=== PATIENT | female | born 1970 | race Caucasian/White ===

== ENCOUNTER 2020-06-13 09:17 | Outpatient (REF) | payer OTHER, SELFPAY ==
--- NOTE | ~2020-06-13 | MM_ITS ---
EXAMINATION: BONE DENSITOMETRY CLINICAL INDICATION: Screening for osteoporosis. COMPARISON: Previous BD dated 06/06/2015 and baseline BD dated 12/30/2007. TECHNIQUE: Using a [employer] DXA System (software version: 13.1) manufactured by [employer], dual-energy x-ray absorptiometry was performed of the lumbar spine and left hip. The images are of good technical quality. Summary results are attached. FINDINGS: AP SPINE L1-L4: Current: BMD 1.108 g/cm2, Z-score -0.2, T-score -0.6, normal, 1.5% increase from previous, 5.4% decrease from baseline (<5% change is not significant). Prior: BMD 1.092 g/cm2. Baseline: BMD 1.171 g/cm2. LEFT FEMUR, NECK: Current: BMD 0.689 g/cm2, Z-score -1.7, T-score -2.5, osteoporosis. Prior: BMD 0.711 g/cm2. Baseline: BMD 0.742 g/cm2. LEFT FEMUR, TOTAL: Current: BMD 0.761 g/cm2, Z-score -1.5, T-score -2.0, osteopenia, 0.4% decrease from previous, 4.8% decrease from baseline (<5% change is not significant). Prior: BMD 0.764 g/cm2. Baseline: BMD 0.799 g/cm2. IDENTIFIED RISK FACTORS: None listed. HISTORY OF FRACTURE: None listed. MEDICATIONS: Vitamin D, calcium, ERT. MM/XR DEXA axial skeleton IMPRESSION: 1. DIAGNOSIS: Osteoporosis based on the lowest T-score value of -2.5 in the femoral neck applying World Health Organization criteria. 2. 10-YEAR FRACTURE RISK PREDICTION, FRAX: Major osteoporotic fracture (clinical spine, forearm, hip or shoulder) 7.4%. Hip fracture 1.6%. 3. Treatment Recommendations: NOF guidelines recommend consideration for treatment in postmenopausal women and men age 50 and older presenting with the following: -A hip or vertebral (clinical or morphometric) fracture. -T-score less than or equal to -2.5 at the femoral neck or spine after appropriate evaluation to exclude secondary causes. -Low bone mass at the hip or spine and a 10-year fracture probability by FRAX of greater than or equal to 3% for hip fracture or greater than or equal to 20% for major osteoporotic fracture based on the [place] adapted WHO algorithm. 4. Other Recommendations: All treatment decisions require clinical judgment and consideration of individual patient factors, including patient preferences, comorbidities, previous drug use, risk factors not captured in the FRAX model (e.g. frailty, falls, vitamin D deficiency, increased bone turnover, interval significant decline in bone density) and possible under or overestimation of fracture risk by FRAX. Additional medical evaluation for secondary cause of low bone mineral density may be appropriate. FUTURE SCAN RECOMMENDATION: People with diagnosed cases of osteoporosis or at high risk for fracture should have regular bone mineral density tests. For patients eligible for Medicare, routine testing is allowed once every 2 years. The testing frequency can be increased to one year for patients who have rapidly progressing disease, those who are receiving or discontinuing medical therapy to restore bone mass, or have additional risk factors.
== END 2020-06-13 09:18 | disposition home or self-care (01) ==
LOC: HO.MAMMO 09:17
PROVIDERS: Visit Provider Family Medicine
DX: Z13.820 Encounter for screening for osteoporosis (principal); M81.0 Age-related osteoporosis without current pathological fracture; Z79.899 Other long term (current) drug therapy
CPT/HCPCS: 77080

== ENCOUNTER 2020-09-12 09:20 | Outpatient (REF) | payer OTHER, SELFPAY ==
--- NOTE | ~2020-09-12 | MM_ITS ---
EXAMINATION: MM SCREENING DIGITAL BREAST TOMOSYNTHESIS, BILATERAL CLINICAL INFORMATION: Screening. Asymptomatic. The lifetime risk of breast cancer based on the Tyrer-Cuzick Model is 17%. COMPARISON: Mammography: 09/08/2019, 09/01/2018, 08/27/2017 TECHNIQUE: Digital breast tomosynthesis is performed in both the craniocaudal and mediolateral oblique views along with computer-aided detection (CAD). Synthesized 2D images are generated from the tomosynthesis. FINDINGS: The breasts are heterogeneously dense, which may obscure small masses (ACR BI-RADS breast composition Category c). There are no significant masses, abnormal calcifications, or other abnormalities. The axilla and skin contours are unremarkable. MM/MM tomosynthesis screening BI IMPRESSION: No mammographic evidence of malignancy. ASSESSMENT: BI-RADS 1: Negative RECOMMENDATION: Routine annual mammography screening. This patient's information was entered into a reminder system with a target due date for their next mammogram.
== END 2020-09-12 09:21 | disposition home or self-care (01) ==
LOC: HO.MAMMO 09:20
PROVIDERS: PCP Family Medicine; Visit Provider Family Medicine
DX: Z12.31 Encounter for screening mammogram for malignant neoplasm of breast (principal)
CPT/HCPCS: 77063; 77067

== ENCOUNTER 2020-09-26 09:25 | Outpatient (REF) | payer OTHER, SELFPAY ==
[2020-09-28 18:06] LABS: HPV mRNA E6/E7 rflx Not Detected (Not Detected)
== END 2020-09-26 09:26 | disposition home or self-care (01) ==
LOC: HO.LAB 09:25
PROVIDERS: PCP Family Medicine; Visit Provider Advanced Practice Midwife
DX: Z01.411 Encounter for gynecological examination (general) (routine) with abnormal findings (principal); Z11.51 Encounter for screening for human papillomavirus (HPV); R87.619 Unspecified abnormal cytological findings in specimens from cervix uteri
CPT/HCPCS: 87624; 88142

== ENCOUNTER 2020-11-06 15:27 | Outpatient (REF) | payer OTHER, SELFPAY ==
[2020-11-08 04:16] LABS: Follicle Stimulating Hormone 62.1 mIU/mL
== END 2020-11-06 15:28 | disposition home or self-care (01) ==
LOC: HO.LAB 15:27
PROVIDERS: PCP Family Medicine; Visit Provider Advanced Practice Midwife
DX: R23.2 Flushing (principal)
CPT/HCPCS: 36415; 83001

== ENCOUNTER → 2020-11-28 09:21 | Outpatient (BNVA) | payer OTHER, SELFPAY | PROVIDERS: Visit Provider Advanced Practice Midwife ==

== ENCOUNTER 2021-09-25 09:25 | Outpatient (REF) | payer OTHER, SELFPAY ==
--- NOTE | ~2021-09-25 | MM_ITS ---
EXAMINATION: MM SCREENING DIGITAL BREAST TOMOSYNTHESIS, BILATERAL CLINICAL INFORMATION: Screening. Asymptomatic. The lifetime risk of breast cancer based on the Tyrer-Cuzick Model is 14%. COMPARISON: Mammography: 09/12/2020, 09/08/2019, 09/01/2018 TECHNIQUE: Digital breast tomosynthesis is performed in both the craniocaudal and mediolateral oblique views along with computer-aided detection (CAD). Synthesized 2D images are generated from the tomosynthesis. FINDINGS: The breasts are heterogeneously dense, which may obscure small masses (ACR BI-RADS breast composition Category c). There are no significant masses, abnormal calcifications, or other abnormalities. Parenchymal pattern is similar to prior studies. There is no developing density or architectural abnormality. The axilla and skin contours are unremarkable. No significant changes. MM/MM tomosynthesis screening BI IMPRESSION: No mammographic evidence of malignancy. ASSESSMENT: BI-RADS 1: Negative RECOMMENDATION: Routine annual mammography screening. This patient's information was entered into a reminder system with a target due date for their next mammogram.
== END 2021-09-25 09:26 | disposition home or self-care (01) ==
LOC: HO.MAMMO 09:25
PROVIDERS: Visit Provider Family Medicine
DX: Z12.31 Encounter for screening mammogram for malignant neoplasm of breast (principal)
CPT/HCPCS: 77063; 77067

== ENCOUNTER 2022-06-16 14:53 | Outpatient (REF) | payer OTHER, SELFPAY ==
--- NOTE | ~2022-06-16 | MM_ITS ---
EXAMINATION: BONE DENSITOMETRY CLINICAL INDICATION: Osteopenia, unspecified location. COMPARISON: Previous BD dated 06/13/2020 and baseline BD dated 12/30/2007. TECHNIQUE: Using a [employer] DXA System (software version: 13.1) manufactured by [employer], dual-energy x-ray absorptiometry was performed of the lumbar spine and left hip. The images are of good technical quality. Summary results are attached. FINDINGS: AP SPINE L1-L4: Current: BMD 0.993 g/cm2, Z-score -0.8, T-score -1.6, osteopenia, 10.4% decrease from previous, 15.2% decrease from baseline (<5% change is not significant). Prior: BMD 1.108 g/cm2. Baseline: BMD 1.171 g/cm2. LEFT FEMUR, NECK: Current: BMD 0.667 g/cm2, Z-score -1.7, T-score -2.7, osteoporosis. Prior: BMD 0.689 g/cm2. Baseline: BMD 0.742 g/cm2. LEFT FEMUR, TOTAL: Current: BMD 0.714 g/cm2, Z-score -1.7, T-score -2.3, osteopenia, 6.2% decrease from previous, 10.6% decrease from baseline (<5% change is not significant). Prior: BMD 0.761 g/cm2. Baseline: BMD 0.799 g/cm2. IDENTIFIED RISK FACTORS: Menopause, osteoporosis. HISTORY OF FRACTURE: None listed. MEDICATIONS: Calcium, vitamin D. MM/XR DEXA axial skeleton IMPRESSION: 1. DIAGNOSIS: Osteoporosis based on the lowest T-score value of -2.7 in the femoral neck applying World Health Organization criteria. 2. 10-YEAR FRACTURE RISK PREDICTION, FRAX: According to the guidelines, FRAX calculation should only be performed on patients in the osteopenia bone density category. Therefore, FRAX was not performed on this patient. 3. Treatment Recommendations: NOF guidelines recommend consideration for treatment in postmenopausal women and men age 50 and older presenting with the following: -A hip or vertebral (clinical or morphometric) fracture. -T-score less than or equal to -2.5 at the femoral neck or spine after appropriate evaluation to exclude secondary causes. -Low bone mass at the hip or spine and a 10-year fracture probability by FRAX of greater than or equal to 3% for hip fracture or greater than or equal to 20% for major osteoporotic fracture based on the [place] adapted WHO algorithm. 4. Other Recommendations: All treatment decisions require clinical judgment and consideration of individual patient factors, including patient preferences, comorbidities, previous drug use, risk factors not captured in the FRAX model (e.g. frailty, falls, vitamin D deficiency, increased bone turnover, interval significant decline in bone density) and possible under or overestimation of fracture risk by FRAX. Additional medical evaluation for secondary cause of low bone mineral density may be appropriate. FUTURE SCAN RECOMMENDATION: People with diagnosed cases of osteoporosis or at high risk for fracture should have regular bone mineral density tests. For patients eligible for Medicare, routine testing is allowed once every 2 years. The testing frequency can be increased to one year for patients who have rapidly progressing disease, those who are receiving or discontinuing medical therapy to restore bone mass, or have additional risk factors.
== END 2022-06-16 14:54 | disposition home or self-care (01) ==
LOC: HO.MAMMO 14:53
PROVIDERS: PCP Family Medicine; Visit Provider Family Medicine
DX: Z13.820 Encounter for screening for osteoporosis (principal); M85.80 Other specified disorders of bone density and structure, unspecified site; Z78.0 Asymptomatic menopausal state
CPT/HCPCS: 77080

== ENCOUNTER 2022-10-02 08:43 | Outpatient (REF) | payer OTHER, SELFPAY | END 2022-10-02 08:44 | disposition home or self-care (01) | LOC: HO.MAMMO 08:43 | PROVIDERS: Absent Provider Advanced Practice Midwife; PCP Family Medicine; Visit Provider Family Medicine | DX: Z12.31 Encounter for screening mammogram for malignant neoplasm of breast (principal) | CPT/HCPCS: 77063; 77067 ==

== ENCOUNTER → 2022-10-02 08:45 | Outpatient (BNV) | payer OTHER, SELFPAY | PROVIDERS: Absent Provider Advanced Practice Midwife; PCP Family Medicine; Visit Provider Radiology Diagnostic Radiology | DX: Z12.31 Encounter for screening mammogram for malignant neoplasm of breast (principal) | CPT/HCPCS: 77063; 77067 ==

== ENCOUNTER 2022-10-23 15:22 | Outpatient (REF) | payer OTHER, SELFPAY ==
[2022-10-28 04:13] LABS: HPV mRNA E6/E7 rflx Not Detected (Not Detected)
== END 2022-10-23 15:23 | disposition home or self-care (01) ==
LOC: HO.LNP 15:22
PROVIDERS: PCP Family Medicine; Visit Provider Advanced Practice Midwife
DX: Z01.419 Encounter for gynecological examination (general) (routine) without abnormal findings (principal); N95.1 Menopausal and female climacteric states
CPT/HCPCS: 87624; 88142

== ENCOUNTER 2022-10-23 15:22 | Outpatient (AMB) | payer OTHER, SELFPAY ==
--- NOTE | 2022-10-23 15:23 | MHC.OFFVIS ---
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 Doing well with no air traffic control supervisor concerns. She attempts to eat a healthy diet including Calcium and Vitamin D. She stays active with exercise. Currently sexually active. Uses lubricants for intimacy. Denies vaginal itching and irritation. Last pap smear 2020. Hx of abnormal pap, ASCUS. Hx of LEEP. Patient is adamant that she wants a pap smear done today. Last mammogram 10/02/22. UTD on colonoscopy. 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 [employer] Sexually active: Yes Sexual orientation: Straight/Heterosexual Gender identity: Female Female Reproductive History Menstrual Age of Menarche: 11 Menopause type: natural Total pregnancies: 1 Number of Living Children: 0 Ab spontaneous: 1 Date of last pap smear: 09/27/20 Date of Mammogram: 10/02/22 Review of Systems Const All systems reviewed & are unremarkable except as noted in HPI and below Physical Exam Vital Signs: Last Vital Signs BP 108/60 10/23/22 15:27 BMI result Body Mass Index 23.0 Const General: cooperative, healthy appearing, no acute distress, well developed and alert Orientation/consciousness: patient oriented x3 HEENT Head: Yes normal to inspection Eyes General: appearance normal, both eyes and all related structures Neck Neck: Yes normal visual inspection Thyroid: Thyroid normal Chest Chest palpation & inspection: normal inspection of the chest Breast/axilla inspection: normal inspection of the breasts (no puckering, dimpling, peau de orange, retraction, discharge, masses) Breast/axilla palpation: normal palpation of the breasts Resp Effort & Inspection: normal respiratory effort GI Inspection: Yes normal to inspection Palpation (GI): Soft to palpation Rectal Exam - Female: deferred General: Yes bladder normal to palpation External Female Exam: normal external appearance and normal appearance of the urethra Speculum Exam - Vagina: normal appearance of the vagina, normal palpation, normal vaginal discharge and vagina atrophic Speculum Exam - Cervix: normal appearance of the cervix (post LEEP appearance) and normal palpation Bimanual exam- vagina & uterus: normal bimanual exam, normal palpation, uterine size normal, bladder normal to palpation and normal palpation Bimanual Exam- Adnexa, other: normal adnexae and no masses Skin General skin exam: no rashes or lesions noted Neuro General: patient oriented x3 Cognition (Neuro): normal cognition Extrem General: Yes normal to inspection Psych Attitude: cooperative Thought process: Normal thought process present Assessment & Plan Assessment & Plan (1) Encounter for annual routine gynecological examination: Code(s): Z01.419 - Encounter for gynecological examination (general) (routine) without abnormal findings Plan: Discussed: Current recommendations for pap smears per ASCCP guidelines. Breast awareness and periodic self breast exams. Encouraged yearly mammograms. Maintaining a healthy lifestyle including a well balanced diet including Calcium and Vitamin D and routine exercise. Contact office with any PMB. All of her questions and concerns were addressed to the best of my ability. RTO in one year for AG. (2) Vaginal dryness, menopausal: Code(s): N95.1 - Menopausal and female climacteric states Plan: Recommended using Replens for moisturizing and lubricants such as Replens, Astroglide, K-Y jelly or Coconut oil for intimacy. Orders: Orders Pap Smear Today Z01.419 - Encounter for gynecological examination (general) (routine) without abnormal findings Coding Level of Care Code Est Pt Prev Care 40-64y(04556) Diagnoses Encounter for annual routine gynecological examination Z01.419 Vaginal dryness, menopausal N95.1
[2022-10-23 15:27] VITALS: BP 108/60; BMI 23.0
== END 2022-10-23 16:17 | disposition home or self-care (01) ==
PROVIDERS: PCP Family Medicine; Visit Provider Advanced Practice Midwife
DX: Z01.419 Encounter for gynecological examination (general) (routine) without abnormal findings (principal); N95.1 Menopausal and female climacteric states
CPT/HCPCS: 99396

== ENCOUNTER 2023-01-22 08:08 | Outpatient (AMB) | payer OTHER, SELFPAY ==
--- NOTE | 2023-01-22 08:18 | MHC.OFFVIS ---
Intake Vital Signs 01/22/23 08:22 Height 5 ft 5 in Weight 136 lb 10.986 oz BMI 22.7 BP 110/66 Intake Visit Reasons: repeat pap Seo Manager Required: No Information Interpreted: non-clinical & clinical Regional Sales Manager: Regional Sales Manager Present (Isabela GILLIS) Accompanied by: Self / Same As Patient Allergies penicillin V Allergy (Unknown, Verified 01/22/23 08:22) rash Latex Allergy (Unknown, Uncoded 01/22/23 08:22) rash/hive Post menopausal: Yes HPI HPI Comments History of Present Illness Details Marybel is here for a repeat Pap smear due to unsatisfactory. She denies any postmenopausal bleeding, vaginal itching, odors, or discomfort. Upset today due to the recent loss of her father. 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 [employer] Sexual orientation: Straight/Heterosexual Gender identity: Female Female Reproductive History Menstrual Age of Menarche: 11 Review of Systems Const All systems reviewed & are unremarkable except as noted in HPI and below Physical Exam Vital Signs: Last Vital Signs BP 110/66 01/22/23 08:22 BMI result Body Mass Index 22.7 Const General: cooperative, healthy appearing and no acute distress Orientation/consciousness: patient oriented x3 GI Inspection: Yes normal to inspection Palpation (GI): Soft to palpation and Other GI palpation findings present (Nontender) Rectal Exam - Female: visual inspection normal General: Yes bladder normal to palpation External Female Exam: normal appearance of the urethra Speculum Exam - Vagina: normal appearance of the vagina, normal palpation, normal vaginal discharge and vagina atrophic Speculum Exam - Cervix: normal appearance of the cervix and normal palpation Bimanual exam- vagina & uterus: normal bimanual exam, normal palpation, uterine size normal, bladder normal to palpation, normal palpation, uterine shape normal and non-tender Bimanual Exam- Adnexa, other: normal adnexae Neuro General: patient oriented x3 Assessment & Plan Assessment & Plan (1) Pap smear of cervix unsatisfactory: Code(s): R87.615 - Unsatisfactory cytologic smear of cervix Plan: Discussed: Repeat Pap done today. Normal changes with aging and atrophic vaginitis condition. It Call if any postmenopausal bleeding. Discussed the grief process. Return to office October 2023 for annual exam or p.r.n.. Orders: Orders Pap Smear Today R87.615 - Unsatisfactory cytologic smear of cervix Coding Level of Care Code Est Pt Level 3 (03784) Diagnoses Pap smear of cervix unsatisfactory R87.615
[2023-01-22 08:22] VITALS: BP 110/66; BMI 22.7
== END 2023-01-22 09:51 | disposition home or self-care (01) ==
PROVIDERS: PCP Family Medicine; Visit Provider Advanced Practice Midwife
DX: R87.615 Unsatisfactory cytologic smear of cervix (principal)
CPT/HCPCS: 99213

== ENCOUNTER 2023-01-22 08:08 | Outpatient (REF) | payer OTHER, SELFPAY | END 2023-01-22 08:09 | disposition home or self-care (01) | LOC: HO.LNP 08:08 | PROVIDERS: PCP Family Medicine; Visit Provider Advanced Practice Midwife | DX: R87.615 Unsatisfactory cytologic smear of cervix (principal); Z12.4 Encounter for screening for malignant neoplasm of cervix | CPT/HCPCS: 88142; 99212 ==

== ENCOUNTER 2023-10-07 09:14 | Outpatient (REF) | payer OTHER, SELFPAY ==
--- NOTE | ~2023-10-07 | MM_ITS ---
EXAMINATION: MM SCREENING DIGITAL BREAST TOMOSYNTHESIS, BILATERAL CLINICAL INFORMATION: Screening. Asymptomatic. COMPARISON: Mammography: 10/02/2022, 09/25/2021, 09/12/2020, and dating back to 2016. TECHNIQUE: Digital breast tomosynthesis is performed in both the craniocaudal and mediolateral oblique views along with computer-aided detection (CAD). Synthesized 2D images are generated from the tomosynthesis. In addition, an added laterally which generated 4 field 3-D CC view was obtained, as well as full field right MLO view. FINDINGS: The breasts are heterogeneously dense, which may obscure small masses (ACR BI-RADS breast composition Category c). There is a focal asymmetry in the upper outer left breast axillary tail region, definitely more conspicuous from prior exams. Recommend diagnostic views to include 3-D spot compression left CC and MLO views, as well as a full field left ML view. This should be followed by targeted left breast ultrasound showed the abnormality persist. No axillary or skin abnormalities in either breast. Otherwise, no additional suspicious findings in the left or right breasts. MM/MM tomosynthesis screening BI IMPRESSION: Focal asymmetry left breast axillary tail for which diagnostic views are recommended, followed by targeted left breast ultrasound if necessary. ASSESSMENT: BI-RADS BI-RADS 0 - Incomplete: Needs additional Imaging. RECOMMENDATION: 1. Additional views of the left breast axillary tail region. 2. Targeted ultrasound if warranted after review of the additional views. 3. Radiology department staff will contact the patient for additional imaging. Additional Imaging required This examination should not preclude the clinical evaluation of a suspicious palpable abnormality. This patient's information was entered into a reminder system with a target due date for their next mammogram. Electronically signed by: Homar Worthington MD 10/07/2023 12:57 PM EDT
== END 2023-10-07 09:15 | disposition home or self-care (01) ==
LOC: HO.MAMMO 09:14
PROVIDERS: PCP Family Medicine; Visit Provider Family Medicine
DX: Z12.31 Encounter for screening mammogram for malignant neoplasm of breast (principal)
CPT/HCPCS: 77063; 77067

== ENCOUNTER → 2023-10-07 09:15 | Outpatient (BNV) | payer OTHER, SELFPAY | PROVIDERS: PCP Family Medicine; Visit Provider Radiology Diagnostic Radiology | DX: Z12.31 Encounter for screening mammogram for malignant neoplasm of breast (principal) | CPT/HCPCS: 77063; 77067 ==

== ENCOUNTER 2023-10-12 10:49 | Outpatient (REF) | payer OTHER, SELFPAY ==
--- NOTE | ~2023-10-12 | US_ITS ---
EXAMINATION: MM DIAGNOSTIC DIGITAL BREAST TOMOSYNTHESIS, LEFT US BREAST LIMITED, LEFT MAMMOGRAPHY: CLINICAL INFORMATION: Diagnostic left examination: Follow-up left breast focal asymmetry upper outer quadrant seen on screening exam. COMPARISON: Mammography: 10/07/2023, 10/02/2022, and exams dating back to 2018. TECHNIQUE: Digital breast tomosynthesis is performed in the following views: Full field 3-D digital left MLO view, as well as 3-D Spot compression left CC and MLO views obtained. Computer-aided diagnosis was used for this study. This was followed by targeted left breast ultrasound Upper-outer quadrant. FINDINGS: The breasts are heterogeneously dense, which may obscure small masses (ACR BI-RADS breast composition Category c). Diagnostic views demonstrate persistence of an irregular spiculated mass in the upper-outer quadrant of the left breast mid to posterior one third, approximately 2:00 axis. There are small microcalcifications contained within the mass. There is desmoplasia present. Estimated size by mammography is 1.2 x 1.2 x 1.0 cm. This will be further characterized with ultrasound. ULTRASOUND: CLINICAL INFORMATION: As above. COMPARISON: Noncontributory. TECHNIQUE: Targeted sonographic evaluation was performed using a high frequency linear transducer. Attention was focused to the left breast upper outer quadrant, as well as the left axilla. Selected archived documentation. FINDINGS: LEFT BREAST: In the 2:00 axis of the left breast, 8 cm from the nipple, there is an irregular hypoechoic mass with poor through transmission, indistinct margins, microlobulations, and does metaplasia with surrounding echogenic fat changes. This has internal color Doppler flow. It measures 1.6 x 1.2 x 1.5 cm on ultrasound. This is a suspicious abnormality and ultrasound-guided biopsy is recommended. Imaging of the left axillary region shows no definitive abnormal lymph nodes. US/US breast LT limited mamm only IMPRESSION: 1. Suspicious mass left breast 2:00 axis, 8 cm from the nipple, as described, measuring 1.6 x 1.2 x 1.5 seen on ultrasound. This is suspicious and ultrasound-guided biopsy is recommended for more definitive characterization. 2. No definite abnormal lymph nodes in the left axillary region. 3. Findings and limitations discussed with the patient in detail. She appeared to be in understanding. OVERALL ASSESSMENT: Mammography: BI-RADS 4 - Suspicious finding Ultrasound: BI-RADS 4 - Suspicious finding RECOMMENDATION: Biopsy recommended Electronically signed by: Homar Worthington MD 10/12/2023 12:14 PM EDT
== END 2023-10-12 10:50 | disposition home or self-care (01) ==
LOC: HO.MAMMO 10:49
PROVIDERS: PCP Family Medicine; Visit Provider Family Medicine
DX: R92.8 Other abnormal and inconclusive findings on diagnostic imaging of breast (principal)
CPT/HCPCS: 76642; 77061; 77065

== ENCOUNTER → 2023-10-12 11:00 | Outpatient (BNV) | payer OTHER, SELFPAY | PROVIDERS: PCP Family Medicine; Visit Provider Radiology Diagnostic Radiology | DX: R92.8 Other abnormal and inconclusive findings on diagnostic imaging of breast (principal) | CPT/HCPCS: 76642; 77061; 77065 ==

== ENCOUNTER 2023-10-14 08:29 | Outpatient (AMB) | payer OTHER, SELFPAY ==
[2023-10-14 08:29] VITALS: BMI 22.7
--- NOTE | 2023-10-14 08:29 | MHC.OFFVIS ---
Vital Signs 10/14/23 08:29 Height 5 ft 5 in Weight 136 lb 10.986 oz BMI 22.7 Intake Visit Reasons: LT BR USBX FOR 2:00 ASYMMETRY Intake Note: This patient presents for left breast Ultrasound guided biopsy for 2:00 asymmetry. Pt c/o; reports no breast complaints at this time. 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: No Accompanied by: Mother Allergies penicillin V Allergy (Unknown, Verified 10/14/23 08:39) rash Latex Allergy (Unknown, Uncoded 10/14/23 08:39) rash/hive Medication List - Last Reconciled 10/14/23 by Corbin Morales MD alendronate 70 mg PO QWEEK calcium-vitamin D3-vitamin K 650 mg-12.5 mcg-40 mcg (Viactiv) tabs PO cetirizine (Zyrtec) 10 mg PO DAILY PRN cholecalciferol (vitamin D3) 50 mcg PO QID magnesium 400 mg PO DAILY mecobalamin (vitamin B12) 5,000 mcg PO DAILY omega-3 fatty acids (Fish Oil Concentrate) 1,000 mg PO DAILY riboflavin (vitamin B2) 400 mg PO DAILY simvastatin 20 mg PO DAILY triamcinolone acetonide 0.5% appl topical HPI HPI LT BR USBX FOR 2:00 ASYMMETRY: Details: 53 year-old female referred for left breast mass. She had undergone screening mammography last week and this showed a focal asymmetry on the left breast. She was brought in for diagnostic ultrasound and mammogram and this showed an irregular spiculated mass in the upper outer quadrant of the left breast at the 2 o'clock position. The estimated size is 1.2 cm in widest dimension. An ultrasound guided biopsy was therefore recommended She denies any palpable mass otherwise. Her menarche was at age of 11. Her 1st was at age of 26 but this was not completed. She only had 1 therefore which was a miscarriage. She had been on control since she was in her 20s but says that she stopped taking this in her early 50s and she did not have any menstrual periods thereafter. She says a paternal aunt had breast cancer but she is uncertain about the age. She had Hodgkin's lymphoma twice her 20s and says that she had radiation to the torso at that time. 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 [employer] Sexual orientation: Straight/Heterosexual Gender identity: Female Female Reproductive History Menstrual Age of Menarche: 11 Total pregnancies: 0 Review of Systems Const Denies chills and Denies fever(s) Card Denies chest pain, Denies dyspnea and Denies dyspnea on exertion Resp Denies cough, Denies dyspnea and Denies dyspnea on exertion GI Denies hematochezia and Denies change in bowel habits Denies hematuria Musc Denies back pain and Denies limited range of motion Neuro Denies focal weakness and Denies convulsions Psych Denies depression and Denies mood swings Physical Exam Vital Signs: BMI result Body Mass Index 22.7 Const General: comfortable and no acute distress Orientation/consciousness: patient oriented x3 Neck Neck: Yes no lymphadenopathy Chest Other: Vague mass the lateral aspect of the left breast, maybe about 1 cm in size, no axillary lymphadenopathy, no nipple or skin changes Resp Auscultation: clear to auscultation bilaterally Cardio Rhythm: regular rhythm GI Palpation (GI): Soft to palpation, nontender and no guarding Neuro General: patient oriented x3 Assessment & Plan Assessment & Plan (1) Left breast mass: Code(s): N63.20 - Unspecified lump in the left breast, unspecified quadrant Category: Medical Plan: She has a left breast mass with spiculation, and microcalcification seen on imaging studies as described above. An ultrasound-guided biopsy has been recommended. I explained to her the technique of this procedure. I will see her again next week to discuss the path report. I also recommended to her to see if they can find out the details about the breast cancer for her paternal aunt so we will know whether she qualifies for genetic testing. Orders: Orders US breast ndl core biopsy LT 10/13/23 N63.20 - Unspecified lump in the left breast, unspecified quadrant Coding Level of Care Code New Pt Level 3 (67679) Diagnoses Left breast mass N63.20
== END 2023-10-14 09:06 | disposition home or self-care (01) ==
PROVIDERS: PCP Family Medicine; Visit Provider Surgery
DX: N63.20 Unspecified lump in the left breast, unspecified quadrant (principal)
CPT/HCPCS: 99203

== ENCOUNTER → 2023-10-14 08:29 | Outpatient (BNVA) | payer OTHER, SELFPAY | PROVIDERS: PCP Family Medicine; Visit Provider Surgery | DX: N63.21 Unspecified lump in the left breast, upper outer quadrant (principal); N64.89 Other specified disorders of breast; R92.0 Mammographic microcalcification found on diagnostic imaging of breast | CPT/HCPCS: 99202 ==

== ENCOUNTER 2023-10-18 07:49 | Outpatient (REF) | payer OTHER, SELFPAY ==
--- NOTE | ~2023-10-18 | MM_ITS ---
PROCEDURE: US GUIDED BREAST BIOPSY, LEFT CLINICAL INFORMATION: Suspicious mass left breast 2:00 axis, 8 cm from the nipple, recommended for biopsy on prior diagnostic mammography and ultrasound. COMPARISON: 10/12/2023 left mammography and ultrasound. 10/07/2023 screening bilateral mammography. PROCEDURAL DETAILS: The details of the procedure, as well as the risks, benefits, and alternatives to the procedure were explained to the patient in detail and all of her questions were answered, after which written informed consent was obtained. Site and side were confirmed. Prior to the procedure, sonography revealed the hypoechoic irregular mass with poor through transmission measuring 1.6 x 1.2 x 1.5 cm at the 2:00 axis left breast, a CM from the nipple. A time-out was performed, the lesion intended for biopsy was targeted, and the skin of the overlying left breast was then marked, prepped and draped in the usual sterile fashion. Using sonographic guidance, sterile technique, and 1% lidocaine without epinephrine for local anesthesia, multiple core biopsies were obtained through the targeted area with a 14G spring loaded Nubityera core biopsy device. There was real-time confirmation of appropriate needle passage. Sampling was documented. At the completion of tissue sampling, a single butterfly shaped metallic clip was deposited at the biopsy site. There was no evidence of immediate complication. SPECIMEN: 4 well formed core samples were obtained DIGITAL POST-PROCEDURE MAMMOGRAPHY: Breast density: The tissue is heterogeneously dense which may obscure small masses. BI-RADS version 5, category C. There are no new mammographic findings demonstrated. The postprocedure 2-view direct digital mammogram reveals satisfactory and accurate positioning of the biopsy clip. No hematoma present. No significant bleeding during the procedure. The patient tolerated the procedure well and, after assuring adequate hemostasis, was discharged in good condition after reviewing postbiopsy breast care instructions. Final pathology results are pending. MM/MM tomosynthesis diagnostic LT IMPRESSION: 1. No immediate complication from ultrasound-guided percutaneous biopsy left breast mass at 2:00 axis, 8 cm from the nipple. 2. Ultrasound was used to localize and guide marker clip placement. 3. The 2-view direct digital postprocedure mammogram reveals accurate positioning of the biopsy clip. 4. Final pathology results are pending. A separate report with final recommendations will be issued once these results are made available. Electronically signed by: Homar Worthington MD 10/18/2023 09:26 AM EDT
[2023-10-18] MEDS: Sodium Bicarbonate 8.4% 50 MEQ/50 ML VIAL SUBCUT (09:19)
[2023-10-18] MEDS: Lidocaine HCl 1 % 20 ML VIAL 8 ML SUBCUT (09:20)
== END 2023-10-18 07:50 | disposition home or self-care (01) ==
LOC: HO.MAMMO 07:49
PROVIDERS: Pathology Anatomic Pathology & Clinical Pathology; PCP Family Medicine; Visit Provider Surgery
DX: C50.412 Malignant neoplasm of upper-outer quadrant of left female breast (principal); R92.8 Other abnormal and inconclusive findings on diagnostic imaging of breast; Z17.0 Estrogen receptor positive status [ER+]
CPT/HCPCS: 19083; 36415; 77061; 77065; 88305; 88360; 88374; A4648; C1894

== ENCOUNTER → 2023-10-18 08:00 | Outpatient (BNV) | payer OTHER, SELFPAY | PROVIDERS: PCP Family Medicine; Visit Provider Radiology Diagnostic Radiology | DX: C50.412 Malignant neoplasm of upper-outer quadrant of left female breast (principal) | CPT/HCPCS: 19083; 77065 ==

== ENCOUNTER 2023-10-21 14:12 | Outpatient (AMB) | payer OTHER, SELFPAY ==
--- NOTE | 2023-10-21 14:16 | MHC.OFFVIS ---
Vital Signs 10/21/23 14:20 Height 5 ft 5 in Weight 136 lb 10.986 oz BMI 22.7 Intake Visit Reasons: s/p LT BR USBX FOR 2:00 ASYMMETRY Intake Note: Patient presents for breast biopsy results. Pt c/o; reports no complaints. Vp Talent Management Required: No Accompanied by: Family/Other Allergies penicillin V Allergy (Unknown, Verified 10/27/23 13:07) rash Latex Allergy (Unknown, Uncoded 10/27/23 13:07) rash/hive Medication List - Last Reconciled 10/21/23 by Corbin Morales MD alendronate 70 mg PO QWEEK calcium-vitamin D3-vitamin K 650 mg-12.5 mcg-40 mcg (Viactiv) tabs PO cetirizine (Zyrtec) 10 mg PO DAILY PRN cholecalciferol (vitamin D3) 50 mcg PO QID magnesium 400 mg PO DAILY mecobalamin (vitamin B12) 5,000 mcg PO DAILY omega-3 fatty acids (Fish Oil Concentrate) 1,000 mg PO DAILY riboflavin (vitamin B2) 400 mg PO DAILY simvastatin 20 mg PO DAILY triamcinolone acetonide 0.5% appl topical HPI HPI s/p LT BR USBX FOR 2:00 ASYMMETRY: Details: 53 year-old female referred for left breast mass. She had undergone screening mammography 2 weeks ago and this showed a focal asymmetry on the left breast. She was brought in for diagnostic ultrasound and mammogram and this showed an irregular spiculated mass in the upper outer quadrant of the left breast at the 2 o'clock position. The estimated size is 1.2 cm in widest dimension. An ultrasound guided biopsy was therefore done last. She is here to discuss the path report. She tolerated the biopsy well and denies any hematoma. She denies any palpable mass otherwise. Her menarche was at age of 11. Her 1st was at age of 26 but this was not completed. She only had 1 therefore which was a miscarriage. She had been on control since she was in her 20s but says that she stopped taking this in her early 50s and she did not have any menstrual periods thereafter. She says a paternal aunt had breast cancer but she is uncertain about the age. She had Hodgkin's lymphoma twice her 20s and says that she had radiation to the torso at that time. [facility] Medical History Invasive ductal carcinoma of left breast Left breast mass Osteoporosis Fibroids HSV infection Abnormal Pap smear of cervix Anxiety and depression Hodgkin's disease Surgical History H/O left inguinal hernia repair H/O LEEP Family History Paternal Grandfather Colon cancer Father Cancer of kidney Diabetes Mother Hyperlipidemia Social History (Updated 10/27/23 @ 13:07 by Nicole Snow) Household Members: Spouse Housing: House Alcohol intake: never Patient Tobacco Use Status: Former Tobacco user Tobacco use type: Cigarette service: No Current occupational status: employed and unemployed 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 [employer] Sexual orientation: Straight/Heterosexual Gender identity: Female Female Reproductive History Menstrual Age of Menarche: 11 Review of Systems Const Denies chills and Denies fever(s) Card Denies chest pain, Denies dyspnea and Denies dyspnea on exertion Resp Denies cough, Denies dyspnea and Denies dyspnea on exertion GI Denies hematochezia and Denies change in bowel habits Denies hematuria Musc Denies back pain and Denies limited range of motion Neuro Denies focal weakness and Denies convulsions Psych Denies depression and Denies mood swings Physical Exam Vital Signs: BMI result Body Mass Index 22.7 Const General: comfortable and no acute distress Orientation/consciousness: patient oriented x3 Neck Neck: Yes no lymphadenopathy Chest Other: Mild ecchymosis on the biopsy site of the left breast Resp Auscultation: clear to auscultation bilaterally Cardio Rhythm: regular rhythm GI Palpation (GI): Soft to palpation, nontender and no guarding Neuro General: patient oriented x3 Assessment & Plan Assessment & Plan (1) Invasive ductal carcinoma of left breast: Code(s): C50.912 - Malignant neoplasm of unspecified site of left female breast Category: Medical Plan: Unfortunately, her ultrasound-guided biopsy shows an invasive ductal carcinoma, ERPR positive, HER2 equivocal. I had a long discussion with her about her options. She has a tumor about 1.6 cm in widest dimension. I explained the option of mastectomy with sentinel biopsy. She understands also the option of breast reconstruction. I also explained the option of proceeding with lumpectomy with sentinel node biopsy as well which should be followed by radiation. I reviewed the risks of both procedures as well as the benefits and alternatives. She understands the risks of bleeding, infection, hematoma formation, additional procedures, flap necrosis. She is uncertain as to what options she would like to go ahead with but she wants to be scheduled for surgery at this time. She says she will call the office once she decides exactly what surgery she wants to proceed with. I have explained to her that we will set her up for a consultation with the oncologist. She had been seeing Dr. Christianson in [place] for her history of lymphoma. She says that she would like to be referred to an oncologist here in [place] as she felt she would be more comfortable with working with a female oncologist. The rest of her treatment will depend on the final pathologic diagnosis including for the lymph nodes. Her family including her and mother with her during the visit. Orders: Referrals Hematology & Oncology Referral C50.912 - Malignant neoplasm of unspecified site of left female breast Coding Level of Care Code Est Pt Level 4 (43717) Diagnoses Invasive ductal carcinoma of left breast C50.912
[2023-10-21 14:20] VITALS: BMI 22.7
== END 2023-10-21 15:18 | disposition home or self-care (01) ==
PROVIDERS: PCP Family Medicine; Visit Provider Surgery
DX: C50.912 Malignant neoplasm of unspecified site of left female breast (principal)
CPT/HCPCS: 99214

== ENCOUNTER → 2023-10-21 14:12 | Outpatient (BNVA) | payer OTHER, SELFPAY | PROVIDERS: PCP Family Medicine; Visit Provider Surgery | DX: C50.912 Malignant neoplasm of unspecified site of left female breast (principal) | CPT/HCPCS: 99212 ==

== ENCOUNTER → 2023-10-27 13:00 | Outpatient (BNV) | payer OTHER, SELFPAY | PROVIDERS: PCP Family Medicine; Referring Provider Surgery; Visit Provider Internal Medicine Medical Oncology | DX: C50.412 Malignant neoplasm of upper-outer quadrant of left female breast (principal) | CPT/HCPCS: 99213; 99214 ==

== ENCOUNTER 2023-11-04 08:58 | Outpatient (AMB) | payer OTHER, SELFPAY ==
[2023-11-04 09:07] VITALS: BP 122/70; BMI 24.1
--- NOTE | 2023-11-04 09:07 | A.OFFVIS_ITS ---
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 She is doing well with concerns: recent breast cancer diagnosis, surgery is booked next week. Attempting to eat a healthy diet with calcium and vitamin D and stays active with exercise. Currently sexually active. Admits to some dryness. Last pap smear; 2022. History of LEEP. Colonoscopy is UTD. Family history of breast and colon cancer. [facility] Medical History Invasive ductal carcinoma of left breast Left breast mass Osteoporosis Fibroids HSV infection Abnormal Pap smear of cervix Anxiety and depression Hodgkin's disease Surgical History H/O left inguinal hernia repair H/O LEEP Family History Paternal Grandfather Colon cancer Father Cancer of kidney Diabetes Mother Hyperlipidemia Social History Household Members: Spouse Housing: House Alcohol intake: never Patient Tobacco Use Status: Former Tobacco user Tobacco use type: Cigarette service: No Current occupational status: employed and unemployed 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 [employer] Sexual orientation: Straight/Heterosexual Gender identity: Female Female Reproductive History Menstrual Age of Menarche: 11 control method: none Total pregnancies: 0 Date of last pap smear: 01/22/23 (neg.) History of abnormal pap smear: Yes Date of Mammogram: 10/17/22 Review of Systems Const All systems reviewed & are unremarkable except as noted in HPI and below Reports as per HPI Eyes Reports no additional complaints ENT Reports no additional complaints Card Reports no additional complaints Resp Reports no additional complaints GI Reports as per HPI and Reports no additional complaints Reports as per HPI Musc Reports no additional complaints Skin/Breast Reports as per HPI Neuro Reports no additional complaints Psych Reports no additional complaints Endo Reports no additional complaints Cedrick/Lymph Reports no additional complaints Aller/Immun Reports no additional complaints Physical Exam Vital Signs: Last Vital Signs BP 122/70 11/04/23 09:07 BMI result Body Mass Index 24.1 Const General: cooperative, healthy appearing, no acute distress, well developed and alert Orientation/consciousness: patient oriented x3 HEENT Head: Yes normal to inspection Eyes General: appearance normal, both eyes and all related structures Neck Neck: Yes normal visual inspection Thyroid: Thyroid normal Chest Chest palpation & inspection: normal inspection of the chest and other (no puckering, dimpling, peau de orange, retraction, discharge, masses) Breast/axilla inspection: normal inspection of the breasts Breast/axilla palpation: normal palpation of the breasts Resp Effort & Inspection: normal respiratory effort GI Inspection: Yes normal to inspection Palpation (GI): Soft to palpation Rectal Exam - Female: deferred General: Yes bladder normal to palpation External Female Exam: normal external appearance and normal appearance of the urethra Speculum Exam - Vagina: normal appearance of the vagina, normal palpation, normal vaginal discharge and vagina atrophic Speculum Exam - Cervix: normal appearance of the cervix and normal palpation Bimanual exam- vagina & uterus: normal bimanual exam, normal palpation, uterine size normal, bladder normal to palpation, normal palpation and non-tender Bimanual Exam- Adnexa, other: no masses Skin General skin exam: no rashes or lesions noted Rashes: no rashes Neuro General: patient oriented x3 Cognition (Neuro): normal cognition Extrem General: Yes normal to inspection Psych Attitude: cooperative Thought process: Normal thought process present Assessment & Plan Assessment & Plan (1) Encounter for well woman exam with routine gynecological exam: Code(s): Z01.419 - Encounter for gynecological examination (general) (routine) without abnormal findings Category: Medical Plan Discussed: Current recommendations for pap smears per ASCCP guidelines. Follow up breast health with surgeon. Maintain a healthy lifestyle, well balanced diet including Calcium 1,200 mg and Vitamin D 600 IU daily, and routine exercise. Contact the office with any postmenopausal bleeding. Replens moisturizer reviewed and use of lubricants if needed, advised hormones are contraindicated with breast cancer. Patient verbalizes understanding and agrees to the plan of care. She was given opportunity to ask questions and all questions were answered to the best of my ability. RTO in 1 year for annual rn chemical dependency exam. This note is constructed using voice recognition software. While every effort has been made to ensure accuracy, auto machinist errors may have been included. Coding Level of Care Code Est Pt Prev Care 40-64y(42594) Diagnoses Encounter for well woman exam with routine gynecological exam Z01.419
== END 2023-11-04 09:54 | disposition home or self-care (01) ==
LOC: HO.HWS 08:58
PROVIDERS: PCP Family Medicine; Visit Provider Advanced Practice Midwife
DX: Z01.419 Encounter for gynecological examination (general) (routine) without abnormal findings (principal)
CPT/HCPCS: 99396

== ENCOUNTER → 2023-11-04 08:58 | Outpatient (BNVA) | payer OTHER, SELFPAY | PROVIDERS: PCP Family Medicine; Visit Provider Advanced Practice Midwife | DX: Z01.419 Encounter for gynecological examination (general) (routine) without abnormal findings (principal); C50.412 Malignant neoplasm of upper-outer quadrant of left female breast | CPT/HCPCS: 99212; 99396 ==

== ENCOUNTER 2023-11-04 12:58 | Outpatient (AMB) | payer OTHER, SELFPAY ==
--- NOTE | 2023-11-04 13:00 | MHC.OFFVIS ---
Vital Signs 11/04/23 13:02 Height 5 ft 5 in Weight 145 lb 0.004 oz BMI 24.1 Intake Visit Reasons: re-discuss surgery Intake Note: re-discuss surgery. Pt c/o; reports no new complaints. 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 Accompanied by: Other Relationship Allergies penicillin V Allergy (Unknown, Verified 11/04/23 13:03) rash Latex Allergy (Unknown, Uncoded 11/04/23 13:03) rash/hive Medication List - Last Reconciled 11/08/23 by Corbin Morales MD alendronate 70 mg PO QWEEK calcium-vitamin D3-vitamin K 650 mg-12.5 mcg-40 mcg (Viactiv) 650 tabs PO DAILY cetirizine (Zyrtec) 10 mg PO DAILY PRN cholecalciferol (vitamin D3) 50 mcg PO QID magnesium 400 mg PO DAILY mecobalamin (vitamin B12) 5,000 mcg PO DAILY omega-3 fatty acids (Fish Oil Concentrate) 1,000 mg PO DAILY riboflavin (vitamin B2) 400 mg PO DAILY simvastatin 20 mg PO DAILY simvastatin 20 mg PO DAILY triamcinolone acetonide 0.5% 0.5 appl topical DAILY HPI HPI re-discuss surgery: Details: 3 year-old female referred for left breast mass. She had undergone screening mammography 2 weeks ago and this showed a focal asymmetry on the left breast. She was brought in for diagnostic ultrasound and mammogram and this showed an irregular spiculated mass in the upper outer quadrant of the left breast at the 2 o'clock position. The estimated size is 1.2 cm in widest dimension. An ultrasound guided biopsy was therefore done last. She is here to discuss the path report. She tolerated the biopsy well and denies any hematoma. She denies any palpable mass otherwise. Her menarche was at age of 11. Her 1st was at age of 26 but this was not completed. She only had 1 therefore which was a miscarriage. She had been on control since she was in her 20s but says that she stopped taking this in her early 50s and she did not have any menstrual periods thereafter. She says a paternal aunt had breast cancer but she is uncertain about the age. She had Hodgkin's lymphoma twice her 20s and says that she had radiation to the torso at that time. Since I saw her earlier in the month, she had decided to proceed with mastectomy with sentinel biopsy after talking to the oncologist. She is here to review the procedure again. [facility], [facility] Medical History Invasive ductal carcinoma of left breast Left breast mass Osteoporosis Fibroids HSV infection Abnormal Pap smear of cervix Anxiety and depression Hodgkin's disease Surgical History H/O left inguinal hernia repair H/O LEEP Family History Paternal Grandfather Colon cancer Father Cancer of kidney Diabetes Mother Hyperlipidemia Social History Household Members: Spouse Housing: House Alcohol intake: never Patient Tobacco Use Status: Former Tobacco user Tobacco use type: Cigarette service: No Current occupational status: employed and unemployed 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 [employer] Sexual orientation: Straight/Heterosexual Gender identity: Female Female Reproductive History Menstrual Age of Menarche: 11 Review of Systems Const Denies chills and Denies fever(s) Card Denies chest pain, Denies dyspnea and Denies dyspnea on exertion Resp Denies cough, Denies dyspnea and Denies dyspnea on exertion GI Denies hematochezia and Denies change in bowel habits Denies hematuria Musc Denies back pain and Denies limited range of motion Neuro Denies focal weakness and Denies convulsions Psych Denies depression and Denies mood swings Physical Exam Vital Signs: BMI result Body Mass Index 24.1 Const General: comfortable and no acute distress Orientation/consciousness: patient oriented x3 Neck Neck: Yes no lymphadenopathy Chest Other: No obvious palpable breast masses, no axillary lymphadenopathy, no nipple or skin changes Resp Auscultation: clear to auscultation bilaterally Cardio Rhythm: regular rhythm GI Palpation (GI): Soft to palpation, nontender and no guarding Neuro General: patient oriented x3 Assessment & Plan Assessment & Plan (1) Invasive ductal carcinoma of left breast: Code(s): C50.912 - Malignant neoplasm of unspecified site of left female breast Category: Medical Plan: She has decided to proceed with left breast mastectomy with sentinel biopsy. I reviewed with her the technique of this procedure. I explained the risks including but not limited to bleeding, infections, flat necrosis, injury to the axilla, hematoma, blood clots, pneumonia, as well as the benefits and alternatives. I reviewed with her what to expect postoperatively. She understands that she will stay overnight in the hospital for pain control. She will likely have a regional block for the mastectomy. She was already met with the oncologist. The rest of her treatment from then on we will depend on the final path report Her mother was with her during the visit. Coding Level of Care Code Est Pt Level 4 (69920) Diagnoses Invasive ductal carcinoma of left breast C50.912
[2023-11-04 13:02] VITALS: BMI 24.1
== END 2023-11-04 13:31 | disposition home or self-care (01) ==
PROVIDERS: PCP Family Medicine; Visit Provider Surgery
DX: C50.912 Malignant neoplasm of unspecified site of left female breast (principal)
CPT/HCPCS: 99214

== ENCOUNTER 2023-11-10 10:01 | Day surgery (SDC) | payer OTHER, SELFPAY ==
--- NOTE | 2023-11-08 15:42 | HO.ANESPROP2 ---
Documented by User: Mona Monsalve NP 11/08/23 15:43 HPI - Anesthesia Eval Consult details Narrative: 53yo F for Left Mastectomy Simple, [place] Node Biopsy PMFSH Active Problems Active Problems: All Active Problems Encounter for well woman exam with routine gynecological exam (Acute) Invasive ductal carcinoma of left breast (Acute) Left breast mass (Acute) Hot flashes (Acute) Encounter to discuss test results (Acute) Abnormal Pap smear of cervix (Acute) Encounter for annual routine gynecological examination (Acute) Past Medical History Medical History Invasive ductal carcinoma of left breast Left breast mass Osteoporosis Fibroids HSV infection Abnormal Pap smear of cervix Anxiety and depression Hodgkin's disease Family History Family History Paternal Grandfather Colon cancer Father Cancer of kidney Diabetes Mother Hyperlipidemia Surgical History Surgical History H/O left inguinal hernia repair H/O LEEP Social History Social History Household Members: Spouse Housing: House Are you a primary care coordination manager to a significant other at home: No Do you presently have visiting nurse or other home services: No Alcohol intake: never Patient Tobacco Use Status: Former Tobacco user Tobacco use type: Cigarette Use of substances other than those prescribed or required for medical reasons: No Have you been hit, kicked, punched, or otherwise hurt by someone within the past year? 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 [employer] Sexual orientation: Straight/Heterosexual Gender identity: Female Meds Allergies Allergy/AdvReac Type Severity Reaction Status Date / Time penicillin V Allergy Unknown rash Verified 11/10/23 10:47 Latex Allergy Unknown rash/hive Uncoded 11/04/23 13:03 Home Medications ?Medication ?Instructions ?Recorded ?Confirmed ?Last Taken ?Type cholecalciferol (vitamin D3) 50 50 mcg PO QID 09/26/20 11/10/23 11/09/23 History mcg (2,000 unit) capsule mecobalamin (vitamin B12) 5,000 5,000 mcg PO DAILY 09/26/20 11/10/23 11/09/23 History mcg lozenge omega-3 fatty acids 1,000 mg 1,000 mg PO DAILY 09/26/20 11/10/23 Unknown History capsule (Fish Oil Concentrate) magnesium 200 mg tablet 400 mg PO DAILY 11/28/20 11/10/23 11/09/23 History calcium 650 mg-vitamin D3 12.5 650 tab PO DAILY 10/02/21 11/10/23 11/09/23 History mcg-vitamin K 40 mcg chewable tablet (Viactiv) cetirizine 10 mg tablet (Zyrtec) 10 mg PO DAILY PRN prn 10/02/21 11/10/23 11/09/23 History riboflavin (vitamin B2) 400 mg 400 mg PO DAILY 10/02/21 11/10/23 11/09/23 History tablet alendronate 70 mg tablet 70 mg PO QWEEK 10/23/22 11/10/23 11/09/23 History triamcinolone acetonide 0.5 % 0.5 appl topical DAILY 10/23/22 11/10/23 11/09/23 History topical cream simvastatin 20 mg tablet 20 mg PO DAILY 10/27/23 11/10/23 11/09/23 History Exam Pertinent Lab Results Pertinent Lab Results: Laboratory Tests 10/27/23 14:06 WBC 6.9 Hgb 13.5 Hct 40.4 Plt Count 294 Sodium 140 Potassium 4.0 Chloride 104 Carbon Dioxide 30 H BUN 30 H Creatinine 0.83 Documented by User: Josefina Mejía MD 11/10/23 13:39 [facility] Past Medical History Medical History Invasive ductal carcinoma of left breast Left breast mass Osteoporosis Fibroids HSV infection Abnormal Pap smear of cervix Anxiety and depression Hodgkin's disease Family History Family History Paternal Grandfather Colon cancer Father Cancer of kidney Diabetes Mother Hyperlipidemia Surgical History Surgical History H/O left inguinal hernia repair H/O LEEP History of Problems with Anesthesia: No Social History Social History Household Members: Spouse Housing: House Are you a primary care coordination manager to a significant other at home: No Do you presently have visiting nurse or other home services: No Alcohol intake: never Patient Tobacco Use Status: Former Tobacco user Tobacco use type: Cigarette Use of substances other than those prescribed or required for medical reasons: No Have you been hit, kicked, punched, or otherwise hurt by someone within the past year? 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 [employer] Sexual orientation: Straight/Heterosexual Gender identity: Female Meds Allergies Allergy/AdvReac Type Severity Reaction Status Date / Time penicillin V Allergy Unknown rash Verified 11/10/23 10:47 Latex Allergy Unknown rash/hive Uncoded 11/04/23 13:03 Home Medications ?Medication ?Instructions ?Recorded ?Confirmed ?Last Taken ?Type cholecalciferol (vitamin D3) 50 50 mcg PO QID 09/26/20 11/10/23 11/09/23 History mcg (2,000 unit) capsule mecobalamin (vitamin B12) 5,000 5,000 mcg PO DAILY 09/26/20 11/10/23 11/09/23 History mcg lozenge omega-3 fatty acids 1,000 mg 1,000 mg PO DAILY 09/26/20 11/10/23 Unknown History capsule (Fish Oil Concentrate) magnesium 200 mg tablet 400 mg PO DAILY 11/28/20 11/10/23 11/09/23 History calcium 650 mg-vitamin D3 12.5 650 tab PO DAILY 10/02/21 11/10/23 11/09/23 History mcg-vitamin K 40 mcg chewable tablet (Viactiv) cetirizine 10 mg tablet (Zyrtec) 10 mg PO DAILY PRN prn 10/02/21 11/10/23 11/09/23 History riboflavin (vitamin B2) 400 mg 400 mg PO DAILY 10/02/21 11/10/23 11/09/23 History tablet alendronate 70 mg tablet 70 mg PO QWEEK 10/23/22 11/10/23 11/09/23 History triamcinolone acetonide 0.5 % 0.5 appl topical DAILY 10/23/22 11/10/23 11/09/23 History topical cream simvastatin 20 mg tablet 20 mg PO DAILY 10/27/23 11/10/23 11/09/23 History Exam Airway Mallampati Class: III TM Dist: >3cm Neck ROM: Full Loose/Missing/Broken Teeth: No Heart: RRR Lungs: CTA Assessment and Plan Assessment Anesthesia Assessment: Anesthesia Plan Discussed and Chart Reviewed Final Anesthetic Review History of Problems with Anesthesia: No NPO: Yes ASA Class: II Final Preanesthetic Review: Meds/Allgs Chart Reviewed, Consent Obtained/Reviewed and Anes Risks/Benef Reviewed Patient Risk: Low Procedure Risk: Low Anesthetic Plan Anesthetic Plan: GA Disposition: Standard PACU
[2023-11-10] VITALS (8 sets, daily range): BP systolic 124–146; BP diastolic 73–89; PULSE 96–109; RESP 14–20; TEMP 36.3–36.8; O2SAT 95–100; BMI 24.5; BMI 24.2
--- NOTE | ~2023-11-10 | NM_ITS ---
EXAMINATION: NM LYMPHOSCINTIGRAPHY CLINICAL INFORMATION: Left breast 2:00 invasive ductal carcinoma, grade 3. COMPARISON: -Ultrasound-guided needle core biopsy 10/18/2023. -10/12/2023 left mammography and ultrasound. 10/07/2023 screening bilateral mammography. TECHNIQUE: Left breast lymphoscintigraphy injection was performed . Approximately 0.5 mCi of technetium 99m lymphoseek and 0.8 mL of saline was divided into 4 aliquots of approximately 0.125 mCi, and injected intradermally in 4 quadrants around the left breast areola intradermally at 12:00, 3:00, 6:00, and 9:00. Immediate images and delayed images were obtained in AP, oblique and lateral views 25 minutes later. FINDINGS: There is isotope activity in four-quadrant around left breast areola following injection. There are at least 3 areas of isotope activity along the left mid and upper suggestive of multiple lymph nodes. NM/NM sentinel node w imaging IMPRESSION: -Several small lymph nodes seen in left mid and upper axilla on left breast lymphoscintigraphy. Thank you for the courtesy of your referral. Electronically signed by: Homar Worthington MD 11/10/2023 01:18 PM EDT
[2023-11-10] MEDS: Lidocaine 4 % Cream KIT 1 APPL TOPICAL (10:30)
[2023-11-10] MEDS: Lactated Ringers 1,000 ML 100 ML IVCONT (11:00)
--- NOTE | 2023-11-10 12:16 | MHC.SHP ---
Pre-Procedural Eval Section A - 24 Hr Update-Section A only Date of Service: 11/10/23 The patient is an INPATIENT: No Changes since office visit: No Cold of Flu in the past 2 weeks, No New Medical Problems, No Changes in Medication and No Patient answered all questions The patient has been examined within 24 hours of the surgical procedure. The History & Physical has been completed within 30 days and I have reviewed it.: Yes Section B - Complete if H&P > 30 days Chief Complaint: Malignant neoplasm of unspecified site of left Allergies: Allergies Allergy/AdvReac Type Severity Reaction Status Date / Time penicillin V Allergy Unknown rash Verified 11/10/23 10:47 Latex Allergy Unknown rash/hive Uncoded 11/04/23 13:03 Plan I have reviewed the history and physical and performed a pertinent physical examination on my patient. No changes have occurred unless specified. Time Spent With Patient Time: Total time managing care of this patient today ____ minutes.
--- NOTE | 2023-11-10 16:27 | W.PM.OPN ---
Operative Note Operative Note Date of Service: 11/10/23 Narrative: Preop diagnosis: Invasive ductal cancer, left breast Postop diagnosis: The same Procedure: Left total mastectomy, sentinel biopsy Surgeon: Corbin Morales MD coding assistant: JADA Mehta The patient is a 53 year female with a recent diagnosis of invasive ductal carcinoma of the left breast. She opted to proceed with a full mastectomy in view of her previous radiation to her chest for lymphoma. She understood the technique of the planned procedure as well as the risks, benefits, and alternatives. She was brought to the operating room and placed supine under general anesthesia via laryngeal mask airway. A pectoralis block was done by the anesthesiologist The left breast and axilla were prepped and draped in the usual sterile fashion. A surgical time-out was done. The patient received cefazolin 2 g IV preoperatively I marked my planned line of incision around the nipple-areolar complex . I made the incision using a blade 15. This was carried down through the full-thickness of the skin subcutaneous fat. We then proceeded to develop our superior flap using electrocautery. We maintained consistency of the thickness of about [address] to the level of the clavicle which was the superior limit of our dissection. I carried down the dissection through the pectoralis fascia and the medial limit of our dissection was the sternum. I then proceeded to develop the inferior flap. Again, we used electrocautery to create the inferior flap all the way to the inframammary crease. We maintained thickness of the flap at around 5 mm to include the full-thickness of the skin and subcutaneous layer. I then proceeded to carry down the dissection to the pectoralis fascia inferiorly as well. I opened up the pectoralis fascia and created a plane of dissection between the pectoralis fascia and the pectoralis muscle itself. I proceeded to separate the entire breast tissue along with the pectoralis fascia along this well-defined plane of dissection using combination of blunt dissection with finger and electrocautery. I continued to dissect along this well-defined plane of dissection being from medially at the level of the sternum, superiorly at the level of the clavicle and we proceeded to gently dissect laterally until we were able to reach the edge of the pectoralis was became the limit of our lateral dissection I continued to separate the entire breast tissue from the pectoralis and connected this with our dissection from the inferior margin until the entire breast tissue was and sent as a specimen We did careful cauterization of oozing areas to ensure hemostasis on perforating vessels. We observed for a few minutes. Once hemostasis was confirmed, I proceeded to then do the sentinel node biopsy. I entered the axillary fat pad by gently dissecting to the clavipectoral fascia. I then used the gamma probe to identify high counts on the axilla. We were able to identify 3 sentinel nodes. [place] node 1 had a count of 1,340. [place] node 2 had a count of 208. [place] node 3 had a count of 307. These were sent for pathology. We then proceeded to examine the axilla as well as the chest for hemostasis. We then proceeded to position the MARIA M drains. We positioned 1 drain under the inferior flap and 1 drain under the superior flap. These were both brought out through small stab incisions in the lateral aspect of the inferior margin and were secured to the skin with nylon 3-0 sutures. We then we observed for hemostasis. Hemostasis was confirmed and after prolonged observation, I proceeded to then reappose the subdermal layers with Polysorb 3-0 simple interrupted sutures. Skin closure was achieved with Polysorb 4-0 subcuticular running sutures. Steri-Strips and dressings were applied. The procedure was completed. The patient tolerated the procedure well. There were no immediate complications. Initial and final counts of sponges and instruments were correct. Estimated blood loss was about 40 cc. The patient was extubated without difficulty and transferred to the recovery room with stable vital signs. Breast [place] Node Biopsy Substrate(s) used for sentinel node biopsy in the non-neoadjuvant setting: Radiotracer Substrate(s) used for sentinel node biopsy in the neoadjuvant setting: N/A All colored nodes or non-colored nodes present at the end of a dye filled lymphatic channel were removed, if dye was used as the substrate for localization: N/A All significantly radioactive nodes were removed, if radionuclide was used as the substrate for localization: Yes All palpably suspicious nodes were removed, if present: N/A If clips were placed in pathology-involved nodes, those nodes were identified and removed: N/A General Surg. - Synoptic Notes Breast [place] Node Biopsy Substrate(s) used for sentinel node biopsy in the non-neoadjuvant setting: Radiotracer Substrate(s) used for sentinel node biopsy in the neoadjuvant setting: N/A All colored nodes or non-colored nodes present at the end of a dye filled lymphatic channel were removed, if dye was used as the substrate for localization: N/A All significantly radioactive nodes were removed, if radionuclide was used as the substrate for localization: Yes All palpably suspicious nodes were removed, if present: N/A If clips were placed in pathology-involved nodes, those nodes were identified and removed: N/A
--- NOTE | 2023-11-10 16:49 | PM.EVENT ---
Event Note Date of Service: 11/10/23 Event Note: seen postop s/p mastectomy, SLN biopsy,left appears comfortable with adequate pain control had a pectoralis block stable VS MARIA M drains - scanty dark blood pain mgt mom updated Time Spent With Patient Time: Total time managing care of this patient today ____ minutes.
[2023-11-10] MEDS: Lactated Ringers 1,000 ML 60 ML IVCONT (18:05)
[2023-11-11] VITALS (13 sets, daily range): BP systolic 80–125; BP diastolic 34–64; PULSE 86–113; RESP 12–18; TEMP 36.6–37.6; O2SAT 96–100
[2023-11-11] MEDS: Lactated Ringers 1,000 ML 999 ML IV (05:50)
--- NOTE | 2023-11-11 05:55 | PC.NURSE ---
patients BP running low at 97/63 repeat was 80/56 both manually. HR 108, patient asymptomatic, MARIA M drain #1 output 125cc & #[address] Morales notified ordered 1000cc LR x1, will continue to monitor
[2023-11-11] MEDS: Lactated Ringers 1,000 ML 60 ML IVCONT (06:52)
--- NOTE | 2023-11-11 06:57 | PC.NURSE ---
patients BP 105/57 after 1000cc bolus of LR
--- NOTE | 2023-11-11 07:00 | HO.STUDENTPN ---
Subjective Subjective Date of Service: 11/11/23 <Sabrina Membreno - Last Filed: 11/11/23 07:13> 11/11/23 <Quynh Mehta PA-C - Last Filed: 11/11/23 07:45> 11/11/23 <Corbin Morales MD - Last Filed: 11/11/23 08:22> Interval History: Ms. Rodriguez is a 53 year old female POD1 from left mastectomy due to invasive ductal carcinoma of left breast. She reports that she is doing, stating that she has minimal pain . Reports that left axilla is still numb but has intact range of motion. She has been increasing an increase in urination, states that she usually does not urinate every hour. Denies bowel movement, reports that she usually does not have a bowel movement daily. Reports (+) flatus. Denies abdominal pain. Reports episode of lightheadedness and near syncope while ambulating to restroom. Admits that she did not use call lopez and attempted to ambulate by herself. She has no other concerns at this time. She has intact appetite, reports eating full dinner yesterday. <Sabrina Membreno - Last Filed: 11/11/23 07:13> Review of Systems All systems reviewed and negative except for as stated in HPI. <Sabrina Membreno - Last Filed: 11/11/23 07:13> Physical Exam Vital Signs: Vital Signs: Last Vital Signs Temp 98.0 F 11/11/23 04:00 Pulse 108 H 11/11/23 04:00 Resp 18 11/11/23 04:00 BP 105/57 L 11/11/23 06:56 Pulse Ox 97 11/11/23 04:00 O2 Del Method Room Air 11/11/23 04:00 BMI result Body Mass Index 24.2 <Sabrina Membreno - Last Filed: 11/11/23 07:13> Const: General: cooperative, comfortable, no acute distress, alert, awake and Physically active <Sabrina Membreno - Last Filed: 11/11/23 07:13> HEENT: Head: Yes normal to inspection and Yes normocephalic <Sabrina Membreno - Last Filed: 11/11/23 07:13> Mouth: Normal oral and palatal mucosa present <[facility] - Last Filed: 11/11/23 07:13> Eyes: General: appearance normal, both eyes and all related structures <[facility] - Last Filed: 11/11/23 07:13> Visual Potter: normal visual potter by confrontation <[facility] - Last Filed: 11/11/23 07:13> Neck: Neck: Yes normal visual inspection and Yes no JVD <[facility] - Last Filed: 11/11/23 07:13> Chest: Other: Dressing applied to incision site from left mastectomy. No surrounding erythema, warm, or swelling. Steris intact with two suction bulb drains, both with minimal sanguinous output <[facility] - Last Filed: 11/11/23 07:13> Resp: Effort & Inspection: normal respiratory effort and able to speak in complete sentences <[facility] - Last Filed: 11/11/23 07:13> Auscultation: clear to auscultation bilaterally <[facility] - Last Filed: 11/11/23 07:13> Cardio: Jugular venous distension: no JVD <[facility] - Last Filed: 11/11/23 07:13> Palpation: normal PMI <[facility] - Last Filed: 11/11/23 07:13> Rate: regular rate <[facility] - Last Filed: 11/11/23 07:13> Rhythm: regular rhythm <[facility] - Last Filed: 11/11/23 07:13> Heart sounds: S1 normal heart sound present and S2 normal heart sound present <[facility] - Last Filed: 11/11/23 07:13> GI: Other: Mild distention with mild hyperresonance to tympani <[facility] - Last Filed: 11/11/23 07:13> Inspection: Yes normal to inspection <[facility] - Last Filed: 11/11/23 07:13> Palpation (GI): no guarding and not rigid <[facility] - Last Filed: 11/11/23 07:13> Auscultation: normal bowel sounds <Sabrina Frio - Last Filed: 11/11/23 07:13> Objective Data Active Medications Acetaminophen (Acetaminophen 325 Mg Tablet) 650 mg PO Q6H PRN PRN Reason: Pain, Mild (Pain Scale 1-3), fever or headache Atorvastatin Calcium (Atorvastatin Calcium 10 Mg Tablet) 10 mg PO DAILY [facility] Calcium Carbonate (Calcium Carbonate 750 Mg Tab.Chew) 750 mg PO Q4H PRN PRN Reason: Heartburn Heparin Sodium (Porcine) (Heparin Sodium,Porcine 5,000 Unit/Ml Vial) 5,000 unit SUBCUT Q12H [facility] Lactated Ringer's (Lr) 1,000 mls @ 100 mls/hr IVCONT .Q10H [facility] Last Infusion: 11/10/23 18:04 Dose: Infused Documented By: DAVID Lactated Ringer's (Lr) 1,000 mls @ 60 mls/hr IVCONT .[id number] [facility] Last Admin: 11/11/23 06:52 Dose: 60 mls/hr Documented By: BLADIMIR Ibuprofen (Ibuprofen 600 Mg Tablet) 600 mg PO Q6H PRN PRN Reason: Pain, Moderate(Pain Scale 4-6) Loratadine (Loratadine 10 Mg Tablet) 10 mg PO DAILY PRN PRN Reason: prn Magnesium Hydroxide (Milk Of Magnesia 30 Ml Oral.Susp) 30 ml PO DAILY PRN PRN Reason: Constipation Melatonin (Melatonin 3 Mg Tablet) 6 mg PO BEDTIME PRN PRN Reason: Insomnia Morphine Sulfate (Morphine Sulfate 2 Mg/Ml Cartridge) 2 mg IVPUSH Q3H PRN; Protocol PRN Reason: Pain, Severe (Pain Scale 7-10) Naloxone HCl (Naloxone Hcl 0.4 Mg/Ml Vial) 0.04 mg IVPUSH Q5M PRN PRN Reason: Excessive sedation or RR < 8 Naloxone HCl (Naloxone Hcl 0.4 Mg/Ml Vial) 0.04 mg IVPUSH Q5M PRN PRN Reason: Excessive sedation or RR < 8 Oxycodone HCl (Oxycodone Hcl Immed Release 5 Mg Tablet) 10 mg PO Q4H PRN PRN Reason: Pain, Moderate(Pain Scale 4-6) Sodium Chloride (0.9 % Sodium Chloride Flush 3 Ml Syringe) 3 ml IVFLUSH QSHIFT [facility] Last Admin: 11/10/23 23:57 Dose: Not Given Documented By: SARITHA Non-Admin Reason: IV Running <Sabrina Frio - Last Filed: 11/11/23 07:13> Labs Labs: Laboratory Results - last 24 hr 11/10/23 11:00 Blood Type O Positive Antibody Screen NEGATIVE <Sabrina Frio - Last Filed: 11/11/23 07:13> Assessment and Plan (1) Invasive ductal carcinoma of left breast: Status: Acute <Sabrina Frio - Last Filed: 11/11/23 07:13> Assessment and Plan: Had an episode of near-syncope and soft blood pressures early this morning Looks comfortable otherwise Says she feels well at this time However note of a hematoma on the Mastectomy site I explained to her it is best to the evacuate the hematoma under anesthesia and check for any active bleeder I reviewed with her the technique of this procedure I explained the risks, benefits, and alternatives I discussed this with her The patient has given consent <Corbin Morales MD - Last Filed: 11/11/23 08:22> (2) S/P left mastectomy: Status: Acute <Sabrinajosé antonio Membreno - Last Filed: 11/11/23 07:13> Assessment and Plan: Ms. Rodriguez is a 53 year old female POD1 from left mastectomy due to invasive ductal carcinoma of left breast. Reports minimal pain at this time with intact appetite. No bowel movement yet, + flatus and bowel sounds x4. Reports episode of near syncope due to attempting to ambulate by herself, acknowledges that she will utilize call lopez when needing assistance. Continue routine dressing changes and maintainence of drains. Monitor suction bulb drains for output. Will schedule for follow up outpatient in office in 1 week <Sabrinajosé antonio Membreno - Last Filed: 11/11/23 07:13> Ms. Rodriguez is a 53 year old female POD1 from left mastectomy due to invasive ductal carcinoma of left breast. Reports minimal pain at this time with intact appetite. No bowel movement yet, + flatus and bowel sounds x4. Reports episode of near syncope due to attempting to ambulate by herself, acknowledges that she will utilize call lopez when needing assistance. Continue routine dressing changes and maintainence of drains. Monitor suction bulb drains for output. Agree with above assessment. POD #1 s/p left simple mastectomy with left axillary sentinel lymph node biopsy. Had near syncopal episode this morning with associated hypotension. MARIA M drain with around 125cc salo bloody output. Large hematoma of left mastectomy site this morning. Will need to take to OR for evacuation of hematoma of left mastectomy site. NPO, stat CBC and type and screen, increase IVF. Patient understands and is comfortable with plan. <Quynh Mehta PA-C - Last Filed: 11/11/23 07:45> Quality Stroke Does the patient have a stroke diagnosis?: No <Quynh Mehta PA-C - Last Filed: 11/11/23 07:45> VTE Prior VTE?: No <Quynh Mehta PA-C - Last Filed: 11/11/23 07:45> VTE Risk Level:: Medical - moderate - high <Sabrina Membreno - Last Filed: 11/11/23 07:13> VTE Device Contraindication: N/A - Device Ordered <Sabrina Membreno - Last Filed: 11/11/23 07:13> VTE Drug Contraindication: N/A - Med Ordered <Sabrina Membreno - Last Filed: 11/11/23 07:13>
[2023-11-11] MEDS: Lactated Ringers 1,000 ML 100 ML IVCONT (07:50)
--- NOTE | 2023-11-11 07:59 | HO.POSTANES ---
Post Anesthesia Evaluation Post Anesthesia Evaluation Date of Service: 11/11/23 Vital Signs: Vital Signs Temp Pulse Resp BP Pulse Ox O2 Del Method 11/11/23 06:56 105/57 L 11/11/23 05:26 80/56 L 11/11/23 04:00 98.0 F 108 H 18 97/63 97 Room Air Anesthesia: General Endotracheal-GETA Pain Control: Satisfactory Nausea/Vomiting: None Hydration: Adequate Anesthesia-Related Issues: No Anes. Related Issues
--- NOTE | 2023-11-11 08:24 | PC.NURSE ---
Phlebotomy at bedside drawing STAT labs. Transport here to bring patient down to [facility] once lab draw complete. BP 105/49 with HR of 106. No c/o pain. Patient A&Ox4. Report given to [facility] RN.
[2023-11-11 08:31] LABS: MANUAL DIFF FLAG NO
[2023-11-11 08:40] LABS: Basophils Percent Auto 0.2 % (0-2); Hematocrit 27.1 % (37.0-47.0); Hemoglobin 9.1 g/dl (12.0-16.0); Imm Gran Abs Auto 0.04 X10*3/uL (0.00-0.03); Imm Gran Pct Auto 0.3 % (0.0-0.4); Lymphocytes Absolute Auto 1.7 X10*3/uL (1.2-4.9); Lymphocytes Percent Auto 12.2 % (20-40); Mean Corpuscular HGB Conc 33.6 g/dl (31.0-35.0); Mean Corpuscular Hemoglobin 30.7 pg (27.0-33.0); Mean Corpuscular Volume 91.6 fL (80.0-98.0); Mean Platelet Volume 9.4 fL (9.4-12.3); Monocytes Absolute Auto 1.1 X10*3/uL (0.1-1.2); Monocytes Percent Auto 7.7 % (2-11); Neutrophils Percent Auto 79.6 % (45-73); Platelet Count 267 X10*3/uL (160-400); Red Blood Count 2.96 X10*6/uL (4.20-5.50); Red Cell Distribution Width 13.4 % (11.0-16.0); White Blood Count 13.8 X10*3/uL (4.8-10.8)
--- NOTE | 2023-11-11 09:01 | P.CONAN_ITS ---
[facility] Active Problems Active Problems: All Active Problems S/P left mastectomy (Acute) Encounter for well woman exam with routine gynecological exam (Acute) Invasive ductal carcinoma of left breast (Acute) Left breast mass (Acute) Hot flashes (Acute) Encounter to discuss test results (Acute) Abnormal Pap smear of cervix (Acute) Encounter for annual routine gynecological examination (Acute) Past Medical History Medical History Invasive ductal carcinoma of left breast Left breast mass Osteoporosis Fibroids HSV infection Abnormal Pap smear of cervix Anxiety and depression Hodgkin's disease Functional capacity: wheelchair bound Family History Family History Paternal Grandfather Colon cancer Father Cancer of kidney Diabetes Mother Hyperlipidemia Surgical History Surgical History H/O left inguinal hernia repair H/O LEEP History of Problems with Anesthesia: No Social History Social History Household Members: Spouse Housing: House Are you a primary skin care therapist to a significant other at home: No Do you presently have visiting nurse or other home services: No Alcohol intake: never Patient Tobacco Use Status: Former Tobacco user Tobacco use type: Cigarette Smoked in Last 30 Days: No Patient Interested in Nicotine Replacement: No Patient Given Instructions on How to Stop Smoking: No Second Hand Smoke Exposure: No Use of substances other than those prescribed or required for medical reasons: No Currently Displaying Signs/Symptoms of Drug Intoxication Withdrawal: No Any prior treatment program specific to substance use: No Have you been hit, kicked, punched, or otherwise hurt by someone within the past year? 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 [employer] Sexual orientation: Straight/Heterosexual Gender identity: Female Meds Allergies Allergy/AdvReac Type Severity Reaction Status Date / Time penicillin V Allergy Unknown rash Verified 11/10/23 10:47 Latex Allergy Unknown rash/hive Uncoded 11/04/23 13:03 Active Medications: Current Medications Acetaminophen (Acetaminophen 325 Mg Tablet) 650 mg PO Q6H PRN PRN Reason: Pain, Mild (Pain Scale 1-3), fever or headache Atorvastatin Calcium (Atorvastatin Calcium 10 Mg Tablet) 10 mg PO DAILY [facility] Calcium Carbonate (Calcium Carbonate 750 Mg Tab.Chew) 750 mg PO Q4H PRN PRN Reason: Heartburn Lactated Ringer's (Lr) 1,000 mls @ 100 mls/hr IVCONT .Q10H [facility] Last Admin: 11/11/23 08:51 Dose: Not Given Ibuprofen (Ibuprofen 600 Mg Tablet) 600 mg PO Q6H PRN PRN Reason: Pain, Moderate(Pain Scale 4-6) Loratadine (Loratadine 10 Mg Tablet) 10 mg PO DAILY PRN PRN Reason: prn Magnesium Hydroxide (Milk Of Magnesia 30 Ml Oral.Susp) 30 ml PO DAILY PRN PRN Reason: Constipation Melatonin (Melatonin 3 Mg Tablet) 6 mg PO BEDTIME PRN PRN Reason: Insomnia Morphine Sulfate (Morphine Sulfate 2 Mg/Ml Cartridge) 2 mg IVPUSH Q3H PRN; Protocol PRN Reason: Pain, Severe (Pain Scale 7-10) Naloxone HCl (Naloxone Hcl 0.4 Mg/Ml Vial) 0.04 mg IVPUSH Q5M PRN PRN Reason: Excessive sedation or RR < 8 Naloxone HCl (Naloxone Hcl 0.4 Mg/Ml Vial) 0.04 mg IVPUSH Q5M PRN PRN Reason: Excessive sedation or RR < 8 Oxycodone HCl (Oxycodone Hcl Immed Release 5 Mg Tablet) 10 mg PO Q4H PRN PRN Reason: Pain, Moderate(Pain Scale 4-6) Sodium Chloride (0.9 % Sodium Chloride Flush 3 Ml Syringe) 3 ml IVFLUSH QSHIFT [facility] Last Admin: 11/10/23 23:57 Dose: Not Given Home Medications ?Medication ?Instructions ?Recorded ?Confirmed ?Last Taken ?Type cholecalciferol (vitamin D3) 50 50 mcg PO QID 09/26/20 11/10/23 11/09/23 History mcg (2,000 unit) capsule mecobalamin (vitamin B12) 5,000 5,000 mcg PO DAILY 09/26/20 11/10/23 11/09/23 History mcg lozenge omega-3 fatty acids 1,000 mg 1,000 mg PO DAILY 09/26/20 11/10/23 Unknown History capsule (Fish Oil Concentrate) magnesium 200 mg tablet 400 mg PO DAILY 11/28/20 11/10/23 11/09/23 History calcium 650 mg-vitamin D3 12.5 650 tab PO DAILY 10/02/21 11/10/23 11/09/23 History mcg-vitamin K 40 mcg chewable tablet (Viactiv) cetirizine 10 mg tablet (Zyrtec) 10 mg PO DAILY PRN prn 10/02/21 11/10/23 11/09/23 History riboflavin (vitamin B2) 400 mg 400 mg PO DAILY 10/02/21 11/10/23 11/09/23 History tablet alendronate 70 mg tablet 70 mg PO QWEEK 10/23/22 11/10/23 11/09/23 History triamcinolone acetonide 0.5 % 0.5 appl topical DAILY 10/23/22 11/10/23 11/09/23 History topical cream simvastatin 20 mg tablet 20 mg PO DAILY 10/27/23 11/10/23 11/09/23 History Exam Height,Weight and Vital Signs: Height 5 ft 5 in Weight 65.9 kg Last Vital Signs Temp 98.8 F 11/11/23 08:53 Pulse 101 H 11/11/23 08:53 Resp 18 11/11/23 08:53 BP 90/50 L 11/11/23 08:53 Pulse Ox 98 11/11/23 08:53 O2 Del Method Room Air 11/11/23 08:53 Pertinent Lab Results Pertinent Lab Results: Laboratory Tests 11/10/23 11/11/23 11:00 08:27 WBC 13.8 H RBC 2.96 L D Hgb 9.1 L D Hct 27.1 L D MCV 91.6 MCH 30.7 MCHC 33.6 RDW 13.4 Plt Count 267 MPV 9.4 Immature Gran % (Auto) 0.3 Neut % (Auto) 79.6 H Lymph % (Auto) 12.2 L Bates % (Auto) 7.7 Eos % (Auto) 0.0 Baso % (Auto) 0.2 Lymph # (Auto) 1.7 Bates # (Auto) 1.1 Eos # (Auto) 0.0 Baso # (Auto) 0.0 Abs Immat Gran (auto) 0.04 H Absolute Neuts (auto) 11.0 H Absolute Nucleated RBC 0.000 Nucleated RBC % (auto) 0.0 Blood Type O Positive Antibody Screen NEGATIVE Assessment and Plan Final Anesthetic Review History of Problems with Anesthesia: No
--- NOTE | 2023-11-11 10:30 | P.OP_ITS ---
Operative Note Operative Note Date of Service: 11/11/23 Narrative: Preop diagnosis: Postop hematoma from mastectomy, left breast Postop diagnosis: The same Procedure: Evacuation of hematoma, cauterization application of hemostatic [id number] sutures on oozing areas of the chest wall; no obvious pulsatile bleeders seen Surgeon: Corbin Morales, Insurance Verification Clerk: JADA Horne student The patient is a 53 year female with a recent diagnosis of invasive ductal carcinoma of the left breast he had undergone left breast mastectomy and sentinel biopsy yesterday. This morning, she had describes near syncopal episode and had a soft blood pressure. Examination of the chest wall revealed a hematoma. Because of her symptoms with the hematoma, and some drop in her hemoglobin, I explained to her it would be best to proceed with examination of the chest wall in the OR and evacuation of the hematoma and control of any bleeders. She understood the technique of the procedure as well as the risks, benefits, and alternatives She was brought to the operating room. She was placed supine under general anesthesia via laryngeal mask airway. A pectoralis block was done by the anesthesiologist. The patient received cefazolin 2 g IV preoperatively. The left chest was prepped and draped in the usual sterile fashion. A surgical time-out was done. I released the sutures from the incision and opened up the entire incision. There were clots noted under both the superior inferior flaps. I evacuated this. It was difficult to define the amount of clots but this was at least 150 cc. After evacuation of the hematoma, I was able to examine the chest wall. There was no obvious brisk pumping vessel that was seen. There was note of diffuse oozing especially on the the aspect of the chest wall raw areas of the pectoralis. I proceeded to cauterize these areas applied [id number] Polysorb 3-0 sutures on some of these 2 ensure hemostasis I examined the axilla as well and there was no evidence of any bleeding I copiously irrigated. I observed for several minutes and there was no obvious bleeding seen. I applied Gelfoam and Surgicel on the raw areas of the chest wall. We observed for several more minutes. Once hemostasis appeared confirmed, I reapplied fresh MARIA M drains. One was positioned underneath the superior flap and the other was position under the inferior flap. This were both secured to the skin exit site with nylon 2-0 sutures I then reapposed the subdermal layer with simple interrupted 3-0 sutures. Skin closure was achieved with Polysorb 4-0 subcuticular running sutures Steri-Strips and thick fluffy dressings were applied. The procedure was completed The patient tolerated the procedure well. There were no immediate complications. Initial and final counts of sponges and instruments were correct. Estimated blood loss was a but 150 cc from the hematoma The patient was extubated without difficulty and transferred to the recovery room with stable vital signs.
[2023-11-11] MEDS: Atorvastatin Calcium 10 MG TABLET PO (12:00)
[2023-11-11] MEDS: ceFAZolin Sodium/Dextrose,Iso 2 GM/50 ML PIGGYBACK IV (14:58)
--- NOTE | 2023-11-11 15:12 | MHC.CM.PN ---
Patient lives in a home w/ . Functionally independent. Denies use of DME or services. PCP Karolina Jones MD HCP on file and verified. Agents listed as 1) Zeyad and 2)mother Cait. DP: Home w/ family and new VNA for SN/drain care. Patient prefers [facility]. Referral sent via [employer], awaiting response. Patient plans to stay with her mother for a few weeks @ [address] [place] [address], as will be working. Family transport.
--- NOTE | 2023-11-11 17:06 | PM.EVENT ---
Event Note Date of Service: 11/12/23 Event Note: Seen on afternoon rounds She looks very comfortable Feels well Denies significant pain MARIA M drains with very dark output, about 35 cc each bulb Continue MARIA M drains to bulb suction Keep dressings on Pain management Follow up on path report Her was with her during the visit Stable vital signs Time Spent With Patient Time: Total time managing care of this patient today ____ minutes.
[2023-11-11] MEDS: Lactated Ringers 1,000 ML 80 ML IVCONT (22:37)
[2023-11-12] MEDS: ceFAZolin Sodium/Dextrose,Iso 2 GM/50 ML PIGGYBACK IV ×2 (02:13→15:38)
[2023-11-12 03:33] VITALS: BP 92/54; PULSE 79; RESP 16; TEMP 36.8; O2SAT 95
[2023-11-12 06:44] LABS: MANUAL DIFF FLAG NO
[2023-11-12 07:00] VITALS: BP 128/62; PULSE 100; RESP 16; TEMP 36.6; O2SAT 100
[2023-11-12 07:03] LABS: Basophils Percent Auto 0.2 % (0-2); Hematocrit 25.5 % (37.0-47.0); Hemoglobin 8.3 g/dl (12.0-16.0); Imm Gran Abs Auto 0.09 X10*3/uL (0.00-0.03); Imm Gran Pct Auto 0.6 % (0.0-0.4); Lymphocytes Absolute Auto 2.3 X10*3/uL (1.2-4.9); Lymphocytes Percent Auto 15.1 % (20-40); Mean Corpuscular HGB Conc 32.5 g/dl (31.0-35.0); Mean Corpuscular Hemoglobin 30.7 pg (27.0-33.0); Mean Corpuscular Volume 94.4 fL (80.0-98.0); Mean Platelet Volume 10.2 fL (9.4-12.3); Monocytes Absolute Auto 1.3 X10*3/uL (0.1-1.2); Monocytes Percent Auto 8.8 % (2-11); Neutrophils Absolute Auto 11.3 x10*3/uL (2.0-8.3); Neutrophils Percent Auto 75.3 % (45-73); Platelet Count 263 X10*3/uL (160-400); Red Cell Distribution Width 14.2 % (11.0-16.0)
--- NOTE | 2023-11-12 07:10 | HO.STUDPN_ITS ---
Subjective Subjective Date of Service: 11/12/23 <Sabrina Membreno - Last Filed: 11/12/23 07:23> 11/12/23 <Quynh Mehta PA-C - Last Filed: 11/12/23 08:39> 11/12/23 <Corbin Morales MD - Last Filed: 11/12/23 13:00> Interval History: Ms. Rodriguez is a 53 year old female POD1 from hematoma evacuation of left breast s/p left mastectomy and POD2 from left mastectomy due to invasive ductal carcinoma of left breast. She reports that she did not sleep well and has been very anxious regarding the breast pathology. Patient was evaluated at the end of the day 11/10, noted MARIA M drains were both 100 CC with dark blood output, this morning both are 25 CC today with dark blood output . Reports that continue to urinate frequently due to the amount of fluids she is receiving, however she is now using a bedside kommode with stand and pivot x 1 assist when needing to void. <Sabrina Membreno - Last Filed: 11/12/23 07:23> She reports that she did not sleep well and has been very anxious regarding the breast pathology. Reports that continue to urinate frequently due to the amount of fluids she is receiving, however she is now using a bedside commode with stand and pivot x 1 assist when needing to void. <Quynh Mehta PA-C - Last Filed: 11/12/23 08:39> Review of Systems All systems reviewed and negative except for as stated in HPI. <Sabrina Membreno - Last Filed: 11/12/23 07:23> Physical Exam 2 Vital Signs: Vital Signs: Last Vital Signs Temp 98 F 11/12/23 07:00 Pulse 100 11/12/23 07:00 Resp 16 11/12/23 07:00 BP 128/62 11/12/23 07:00 Pulse Ox 100 11/12/23 07:00 O2 Del Method Room Air 11/12/23 07:00 O2 Flow Rate 8 11/11/23 10:44 BMI result Body Mass Index 24.2 <Sabrina Membreno - Last Filed: 11/12/23 07:23> Const: General: cooperative, no acute distress, alert, awake, Physically active and other (anxious, tearful) <Sabrinajosé antonio Membreno - Last Filed: 11/12/23 07:23> Orientation/consciousness: patient oriented x3 <Quynh Mehta PA-C - Last Filed: 11/12/23 08:39> Limitations: No language barrier <Sabrina Ouray - Last Filed: 11/12/23 07:23> HEENT: Head: Yes normal to inspection and Yes normocephalic <Sabrina Ouray - Last Filed: 11/12/23 07:23> Mouth: Normal oral and palatal mucosa present <Sabrina Ouray - Last Filed: 11/12/23 07:23> Eyes: General: appearance normal, both eyes and all related structures < Sabrina Ouray - Last Filed: 11/12/23 07:23> Visual Potter: normal visual potter by confrontation <Sabrinajosé antonio Membreno - Last Filed: 11/12/23 07:23> Neck: Neck: Yes normal visual inspection and Yes no JVD <Sabrina Ouray - Last Filed: 11/12/23 07:23> Chest: Other: Bulky dressing applied to incision site with chest binder in place. MARIA M drains with total 50 cc dark red blood output. <Sabrina Ouray - Last Filed: 11/12/23 07:23> Resp: Effort & Inspection: normal respiratory effort and able to speak in complete sentences <Sabrinaruben Membreno - Last Filed: 11/12/23 07:23> Auscultation: clear to auscultation bilaterally <Sabrinajosé antonio Membreno - Last Filed: 11/12/23 07:23> Cardio: Jugular venous distension: no JVD <Sabrina Ouray - Last Filed: 11/12/23 07:23> Palpation: normal PMI <Sabrina Ouray - Last Filed: 11/12/23 07:23> Rate: regular rate <Sabrina Ouray - Last Filed: 11/12/23 07:23> Rhythm: regular rhythm <Sabrinajosé antonio Membreno - Last Filed: 11/12/23 07:23> Heart sounds: S1 normal heart sound present and S2 normal heart sound present <Sabrina Membreno Last Filed: 11/12/23 07:23> GI: Other: Mild distention with mild hyperresonance to tympani <Sabrina Membreno Last Filed: 11/12/23 07:23> Inspection: Yes normal to inspection <Sabrinajosé antonio Membreno Last Filed: 11/12/23 07:23> Palpation (GI): no guarding and not rigid <Sabrinajosé antonio Membreno Last Filed: 11/12/23 07:23> Auscultation: normal bowel sounds <Sabrina Membreno Last Filed: 11/12/23 07:23> Skin: General skin exam: no rashes or lesions noted <Quynh Mehta PA-C - Last Filed: 11/12/23 08:39> Neuro: General: patient oriented x3 <DAVION Bettencourt Last Filed: 11/12/23 08:39> Psych: Other: anxious, tearful <Sabrina Membreno Last Filed: 11/12/23 07:23> Objective Data Active Medications Acetaminophen (Acetaminophen 325 Mg Tablet) 650 mg PO Q6H PRN PRN Reason: Pain, Mild (Pain Scale 1-3), fever or headache Atorvastatin Calcium (Atorvastatin Calcium 10 Mg Tablet) 10 mg PO DAILY [facility] Last Admin: 11/11/23 12:00 Dose: 10 mg Documented By: AZAEL Calcium Carbonate (Calcium Carbonate 750 Mg Tab.Chew) 750 mg PO Q4H PRN PRN Reason: Heartburn Lactated Ringer's (Lr) 1,000 mls @ 80 mls/hr IVCONT .[id number] [facility] Last Admin: 11/11/23 22:37 Dose: 80 mls/hr Documented By: SAMIR Cefazolin Sodium/Dextrose (Ancef) 2 gm in 50 mls @ 100 mls/hr IV Q12H [facility] Last Infusion: 11/12/23 02:58 Dose: Infused Documented By: SAMIR Ibuprofen (Ibuprofen 600 Mg Tablet) 600 mg PO Q6H PRN PRN Reason: Pain, Moderate(Pain Scale 4-6) Loratadine (Loratadine 10 Mg Tablet) 10 mg PO DAILY PRN PRN Reason: prn Magnesium Hydroxide (Milk Of Magnesia 30 Ml Oral.Susp) 30 ml PO DAILY PRN PRN Reason: Constipation Melatonin (Melatonin 3 Mg Tablet) 6 mg PO BEDTIME PRN PRN Reason: Insomnia Morphine Sulfate (Morphine Sulfate 2 Mg/Ml Cartridge) 2 mg IVPUSH Q3H PRN; Protocol PRN Reason: Pain, Severe (Pain Scale 7-10) Naloxone HCl (Naloxone Hcl 0.4 Mg/Ml Vial) 0.04 mg IVPUSH Q5M PRN PRN Reason: Excessive sedation or RR < 8 Naloxone HCl (Naloxone Hcl 0.4 Mg/Ml Vial) 0.04 mg IVPUSH Q5M PRN PRN Reason: Excessive sedation or RR < 8 Pt Own (Alendronate (70 Mg Tablet)) 70 mg PO Fr@0700 POOJA Oxycodone HCl (Oxycodone Hcl Immed Release 5 Mg Tablet) 10 mg PO Q4H PRN PRN Reason: Pain, Moderate(Pain Scale 4-6) Sodium Chloride (0.9 % Sodium Chloride Flush 3 Ml Syringe) 3 ml IVFLUSH QSHIFT [facility] Last Admin: 11/12/23 01:29 Dose: Not Given Documented By: SAMIR Non-Admin Reason: IV Running <Sabrina Membreno - Last Filed: 11/12/23 07:23> Labs CBC & Chem 7: 11/12/23 07:35 <Sabrina Membreno - Last Filed: 11/12/23 07:23> Labs: Laboratory Results - last 24 hr 11/11/23 11/12/23 08:27 05:24 MCV 91.6 94.4 MCH 30.7 30.7 MCHC 33.6 32.5 RDW 13.4 14.2 Plt Count 267 263 MPV 9.4 10.2 Immature Gran % (Auto) 0.3 0.6 H Neut % (Auto) 79.6 H 75.3 H Lymph % (Auto) 12.2 L 15.1 L [place] % (Auto) 7.7 8.8 Eos % (Auto) 0.0 0.0 Baso % (Auto) 0.2 0.2 Lymph # (Auto) 1.7 2.3 [place] # (Auto) 1.1 1.3 H Eos # (Auto) 0.0 0.0 Baso # (Auto) 0.0 0.0 Abs Immat Gran (auto) 0.04 H 0.09 H Absolute Neuts (auto) 11.0 H 11.3 H Absolute Nucleated RBC 0.000 0.000 Nucleated RBC % (auto) 0.0 0.0 <Sabrinajosé antonio Membreno - Last Filed: 11/12/23 07:23> Assessment and Plan (1) Invasive ductal carcinoma of left breast: Status: Acute <Sabrina Membreno - Last Filed: 11/12/23 07:23> (2) S/P left mastectomy: Status: Acute <Sabrinaruben Membreno - Last Filed: 11/12/23 07:23> Assessment and Plan: Feels well Denies significant pain Stable vital sign MARIA M drains with dark old blood Clinically doing well hold of on transfusion as she looks well clinically seen and examined independently <Corbin Morales MD - Last Filed: 11/12/23 13:00> Assessment and Plan: Ms. Rodriguez is a 53 year old female POD1 for evacuation of hematoma of left mastectomy site andPOD2 from left mastectomy due to invasive ductal carcinoma of left breast. Reports that she is comfortable painwise at this time, however is very anxious and tearful while awaiting for pathology. MARIA M drains with 50 cc dark blood output. No clotting within tubing found on inspection. Continue routine dressing changes and maintainence of drains. Monitor suction bulb drains for output. Will continue routine dressing changes to monitor for incision healing and output. <Sabrinajosé antonio Membreno - Last Filed: 11/12/23 07:23> Ms. Rodriguez is a 53 year old female POD #2 s/p left simple mastectomy, left axillary sentinel lymph node biopsy. She developed a large post op hematoma and required evacuation of hematoma yesterday. Reports that she is comfortable painwise at this time, however is very anxious and tearful while awaiting for pathology. MARIA M drains with 50 cc dark blood output. No clotting within tubing found on inspection. Continue routine dressing changes and maintainence of drains. Monitor suction bulb drains for output. Will continue routine dressing changes to monitor for incision healing and output. Agree with above assessment and plan. She is doing well post op, MARIA M output low, sanguineous. VSS. H/h slightly drifted this AM but remains asymptomatic. Keep MARIA M drains in place. Will return later today for dressing change. Increase activity. DC IVF. Await pathology. Repeat labs in AM. Hopefully home tomorrow with drains in place and VNA services if she remains stable. <Quynh Mehta PA-C - Last Filed: 11/12/23 08:39> Quality Stroke Does the patient have a stroke diagnosis?: No <Sabrina Membreno - Last Filed: 11/12/23 07:23> VTE Prior VTE?: No <Sabrina Membreno - Last Filed: 11/12/23 07:23> VTE Risk Level:: Medical - moderate - high <Sabrina Membreno - Last Filed: 11/12/23 07:23> VTE Device Contraindication: N/A - Device Ordered <Sabrina Membreno - Last Filed: 11/12/23 07:23> VTE Drug Contraindication: N/A - Med Ordered <Sabrina Memrbeno - Last Filed: 11/12/23 07:23>
[2023-11-12] MEDS: ALENDRONATE 70 MG 70 EACH PO (07:46)
[2023-11-12] MEDS: Atorvastatin Calcium 10 MG TABLET PO (07:46)
[2023-11-12 08:19] LABS: Hemoglobin 8.6 g/dl (12.0-16.0); Mean Corpuscular HGB Conc 33.1 g/dl (31.0-35.0); Mean Corpuscular Hemoglobin 30.8 pg (27.0-33.0); Mean Corpuscular Volume 93.2 fL (80.0-98.0); Mean Platelet Volume 9.9 fL (9.4-12.3); Platelet Count 257 X10*3/uL (160-400); Red Blood Count 2.79 X10*6/uL (4.20-5.50); Red Cell Distribution Width 14.2 % (11.0-16.0); White Blood Count 15.6 X10*3/uL (4.8-10.8)
--- NOTE | 2023-11-12 11:26 | MHC.CM.PN ---
PATIENT NOT MEDICALLY CLEARED FOR DC. POTENTIALLY HOME TOMORROW. [facility]. CM WILL CONTINUE TO FOLLOW.
[2023-11-12 11:34] VITALS: BP 113/58; PULSE 98; RESP 16; TEMP 36.6; O2SAT 98
--- NOTE | 2023-11-12 13:00 | PM.EVENT ---
Event Note Date of Service: 11/16/23 Event Note: Dressings changed No new hematoma Note of ecchymosis Incision clean and dry MARIA M drains with dark old blood Plan to discharge her home tomorrow She looks well Both MARIA M drains to stay I will see her in the office next week Her mother was instructed on MARIA M drain care Visiting nurse arranged - discussed with case hardener Time Spent With Patient Time: Total time managing care of this patient today ____ minutes.
--- NOTE | 2023-11-12 13:04 | W.MHC.F2F ---
Service Date Service Date: 11/12/23 Encounter Date of encounter: 11/12/23 Reasons for Services Signs and symptoms assessed: Status post mastectomy and had evacuation of hematoma on postop day 1. Has [address] We will need thick dry fluffy dressings daily mastectomy site and the drains Empty drains 2 to 3 times a day record output Reason for penitentiary: wound care and postoperative assessment and/or care Homebound: Leaving the home is medically contraindicated at this time without the asist of a device and/or another person due th the listed conditions above and below. Reason homebound: unsteady gait / fall risk Certification: Based on the above findings, I certify that this patient is confined to the home and needs intermittent penitentiary care, physical therapy and/or speech therapy, or continues to need occupational therapy. The patient is under my care, and I have initiated the establishment of the plan of care. The patient will be followed by a physician who will periodically review the plan of care. Time Spent With Patient Time: Total time managing care of this patient today ____ minutes.
[2023-11-12 15:37] VITALS: BP 123/59; PULSE 99; RESP 20; TEMP 36.3; O2SAT 97
[2023-11-12] MEDS: 0.9 % Sodium Chloride Flush 3 ML SYRINGE IVFLUSH (15:38)
[2023-11-12 19:31] VITALS: BP 129/64; PULSE 99; RESP 20; TEMP 36.2; O2SAT 98
[2023-11-12 23:23] VITALS: BP 104/58; PULSE 87; RESP 16; TEMP 36.4; O2SAT 94
[2023-11-13] MEDS: 0.9 % Sodium Chloride Flush 3 ML SYRINGE IVFLUSH ×2 (00:28→09:01)
[2023-11-13 03:22] VITALS: BP 115/59; PULSE 93; RESP 16; TEMP 36; O2SAT 97
[2023-11-13] MEDS: ceFAZolin Sodium/Dextrose,Iso 2 GM/50 ML PIGGYBACK IV (03:43)
[2023-11-13 07:26] VITALS: BP 96/57; PULSE 93; RESP 18; TEMP 37.3; O2SAT 99
[2023-11-13] MEDS: Atorvastatin Calcium 10 MG TABLET PO (09:00)
[2023-11-13 12:00] VITALS: BP 100/54; PULSE 97; RESP 18; TEMP 36.7; O2SAT 98
[2023-11-13 15:58] VITALS: BP 116/56; PULSE 104; RESP 20; TEMP 36.8; O2SAT 98
--- NOTE | 2023-11-13 16:31 | P.PNGS_ITS ---
Subjective Subjective Date of Service: 11/13/23 Interval history: Patient was evaluated. was also present. Incision clean dry and intact. Dressing dry. MARIA M drain outputs minimal Physical Exam 2 Vital Signs: Vital Signs: Last Vital Signs Temp 98.3 F 11/13/23 15:58 Pulse 104 H 11/13/23 15:58 Resp 20 11/13/23 15:58 BP 116/56 L 11/13/23 15:58 Pulse Ox 98 11/13/23 15:58 O2 Del Method Room Air 11/13/23 15:58 O2 Flow Rate 8 11/11/23 10:44 BMI result Body Mass Index 24.2 Chest: Other: As noted above Objective Data Active Medications Acetaminophen (Acetaminophen 325 Mg Tablet) 650 mg PO Q6H PRN PRN Reason: Pain, Mild (Pain Scale 1-3), fever or headache Atorvastatin Calcium (Atorvastatin Calcium 10 Mg Tablet) 10 mg PO DAILY [facility] Last Admin: 11/13/23 09:00 Dose: 10 mg Documented By: ANGELA Calcium Carbonate (Calcium Carbonate 750 Mg Tab.Chew) 750 mg PO Q4H PRN PRN Reason: Heartburn Cefazolin Sodium/Dextrose (Ancef) 2 gm in 50 mls @ 100 mls/hr IV Q12H [facility] Last Infusion: 11/13/23 04:17 Dose: Infused Documented By: JEANNIE Ibuprofen (Ibuprofen 600 Mg Tablet) 600 mg PO Q6H PRN PRN Reason: Pain, Moderate(Pain Scale 4-6) Loratadine (Loratadine 10 Mg Tablet) 10 mg PO DAILY PRN PRN Reason: prn Magnesium Hydroxide (Milk Of Magnesia 30 Ml Oral.Susp) 30 ml PO DAILY PRN PRN Reason: Constipation Melatonin (Melatonin 3 Mg Tablet) 6 mg PO BEDTIME PRN PRN Reason: Insomnia Morphine Sulfate (Morphine Sulfate 2 Mg/Ml Cartridge) 2 mg IVPUSH Q3H PRN; Protocol PRN Reason: Pain, Severe (Pain Scale 7-10) Naloxone HCl (Naloxone Hcl 0.4 Mg/Ml Vial) 0.04 mg IVPUSH Q5M PRN PRN Reason: Excessive sedation or RR < 8 Naloxone HCl (Naloxone Hcl 0.4 Mg/Ml Vial) 0.04 mg IVPUSH Q5M PRN PRN Reason: Excessive sedation or RR < 8 Pt Own (Alendronate (70 Mg Tablet)) 70 mg PO Fr@0700 [facility] Last Admin: 11/12/23 07:46 Dose: 70 mg Documented By: MONTSERRAT Oxycodone HCl (Oxycodone Hcl Immed Release 5 Mg Tablet) 10 mg PO Q4H PRN PRN Reason: Pain, Moderate(Pain Scale 4-6) Sodium Chloride (0.9 % Sodium Chloride Flush 3 Ml Syringe) 3 ml IVFLUSH QSHIFT [facility] Last Admin: 11/13/23 09:01 Dose: 3 ml Documented By: ANGELA Labs 11/12/23 07:35 Procedures Date of Service Date of Service: 11/13/23 Progress Note: A&P Assessment and plan (1) S/P left mastectomy: Status: Acute (2) Postop check: Status: Acute Plan Patient wishes to be discharged home. VNA services have been arranged. Patient has also local instructions which were reviewed with her. She will follow up with Dr. Morales next week. All questions answered. Time Spent With Patient Time: Total time managing care of this patient today ____ minutes. Quality Stroke Does the patient have a stroke diagnosis?: No VTE Prior VTE?: No VTE Risk Level:: Medical - moderate - high VTE Device Contraindication: N/A - Device Ordered VTE Drug Contraindication: N/A - Med Ordered
--- NOTE | 2023-11-13 17:41 | PM.DS ---
DS: Providers Provider Date of Service: 11/13/23 Date of discharge: 11/13/23 Primary care physician: Karolina Jones MD Attending physician on admission: Corbin Morales Attending physician on discharge: Keith Vogt DS: Diagnosis Discharge Diagnosis (1) S/P left mastectomy: Status: Acute (2) Postop check: Status: Acute DS: Summary Hospital Course Hospital Course: HPI AT ADMISSION: The patient is a 53 year female with a recent diagnosis of invasive ductal carcinoma of the left breast. She opted to proceed with a full mastectomy in view of her previous radiation to her chest for lymphoma. She presents now for the planned procedure. HOSPITAL COURSE: On 11/10/23, left total mastectomy, left axillary sentinel lymph node biopsy was performed by Dr. Morales without immediate complications. She tolerated the procedure well. Two MARIA M drains were placed intraoperatively. Overnight she had a near syncopal episode and with soft blood pressures. On POD #1, she had a drop in her H/H. Examination of the chest wall/mastectomy site revealed a moderate hematoma with moderate sanguineous MARIA M drain output. In view of her symptoms and labs with the hematoma it was recommended to proceed with examination of the chest wall in the OR and evacuation of the hematoma and control of any bleeders. She was added onto the OR schedule for that day. Evacuation of hematoma, cauterization, application of hemostatic [id number] sutures on oozing areas of the chest wall was then performed on 11/11/[address] Morales. No obvious pulsatile bleeders were found. The remainder of her recovery course was uncomplicated and she remained two more days following for observation. Her pain was minimal and controlled. She was ambulating without difficulty. She was tolerating a solid diet. Her incision site remained clean with minimal MARIA M output. Her vitals and H/H remained stable. She felt ready for discharge. She was discharged to home on 11/13/23 in stable condition with VNA services for MARIA M drain care. She is to follow up in the office in 1 week. Status at Discharge Functional status at discharge: independent ambulation Overall status at discharge: patient is back to baseline Time Attestation Discharge Coordination Time (in mins): 50 Quality: Safe Use of Opioids Does Pt have an Active Cancer Diagnosis on the Problem List?: Yes Opioid Measure Date for CMS Report: 10/18/23 Opioid Measure Time for CMS Report: 10:42 Quality: Stroke Does the patient have a stroke diagnosis?: No Physical Exam Vital Signs: Vital Signs: Last Vital Signs Temp 98.3 F 11/13/23 15:58 Pulse 104 H 11/13/23 15:58 Resp 20 11/13/23 15:58 BP 116/56 L 11/13/23 15:58 Pulse Ox 98 11/13/23 15:58 O2 Del Method Room Air 11/13/23 15:58 O2 Flow Rate 8 11/11/23 10:44 BMI result Body Mass Index 24.2 Const: General: comfortable, no acute distress and alert Orientation/consciousness: patient oriented x3 Chest: Other: left mastectomy site incision clean/steris intact, moderate surrounding ecchymosis, MARIA M drains with minimal output Resp: Effort & Inspection: normal respiratory effort Skin: General skin exam: no rashes or lesions noted Neuro: General: patient oriented x3 DS: Data Data Completed and Pending Completed studies during hospitalization [Text1]: Pending at discharge 11/10/23 15:51 Surgical [PTH] Routine A. Breast, left, simple mastectomy: - Invasive carcinoma with ductal and lobular features, MSBR grade 3; 1.8 cm in size; negative margins. - Biopsy site changes. - Benign skin and nipple. - pT1c N1mi(sn) AJCC Stage 8th ed. B. Lymph node, left sentinel #1, excision: One lymph node with metastatic carcinoma (micrometastasis) C. Lymph node, left sentinel #2, excision: One lymph node negative for metastatic carcinoma. D. Lymph node, left sentinel #3, excision: One lymph node negative for metastatic carcinoma. Discharge Plan Discharge Patient Disposition: Home Health Service Referrals: Corbin Morales MD [Physician] - 1 Week Karolina Jones MD [Primary Care Provider] - 1 Week Discharge Medications: New oxycodone-acetaminophen [Percocet] 5-325 mg tablet 1 tab PO Q4-6H PRN (Reason: pain) Qty: 20 0RF Rx Instructions: Partial Fill upon patient request. No Action simvastatin 20 mg tablet 20 mg PO DAILY omega-3 fatty acids [Fish Oil Concentrate] 1,000 mg capsule 1,000 mg PO DAILY mecobalamin (vitamin B12) 5,000 mcg lozenge 5,000 mcg PO DAILY Rx Instructions: allow to dissolve in mouth OR may chew lightly before swallowing cholecalciferol (vitamin D3) 50 mcg (2,000 unit) capsule 50 mcg PO QID magnesium 200 mg tablet 400 mg PO DAILY calcium-vitamin D3-vitamin K [Viactiv] 650 mg-12.5 mcg-40 mcg tablet,chewable 650 tab PO DAILY riboflavin (vitamin B2) 400 mg tablet 400 mg PO DAILY cetirizine [Zyrtec] 10 mg tablet 10 mg PO DAILY PRN (Reason: prn) alendronate 70 mg tablet 70 mg PO QWEEK triamcinolone acetonide 0.5 % cream 0.5 appl topical DAILY Discharge Orders: Discharge Order (Routine); Ordered 11/13/23 Ordered By: Keith Vogt Diet: Advance to usual diet Activity on Discharge: No heavy lifting Activity Restrictions/Additional Instructions: Dry fluffy dressings to the mastectomy site daily Empty MARIA M drain 2 to 3 times a day and record output Okay to shower after 48 hours, dry the mastectomy site reappy fresh dressings after showering If the incision area is tender, you may apply an ice pack for short intervals (No more than 20 minutes on, followed by at least 20 minutes off). Do not apply heat. Do not use creams, lotions, or topical antibiotics unless instructed to do so by your surgeon. These can cause infection or allergic reaction. No lifting more than 20 lbs No strenuous activities Call the office for follow-up next week - with Dr. Morales Call Your Doctor If: -Your temperature exceeds 101.5? F -You experience excessive pain or swelling -You have an unexpected reaction to medication -You have excessive bleeding -You experience continued vomiting/nausea -Your incision begins to separate -Your incision shows signs of infection such as increased redness, swelling, excessive pain, drainage (light blood or clear fluid is normal) or heat Print Language: Armenian Discharge Date/Time: 11/13/23 16:46
== END 2023-11-13 16:46 | disposition home health service (06) ==
LOC: HO.SSS 10:01 → HO.S3 16:36
PROVIDERS: Physician Assistant Surgical; PCP Family Medicine; Visit Provider Surgery
PROC: (CPT 19303; principal; 2023-11-10 13:50)
PROC: (CPT 19303; 2023-11-10 13:50)
DX: C50.412 Malignant neoplasm of upper-outer quadrant of left female breast (principal); C77.3 Secondary and unspecified malignant neoplasm of axilla and upper limb lymph nodes; L76.32 Postprocedural hematoma of skin and subcutaneous tissue following other procedure; R55 Syncope and collapse; Z90.12 Acquired absence of left breast and nipple; Y83.8 Other surgical procedures as the cause of abnormal reaction of the patient, or of later complication, without mention of misadventure at the time of the procedure; Y82.8 Other medical devices associated with adverse incidents; Y92.230 Patient room in hospital as the place of occurrence of the external cause; Z85.71 Personal history of Hodgkin lymphoma; D21.9 Benign neoplasm of connective and other soft tissue, unspecified; M81.0 Age-related osteoporosis without current pathological fracture; F41.8 Other specified anxiety disorders; Z88.0 Allergy status to penicillin; Z91.040 Latex allergy status; Z79.899 Other long term (current) drug therapy; Z87.891 Personal history of nicotine dependence; Z98.890 Other specified postprocedural states
CPT/HCPCS: 19303; 38525; 38900; 21501; 36415; 78195; 85025; 85027; 86850; 86900; 86901; 88307; 88342; A4649; A9520; J0131; J0665; J0690; J1100; J2003; J2250; J2371; J2405; J2704; J2795; J3010; J7120

== ENCOUNTER → 2023-11-10 10:01 | Outpatient (BNV) | payer OTHER, SELFPAY | PROVIDERS: PCP Family Medicine; Visit Provider Surgery | DX: Z90.12 Acquired absence of left breast and nipple (principal); Z09 Encounter for follow-up examination after completed treatment for conditions other than malignant neoplasm | CPT/HCPCS: 10140; 19303; 38525; 38900; 99024; 99429; 99499; G0180 ==

== ENCOUNTER → 2023-11-10 10:36 | Outpatient (BNV) | payer OTHER, SELFPAY | PROVIDERS: PCP Family Medicine; Visit Provider Radiology Diagnostic Radiology | DX: C50.412 Malignant neoplasm of upper-outer quadrant of left female breast (principal) | CPT/HCPCS: 78195 ==

== ENCOUNTER 2023-11-17 11:01 | Outpatient (AMB) | payer OTHER, SELFPAY ==
--- NOTE | 2023-11-17 11:07 | MHC.OFFVIS ---
Intake Visit Reasons: s/p Lt brst mastectomy, possible drain removal Intake Note: This patient presents for post-op assessment status post Left total mastectomy, sentinel biopsy, possible drain removal. Pt c/o; reports no complaints. 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 I had to do evacuation of hematoma in the operating room on 11/11/2023 She is doing very well at this time. She denies significant complaints Both MARIA M drains have about 5-10 cc of output every day. She denies any significant pain. She feels well overall. [facility] Medical History Invasive ductal carcinoma of left breast Left breast mass Osteoporosis Fibroids HSV infection Abnormal Pap smear of cervix Anxiety and depression Hodgkin's disease Surgical History History of evacuation of hematoma (~11/11/23) History of left total mastectomy (~11/10/23) H/O left inguinal hernia repair H/O LEEP Family History Paternal Grandfather Colon cancer Father Cancer of kidney Diabetes Mother Hyperlipidemia Social History Household Members: Spouse Housing: House Are you a primary youth care professional to a significant other at home: No Do you presently have visiting nurse or other home services: No Alcohol intake: never Patient Tobacco Use Status: Former Tobacco user Tobacco use type: Cigarette Second Hand Smoke Exposure: No service: No Current occupational status: employed and unemployed 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 [employer] Sexual orientation: Straight/Heterosexual Gender identity: Female Female Reproductive History Menstrual Age of Menarche: 11 Review of Systems Const Denies chills and Denies fever(s) Card Denies chest pain and Denies chest pain at rest Resp Denies cough Physical Exam Const General: comfortable and no acute distress Chest Other: Mastectomy site well healing, incision clean and dry, no hematoma, some ecchymosis especially in the lower flap, MARIA M drains in place with very scanty dark serosanguineous output Resp Effort & Inspection: normal respiratory effort Assessment & Plan Assessment & Plan (1) Invasive ductal carcinoma of left breast: Code(s): C50.912 - Malignant neoplasm of unspecified site of left female breast Category: Medical Plan: Status post simple mastectomy, sentinel node biopsy 11/10/2023. She had to be brought back to the OR for evacuation of a hematoma on the mastectomy site on 11/11/2023. She is doing very well. Incision is healing well. Her flaps are viable. She does have ecchymosis but no recurrent hematoma. Her MARIA M drains have minimal output. I removed 1 MARIA M drain which was on the upper flap. I have left the region lower flap in place and I plan to remove this next week in the office. Her path report shows invasive carcinoma with ductal and lobular features, MSBR grade 3, 1.8 cm in size, with 1 sentinel node positive. This is ERPR positive, HER2 negative. She is has a T1 N1 staging at this time. She will see Dr. Correa on 12/10/2023 for discussion of adjuvant treatment. Coding Level of Care Code Global (04440) Diagnoses Invasive ductal carcinoma of left breast C50.912
== END 2023-11-17 11:56 | disposition home or self-care (01) ==
PROVIDERS: PCP Family Medicine; Visit Provider Surgery
DX: C50.912 Malignant neoplasm of unspecified site of left female breast (principal)
CPT/HCPCS: 99024

== ENCOUNTER → 2023-11-17 11:01 | Outpatient (BNVA) | payer OTHER, SELFPAY | PROVIDERS: PCP Family Medicine; Visit Provider Surgery | DX: C50.912 Malignant neoplasm of unspecified site of left female breast (principal); Z48.03 Encounter for change or removal of drains; Z90.12 Acquired absence of left breast and nipple | CPT/HCPCS: 99212 ==

== ENCOUNTER 2023-11-24 10:32 | Outpatient (AMB) | payer OTHER, SELFPAY ==
--- NOTE | 2023-11-24 10:35 | A.OFFVIS_ITS ---
Vital Signs 11/24/23 10:42 Height 5 ft 5 in Weight 148 lb BMI 24.6 BP 110/67 Blood Pressure Location Rt brachial Position Sitting Pulse 92 Intake Visit Reasons: S/P Lt brst mastectomy, SN bx Intake Note: This patient presents for post-op assessment status post left breast mastectomy, SN bx. Pt c/o; reports no complaints at this time. 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 She continues to do well. She has very minimal output from her remaining MARIA M drain. [facility] Medical History Invasive ductal carcinoma of left breast Left breast mass Osteoporosis Fibroids HSV infection Abnormal Pap smear of cervix Anxiety and depression Hodgkin's disease Surgical History History of evacuation of hematoma (~11/11/23) History of left total mastectomy (~11/10/23) H/O left inguinal hernia repair H/O LEEP Family History Paternal Grandfather Colon cancer Father Cancer of kidney Diabetes Mother Hyperlipidemia Social History Household Members: Spouse Housing: House Are you a primary direct care worker to a significant other at home: No Do you presently have visiting nurse or other home services: No Alcohol intake: never Patient Tobacco Use Status: Former Tobacco user Tobacco use type: Cigarette Second Hand Smoke Exposure: No service: No Current occupational status: employed and unemployed 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 [employer] Sexual orientation: Straight/Heterosexual Gender identity: Female Female Reproductive History Menstrual Age of Menarche: 11 Review of Systems Const Denies chills and Denies fever(s) Card Denies chest pain Resp Denies cough Physical Exam Vital Signs: Last Vital Signs Pulse 92 11/24/23 10:42 BP 110/67 11/24/23 10:42 BMI result Body Mass Index 24.6 Const General: comfortable and no acute distress Chest Other: Mastectomy site is well healed, an infected, flaps viable, pre drain with very scanty serosanguineous output, no hematomas Assessment & Plan Assessment & Plan (1) S/P left mastectomy: Code(s): Z90.12 - Acquired absence of left breast and nipple Category: Surgical Plan: She continues to do well. I removed her 2nd MARIA M drain. Her incision is well healed. Flaps are viable and healthy looking. I will see her again in the office in about a month for another postop visit. She is scheduled to see Dr. Correa in 2 weeks. Coding Level of Care Code Global (59472) Diagnoses S/P left mastectomy Z90.12
[2023-11-24 10:42] VITALS: BP 110/67; PULSE 92; BMI 24.6
== END 2023-11-24 10:54 | disposition home or self-care (01) ==
PROVIDERS: PCP Family Medicine; Visit Provider Surgery
DX: Z90.12 Acquired absence of left breast and nipple (principal)
CPT/HCPCS: 99024

== ENCOUNTER → 2023-11-24 10:32 | Outpatient (BNVA) | payer OTHER, SELFPAY | PROVIDERS: PCP Family Medicine; Visit Provider Surgery | DX: Z48.3 Aftercare following surgery for neoplasm (principal); Z48.03 Encounter for change or removal of drains; Z90.12 Acquired absence of left breast and nipple; Z85.3 Personal history of malignant neoplasm of breast | CPT/HCPCS: 99212 ==

== ENCOUNTER 2023-12-03 14:24 | Outpatient (REF) | payer OTHER, SELFPAY ==
--- NOTE | ~2023-12-03 | MM_ITS ---
EXAMINATION: BONE DENSITOMETRY CLINICAL INDICATION: Osteoporosis. COMPARISON: Previous BD dated 06/16/2022 and baseline BD dated 12/30/2007. TECHNIQUE: Using a [employer] Interactive DXA System (software version: 13.1) manufactured by [employer], dual-energy x-ray absorptiometry was performed of the lumbar spine and left hip. The images are of good technical quality. Summary results are attached. FINDINGS: LEFT FEMUR, NECK: Current: BMD 0.716 g/cm2, Z-score -1.3, T-score -2.3, osteopenia. Prior: BMD 0.667 g/cm2. Baseline: BMD 0.742 g/cm2. LEFT FEMUR, TOTAL: Current: BMD 0.736 g/cm2, Z-score -1.5, T-score -2.2, osteopenia, 3.1% increase from previous, 7.9% decrease from baseline (<5% change is not significant). Prior: BMD 0.714 g/cm2. Baseline: BMD 0.799 g/cm2. AP SPINE L1-L3 (excluding L4): The data of L1-L4 has been changed to exclude the L4 vertebral body, because at this level may cause overestimation of lumbar spine density. Current: BMD 1.008 g/cm2, Z-score -0.6, T-score -1.4, osteopenia, 5.0% increase from previous, 10.2% decrease from baseline (<5% change is not significant). Prior: BMD 0.960 g/cm2. Baseline: BMD 1.122 g/cm2. IDENTIFIED RISK FACTORS: Osteoporosis, menopause.. HISTORY OF FRACTURE: None listed. MEDICATIONS: Calcium, vitamin D, bisphosphonate. MM/XR DEXA axial skeleton IMPRESSION: 1. DIAGNOSIS: Osteopenia based on the lowest T-score value of -2.3 in the femoral neck applying World Health Organization criteria. 2. 10-YEAR FRACTURE RISK PREDICTION, FRAX: Not performed in this patient on estrogen or bone building treatments. 3. Treatment Recommendations: NOF guidelines recommend consideration for treatment in postmenopausal women and men age 50 and older presenting with the following: -A hip or vertebral (clinical or morphometric) fracture. -T-score less than or equal to -2.5 at the femoral neck or spine after appropriate evaluation to exclude secondary causes. -Low bone mass at the hip or spine and a 10-year fracture probability by FRAX of greater than or equal to 3% for hip fracture or greater than or equal to 20% for major osteoporotic fracture based on the [place] adapted WHO algorithm. 4. Other Recommendations: All treatment decisions require clinical judgment and consideration of individual patient factors, including patient preferences, comorbidities, previous drug use, risk factors not captured in the FRAX model (e.g. frailty, falls, vitamin D deficiency, increased bone turnover, interval significant decline in bone density) and possible under or overestimation of fracture risk by FRAX. Additional medical evaluation for secondary cause of low bone mineral density may be appropriate. FUTURE SCAN RECOMMENDATION: People with diagnosed cases of osteoporosis or at high risk for fracture should have regular bone mineral density tests. For patients eligible for Medicare, routine testing is allowed once every 2 years. The testing frequency can be increased to one year for patients who have rapidly progressing disease, those who are receiving or discontinuing medical therapy to restore bone mass, or have additional risk factors. Electronically signed by: Isabel Beard MD 12/07/2023 08:19 AM EDT
== END 2023-12-03 14:25 | disposition home or self-care (01) ==
LOC: HO.MAMMO 14:24
PROVIDERS: PCP Family Medicine; Visit Provider Internal Medicine Medical Oncology
DX: M81.0 Age-related osteoporosis without current pathological fracture (principal); Z79.83 Long term (current) use of bisphosphonates; Z79.899 Other long term (current) drug therapy
CPT/HCPCS: 77080

== ENCOUNTER → 2023-12-13 13:58 | Outpatient (REF) | payer OTHER, SELFPAY ==
--- NOTE | 2023-12-13 14:06 | CA_ITS ---
Transthoracic Echocardiogram Patient (Last, First, Middle): Marybel Rodriguez J Gender: Female Date of : 1970 Age: 53 Procedure Date: 12/13/2023 Procedure Type: Transthoracic Echocardiogram Location: OP Height: 165.1 cm Weight: 65.77 kg BSA: 1.73 m2 Heart Rate: bpm BP: 100 / 65 mmHg Lapping Machine Tender: JOSUE Herbert MD: Wendy Correa MD Wood Fence Erector: Jessee Mcclain MD Symptoms: Pre chemo assessment of EF. Study Quality: Adequate ECG Rhythm: Sinus Conclusions: - 1. Normal LV ejection fraction of 60 65% with grade 1 diastolic dysfunction 2. Normal cardiac valvular Dopplers 3. Normal RV systolic pressure 4. No gross pericardial effusion Findings Left Ventricle Normal left ventricular size, thickness, and systolic function. The visually estimated ejection fraction is between 60-65%. Spectral Doppler is indicative of an impaired relaxation filling pattern. E/E prime ratio is <8, consistent with normal filling pressures. Evidence suggests grade I (mild) diastolic dysfunction. Peak GLS measurement seems to be sub-optimal due to inaccurate tracking. Right Ventricle Normal right ventricular cavity size and systolic function. Atria Both atria are normal in size. There is no evidence of interatrial shunt. Aortic Valve Normal aortic valve structure and function. There is no aortic valve stenosis. There is no aortic valve regurgitation. Mitral Valve Normal mitral valve structure and function. There is no mitral valve regurgitation. There is no mitral valve stenosis. Pulmonic Valve The pulmonic valve is likely normal. Tricuspid Valve Normal tricuspid valve structure. There is trace tricuspid valve regurgitation. The right ventricular systolic pressure is normal. The right ventricular systolic pressure is 17 mmHg. Normal right atrial pressure. There is no evidence of pulmonary hypertension. Great Vessels All visible segments of the aorta are normal in size. The pulmonary artery was not well visualized. Venous The inferior vena cava is normal in size and collapses greater than 50% with inspiration. Pericardium/Pleural There is no evidence of pericardial effusion. Prior Study Comparison No prior study available for comparison. Measurements 2D Linear Measurements IVSd: 0.85 0.6-0.9/0.6-1.0 cm LVIDd: 4.11 3.9-5.3/4.2-5.9 cm LVIDd Index: 2.38 2.4-3.2/2.2-3.1 cm/m2 LVIDs: 3.16 2.0-3.6 cm LVPWd: 0.80 0.7-1.1 cm LA Diam: 2.90 2.7-3.8/3.0-4.0 cm LAIDs Index: 1.68 1.5-2.3 cm/m2 LV Mass: 126.13 67-162/88-224 g LV Mass Index: 72.91 43-95/49-115 g/m2 LVOT Diam: 1.90 3.0+(-)1.3 cm 2D Systolic Function EF 4C: 55.70 >55% EF 2C: 68.10 >55% EF BiP: 60.30 >55% Mitral Valve MV Pk E: 0.68 MV PK A: 0.71 MV Decel Time: 150.00 E/A: 1.00 E'Lateral: 8.16 E'Medial: 6.96 E/E' Med: 9.70 E/E' Lat: 8.30 PHT: 44.00 MVA PHT: 5.00 Decel [place]: 4.53 Aortic Valve AoV Pk Jose: 0.99 AoV Mn Jose: 0.72 AoV VTI: 0.21 AoV Pk Grad: 4.00 Aov Mn Grad: 2.00 SITA Cont.VTI: 2.30 LVOT LVOT Pk Jose: 0.80 LVOT Mn Jose: 0.62 LVOT VTI: 0.17 LVOT Pk Grad: 3.00 LVOT Mn Grad: 2.00 LVOT Diam: 1.90 LVOT Area: 2.84 Diastolic Function MV Pk E: 0.68 MV Pk A: 0.71 E/A: 1.00 E'Medial: 6.96 E/E' Med: 9.70 E' Laterial: 8.16 E/E' Lat: 8.30 Right Ventricle TAPSE (mm): 13.20 TVS' Jose: 10.60 Tricuspid Valve TR Pk Jose: 1.87 TR Pk Grad: 14.00 RA Press: 3.00 RVSP: 17.00 Great Vessels Aorta Sinus of Valsalva: 3.00 2.0-3.5 cm Ao Asc: 2.90 2.1-3.4 cm Ao Arch: 2.30 Pulmonary Valve PV Pk Jose: 0.65 Peak PV Grad: 2.00 Updated in Other Vendor System with Status of Final Jessee Mcclain MD electronically signed on 12/13/2023 4:40:54 PM with status of Final
== END ==
LOC: HO.CARD 13:58
PROVIDERS: PCP Family Medicine; Visit Provider Internal Medicine Medical Oncology
DX: C50.912 Malignant neoplasm of unspecified site of left female breast (principal)
CPT/HCPCS: 93306

== ENCOUNTER → 2023-12-13 14:06 | Outpatient (BNV) | payer OTHER, SELFPAY | PROVIDERS: PCP Family Medicine; Visit Provider Internal Medicine Cardiovascular Disease | DX: Z01.818 Encounter for other preprocedural examination (principal); R93.1 Abnormal findings on diagnostic imaging of heart and coronary circulation | CPT/HCPCS: 93306; 93356 ==

== ENCOUNTER 2023-12-14 14:19 | Outpatient (REF) | payer OTHER, SELFPAY ==
--- NOTE | ~2023-12-14 | PE_ITS ---
EXAMINATION: F-18 FDG PET/CT SCAN CLINICAL INDICATION: Reason for exam: Malignant neoplasm of left breast. Information obtained from the patient's questionnaire include, prior diagnosis of Hodgkin's lymphoma 27 years ago status post chemotherapy and radiation. Left mastectomy in November 10, 2023. PROCEDURE: 60 minutes following the intravenous administration of 16.2 mCi of fluorine 18 FDG at right antecubital fossa, images from the base of the skull to the mid thighs were obtained using a combined PET/CT scanner with CT scan based attenuation correction. The CT images were obtained by dose optimization techniques as appropriate with no oral or intravenous contrast. The images were processed by an iterative reconstruction method and reformatted into multiplanar projections. The patient's blood glucose as determined by a finger stick, was 78 mg/dl immediately prior to injection. Total CT exam dose-length product 651.4 mGy-cm CORRELATION: None pertinent latest other than breast ultrasound from October 12, 2023. FINDINGS: FOR THE REFERENCE OF THE BASELINE METABOLISM: Mediastinal blood pool; SUVmax 1.9 Liver; SUVmax 3.1 HEAD AND NECK: No abnormal radiotracer uptake. Minimal misregistration is noted. Physiologic uptake in the adipose tissue of the lower neck and adjacent supraclavicular/thoracic inlet bilaterally. CHEST: Ports and Devices: None Lungs: No abnormal radiotracer uptake. No gross lung lesions or consolidation. Pleura: No significant pleural effusion. Lymph Nodes: No tracer-avid mediastinal, hilar or internal mammary or axillary lymphadenopathy. Mediastinum: No abnormal radiotracer uptake. There is no significant pericardial effusion/thickening. Coronary artery calcifications. Breasts/Chest Wall: Mild to moderate inhomogeneous radiotracer uptake in the infiltrative changes along the left mastectomy and axillary lymph node dissection site (for reference, SUV max 2.8), represents post procedural reactive changes. ABDOMEN/PELVIS: Liver/Biliary System: No focal tracer-avid liver lesion. Pancreas: No abnormal radiotracer uptake Spleen: No abnormal radiotracer uptake. Adrenal Glands: No abnormal radiotracer uptake. Kidneys: No distinct foci of abnormal radiotracer accumulation. Bowel: Mild prominent metabolism in the mid to distal esophagus within the physiologic/reactive variation. There is no significant bowel dilatation to suggest obstruction. Lymph Nodes: No tracer avid retroperitoneal, mesenteric or pelvic and/or groin lymphadenopathy. Pelvic Organs: No abnormal radiotracer uptake. Heterogeneous calcifications in the myomatous uterus. MUSCULOSKELETAL: No tracer avid aggressive osseous lesions are noted. VASCULAR: No abnormal radiotracer uptake. PET/PET CT fusion skull to thigh IMPRESSION: 1. No definite evidence for FDG avid malignancy. 2. Postprocedural reactive changes along the left mastectomy and axillary lymph node dissection site. Although each note is personally edited for and grammatical errors, unintended translational errors can occur. Electronically signed by: Jocy Ocasio MD 12/16/2023 02:49 PM OMAIRA BELTRAN
== END 2023-12-14 14:20 | disposition home or self-care (01) ==
LOC: HO.PET 14:19
PROVIDERS: PCP Family Medicine; Visit Provider Internal Medicine Medical Oncology
DX: Z13.89 Encounter for screening for other disorder (principal)

== ENCOUNTER 2023-12-21 08:54 | Day surgery (SDC) | payer OTHER, SELFPAY ==
[2023-12-21] VITALS (15 sets, daily range): BP systolic 109–119; BP diastolic 64–77; PULSE 87–95; RESP 10–21; TEMP 36.1–37.3; O2SAT 92–100; BMI 24.0
--- NOTE | ~2023-12-21 | IR_ITS ---
CLINICAL HISTORY: Left breast cancer. The patient presents to interventional radiology for placement of a port for chemotherapy. PROCEDURES: 1. Real-time ultrasound-guided access into the right internal jugular vein after documentation of selected vessel patency, and permanent image storing in the patient records. 2. Placement of a 6.0 Macedonian single-lumen slim power port. CLINICIAN: Bran Alcantar PA-C MEDICATIONS: - Versed 1.5 mg, Fentanyl 75 mcg, Lidocaine 1% 10 mL SQ -Antibiotics: Clindamycin 600 mg -For additional details, please see nursing flowsheet. Complications: None. Estimated blood loss: <5 ml Specimens: None. Contrast: None. Fluoroscopy time: 0.8 min MODERATE SEDATION TIME: 27 min PROCEDURE NOTE: The procedure, risks, benefits, and alternatives were carefully explained to the patient and written informed consent was obtained. The patient was placed supine on the fluoroscopy table. A timeout was performed. The right neck and chest was prepped and draped in usual sterile fashion. Maximum barrier technique was utilized. Local anesthesia was administered to the access site with 1% lidocaine. Under ultrasound guidance, the right internal jugular vein was accessed with a 5 fr micropuncture set. A 0.035 in wire was advanced into the IVC. A peel-away sheath was advanced over the wire and into the SVC, and the wire was removed. Next, subcutaneous lidocaine was administered to the chest. The port pocket was created after the skin incision, utilizing blunt dissection. Using blunt dissection, a subcutaneous tunnel was created that connects from the port pocket to the venotomy site. Through the peel-away sheath, the 6.0 Macedonian port catheter was placed. The catheter position was verified with fluoroscopy to be at the superior vena cava/right atrial junction. The port was connected to the catheter and was placed in the pocket. The venotomy site was closed with a 3-0 Vicryl subcutaneous suture. The port incision site was closed with interrupted 3-0 Vicryl subcutaneous sutures and surgical glue. The port was tested, flushed, and packed with heparin per routine protocol. The patient tolerated the procedure well. The patient was stable after the procedure and was transferred to the PACU. The procedure was performed under moderate sedation and with a dedicated nurse with continuous monitoring of vital signs. A permanent image of the ultrasound the neck and fluoroscopic image of the chest was saved and sent to PACS. FINDINGS: 1. Patent right internal jugular vein 2. Placement of a 6.0 Macedonian single lumen slim power port. 3. Port flushes and aspirates very well with a 10 mL syringe. No pneumothorax. IR/IR us guide venous access IMPRESSION: Placement of a 6.0 Macedonian single-lumen slim power port. PLAN: - The patient will be discharged home when stable by sedation protocol. - Port may be used immediately. This procedure was performed by Bran Alcantar PA-C, and directly supervised by Dr. Torrez Electronically signed by: Darwin Torrez MD 12/27/2023 01:56 PM EST
--- NOTE | ~2023-12-21 | IR_ITS ---
CLINICAL HISTORY: Left breast cancer. The patient presents to interventional radiology for placement of a port for chemotherapy. PROCEDURES: 1. Real-time ultrasound-guided access into the right internal jugular vein after documentation of selected vessel patency, and permanent image storing in the patient records. 2. Placement of a 6.0 Croatian single-lumen slim power port. CLINICIAN: Bran Alcantar PA-C MEDICATIONS: - Versed 1.5 mg, Fentanyl 75 mcg, Lidocaine 1% 10 mL SQ -Antibiotics: Clindamycin 600 mg -For additional details, please see nursing flowsheet. Complications: None. Estimated blood loss: <5 ml Specimens: None. Contrast: None. Fluoroscopy time: 0.8 min MODERATE SEDATION TIME: 27 min PROCEDURE NOTE: The procedure, risks, benefits, and alternatives were carefully explained to the patient and written informed consent was obtained. The patient was placed supine on the fluoroscopy table. A timeout was performed. The right neck and chest was prepped and draped in usual sterile fashion. Maximum barrier technique was utilized. Local anesthesia was administered to the access site with 1% lidocaine. Under ultrasound guidance, the right internal jugular vein was accessed with a 5 fr micropuncture set. A 0.035 in wire was advanced into the IVC. A peel-away sheath was advanced over the wire and into the SVC, and the wire was removed. Next, subcutaneous lidocaine was administered to the chest. The port pocket was created after the skin incision, utilizing blunt dissection. Using blunt dissection, a subcutaneous tunnel was created that connects from the port pocket to the venotomy site. Through the peel-away sheath, the 6.6 Croatian port catheter was placed. The catheter position was verified with fluoroscopy to be at the superior vena cava/right atrial junction. The port was connected to the catheter and was placed in the pocket. The venotomy site was closed with a 3-0 Vicryl subcutaneous suture. The port incision site was closed with interrupted 3-0 Vicryl subcutaneous sutures and surgical glue. The port was tested, flushed, and packed with heparin per routine protocol. The patient tolerated the procedure well. The patient was stable after the procedure and was transferred to the PACU. The procedure was performed under moderate sedation and with a dedicated nurse with continuous monitoring of vital signs. A permanent image of the ultrasound the neck and fluoroscopic image of the chest was saved and sent to PACS. FINDINGS: 1. Patent right internal jugular vein 2. Placement of a 6.0 Croatian single lumen slim power port. 3. Port flushes and aspirates very well with a 10 mL syringe. No pneumothorax. IR/IR cvc insert tunnel w prt/executive sales manager IMPRESSION: Placement of a 6.0 Croatian single-lumen slim power port. PLAN: - The patient will be discharged home when stable by sedation protocol. - Port may be used immediately. This procedure was performed by Bran Alcantar PA-C, and directly supervised by Dr. Torrez Electronically signed by: Darwin Torrez MD 12/23/2023 01:29 PM EST
--- NOTE | 2023-12-21 10:30 | MHC.SHP ---
Pre-Procedural Eval Section A - 24 Hr Update-Section A only Date of Service: 12/21/23 Section B - Complete if H&P > 30 days Chief Complaint: Malignant neoplasm of unspecified site of left fem Details of Present Illness: 53 y/o female with left breast cancer and poor iv access Relevant Family History (Specify if Yes): No Relevant Social History: None Present Medications: see Short Stay Collaborative assessment Medical History: Significant History History of Previous Operations: Relevant previous surgery/procedure and date(s) Allergies: Allergies Allergy/AdvReac Type Severity Reaction Status Date / Time penicillin V Allergy Unknown rash Verified 12/03/23 08:44 Latex Allergy Unknown rash/hive Uncoded 12/03/23 08:44 Review of Systems Sugical H&P ROS: Negative: Constitution, Cardiovascular, Respiratory and Integumentary Exam Surgical H&P Exam: Normal: Heart, Normal: Lungs, Normal: Skin and Normal: Neurological Plan 53 y/o female with left breast cancer -Right port Time Spent With Patient Time: Total time managing care of this patient today ____ minutes.
[2023-12-21] MEDS: Clindamycin Phosphate/D5W 600 MG/50 ML PIGGYBACK 100 MG IV (10:50)
[2023-12-21] MEDS: fentaNYL citrate/PF 100 MCG/2 ML VIAL 50 MCG IVPUSH (11:08)
[2023-12-21] MEDS: Midazolam HCl 5 MG/ML VIAL 1 MG IVPUSH (11:08)
[2023-12-21] MEDS: fentaNYL citrate/PF 100 MCG/2 ML VIAL 25 MCG IVPUSH (11:15)
[2023-12-21] MEDS: Midazolam HCl 5 MG/ML VIAL IVPUSH (11:16)
== END 2023-12-21 13:58 | disposition home or self-care (01) ==
PROVIDERS: Physician Assistant Surgical; PCP Family Medicine; Visit Provider Internal Medicine Medical Oncology
DX: Z45.2 Encounter for adjustment and management of vascular access device (principal); C50.412 Malignant neoplasm of upper-outer quadrant of left female breast; C77.9 Secondary and unspecified malignant neoplasm of lymph node, unspecified; Z17.0 Estrogen receptor positive status [ER+]; Z17.21 Progesterone receptor positive status; Z17.32 Human epidermal growth factor receptor 2 negative status
CPT/HCPCS: 36561; 76937; 99152; 99153; C1769; C1788; J0690; J0736; J1642; J1644; J2003; J2250; J2310; J3010

== ENCOUNTER → 2023-12-21 10:30 | Outpatient (BNV) | payer OTHER, SELFPAY | PROVIDERS: PCP Family Medicine; Visit Provider Physician Assistant Surgical | DX: C50.912 Malignant neoplasm of unspecified site of left female breast (principal) | CPT/HCPCS: 36561; 76937; 77001 ==

== ENCOUNTER 2023-12-22 10:31 | Outpatient (AMB) | payer OTHER, SELFPAY ==
--- NOTE | 2023-12-22 10:35 | MHC.OFFVIS ---
Vital Signs 12/22/23 10:44 Height 5 ft 5 in Weight 148 lb 4 oz BMI 24.7 Intake Visit Reasons: one moth S/P Lt brst mastectomy, SN bx Intake Note: This patient presents for one month follow-up status post left breast mastectomy, SN Bx. Pt c/o; reports no complaints at this time. Costume Shop Coordinator Required: No Accompanied by: Mother Allergies penicillin V Allergy (Unknown, Verified 12/22/23 10:45) rash Latex Allergy (Unknown, Uncoded 12/22/23 10:45) rash/hive HPI HPI one moth S/P Lt brst mastectomy, SN bx: Details: She continues to do well after left breast mastectomy last 11/10/2023. She denies any significant complaints She had a PET scan which did not reveal any metastatic disease. She did for high on her Oncotype DX so she is going for chemotherapy. She had a port placed yesterday for chemotherapy. [facility] Medical History Invasive ductal carcinoma of left breast Left breast mass Osteoporosis Fibroids HSV infection Abnormal Pap smear of cervix Anxiety and depression Hodgkin's disease Surgical History History of evacuation of hematoma (~11/11/23) History of left total mastectomy (~11/10/23) H/O left inguinal hernia repair H/O LEEP Family History Paternal Grandfather Colon cancer Father Cancer of kidney Diabetes Mother Hyperlipidemia Social History Household Members: Spouse Housing: House Are you a primary healthcare network pricing consultant to a significant other at home: No Do you presently have visiting nurse or other home services: No Alcohol intake: never Patient Tobacco Use Status: Former Tobacco user Tobacco use type: Cigarette Second Hand Smoke Exposure: No service: No Current occupational status: employed and unemployed 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 [employer] Sexual orientation: Straight/Heterosexual Gender identity: Female Female Reproductive History Menstrual Age of Menarche: 11 Review of Systems Const Denies chills and Denies fever(s) Physical Exam Vital Signs: BMI result Body Mass Index 24.7 Const Other: Looks well General: comfortable and no acute distress Chest Other: Mastectomy site well healed, no residual ecchymosis, no axillary lymphadenopathy, no evidence of any infection, no induration, no masses Assessment & Plan Assessment & Plan (1) S/P left mastectomy: Code(s): Z90.12 - Acquired absence of left breast and nipple Category: Surgical Plan: She had a T1 N1(svitlana), ERPR positive, HER2 equivocal invasive ductal carcinoma of the left breast. She scored high on her Oncotype DX test so she is going for chemotherapy. She is to start this tomorrow. She looks well. Her mastectomy site is well healed. There were no palpable masses. There is no axillary lymphadenopathy I will see her again in the office in about 6 months to see how she is doing. She can follow up before that on a p.r.n. basis. Coding Level of Care Code Global (38639) Diagnoses S/P left mastectomy Z90.12
[2023-12-22 10:44] VITALS: BMI 24.7
== END 2023-12-22 10:55 | disposition home or self-care (01) ==
PROVIDERS: PCP Family Medicine; Visit Provider Surgery
DX: Z90.12 Acquired absence of left breast and nipple (principal)
CPT/HCPCS: 99024

== ENCOUNTER → 2023-12-22 10:31 | Outpatient (BNVA) | payer OTHER, SELFPAY | PROVIDERS: PCP Family Medicine; Visit Provider Surgery | DX: C50.912 Malignant neoplasm of unspecified site of left female breast (principal); Z90.12 Acquired absence of left breast and nipple; Z95.828 Presence of other vascular implants and grafts; Z17.0 Estrogen receptor positive status [ER+]; Z17.21 Progesterone receptor positive status | CPT/HCPCS: 99212 ==

== ENCOUNTER 2024-01-13 08:46 | Outpatient (REF) | payer OTHER, SELFPAY ==
[2024-01-13 09:59] LABS: Estimated Average Glucose 123 mg/dL; Hemoglobin A1C 113.9517 umol/L; Hemoglobin A1c % 5.9 % (<6.0); Total Hemoglobin (HGBA1C) 2805.9104 umol/L
[2024-01-13 10:01] LABS: Anion Gap 11 (12-20); Blood Urea Nitrogen 15 mg/dL (9-16); Calcium 9.2 mg/dL (8.4-10.2); Carbon Dioxide 25 mmol/L (22-29); Chloride 107 mmol/L (96-108); Cholesterol 153 mg/dL (<200); Estimated Glomerular Filt Rate > 60; Glucose Random 90 mg/dL (60-115); HDL Cholesterol 50 mg/dL (>40); LDL Cholesterol Calculated 85 mg/dL (<100); Sodium 139 mmol/L (135-145); Triglycerides 92 mg/dL (<150)
[2024-01-13 10:15] LABS: Vitamin D 25-OH Total 45.2 ng/mL (>30)
--- OUTSIDE RECORDS SUMMARY | 2024-01-19 00:32 | XMS_ITS | Continuity of Care Document ---
Author Organization [facility] Address [address] [place] [address] [address] [place] [phone] Phone Care Team Providers Care Mason Foreman/Superintendant Name Role Phone August ROMO FACS RVT [...] Providers Copied on Encounter [facility], [address] [place] [address] [address], [place], [id number], [place] tel:[phone] [facility] [place] [facility] - (Telangiec vanessa) 3 August ROMO FACS RVT THU Alaniz. [address] [facility] [address], [place], [address], [place]. tel:[phone] Referring Provider: Miriam Calvin PA-C , [address] [place] [address], [address]. tel:[phone] Family History Family Member Type Diagnosis Age At Onset No Information Payers Payer name Insurance type Covered democrat ID Authoriza tion(s) Self Pay 09 Social [...]
== END 2024-01-13 08:47 | disposition home or self-care (01) ==
LOC: HO.LAB 08:46
PROVIDERS: PCP Family Medicine; Visit Provider Family Medicine
DX: R73.01 Impaired fasting glucose (principal)
CPT/HCPCS: 36415; 80048; 80061; 82306; 83036

== ENCOUNTER 2024-03-26 13:23 | Emergency (ER) | payer OTHER, SELFPAY ==
[2024-03-26 13:31] VITALS: BP 121/77; BP 133/70; PULSE 115; PULSE 117; RESP 18; O2SAT 95; O2SAT 99; BMI 25.8
--- NOTE | 2024-03-26 13:35 | ED_ITS ---
History of Present Illness General Chief Complaint: Epistaxis Stated Complaint: NOSE BLEED Time Seen by Provider: 03/26/24 13:31 Source: patient, family () and EMS Mode of arrival: EMS Limitations: no limitations History of Present Illness HPI Narrative: 54 year old female with pmhx significant for Hodgkin's lymphoma, osteoporosis, anxiety, depression, current breast cancer undergoing chemotherapy presents to the ED today via EMS for evaluation of epistaxis x 2.5 hours. Reports history of similar following chemo appointments however bleeding typically stops after approximately 20 minutes. Patient has chemo every 3 weeks. her last dose of chemo was approximately 10 days ago. 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 She is not on anticoagulation. Denies any trauma/ injury to the nare. Related Data Home Medications ?Medication ?Instructions ?Recorded ?Confirmed cholecalciferol (vitamin D3) 50 50 mcg PO QID 09/26/20 12/21/23 mcg (2,000 unit) capsule mecobalamin (vitamin B12) 5,000 5,000 mcg PO DAILY 09/26/20 12/21/23 mcg lozenge omega-3 fatty acids 1,000 mg 1,000 mg PO DAILY 09/26/20 12/21/23 capsule (Fish Oil Concentrate) magnesium 200 mg tablet 400 mg PO DAILY 11/28/20 12/21/23 calcium 650 mg-vitamin D3 12.5 2 tab PO DAILY 10/02/21 12/21/23 mcg-vitamin K 40 mcg chewable tablet (Viactiv) cetirizine 10 mg tablet (Zyrtec) 10 mg PO DAILY PRN prn 10/02/21 12/21/23 riboflavin (vitamin B2) 400 mg 400 mg PO DAILY 10/02/21 12/21/23 tablet alendronate 70 mg tablet 70 mg PO QWEEK 10/23/22 12/21/23 triamcinolone acetonide 0.5 % 0.5 appl topical DAILY 10/23/22 12/21/23 topical cream simvastatin 20 mg tablet 20 mg PO DAILY 10/27/23 12/21/23 Previous Rx's ?Medication ?Instructions ?Recorded mastectomy bra (bra, mastectomy) #6 ea 12/07/23 ondansetron 8 mg disintegrating 8 mg PO Q8H #60 tabs 12/21/23 tablet dexamethasone 4 mg tablet 4 mg PO BID #100 tabs 12/23/23 Magic Mouthwash 10 ml PO QID #240 mL 12/30/23 Diphen/Nystat/Antacid 1:1:1 240 mL suspension loperamide 2 mg capsule (Imodium 2 mg PO Q4H PRN Diarrhea #60 caps 02/29/24 A-D) cephalexin 500 mg capsule 500 mg PO TID 5 days #15 caps 03/26/24 Allergies Allergy/AdvReac Type Severity Reaction Status Date / Time penicillin V Allergy Unknown rash Verified 03/26/24 13:34 Latex Allergy Unknown rash/hive Uncoded 12/22/23 10:45 Review of Systems 2 Review of Systems: Constitutional: No fever, chills, fatigue, night sweats, weight changes ENT/Mouth: No ear pain, hearing loss, nasal congestion, sinus pain, rhinorrhea, sore throat, +epistaxis Eyes: No eye pain, swelling, redness, vision changes, discharge Cardio: No chest pain, palpitations, MARTELL, orthopnea, peripheral edema Pulm: No SOB, cough, sputum, wheezing, dyspnea, hemoptysis GI: No nausea, vomiting, hematemesis, abdominal pain, diarrhea, constipation, hematochezia, melena : No irregular bleeding, dysuria, frequency, urgency, hesitancy, hematuria, flank pain, urinary flow changes, urinary incontinence or retention MSK: No back pain, neck pain, joint pain, myalgias Skin: No lesions, rashes Neuro: No weakness, numbness, paresthesias, LOC, dizziness, headache Psych: No anxiety/panic, depression, SI/HI, AH/VH All other systems reviewed and are negative. [facility] Past Medical History Attestation statement: The following information was validated with the patient. Source: old records reviewed and nursing notes reviewed Medical History Invasive ductal carcinoma of left breast Left breast mass Osteoporosis Fibroids HSV infection Abnormal Pap smear of cervix Anxiety and depression Hodgkin's disease Surgical History History of evacuation of hematoma (~11/11/23) History of left total mastectomy (~11/10/23) H/O left inguinal hernia repair H/O LEEP Family History Family History Paternal Grandfather Colon cancer Father Cancer of kidney Diabetes Mother Hyperlipidemia Social History Social History Household Members: Spouse Housing: House Are you a primary managed care liaison to a significant other at home: No Do you presently have visiting nurse or other home services: No Alcohol intake: never Patient Tobacco Use Status: Former Tobacco user Tobacco use type: Cigarette Smoked in Last 30 Days: No Second Hand Smoke Exposure: No Use of substances other than those prescribed or required for medical reasons: No Advance Directives: No Advance Directives Information Provided: No service: No Current occupational status: employed and unemployed 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 not hypertensive. General: thin appearing, NAD Skin: warm, dry, intact. No rashes or lesions. Head: Normocephalic, atraumatic. EENT: Hearing is intact b/l. Conjunctiva clear. PERRLA. EOM intact. dry mucous membranes.?+epistaxis noted to left nare w/ clots. blood noted to posterior oropharynx Neck: Supple without LAD Cardiac: Chest wall symmetric. RRR Lungs: Normal respiratory effort without accessory muscle use. CTA bilaterally? Ext: Upper and lower extremities atraumatic, without tenderness, deformity, swelling or erythema Neuro: AOx3. Normal speech. Ambulating with steady gait. Psych: Appropriate mood and affect. Responds appropriately to questions. Course Course Course Narrative: CBC showing neutrophilia to 43.6 which is quite elevated from 5.9 on labs obtained 10 days ago. She was also noted to have 91% neutrophils with 41 absolute neutrophils. Given this combination, abnormal labs are likely secondary to recent neulasta injection that was administered 1-2 days after her recent chemo to prevent neutropenia. 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 Burt, regarding these results who agrees that this is likely caused by injection. I do not have concern for acute infection at this time. > on arrival, patient had active epistaxis from left nare. I was unable to visualize bleed at that time. I placed afrin to b/l nares followed by nasal clamp for 10 minutes. I then placed TXA into each nare with re-evaluation after 20-25 minutes. bleeding had ceased on removal of TXA soaked gauze. she was observed for around 1.5 hours without further bleeding. on re-evaluation, there is a tiny clot noted to anterior left nare, likely the site of bleeding. dr. crawford and I placed a merocel nasal packing into left nare with patient's consent. patient tolerated well. no further bleeding. will place her on a 5 day course of keflex to prevent infection, with first dose administered here. Advised her to follow up with ENT in 4 days for removal (referral provided). If she is unable to get an appointment, she may return to the ED for packing removal. she verbalized understanding. I also advised patient to follow up with her oncologist as scheduled. patient has remained stable throughout ED visit today. Discussed worrisome signs and symptoms and when to return to the ED. All questions answered at this time. Patient is agreeable with disposition and stable for discharge. Medications Administered Discontinued Medications Generic Name Dose Route Start Last Admin Trade Name Freq PRN Reason Stop Dose Admin Lidocaine/Epinephrine 5 ml 03/26/24 16:18 03/26/24 16:28 Lidocaine Hcl 1%/Epi 1:100,000 10 Ml Vial INFILTRATI 03/26/24 16:19 5 ml ONCE ONE Administration Oxymetazoline HCl 2 spray 03/26/24 13:52 03/26/24 13:56 Oxymetazoline Hcl 0.05 % Nasal 15 Ml [place] NOSTRIL-B 03/26/24 13:53 2 spray ONCE ONE Administration Medical Decision Making Medical Decision Making MDM Narrative: 54 year old female with pmhx significant for Hodgkin's lymphoma, osteoporosis, anxiety, depression, current breast cancer undergoing chemotherapy presents to the ED today via EMS for evaluation of epistaxis x 2.5 hours. she is tachycardic, vitals are otherwise wnl. she is thin appearing, in NAD. on exam, epistaxis noted to left nare w/ clots, bright red blood noted to posterior oropharynx. Differential diagnosis includes epistaxis, thrombocytopenia, anemia Plan for basic labs, type and screen, epistaxis control Differential Diagnosis Differential Diagnoses: The differential diagnosis associated with the presentation includes as above. Admission/Observation Consideration of admission/observation: Escalation of care including admission/observation considered admission considered on presentation Consult Healthcare Provider Management of the patient was discussed with: [facility] Hematology/oncology- dr. burt Lab Data MDM Lab Attestation statement: I reviewed the patient's lab results. as above. 03/26/24 14:07 03/26/24 14:07 Labs: Lab Results 03/26/24 Range/Units 14:07 WBC 43.6 H* (4.8-10.8) X10*3/uL RBC 3.21 L (4.20-5.50) X10*6/uL Hgb 9.6 L (12.0-16.0) g/dl Hct 28.9 L (37.0-47.0) % MCV 90.0 (80.0-98.0) fL MCH 29.9 (27.0-33.0) pg MCHC 33.2 (31.0-35.0) g/dl RDW 18.7 H (11.0-16.0) % Plt Count 239 D (160-400) X10*3/uL MPV 11.2 (9.4-12.3) fL Immature Gran % (Auto) Cancelled Neut % (Auto) Cancelled Lymph % (Auto) Cancelled [place] % (Auto) Cancelled Eos % (Auto) Cancelled Baso % (Auto) Cancelled Lymph # (Auto) Cancelled [place] # (Auto) Cancelled Eos # (Auto) Cancelled Baso # (Auto) Cancelled Abs Immat Gran (auto) Cancelled Absolute Neuts (auto) Cancelled Absolute Nucleated RBC 0.060 H (0.0-0.012) X10*3/uL Nucleated RBC % (auto) 0.1 (0.0-0.2) /100WBC Neutrophils % (Manual) 91 H (45-73) % Band Neutrophils % 3 (3-5) % Lymphocytes % (Manual) 1 L (20-40) % Monocytes % (Manual) 1 L (2-11) % Eosinophils % (Manual) 1 (0-4) % Metamyelocytes % 2 % Myelocytes % 1 % Abs Neuts (Manual) 41.0 H (2.0-8.3) X10*3/uL Lymphocytes # (Manual) 0.4 L (1.2-4.9) X10*3/uL Monocytes # (Manual) 0.4 (0.1-1.2) X10*3/uL Eosinophils # (Manual) 0.4 (0.0-0.4) X10*3/uL Metamyelocytes # 0.9 X10*3/uL Myelocytes # 0.4 X10*/uL Dohle Bodies PRESENT Platelet Estimate NORMAL (NORMAL) Large Platelets PRESENT Plt Morphology Comment NOTED RBC Morphology NOTED Polychromasia 1+ (0-2) /OIF Ovalocytes 1+ (5-14) /OIF PT 12.2 (10.9-12.4) SEC INR 1.0 (0.9-1.1) APTT 30.9 (26.0-36.8) SEC Hold Blue Top SEE NOTE Sodium 143 (135-145) mmol/L Potassium 4.3 (3.3-5.1) mmol/L Chloride 110 H (96-108) mmol/L Carbon Dioxide 26 (22-29) mmol/L Anion Gap 11 L (12-20) BUN 21 H (9-16) mg/dL Creatinine 0.62 (0.5-1.4) mg/dL Estim Creat Clear Calc 100.8 Estimated GFR > 60 Random Glucose 103 (60-115) mg/dL Calcium 9.2 (8.4-10.2) mg/dL Total Bilirubin 0.5 (0.0-1.0) mg/dL AST 52 H (5-31) U/L ALT 49 H (0-31) U/L Alkaline Phosphatase 421 H (39-117) U/L Total Protein 6.4 L (6.5-8.0) g/dL Albumin 3.8 (3.5-5.0) g/dL Blood Type O Positive Antibody Screen NEGATIVE Independent Historian Clinical information obtained from an independent historian. History obtained from or confirmed by: Spouse () External Record Review External record reviewed: Inpatient record and Office record Prescription Management I considered prescription management with: Antibiotic (keflex) Chronic Conditions Patient?s care impacted by: Cancer Social Determinants Patient?s care significantly limited by Social Determinants of Health including: Other Social Determinant of Health Procedures Epistaxis Control Time Out Performed: Yes Nostril: Yes left Nose prepped with: Yes oxymetazoline Direct inspection: Yes anterior source identified Direct inspection method: Yes nasal speculum and Yes otoscope Epistaxis treatment: Yes TXA soaked gauze and Yes other (merocel packing) Results of treatment: Yes bleeding controlled Complications: Yes none Discharge Plan Discharge Clinical Impression: Epistaxis Patient Disposition: Home, Self-Care Instructions: Nosebleed (ED) Additional Instructions: You were evaluated in the ED today for nosebleed. Avoid hot beverages for the next 2-3 days as this can increase chance of re- bleeding. Follow up with ENT (ear, nose, throat) in 4 days for packing removal. You have been provided with a referral. Call them to make an appointment. They will not call you. If you are unable to make an appointment with them, you may return to the ED for packing removal. As discussed, anyone with nasal packing needs to be placed on a course of antibiotics to prevent infection. Keflex is an antibiotic that has been sent to your pharmacy. You received your 1st dose in the ED today. Take this three times daily over the next 5 days to prevent infection. If there is recurrence of significant bleeding at home: Apply nasal clamp on your nose again for at least 20 minutes. If after 20 minutes you are no longer bleeding, you do not need to come to the ED. Return with new or worsening symptoms. In the case of an emergency call 911. Prescriptions: New cephalexin 500 mg capsule 500 mg PO TID 5 Days Qty: 15 0RF No Action Magic Mouthwash Diphen/Nystat/Antacid 1:1:1 240 mL Suspension 10 ml PO QID Qty: 240 3RF Rx Instructions: nystatin 100,000 unit/mL oral suspension 80 mL; diphenhydramine 12.5 mg/5 mL oral liquid 80 mL; aluminum-mag hydroxide-simethicone 400 mg-400 mg-40 mg/5 mL oral susp 80 mL; Per 240 mL simvastatin 20 mg tablet 20 mg PO DAILY (DME) bra, mastectomy Crystals Qty: 6 5RF Rx Instructions: As Directed. Use status post breast surgery. ondansetron 8 mg Tablet,Disintegrating 8 mg PO Q8H Qty: 60 4RF dexamethasone 4 mg Tablet 4 mg PO BID Qty: 100 1RF Rx Instructions: Take 4 mg p.o. b.i.d. day 2 and 3 of chemo every 21 days. loperamide [Imodium A-D] 2 mg Capsule 2 mg PO Q4H PRN (Reason: Diarrhea) Qty: 60 3RF Rx Instructions: administer after each loose stool until symptoms controlled; do not exceed 8 mg per 24 hrs omega-3 fatty acids [Fish Oil Concentrate] 1,000 mg capsule 1,000 mg PO DAILY mecobalamin (vitamin B12) 5,000 mcg lozenge 5,000 mcg PO DAILY Patient Comments: 1qod+2qod Rx Instructions: allow to dissolve in mouth OR may chew lightly before swallowing cholecalciferol (vitamin D3) 50 mcg (2,000 unit) capsule 50 mcg PO QID Patient Comments: 1 QOD+2QOD magnesium 200 mg tablet 400 mg PO DAILY calcium-vitamin D3-vitamin K [Viactiv] 650 mg-12.5 mcg-40 mcg tablet,chewable 2 tab PO DAILY riboflavin (vitamin B2) 400 mg tablet 400 mg PO DAILY cetirizine [Zyrtec] 10 mg tablet 10 mg PO DAILY PRN (Reason: prn) alendronate 70 mg tablet 70 mg PO QWEEK triamcinolone acetonide 0.5 % cream 0.5 appl topical DAILY Referrals: Abhishek Marie [Physician] - 3 days (nasal packing removal) Print Language: Ecuadorean
[2024-03-26] MEDS: Oxymetazoline HCl 0.05 % Nasal 15 ML SPRAY 2 SPRAY NOSTRIL-B (13:56)
[2024-03-26 14:07] VITALS: BP 121/77; PULSE 118; RESP 18
[2024-03-26 14:20] LABS: Hematocrit 28.9 % (37.0-47.0); Hemoglobin 9.6 g/dl (12.0-16.0); Mean Corpuscular HGB Conc 33.2 g/dl (31.0-35.0); Mean Corpuscular Hemoglobin 29.9 pg (27.0-33.0); Mean Platelet Volume 11.2 fL (9.4-12.3); NRBC Pct Auto 0.1 /100WBC (0.0-0.2); Platelet Count 239 X10*3/uL (160-400); Red Blood Count 3.21 X10*6/uL (4.20-5.50); Red Cell Distribution Width 18.7 % (11.0-16.0)
[2024-03-26 14:21] LABS: WBC ABN SCTR FOR CBC 1
--- OUTSIDE RECORDS SUMMARY | 2024-03-26 14:23 | XMS_ITS | Continuity of Care Document ---
Author Organization [facility] [place], , [facility], OFFICE Address [address] [place] [address] Care Team Providers Care Entry Tech Name Role Phone [facility] Environmental Restoration Planner HOWIE WATTS Medical Oncologist [phone] [facility] Gimp Buttonhole Machine Operator ELÍAS JONES Primary Care Provider [phone] [facility] Agency Sales Development Associate KATE WHITMAN General Surgeon Assessment No assessment recorded. Plan of Treatment Reminders Order Date Submit Date Provider Last Modified By Organization Details Last Modified Time Details Appointments LAB Follow-Up 2024 08:20A M [facility] Lab Not available Not available Not available Follow Up, 15 2024 09:00A M Elías Jones MD Not available Not available Not available Wellness Visit 30 2024 11:15A M Janel Velasco PA-C Not available Not available Not available Lab None recorded. Referral None recorded. Procedures None recorded. Surgeries None recorded. Imaging None recorded. Medication Orders None recorded. Patient Targets Encounter Date Encounter Id Patient Goals Patient Target Last Modified By Organization Details Last Modified Time Her pupil has now resolved , will observeFollow up with eye dr in a few dayscall if reoccuring [email or web address] Not available 03/10/2024 17:26:22 Patient InstructionsNo instructions recorded. Reason for Referral None Reported. Problems Name Problem SNOMED Code Status Onset Date Resolution Date Notes Provider Name and Address Organization Details Recorded Time Hyperlip idemia 52301516 Active Elías Jones [address] [place] [address], [place], [phone] , [facility] 2 09:57:33 Osteopen ia 912401057 Completed 201506/20/2020 Elías Jones Freddy [facility] [place], [address], [facility] 1 16:57:15 Ganglion of wrist 651626885 Active 2016 Elías Jones [address] [place] [address] [place], [address], [facility] 2 09:57:30 History of Hodgkin lymphoma 090806688 Active 2016 Elías Jones Freddy [facility] [place], [address], [facility] 2 09:57:28 Subclini alisha hypothyr oidism 04981072 Active 2019 Elías Jones Freddy [facility] [place], [address], [facility] 2 09:57:41 Sebaceou s cyst of skin 751343240 Active 2014 R groin Elías Jones [address] [place] [address] [place], [address], [facility] 2 09:57:46 Osteopor osis 63065438 Active 2020 Elías Jones [address] [place] [address] [place], [address], [facility] 2 09:57:38 Impaired fasting glycemia 207662391 Active 2022 Elías Jones [address] [place], [place] [address], [address], [facility] 3 15:35:33 Adenomat ous polyp of colon 045242862 Active 02/2023 DAV[facility] [place], [address], [facility] 4 12:55:07 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 T1N1 staging Janel Velasco PA-C [address] [place] [address], [phone], [facility] 4 13:47:40 Problem Notes None recorded. Procedures Surgical History Date Name Laterality Status Provider Name and Address Organization Details Recorded Time 11/10/19 24 excision of left breast completed Janel Velasco PA-C [address] [place] [address], [phone], [facility] 11/15/2023 10:38:12 04/15/19 24 Cardiovascular disease risk reduction counseling completed Elías Jones [address] [place] [address], [phone], [facility] 04/15/2023 11:18:29 02/21/19 21 prevention-cardiov ascular risk reduction counseling completed Maya Hamilton MA [facility] [place] 02/22/2020 10:26:08 02/21/19 21 prevention-annual alcohol misuse screening completed Maya Hamilton MA [facility] [place] 02/22/2020 10:26:08 02/08/19 02 Hernia Repair completed Elías Jones [address] [place] [address], [phone], [facility] 03/08/2012 10:35:30 Imaging Results None recorded. Procedure Notes None recorded. Medical Equipment None Reported. Allergies Allergen ID Allergen Name Allergen Category Reaction Reaction Severity Criticality Documentation Date Start Date Code Code System Note Provider Name and Address Organization Details Recorded Time 247817 latex environme nt,medica tion hives Not available Not available 11/07/2019 21261 91 RxNorm Maya Hamilton MA [facility] 0 14:01:02 63448 Product containin g penicilli n (product) medicatio n hives Not available Not available 07/07/2011 63837 8001 SNOMED Ally Julia [facility] 2 08:47:17 Medications Name Sig Start Date Stop Date Status Note LastModified by Organization Details LastModified Time first-mag ic mouthwash blm susp kit USE 10ML BY MOUTH FOUR TIMES DAILY DIRECTED active Not Available Not Available No t Available binaxnow covid-19 ag card home test kit 05/28 completed Not Available Not Available Not Available erythromy kenny 500 mg tablet active Not Available Not Available No t Available loperamid e 2 mg capsule TAKE 2 CAPSULES BY MOUTH EVERY 4 HOURS NEEDED FOR DIARRHEA .TAKE AFTER EACH LOOSE STOOL UNTIL SYMPTOMS CONTROLL ED. DO NOT EXCEED 8MG IN 24 active Not Available Not Available No t Available triamcino lone acetonide 0.5 % topical cream APPLY TO AFFECTED AREA TWICE A DAY x 7-14 days active Not Available Not Available No t Available azithromy kenny 250 mg tablet 05/25 completed Not Available Not Available Not Available IBU 800 mg tablet 07/14 completed Not Available Not Available Not Available Lidocaine Viscous 2 % mucosal solution Take 5 millilit ers dab by oral route on affected area in mouth every 2-4 hours as needed for pain 02/21 completed not taking currentl y 08/17/2019 adrián Not Available Not Available Not Available valacyclo vir 1 gram tablet take 2 tablets by mouth every 12 hours 01/08 completed Not Available Not Available Not Available hydrocodo ne 5 mg-acetam inophen 325 mg tablet 05/25 completed Not Available Not Available Not Available prednison e 20 mg tablet 02/03 completed not taking 2 xr Not Available Not Available Not Available alendrona te 70 mg tablet TAKE 1 TABLET BY MOUTH EVERY WEEK active Not Available Not Available No t Available triazolam 0.125 mg tablet 05/25 completed Not Available Not Available Not Available Zyrtec 10 mg tablet Take 1 tablet twice a day by oral route. 01/09 completed PRN Not Available Not Available Not Available triamcino lone acetonide 0.1 % topical cream APPLY A THIN LAYER TO THE AFFECTED AREA(S) BY TOPICAL ROUTE 2 TIMES PER DAY 11/24 completed Not Available Not Available Not Available simvastat in 40 mg tablet take 1 tablet by mouth once daily active Not Available Not Available No t Available ondansetr on 8 mg disintegr ating tablet DISSOLVE 1 TABLET ON THE TONGUE EVERY 8 HOURS 03/10 completed Not Available Not Available Not Available oxycodone -acetamin ophen 5 mg-325 mg tablet TAKE 1 TABLET BY MOUTH EVERY 4 TO 6 HOURS NEEDED FOR PAIN 03/10 completed PRN, not taking 11/23/23 Not Available Not Available Not Available hydrocort isone-puma tic acid 1 %-2 % ear drops active Not Available Not Available No t Available benzonata te 100 mg capsule 07/09 completed Not Available Not Available Not Available simvastat in 20 mg tablet TAKE 1 TABLET BY MOUTH EVERY DAY active Not Available Not Available No t Available cyanocoba rico (vit B-12) 1,000 mcg/mL injection solution Inject 1 mL every day by intramus cular route for 5 days. 02/03 completed Not Available Not Available Not Available dexametha sone 4 mg tablet TAKE 1 TABLET BY MOUTH TWICE DAILY FOR DAYS 2 AND 3 OF CHEMO EVERY 21 DAYS active Not Available Not Available No t Available Guaifenes in AC 10 mg-100 mg/5 mL oral liquid take 10 millilit ers by mouth every 4 to 6 hours if needed for 7 days 08/13 completed Not Available Not Available Not Available prednison e 50 mg tablet Take 1 tablet every day by oral route for 3 days. 04/29 completed Not Available Not Available Not Available erythromy kenny ethylsucc inate 400 mg tablet Take 1 tablet twice a day by oral route for 10 days. 05/08 completed Not Available Not Available Not Available cephalexi n 500 mg tablet Take 1 tablet 3 times a day by oral route for 7 days. 05/05 completed Not Available Not Available Not Available bisacodyl 5 mg tablet,de layed release TAKE 4 TABLETS BY MOUTH DIRECTED 04/14 completed Not Available Not Available Not Available Pepcid 20 mg tablet Take 1 tablet twice a day by oral route. 09/19 completed Not taking ADRIÁN Not Available Not Available Not Available methylpre dnisolone 4 mg tablets in a dose pack active Not Available Not Available Not Available fluticaso ne propionat e 50 mcg/actua tion nasal spray,jose pension SHAKE LIQUID AND USE 1 SPRAY IN EACH NOSTRIL EVERY DAY 10/26 completed no longer using 07/15/23 Not Available Not Available Not Available sertralin e 50 mg tablet TAKE 1 TABLET DAILY active Not Available Not Available No t Available Tessalon Perle 100 mg capsule Take 1 capsule 3 times a day by oral route as needed for 5 days. 07/09 completed Not Available Not Available Not Available l.norgest -eth.estr adiol triphasic 50-30 (6)/75-40 (5)/125-3 0(10) tablet TAKE 1 TABLET BY MOUTH EVERY DAY 11/07 completed Not taking 1 ADRIÁN Not Available Not Available Not Available Gas Relief Extra Strength 125 mg chewable tablet CHEW AND SWALLOW 3 TABLETS BY MOUTH DIRECTED 04/14 completed Not Available Not Available Not Available chlorhexi dine gluconate 0.12 % mouthwash 07/14 completed Not Available Not Available Not Available magnesium citrate 2 200 mg gumies in the AM 01/09 completed Not Available Not Available Not Available Vitamin B-12 TAKE ONE TABLET ONE DAY AND TWO TABLETS THE SECOND DAY, CONTINUE ALTERNAT ING INDEFINA TELY 01/09 completed 500 mcg one every other day and two on the other days 1 ADRIÁN Not Available Not Available Not Available Fish Oil 01/09 completed Not Available Not Available Not Available cyclophos phamide active (Cytoxan ) Not Available Not Available Not Available docetaxel active (Taxoter e) Not Available Not Available Not Available riboflavi n (vitamin B2) 100mg takes 4 tablets 03/05 completed Takes one tablet of 400mg 1 ADRIÁN Not Available Not Available Not Available Vitamin D3 2000iu TABLETS ALTERNAT ING ONE TABLET ONE DAY AND TWO TABLETS THE SENCOND DAY 01/09 completed Not Available Not Available Not Available Viactiv takes two chews once a day 01/09 completed Not Available Not Available Not Available GaviLyte- G 236 gram-22.7 4 gram-6.74 gram-5.86 gram oral solution MIX AND DRINK DIRECTED 04/14 completed Not Available Not Available Not Available Afluria 4194-5961 (PF) 45 mcg (15 mcg x 3)/0.5 mL intramusc ular syringe inject 0.5 millilit er intramus cularly active Not Available Not Available No t Available Afluria 3764-2922 (PF) 45 mcg (15 mcg x 3)/0.5 mL intramusc ular syringe TO BE ADMINIST ERED BY PHARMACI ST FOR IMMUNIZA TION active Not Available Not Available No t Available riboflavi n (vitamin B2) 400 mg tablet TAKE 1 TABLET BY MOUTH EVERY DAY active Not Available Not Available No t Available Fluarix Quad 0600-4555 (PF) 60 mcg (15 mcg x 4)/0.5 mL IM syringe TO BE ADMINIST ERED BY THE YEVVOI ST 11/09 completed Not Available Not Available Not Available Flucelvax Quad (PF) 60 mcg (15 mcg x 4)/0.5 mL IM syringe TO BE ADMINIST ERED BY YEVVOI FOR IMMUNIZA TION 05/25 completed Not Available Not Available Not Available Flucelvax Quad (PF) 60 mcg (15 mcg x 4)/0.5 mL IM syringe 11/24 completed Not Available Not Available Not Available Fluzone Quad (PF) 60 mcg (15 mcg x 4)/0.5 mL IM syringe PHARMACY ADMINIST ERED 11/06 completed Not Available Not Available Not Available [facility] COVID-19 Vaccine (PF) 30 mcg/0.3 mL IM susp (purple) ADMINIST ER 0.3ML IN THE MUSCLE DIRECTED 04/22 completed Not Available Not Available Not Available BinaxNOW COVID-19 Ag Self Test kit TEST DIRECTED TODAY 10/22 completed Not Available Not Available Not Available Vitals Date Recorded Body height Body mass index (BMI) Body weight Heart rate Systolic blood pressure Diastolic blood pressure Provider Name and Address Organization Details Last Updated DateTime 5 165.1 cm 26.3 kg/m2 82609.2 9 g 100 /min 100 mm[Hg] 64 mm[Hg] Perla Meraz user, [facility] 5 17:09:35 Social History Question Answer Notes LastModified by Organizat ion Details LastModified Time Tobacco Smoking Status Former Smoker Ally butterfield [facility] [place] 07/07/2011 08:47:17 What Is Your Level Of Alcohol Consumption? None Information not available 04/18/2014 Do You Wear A Helmet When Biking? No Does Not Ride Information not available 05/06/2015 What Is Your Level Of Caffeine Consumption? Occasional Tea Information not available 05/06/2015 How Much Tobacco Do You Chew? None Information not available 05/06/2015 Are You Currently Employed? No 'taking A Break' - Previously Working As A [employer] (high Stress) Information not available 07/15/2023 What Type Of Diet Are You Following? REGULAR Information not available 07/07/2011 Which Illicit Or Recreational Drugs Have You Used? None Information not available 05/06/2015 Do You Or Have You Ever Used E-cigarettes Or Vape? Never Used Electronic Cigarettes Information not available 02/22/2020 What Is The Highest Grade Or Level Of School You Have Completed Or The Highest Degree You Have Received? FK54156-0 [employer] Information not available 03/05/2021 Have There Been Any Changes To Your Family Or Social Situation? No With And Cat Information not available 03/05/2021 When Did You Quit Smoking? 16+yearssinc elastcigaret te Quit Smoking In Information not available 04/17/2015 Are There Any Guns Present In Your Home? No Information not available 05/25/2018 Do You Use Insect Repellent Routinely? Yes Information not available 03/05/2021 Patient Has Health Care Proxy Signed And In Chart Yes [email or web address] Information not available 05/26/2018 What Was The Date Of Your Most Recent Tobacco Screening? 03/10/2024 [email or web address] Information not available 03/10/2024 How Many Children Do You Have? 0 Raises Stepchildren Information not available 07/07/2011 Are There Any Occupational Health Risks Where You Work? None Information not available 05/06/2015 What Is Your Current Pack Years? 10-19packyea rs Information not available 04/17/2015 What Is Your Relationship Status? Zeyad Camp Information not available 03/05/2021 Do You Use Your Seat Belt Or Car Seat Routinely? Yes Information not available 03/05/2021 Are You Sexually Active? Yes Information not available 03/05/2021 Do You Have Smoke And Carbon Monoxide Detectors In Your Home? Yes Information not available 03/05/2021 At What Age Did You Start Smoking Tobacco? 16 Information not available 07/07/2011 Are You Passively Exposed To Smoke? No Information not available 03/05/2021 Do You Or Have You Ever Used Smokeless Tobacco? Never Used Smokeless Tobacco Information not available 02/22/2020 How Much Tobacco Do You Smoke? No Information not available 02/22/2020 What Types Of Sporting Activities Do You Participate In? None Information not available 05/06/2015 Do You Use Any Illicit Or Recreational Drugs? No Information not available 03/05/2021 Do You Use Sunscreen Routinely? No Information not available 05/19/2017 Do You Or Have You Ever Used Any Other Forms Of Tobacco Or Nicotine? No [email or web address] Information not available 03/09/2022 Sex: Female Functional Status Question Answer Note LastModified by Organization D etails LastModified Time What is your exercise level? Moderate Information not available 03/05/2021 Mental Status None recorded. Family History Relationship Description Onset Age of this Age Resolved Age Notes LastModified by Organization Details LastModified Time Mother Hyperlipidem ia Not available 05/05 15:48:16 Maternal Grandfather Diabetes mellitus Not available 05/05 15:48:16 Maternal Grandfather Cerebrovascu lar accident 89 Not available 15:48:16 Maternal Grandmother Problem 90 [email or web address] Not available 2022 14:01:45 Maternal Grandmother Malignant neoplastic disease ?lung Not available 05/05 15:48:16 Paternal Grandfather Conduction disorder of the heart had pacema ker [email or web address] Not available 03/09/2022 14:01:45 Paternal Grandfather Problem 90 [email or web address] Not available 2022 14:01:45 Paternal Grandfather Malignant tumor of colon 80 Not available 05/05 15:48:16 Paternal Grandmother Congestive heart failure 90 [email or web address] Not available 2022 14:01:45 Paternal Grandmother Diabetes mellitus Not available 05/05 15:48:16 Father Atrial fibrillation [email or web address] Not available 14:01:45 Father Disorder of pulmonary circulation ?uncle ar reason - blood clots in lungs [email or web address] Not available 03/09/2022 14:01:45 Father Diabetes mellitus 72 in remiss ion with diet Not available 05/25/2018 15:48:58 Brother Diabetes mellitus Not available 05/25 15:47:41 Paternal Aunt Malignant tumor of breast 55 surviv or Not available 02/22/2020 11:28:17 Notes:DM on both sides of leon, Medical History Condition Response Hyperlipidemia Y INFECTIOUS DISEASE Y CANCER Y Gynecological History Statement/Question Response Menses Monthly Y History of Abnormal Pap Y Age at Menarche 11 Obstetrics History GPAL:G 0 P 0 0 0 0 Immunizations Vaccine Type Date Status Note Provider Nam e and Address Organization Details Recorded Time Tdap 1 completed TRACIE Corbin [facility] [place] 07/29/2011 12:56:02 Influenza, split virus, quadrivalent, PF 5 completed Not Available [facility] 02/25/2019 02:19:48 Influenza, split virus, trivalent, preservative 2 completed Not Available [facility] 03/09/2022 14:01:47 Influenza, split virus, trivalent, preservative 3 completed Not Available [facility] 03/09/2022 14:01:47 Influenza, split virus, quadrivalent, PF 6 completed Not Available [facility] 02/25/2019 02:27:42 Influenza, MDCK, quadrivalent, PF 8 completed CARLIN Oneil [facility] 03/10/2024 17:06:49 Td (adult), 2 Lf tetanus toxoid, preservative free, adsorbed 1 [facility] 09:29:20 COVID-19, mRNA, LNP-S, PF, 30 mcg/0.3 mL dose 1 completed Perla Urbanor, RMA null, [facility] [place] 03/10/2024 17:06:50 COVID-19, mRNA, LNP-S, PF, 30 mcg/0.3 mL dose 1 completed Perla Urbanor, RMA null, [facility] [place] 03/10/2024 17:06:50 Influenza, split virus, quadrivalent, PF 3 completed Elías Jones [address] [place] [address], [phone], [facility] 10/22/2022 08:21:26 COVID-19, mRNA, LNP-S, PF, 30 mcg/0.3 mL dose 1 completed Perla Archer, RMA null, [facility] [place] 03/10/2024 17:06:50 COVID-19, mRNA, LNP-S, PF, 30 mcg/0.3 mL dose 2 completed Perla Urbanor, RMA null, [facility] [place] 03/10/2024 17:06:50 COVID-19, mRNA, LNP-S, bivalent, PF, 30 mcg/0.3 mL dose 2 completed Perla Mchughauser, RMA null, [facility] [place] 03/10/2024 17:06:50 influenza, unspecified formulation 2 completed Keerthi Sharma [place] null, [facility] [place] 01/30/2022 09:59:12 COVID-19, mRNA, LNP-S, PF, cat-sucrose, 30 mcg/0.3 mL 4 completed Perla Urbanor, RMA null, [facility] [place] 03/10/2024 17:06:50 Influenza, MDCK, trivalent, PF 4 completed Perla Jignatgenhauser, RMA null, [facility] [place] 03/10/2024 17:06:50 Past Encounters Encounter ID Performer Location Encounter Start Date Encounter Closed Date Diagnosis/Indication Diagnosis SNOMED-CT Code Diagnosis ICD10 Code Diagnosis Note [id number] Mustapha Maen MD , [facility], OFFICE [address] [place] [address] 03/10/2024 16:58:51 03/13/2024 14:56:48 Dilated pupil 77459035 H57.04 Health Concerns Section Related Observation LastModified by Organization Detai ls LastModified Time None Recorded Concern Status LastModified by Organization Details LastModified Time None Recorded Payers Encounter Date Sequence Insurance Name Policy Number Policy Browne Covered Member ID Browne Member ID Guarantor Name 03/10/2024 1 [employer] - DIRECT CONNECTORCARE TYPE II (HMO) [id number] [facility] [id number] 2 [facility] Notes Date Note Type Note Provider Name and Address Organization Details Recorded Time 03/10/2024 text/html 03/10/24-left pupil larger than right03/10/24 @ 1:39pm- wanted to let DS know that she is still keeping her apt today, but that the eye issue seems to have resolved and she does have an apt with eye doctor on Wednesday/ No KELLER , no blurry vision , is having chemo for breast Anai talked to her oncologist did not think related Mustapha Mane MD [address] [place] [address], [phone], [facility] 03/11/2024 11:13:39 OBGyn Episode No OBEpisode recorded.
--- OUTSIDE RECORDS SUMMARY | 2024-03-26 14:23 | XMS_ITS | Continuity of Care Document ---
Author Organization [facility] Address [address] [place] [address] [address] [place] [phone] Phone Care Team Providers Care Body Joiner Name Role Phone August ROMO FACS RVT [...] Providers Copied on Encounter [facility], [address] [place] [address] [address], [place], [id number], [place] tel:[phone] [facility] [place] [facility] - (Telangiec vanessa) 3 August ROMO FACS RVT THU Alaniz. [address] [facility] [address], [place], [address], [place]. tel:[phone] Referring Provider: Miriam Calvin PA-C , [address] [place] [address], [id number]. tel:[phone] Family History Family Member Type Diagnosis Age At Onset No Information Payers Payer name Insurance type Covered republican ID Authoriza tion(s) Self Pay 09 Social [...]
--- OUTSIDE RECORDS SUMMARY | 2024-03-26 14:23 | XMS_ITS | Data Portability ---
Author Organization [facility], , [facility] Address [address] [place] [address] Care Team Providers Care Over The Road Driver Name Role Phone [facility] E Merchant HOWIE WATTS Medical Oncologist [facility] Mat Repairer [phone] ELÍAS JONES Primary Care Provider [facility] [place] Clerk KATE WHITMAN General Surgeon [phone] Assessment No assessment recorded. Plan of Treatment Reminders Order Date Submit Date Provider Last Modified By Organization Details Last Modified Time Details Appointments LAB Follow-Up 2024 08:20A M [facility] Lab Not available Not available Not available Follow Up, 15 2024 09:00A M Elías Jones MD Not available Not available Not available Wellness Visit 30 2024 11:15A M Janel Velasco PA-C Not available Not available Not available Lab HbA1c (hemoglob in A1c), blood [address] [facility], [address] [place] [address], [id number], 01/26/2024 08:37:07 BMP, serum or plasma [address] [facility], [address] [place] [address], [address], 01/26/2024 08:37:07 lipid panel, serum [address] [facility], [address] [place] [address], [address], 01/26/2024 08:37:07 HbA1c (hemoglob in A1c), blood 2023 024 [facility], [address] [place] [address], [address], 01/19/2024 03:02:00 vitamin D, 25-hydrox y, total, serum 2023 024 [facility], [address] [place] [address], [address], 01/19/2024 03:02:00 BMP, serum or plasma 2023 024 [facility], [address] [place] [address], [address], 01/19/2024 03:02:00 lipid panel, serum 2023 024 [facility], [address] [place] [address], [address], 01/19/2024 03:02:01 Referral None recorded. Procedures None recorded. Surgeries None recorded. Imaging None recorded. Medication Orders triamcino lone acetonide 0.5 % topical cream 2023 [id number], [address] [place], [place], [id number], 01/21/2024 11:29:25 Patient Targets Encounter Date Encounter Id Patient Goals Patient Target Last Modified By Organization Details Last Modified Time Her pupil has now resolved , will observeFollow up with eye dr in a few dayscall if reoccuring [email or web address] Not available 03/10/2024 17:26:22 Patient Instructions Encounter Date Encounter Id Patient Instructions Last Modified By Organization Details Last Modified Time 11/23/2023 [id number] Patient expressi ng frustration and fear about upcoming chemotherapy treatment. Offered support services including social secretary. -Consider utilizing social secretary for additional support if desired. sara Not available 11/23/2023 14:56:13 01/26/2024 [id number] -Plan on fasting labwork in 3 months with labwork for [place] -Okay to use the triamcinolone for 10-14 days intervals if the rash recurs Not available 01/26/2024 08:39:30 Reason for Referral None Reported. Results Created Date Observation Date Name Description Value Unit Range Abnormal Flag Note LastModifiedBy Organization Detail LastModifiedTime 10/07/19 24 10/07/2023 FREE T4 free T4 0.71 NG/dL 0.75-1 .54 low Not Available [address], [address], 10/07/2023 10:48:54 10/07/19 24 10/07/2023 TSH TSH 4.47 uIU/m L 0.50-6 .00 The Ameri can Colle ge of Endoc rinol ogy and Ameri can Thyro id Assoc iatio n recom mend goal TSH value s betwe en 0.4-4 .0 mIU/m L. Not Available [address], [address], 10/07/2023 11:18:06 10/07/19 24 10/07/2023 HGB A1C hemoglobin A1C 6.2 % 4.8-6. 0 high Goal: <7% in Patie nts with Diabe melida An A1c betwe en 5.7-6 .4% is ident ified as pre-d iabet es and sugge sts risk for progr essio n to diabe melida Two a1c value s of 6.5% or highe r is consi stent with a diagn osis of diabe melida but may need furth er confi rmati on Not Available [address], [address], 10/07/2023 11:22:57 10/07/19 24 10/07/2023 HGB A1C estimated average glucose 131.2 mg/dL Not Available [address], [address], 10/07/2023 11:22:57 10/07/19 24 10/07/2023 BASIC METAB OLIC PANEL glucose 93 mg/dL 70-100 Not Available [address], [address], 10/07/2023 12:20:46 10/07/19 24 10/07/2023 BASIC METAB OLIC PANEL BUN 22 mg/dL 7-18 high Not Available [address], [address], 10/07/2023 12:20:46 10/07/19 24 10/07/2023 BASIC METAB OLIC PANEL creatinine 0.7 mg/dL 0.8-1. 3 low Not Available [address], [address], 10/07/2023 12:20:46 10/07/19 24 10/07/2023 BASIC METAB OLIC PANEL B/C 31.4 ratio Not Available [address], [address], 10/07/2023 12:20:46 10/07/19 24 10/07/2023 BASIC METAB OLIC PANEL GFR >=60ML /MIN mL/mi n normal >=60m L/min - Amparo l or midly reduc ed <60mL /min- Decre ased kidne y funct ion <15mL /min - Kidne y failu re [facility] calcu lates estim ated Glome rular Filtr ation Rate (eGFR ) using the Chron ic Kidne y Disea se Epide miolo gy Colla borat ion (CKD- EPI) Equat ion (Luis r et. al 2020) as recom naheed d by the Natio nal Kidne y Found ation . eGFR is based on age, serum creat inine , and sex. CKD-E PI does not calcu late eGFR by race, does not apply to child una (age <18 years ), and shoul d not be used in pregn tu. Not Available [address], [address], 10/07/2023 12:20:46 10/07/19 24 10/07/2023 BASIC METAB OLIC PANEL sodium 139 mmol/ L 136-14 5 Not Available [address], [address], 10/07/2023 12:20:46 10/07/19 24 10/07/2023 BASIC METAB OLIC PANEL potassium 4.2 mmol/ L 3.5-5. 1 Not Available [address], [address], 10/07/2023 12:20:46 10/07/19 24 10/07/2023 BASIC METAB OLIC PANEL chloride 101 mmol/ L 96-107 Not Available [address], [address], 10/07/2023 12:20:46 10/07/19 24 10/07/2023 BASIC METAB OLIC PANEL anion gap 12.0 5.0-15 .0 Not Available [address], [address], 10/07/2023 12:20:46 10/07/19 24 10/07/2023 BASIC METAB OLIC PANEL CO2 26 mmol/ L 21-32 Not Available [address], [address], 10/07/2023 12:20:46 10/07/19 24 10/07/2023 BASIC METAB OLIC PANEL calcium 9.0 mg/dL 8.5-10 .3 Not Available [address], [address], 10/07/2023 12:20:46 10/07/19 24 10/07/2023 LIPID PANEL cholesterol 164 mg/dL <200 mg/dl Rita able 200-2 39 mg/dl Borde rline High >240 mg/dl High Not Available [address], [address], 10/07/2023 12:20:46 10/07/19 24 10/07/2023 LIPID PANEL triglyceride s 71 mg/dL <150 mg/dL Amparo l 150-1 99 mg/dL Borde rline High 200-4 99 mg/dL High >500 mg/dL Very High Not Available [address], [address], 10/07/2023 12:20:46 10/07/19 24 10/07/2023 LIPID PANEL direct HDL 71 mg/dL <40 mg/dl - Major Risk for CHD >60 mg/dl - Negat nicolás Risk for CHD Not Available [address], [address], 10/07/2023 12:20:46 10/07/19 24 10/07/2023 LDL - CALCU LATED LDL - calculated 79 RISK CATEG ORY LDL GOAL _ CHD or CHD Risk Equiv alent s <100 mg/dl (10-y ear risk >20%) 2+ Risk Facto rs <130 mg/dl (10-y ear risk <= 20%) 0-1 Risk Facto r? <160 mg/dl ? Almos t all peopl e with 0-1 risk facto r have a 10 year risk <10%, thus 10 year risk asses ment in peopl e with 0-1 risk facto r is not neces kiran. Not Available [address], [address], 10/07/2023 12:20:46 10/07/19 24 10/07/2023 , maci levine No observ ation record ed. [address] [place], [address], 10/07/2023 13:37:39 10/12/19 24 10/12/2023 latasha CASTRO No observ ation record ed. ODILIA [address] [place], [address], 10/12/2023 13:44:44 10/12/19 24 10/12/2023 US, breas t No observ ation record ed. [address] [place], [address], 10/12/2023 13:44:45 10/18/19 24 10/18/2023 US, latasha t No observ ation record ed. [address] [place], [address], 10/18/2023 17:25:42 10/18/19 24 10/18/2023 MAMMO , diagn ostic No observ ation record ed. [address] [place], [address], 10/18/2023 17:25:42 10/20/19 24 10/18/2023 US, latasha fajardo No observ ation record ed. [address] [place], [address], 10/21/2023 11:03:50 10/20/19 24 10/18/2023 MAMMO , diagn ostic No observ ation record ed. [address] [place], [address], 10/21/2023 11:03:50 11/10/1911/10/2023 ultra sound guide d core biops y (PROC ) No observ ation record ed. [facility] [address] [place], [address], 11/10/2023 18:44:42 12/07/19 24 12/03/2023 DEXA, axial skele ton No observ ation record ed. [address] [place], [address], 12/07/2023 12:37:38 12/16/19 24 12/14/2023 US, breas t No observ ation record ed. ODILIA [facility] [address] [place], [address], 12/21/2023 13:20:34 12/27/19 24 12/21/2023 US, gillian anders No observ ation record ed. [facility] [address] [place], [address], 12/27/2023 14:15:50 Result Notes None recorded. Problems Name Problem SNOMED Code Status Onset Date Resolution Date Notes Provider Name and Address Organization Details Recorded Time Hyperlip idemia 98430570 Active Elías [place], [address], [facility] 2 09:57:33 Osteopen ia 124745608 Completed 201506/20/2020 [facility] [place], [address], [facility] 1 16:57:15 Ganglion of wrist 861376529 Active 2016 Elías [place], [address], [facility] 2 09:57:30 History of Hodgkin lymphoma 595639242 Active 2016 Elías [place], [address], [facility] 2 09:57:28 Subclini alisha hypothyr oidism 55281028 Active 2019 Elías [place], [address], [facility] 2 09:57:41 Sebkaylee s cyst of skin 935795368 Active 2014 Soha [place], [address], [facility] 2 09:57:46 Osteopor osis 25430644 Active 2020 Elías [place], [address], [facility] 2 09:57:38 Impaired fasting glycemia 180951026 Active 2022 Elías Jones [address] [place], [place] [address], [address], [facility] 3 15:35:33 Adenomat ous polyp of colon 781371351 Active 02/2023 Janel Velasco PA-C [address] [place], [place] [address] [place], [address], [facility] 4 12:55:07 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 T1N1 staging Janel Velasco PA-C [address] [place], [place] [address] zari [place]AC[place], [address], [facility] 4 13:47:40 Problem Notes None recorded. Procedures Surgical History Date Name Laterality Status Provider Name and Address Organization Details Recorded Time 11/10/19 24 excision of left breast completed Janel Velasco PA-C [address] [place] [address], [address], [facility] 11/15/2023 10:38:12 04/15/19 24 Cardiovascular disease risk reduction counseling completed Elías Jones [address] [place] [address], [address], [facility] 04/15/2023 11:18:29 02/21/19 21 prevention-cardiov ascular risk reduction counseling completed Maya Hamilton MA [facility] 02/22/2020 10:26:08 02/21/19 21 prevention-annual alcohol misuse screening completed Maya Hamilton MA [facility] 02/22/2020 10:26:08 02/08/19 02 Hernia Repair completed Elías Jones [address] [place] [address], [address], [facility] 03/08/2012 10:35:30 Imaging Results Imaging Date Name Status LastModified by Organiz ation Details LastModified Time 10/07/2023 US, breast, unilateral [place] [address] [place], [address], 10/07/2023 13:37:39 10/12/2023 US, breast [place] [address] [place], [address], 10/12/2023 13:44:44 10/12/2023 US, breast completed [address] [place], [address], 10/12/2023 13:44:45 10/18/2023 US, breast completed [address] [place], [address], 10/18/2023 17:25:42 10/18/2023 MAMMO, diagnostic completed [address] [place], [address], 10/18/2023 17:25:42 10/18/2023 US, breast completed [address] [place], [address], 10/21/2023 11:03:50 10/18/2023 MAMMO, diagnostic completed [address] [place], [address], 10/21/2023 11:03:50 11/10/2023 ultrasound guided core biopsy (PROC) completed [facility] [address] [place], [address], 11/10/2023 18:44:42 12/03/2023 DEXA, axial skeleton completed [address] [place], [address], 12/07/2023 12:37:38 12/14/2023 US, breast completed [facility]IL[facility] [address] [place], [address], 12/21/2023 13:20:34 12/21/2023 US, guidance completed [facility] [address] [place], [address], 12/27/2023 14:15:50 Procedure Notes None recorded. Medical Equipment None Reported. Allergies Allergen ID Allergen Name Allergen Category Reaction Reaction Severity Criticality Documentation Date Start Date Code Code System Note Provider Name and Address Organization Details Recorded Time 168911 latex environme nt,medica tion hives Not available Not available 11/07/2019 39617 91 RxNorm Maya Hamilton MA [facility] 0 14:01:02 13110 Product containin g penicilli n (product) medicatio n hives Not available Not available 07/07/2011 40864 8001 SNOMED Ally Julia [facility] 2 08:47:17 Medications Name Sig Start [...] by oral route. 09/19 completed Not taking 1 ADRIÁN Not Available [...] Not Available Not Available Not Available Afluria 5627-5200 (PF) 45 mcg (15 mcg x 3)/0.5 mL intramusc ular syringe inject 0.5 millilit er intramus cularly active Not Available Not Available No t Available Afluria 3373-0111 (PF) 45 mcg (15 mcg x 3)/0.5 mL intramusc ular syringe TO BE ADMINIST ERED BY PHARMACI ST FOR IMMUNIZA TION active Not Available Not Available No t Available riboflavi n (vitamin B2) 400 mg tablet TAKE 1 TABLET BY MOUTH EVERY DAY active Not Available Not Available No t Available Fluarix Quad 5569-6811 (PF) 60 mcg (15 mcg x 4)/0.5 mL IM syringe TO BE ADMINIST ERED BY THE PHARMACI ST 11/09 completed Not Available Not Available Not Available Flucelvax Quad (PF) 60 mcg (15 mcg x 4)/0.5 mL IM syringe TO BE ADMINIST ERED BY PHARMACI ST FOR IMMUNIZA TION 05/25 completed Not Available Not Available Not Available Flucelvax Quad (PF) 60 mcg (15 mcg x 4)/0.5 mL IM syringe 11/24 completed Not Available Not Available Not Available Fluzone Quad (PF) 60 mcg (15 mcg x 4)/0.5 mL IM syringe PHARMACY ADMINIST ERED 11/06 completed Not Available Not Available Not Available [facility] COVID-19 Vaccine (PF) 30 mcg/0.3 mL IM [...] and Address Organization Details Last Updated DateTime 4 165.1 cm 24.5 kg/m2 89623.0 8 g 86 /min 122 mm[Hg] 72 mm[Hg] [facility] 4 09:06:30 Date Recorded Body height Body mass index (BMI) Body weight Heart rate Systolic blood pressure Diastolic blood pressure Provider Name and Address Organization Details Last Updated DateTime 4 165.1 cm 24.8 kg/m2 33666.2 6 g 84 /min 100 mm[Hg] 70 mm[Hg] Shania damon [facility] 4 13:51:54 Date Recorded Body height Body mass index (BMI) Body weight Heart rate Body temperature Systolic blood pressure Diastolic blood pressure Provider Name and Address Organization Details Last Updated DateTime 4 165.1 cm 22.1 kg/m2 57508.7 9 g 80 /min 98 [degF] 118 mm[Hg] 66 mm[Hg] [facility] 4 11:20:27 Date Recorded Body height Body mass index (BMI) Body weight Heart rate Systolic blood pressure Diastolic blood pressure Provider Name and Address Organization Details Last Updated DateTime 4 165.1 cm 25.2 kg/m2 73719.2 5 g 100 /min 102 mm[Hg] 70 mm[Hg] [facility] 4 08:24:54 Date Recorded Body height Body mass index (BMI) Body weight Heart rate Systolic blood pressure Diastolic blood pressure Provider Name and Address Organization Details Last Updated DateTime 5 165.1 cm 26.3 kg/m2 42922.2 9 g 100 /min 100 mm[Hg] 64 mm[Hg] Perla Benitojohnjosé antonio user, A [facility] 5 17:09:35 Social History Question Answer Notes LastModified by Organizat ion Details LastModified Time Tobacco Smoking Status Former Smoker Ally butterfield [facility] 07/07/2011 08:47:17 What Is Your Level Of [...] A Break' - 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 [id number] [facility] Information not available [...] available 04/17/2015 What Is Your Relationship Status? Zeyadade Rodriguez Information not available 03/05/2021 Do You Use [...] 02/22/2020 11:28:17 Notes:DM on both sides of [facility], Medical History Condition Response Hyperlipidemia Y INFECTIOUS DISEASE Y CANCER Y Gynecological History Statement/Question Response Menses Monthly Y History of Abnormal Pap Y Age at Menarche 11 Obstetrics History GPAL:G 0 P 0 0 0 0 Immunizations Vaccine Type Date Status Note Provider Nam e and Address Organization Details Recorded Time Tdap 1 completed Mary Horn MA [facility], [facility] 07/29/2011 12:56:02 Influenza, split virus, quadrivalent, PF 5 completed Not Available [facility] 02/25/2019 02:19:48 Influenza, split virus, trivalent, preservative 2 completed Not Available [facility] 03/09/2022 14:01:47 Influenza, split virus, trivalent, preservative 3 completed Not Available [facility] 03/09/2022 14:01:47 Influenza, split virus, quadrivalent, PF 6 completed Not Available [facility] 02/25/2019 02:27:42 Influenza, MDCK, quadrivalent, PF 8 completed Perla Archer RMA scout, [facility] 03/10/2024 17:06:49 Td (adult), 2 Lf tetanus toxoid, preservative free, adsorbed 1 completed TRACIE Ortiz, [facility] 01/09/2021 09:29:20 COVID-19, mRNA, LNP-S, PF, 30 mcg/0.3 mL dose 1 [facility]/10[facility]24 17:06:50 COVID-19, mRNA, LNP-S, PF, 30 mcg/0.3 mL dose 1 completed Perla Archer RMA null, [facility] 03/10/2024 17:06:50 Influenza, split virus, quadrivalent, PF 3 completed Elías Jones [address] [place] [address], [address], [facility] 10/22/2022 08:21:26 COVID-19, mRNA, LNP-S, PF, 30 mcg/0.3 mL dose 1 completed Perla Archer RMA null, [facility] 03/10/2024 17:06:50 COVID-19, mRNA, LNP-S, PF, 30 mcg/0.3 mL dose 2 completed Perla Archer RMA null, [facility] 03/10/2024 17:06:50 COVID-19, mRNA, LNP-S, bivalent, PF, 30 mcg/0.3 mL dose 2 completed Perla Archer RMA null, [facility] 03/10/2024 17:06:50 influenza, unspecified formulation 2 completed [facility]thi Sharma [facility] 01/30/2022 09:59:12 COVID-19, mRNA, LNP-S, PF, cat-sucrose, 30 mcg/0.3 mL 4 completed CARLIN Oneil, [facility] 03/10/2024 17:06:50 Influenza, MDCK, trivalent, PF 4 [facility]/10[facility]24 17:06:50 Past Encounters Encounter ID Performer Location Encounter Start Date Encounter Closed Date Diagnosis/Indication Diagnosis SNOMED-CT Code Diagnosis ICD10 Code Diagnosis Note [id number] DENYS MARTINEZ, OFF[facility] [address] [facility] [place] [address] 07/07/2011 08:32:20 07/07/2011 09:21:11 [id number] MICHELLE Addis, OFFICE [address] [facility] [place] [address] 08/20/2011 09:16:13 08/20/2011 09:49:48 [id number] Leroy MARTINEZ Addis, OFFICE [address] [facility] [place] [address] 11/26/2011 09:28:32 11/26/2011 10:04:48 [id number] Leroy MARTINEZ Addis, OFFICE [address] [facility] [place] [address] 03/08/2012 09:45:18 03/08/2012 11:00:23 [id number] Leroy MARTINEZ Addis, OFFICE [address] [facility] [place] [address] 04/25/2012 08:44:25 04/25/2012 09:18:52 [id number] Leroy MARTINEZ [facility], OFFICE [address] [facility] [place] [address] 04/26/2012 08:15:37 04/26/2012 08:45:16 [id number] MICHELLE Addis, OFFICE [address] [facility] [place] [address] 07/20/2012 08:15:54 07/20/2012 08:46:06 [id number] Maddy Cox , [facility], OFFICE [address] [place] [address] 10/05/2012 09:05:08 10/05/2012 09:35:44 Hyperlipidemia 35550789 LDL goal is <130. Pt is at goal, asymptomat ic. To continue with simvastati n with routine f/u for PHA in 5-6 months (early Mar). Hematochezia 318016219 L juan luis due to hemorrhoid s. Pt to have repeat colonoscop y in 2018. [id number] Shasha Smallwood RN , [facility], OFFICE [address] [place] [address] 04/17/2013 08:30:49 04/17/2013 09:25:47 Adult health examination 168478603 see Risk Assessment and Lifestyle Change Counseling section above Counseling [id number] Hyperlipidemia 87498921 LDL goal is <130. Pt is at goal, asymptomat ic. To continue with simvastati n with routine f/u in 5-6 months. [id number] , [facility], OFFICE [address] [place] [address] 10/16/2013 15:34:22 10/16/2013 16:23:01 Hyperlipidemia 86252287 LDL goal is <130. Pt is at goal, asymptomat ic. Triglyceri diane up a little without any dietary changes. Taking 1 fish oil daily, but pt states that she has a hard time swallowing them. [id number] Aleah Navas LPN , [facility], OFFICE [address] [place] [address] 01/29/2014 14:19:58 01/29/2014 15:00:53 Acute contact dermatitis 438337344 [id number] , [facility], OFFICE [address] [place] [address] 04/18/2014 15:04:01 04/18/2014 16:16:17 Adult health examination 380792937 see Risk Assessment and Lifestyle Change Counseling section above Counseling [id number] Hyperlipidemia 23433679 LDL goal <130 previously , however on review of chart question if pt needs to have this goal. She does tend towards borderline triglyceri diane. She takes simvastati n. It is really unclear if this is necessary. Will reduce the dose and see if her triglyceri diane [id number] , [facility], OFFICE [address] [place] [address] 10/22/2014 14:46:06 10/22/2014 15:43:22 Hyperlipidemia 27421734 LDL goal <130 previously , however on review of chart question if pt needs to have this goal. She does tend towards borderline triglyceri diane. This is doing okay with the fish oil and with the 20mg simvastati n. Will continue on the lower dose and plan on rechecking in 6 months. Influenza vaccine needed 5152516608 106 Swelling / lump finding [id number] Medina Crouch , [facility], OFFICE [address] [place] [address] 04/17/2015 14:03:13 04/17/2015 16:13:13 Pain in lower limb 97892180 M79.604 THIS SOUNDS LIKE IT MIGHT BE NEUROPATHI C SHE HAS HAD SOME BACK ISSUES IN THE PAST BUT NONE CURRENTLY AND NEVER HAD ANY TYPICAL SCIATICA// THIS HAS COME ON IN THE LAST 24 HOURS IT'S MORE LIKELY THAT SHE STRAINED A MUSCLE PROBABLY INNER THIGH/ AT ANY RATE AT THIS POINT i RECOMMENDE D IBUPROFEN AND REEVALUATI ON IF IT CONTINUES. sHE HAS A PHYSICAL SCHEDULED IN THE NEXT MONTH/FOR THIS TO REPRESENT LUMBOSACRA L NEUROPATHY WOULD BE MUCH LESS LIKELY [id number] Mei Yin , [facility], OFFICE [address] [place] [address] 05/06/2015 15:00:04 05/06/2015 16:00:28 Adult health examination 854948565 Z00.01 see Risk Assessment and Lifestyle Change Counseling section above Counseling 893966832 Z71 .9 Hyperlipidemia 51018876 E78.5 LDL at goal (<130) and triglyceri diane upper end of normal. Will recheck in 6 months. Osteopenia 363359951 M85 .80 Last BMD done in 2007 with osteopenia in the hips; done at . Will order repeat. [id number] Alka Ariza MD , [facility], OFFICE [address] [place] [address] 06/28/2015 14:34:29 06/28/2015 15:18:00 Aphthous ulcer of mouth 040796540 K12.0 [id number] Elías Jones , [facility], OFFICE [address] [place] [address] 11/07/2015 09:01:30 11/07/2015 09:29:47 Active or passive immunization 643784615 Z23 Hyperlipidemia 91297231 E78.5 LDL at goal (<130) and triglyceri diane improved. Will recheck in 6 months prior to PHA. [id number] Elías Jones , [facility], OFFICE [address] [place] [address] [phone] 6 11/27/2015 15:43:59 11/27/2015 16:39:27 Localized swelling, mass and lump, upper limb [id number] R22.31 [id number] Lela Gordon NP , [facility], OFFICE [address] [place] [address] [phone] 6 02/07/2016 16:28:22 02/07/2016 16:54:04 Non-neoplastic nevus [id number] I78.1 left shoulder. pt reassured [id number] Elías Jones , [facility], OFFICE [address] [place] [address] [phone] 6 05/07/2016 14:01:41 05/07/2016 15:15:18 Adult health examination 007605405 Z00.00 see Risk Assessment and Lifestyle Change Counseling section above Counseling [id number] Z71 .9 Hyperlipidemia 84555213 E78.5 Cholestero l treated on simvastati n. Will monitor going forward. [id number] BRYAN Morillo, [facility], OFFICE [address] [place] [address] [phone] 6 06/26/2016 10:48:07 06/26/2016 11:15:04 Acute upper respiratory infection 93978183 J06.9 Drink plenty of fluids. Eat healthy foods, lots of fruits and vegetables . Rest when you can. Take ibuprofen 400 mg or acetaminop hen 650 mg every 6 hours as needed for aches or headache and for fever. You can use a Neti pot for nasal congestion or sinus pain/press ure. Elderberry extract and Umcka are herbal remedies that have been shown to reduce length of flu-like symptoms. Gargling with salt water can help your immune system fight off the sore throat. Mix 1/2 teaspoon of salt with 8 oz warm water, gargle for 20-30 secs, and spit out the liquid. Repeat twice daily. Use Sugar free lozenges can help with a sore throat. Wash your hands frequently . Symptoms may worsen for the first 7-10 days before they improve For high fever (>101) for more than 3 days, worsening shortness of breath, cough productive of rust-color ed mucus (not dark yellow), or symptoms unchanged at two weeks, come back in for reassessme nt (urgent care available in [place] office Wed 9-4 and Wednesday 9-12 by appointmen t - call after 8AM for appt.) Dry cough can last for up to six weeks. [id number] Lela Gordon NP , [facility], OFFICE [address] [place] [address] 07/01/2016 14:30:42 07/01/2016 14:58:39 Acute upper respiratory infection 01020707 J06.9 Drink plenty of fluids. Eat healthy foods, lots of fruits and vegetables . Rest when you can. Take ibuprofen 400 mg or acetaminop hen 650 mg every 6 hours as needed for aches or headache and for fever. You can use a Neti pot for nasal congestion or sinus pain/press ure. Elderberry extract and Umcka are herbal remedies that have been shown to reduce length of flu-like symptoms. Gargling with salt water can help your immune system fight off the sore throat. Mix 1/2 teaspoon of salt with 8 oz warm water, gargle for 20-30 secs, and spit out the liquid. Repeat twice daily. Use Sugar free lozenges can help with a sore throat. Wash your hands frequently . Symptoms may worsen for the first 7-10 days before they improve For high fever (>101) for more than 3 days, worsening shortness of breath, cough productive of rust-color ed mucus (not dark yellow), or symptoms unchanged at two weeks, come back in for reassessme nt (urgent care available in [place] office Sat 9-4 and Wednesday 9-12 by appointmen t - call after 8AM for appt.) Dry cough can last for up to six weeks. Cough 13315233 R05 Pt presents with complaint of cough for several days. Pt doesn't have asthma and has no wheezing or signs of respirator y distress. Symptoms are most likely related to bronchitis vs post nasal drip. Supportive measures reviewed including nasal saline and staying hydrated. Pt reminded not to smoke. Pt will follow up if symptoms worsen or if develops fever, increased sob, or increased sputum. Laryngitis 39189138 J04. 0 magic mouth wash [id number] Elías MARTINEZ, [facility], OFFICE [address] [place] [address] [phone] 6 07/09/2016 09:34:17 07/09/2016 10:13:14 Upper respiratory infection 23487706 J06.9 Plan as below. [id number] Elías MARTINEZ, [facility], OFFICE [address] [place] [address] [phone] 6 08/13/2016 09:16:06 08/13/2016 09:45:21 Impacted cerumen 15762378 H61.21 R ear canal, not blocking anything; recommenda tions as below. Rib pain 464212305 R07.8 1 Likely sprain; should continue to improve. Allergic rhinitis 483216 04 J30.9 Plan as below. Gastroesop hageal reflux disease 069289719 K21.9 Mild. Plan as below. [id number] Elías MARTINEZ, [facility], OFFICE [address] [place] [address] [phone] 6 11/09/2016 15:32:39 11/09/2016 15:58:08 Hyperlipidemia 60564789 E78.5 Cholestero l treated on simvastati n. Stable without any signs/sxs heart disease. Will monitor going forward. [id number] MADHU Torrez, [facility], OFFICE [address] [place] [address] [phone] 6 12/24/2016 13:58:18 12/24/2016 14:30:23 Herpes labialis 1858120 B00.1 -valacyclo vir as directed-s top playing with the lip-do not apply any ointment-f ollow up if no improvemen t [id number] MADHU Torrez, [facility], OFFICE [address] [place] [address] [phone] 6 01/08/2017 14:02:47 01/08/2017 14:31:07 Eruption [id number] R21 -I don't feel it was herpes-at this time it appears this area is still healing. no signs of infection- follow up in 2 weeks if the area is still no healed completely with your PCP [id number] Janel Velasco PA-C , [facility], OFFICE [address] [place] [address] [phone] 6 02/19/2017 14:38:06 02/19/2017 15:14:07 Hand wart 422395802 B07.8 - apply topical salicylic acid over the counter for two weeks- return to office if not improving- can make your finger red or irritated, can take a break for a day or two if needed [id number] Elías MARTINEZ, [facility], OFFICE [address] [place] [address] [phone] 6 03/04/2017 16:27:49 03/04/2017 17:51:48 Eruption [id number] R21 Papular rash, extremely nonspecifi c. [id number] Elías MARTINEZ, [facility], OFFICE [address] [place] [address] [phone] 6 03/18/2017 14:46:31 03/18/2017 15:12:57 Eruption 236074947 R21 Papular rash, extremely nonspecifi c. Improving at this point. Would recommend rechecking Thrombocytosis 0934919 D 47.3 [id number] Elías MARTINEZ, [facility], OFFICE [address] [place] [address] [phone] 6 05/19/2017 14:59:45 05/19/2017 15:54:48 Adult health examination 535842921 Z00.00 see Risk Assessment and Lifestyle Change Counseling section above Counseling 251438858 Z71 .9 Depression screening 171 680001 Z13.89 depression screening tool administer ed, entered into emr, scored and discussed, time greater than 7.5 minutes, no depression History of Hodgkin lymphoma 288127365 Z85.71 Pt to f/u routinely with provider. Hyperlipidemia 51865421 E78.5 Cholestero l treated on simvastati n. Stable without any signs/sxs heart disease. Will monitor going forward. [id number] MARIE Carrasco , [facility], OFFICE [address] [place] [address] [phone] 6 07/26/2017 13:42:45 07/26/2017 14:28:50 Cobalamin deficiency 632208430 E53.8 [id number] MARIE Carrasco , [facility], OFFICE [address] [place] [address] 07/27/2017 14:21:56 07/27/2017 15:15:41 Cobalamin deficiency 820341104 E53.8 [id number] MARIE Carrasco , [facility], OFFICE [address] [place] [address] 07/28/2017 14:22:26 07/28/2017 14:52:45 Cobalamin deficiency 591447853 E53.8 [id number] MARIE Carrasco , [facility], OFFICE [address] [place] [address] 07/29/2017 14:39:23 07/29/2017 15:19:12 Cobalamin deficiency 842447581 E53.8 [id number] MARIE Carrasco , [facility], OFFICE [address] [place] [address] 07/30/2017 14:26:03 07/30/2017 16:25:52 Cobalamin deficiency 277306587 E53.8 [id number] Elías Jones , [facility], OFFICE [address] [place] [address] 6 11/17/2017 14:49:21 11/17/2017 15:30:58 Hyperlipidemia 14376069 E78.5 Cholestero l treated on simvastati n. Stable without any signs/sxs heart disease. Will monitor going forward. Acute uppe r respiratory infection 49868944 J06.9 Very very mild, early symptoms, Recommend rest, fluids. [id number] BRYAN Nickerson, [facility], OFFICE [address] [place] [address] [phone] 6 11/30/2017 17:29:29 11/30/2017 20:15:13 Acute upper respiratory infection 56824605 J06.9 Educated patient that URI is a viral illness of the upper airways. It is not bacterial and does not benefit from antibiotic s. Average duration of URI is 7-10 days but in a recent trial, treatment at 7-10 days of illness with antibiotic s, intranasal steroids, or placebo did not alter natural history at 3 weeks. Recommende d symptomati c treatments including NSAIDS, semi-uprig ht sleep position, antihistam nic at HS, limited course of nasal sympathomi metics and/or cough syrups, and nasal saline rinses with soft squeeze bottle or Neti pot. Return for fevers > 101 for 3 days, worsening sinus pain, or failure to resolve in 2-4 weeks. [id number] Elías Jones , [facility], OFFICE [address] [place] [address] [phone] 6 02/03/2018 10:16:50 02/03/2018 10:44:45 Allergic rhinitis 35605576 J30.9 Likely illness followed by allergic rhinitis. Plan as below. [id number] Elías MARTINEZ, [facility], OFFICE [address] [place] [address] [phone] 6 04/25/2018 14:50:27 04/25/2018 15:31:15 Superficial injury of face 009550956 S00.80XA L upper lip along ariane border. Unclear what this started as but would recommend treatment with barrier [id number] Elías MARTINEZ, [facility], OFFICE [address] [place] [address] [phone] 6 05/25/2018 15:01:45 05/25/2018 16:08:41 Adult health examination 777493810 Z00.00 see Risk Assessment and Lifestyle Change Counseling section above Counseling 647665357 Z71 .9 Depression screening 171 037302 Z13.89 depression screening tool administer ed, entered into emr, scored and discussed, time greater than 7.5 minutes, no depression Hyperlipidemia 64870472 E78.5 Cholestero l treated on simvastati n. Stable without any signs/sxs heart disease. Some drifting up of sugars over time. Discussed emigdio meléndez stopping the statin and rechecking labwork in 2-3 months to see where sugar and cholestero l is running; can always restart. Plan on routine check-in in 6 months [id number] Belia Francis NP , [facility], OFFICE [address] [place] [address] [phone] 6 07/14/2018 15:03:31 07/14/2018 15:51:37 Allergic reaction to insect bite 120074479 T78.40XA [id number] Elías Jones , [facility], OFFICE [address] [place] [address] [phone] 6 07/19/2018 14:36:46 07/19/2018 15:08:12 Eruption 372755549 R21 Papular rash, extremely nonspecifi c. Pt had something like this winter 2017 that resolved spontaneou sly. [id number] Elías Jones , [facility], OFFICE [address] [place] [address] [phone] 6 11/24/2018 09:02:23 11/24/2018 09:29:58 Hyperlipidemia 23929906 E78.5 Cholestero l treated on simvastati n. Stable without any signs/sxs heart disease. With trial off statin, LDL went to over 200 so conclusive ly, pt needs to remain on this. Plan on recheck [id number] Cassidy Casillas DNP, [employer] , [facility], OFFICE [address] [place] [address] [phone] 6 01/13/2019 08:31:47 01/13/2019 09:24:55 Aphthous ulcer of mouth 256650619 K12.0 Looks like a developing canker sore. [id number] Elías Jones , [facility], OFFICE [address] [place] [address] [phone] 6 08/17/2019 08:17:27 08/18/2019 10:54:33 Hyperlipidemia 04572509 E78.5 Cholestero l treated on simvastati n. Stable without any signs/sxs heart disease. With trial off statin, LDL went to over 200 so conclusive ly, pt needs to remain on this. Reviewed fish oil/krill oil options as below. Subclinica l hypothyroidism 88864472 E02 TSH slightly elevated, but free T4 normal. Would recheck in 3-4 months with follow-up and wellness then. Cobalamin deficiency 190 176915 E53.8 Stable on medication . [id number] Valentina James MD , [facility], OFFICE [address] [place] [address] 6 11/07/2019 14:00:38 11/08/2019 16:05:01 Increased frequency of urination 949015110 R35.0 Resolved today. UA negative yesterday. Call back precaution s. Leukocytosis 214665740 D 72.829 Reassured pt that her leukocytos is was very mild. Possible that she had mild illness that has passed. Plan is to repeat CBC next week. [id number] Elías Jones , [facility], OFFICE [address] [place] [address] 6 11/21/2019 08:17:06 11/22/2019 14:43:36 History of Hodgkin lymphoma 566249114 Z85.71 Will repeat CBC in February. Mixed hyperlipidemia 267 885097 E78.2 Will repeat in February. Leukocytosis 964755818 D 72.829 Resolved on repeat. Thyroid fu nction tests abnormal 964816728 R94.6 [id number] Elías MARTINZE, [facility], OFFICE [address] [place] [address] 6 02/22/2020 10:55:02 02/23/2020 09:45:30 Adult health examination 677832763 Z00.00 see Risk Assessment and Lifestyle Change Counseling section above Counseling 128954287 Z71 .9 including cardiovasc ular risk reduction counseling Depression screening 171 706644 Z13.89 depression screening tool administer ed, entered into emr, scored and discussed, time greater than 7.5 minutes, no depression Screening for alcohol abuse 830289995 Z13.39 Screening for disorder 317144799 Z11.59 Hyperlipidemia 67916629 E78.5 Cholestero l treated on simvastati n. To continue with this. Subclinica l hypothyroidism 09010239 E02 TSH slightly elevated, but free T4 normal. Osteopenia 189402784 M85 .80 Last BMD done in 2015 with osteopenia in the hips; done at . Will order repeat for this year (2020) Swelling / lump finding 238371731 R22.2 Likely sebaceous cyst; plan as below. [id number] Elías Jones , [facility], OFFICE [address] [place] [address] 04/22/2020 14:28:47 04/24/2020 13:10:09 Swelling / lump finding 512254174 R22.2 Small lymph node with benign morphology . WBC normal. Plan on monitoring with follow-up in August. Mixed hyperlipidemia 267 625274 E78.2 Will repeat in . Thyroid fu nction tests abnormal 546650523 R94.6 Will repeat in Osteopenia 668786084 M85 .80 Going for repeat BMD in June. Will repeat vitamin D in May and then again in July. Currently on 2000 IU daily [id number] Elías Jones , [facility], OFFICE [address] [place] [address] [phone] 6 06/25/2020 14:24:55 06/28/2020 13:05:08 Osteoporosis 16941109 M81.0 VItamin D was a bit low and pt is now supplement ing. Will also check PTH and BMP and magnesium with next set of labwork. Will also check thyroid again. [id number] Elías MARTINEZ, [facility], OFFICE [address] [place] [address] [phone] 6 08/21/2020 15:48:43 08/22/2020 11:00:22 Osteoporosis 39868810 M81.0 VItamin D is normal now; PTH, BMP and magnesium are all normal. 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 Discussion as below re: medication s. Hyperlipidemia 58710592 E78.5 Cholestero l well controlled on simvastati n. To continue with this. Varicose v eins of lower extremity 63046924 I83.893 Mild symptoms of heaviness. Pt frustrated . Will send script for thigh-high compressio n stockings to try but also refer to Dr. Koch [id number] Elías MARTINEZ, [facility], OFFICE [address] [place] [address] [phone] 6 09/19/2020 15:46:34 09/19/2020 16:50:28 Osteoporosis 09602896 M81.0 VItamin D is normal now; PTH, BMP and magnesium are all normal. Pt would rather not take medication after reading about them. Reviewed FRAX score of <10% and likelihood of fx as well as T scores of hip and back. Will repeat bone density in 06/2022.30 minutes spent reviewing chart, labwork, BMD, and discussion pt concerns [id number] Elías MARTINEZ, [facility], OFFICE [address] [place] [address] [phone] 6 11/07/2020 10:17:02 11/07/2020 11:21:13 New daily persistent headache 3378662615 49641 G44.52 Given uptick in headaches, would check MRI given history. Other recommenda tions as below. Pain of le ft shoulder joint 8777966863 2928088 M25.512 Discussion as below. [id number] Elías MARTINEZ, [facility], OFFICE [address] [place] [address] [phone] 6 12/05/2020 08:19:08 12/05/2020 09:01:07 Headache 29965318 R51.9 Pattern suggestive of stress headaches. Still taking supplement s. Unclear what to do with the informatio n that it seems to correlate with someone at work, sole torrez. [id number] Elías MARTINEZ, [facility], OFFICE [address] [place] [address] [phone] 6 01/09/2021 09:03:25 01/09/2021 09:31:55 Headache 19317751 R51.9 Supplement s have resolved headaches despite work stressors. Plan on continuing with these with routine follow-up at wellness visit. Active or passive immunization 921623453 Z23 [id number] Elías MARTINEZ, [facility], OFFICE [address] [place] [address] [phone] 6 03/05/2021 15:02:09 03/06/2021 13:32:30 Adult health examination 346006706 Z00.00 see Risk Assessment and Lifestyle Change Counseling section above Counseling 342390005 Z71 .9 including cardiovasc ular risk reduction counseling Depression screening 171 533987 Z13.31 depression screening tool administer ed, entered into emr, scored and discussed, time greater than 7.5 minutes, no depression . Screening for alcohol abuse 401022331 Z13.39 Mixed hyperlipidemia 267 751543 E78.2 Cholestero l well controlled on simvastati n and exercise. Subclinica l hypothyroidism 51005977 E02 TSH slightly elevated in past, normal last check. Will recheck again in 6 months with other labs. Osteoporosis 46208599 M8 1.0 VItamin D is normal now; PTH, BMP and magnesium are all normal Will repeat bone density in 06/2022. [id number] Elías MARTINEZ, [facility], OFFICE [address] [place] [address] [phone] 6 03/27/2021 11:46:58 03/27/2021 12:39:08 Clicking knee 595824021 R29.898 Right knee. Painless. May be early arthritis, but since no pain, there is no indication for any kind of interventi on. Will get x-ray to further evaluate. Recommend patient return to exercise as below. Varicose v eins of lower extremity 64473469 I83.893 Mild symptoms of heaviness and aching. Pt to f/u with ultrasound and appointmen t with Dr. Koch next week. [id number] MD MICHELLE GROVES, [facility], OFFICE [address] [place] [address] [phone] 6 06/25/2021 14:46:52 06/25/2021 15:25:14 Paronychia of finger 093460451 L03.019 already improving on its own. abrasion already scabbedcon tinue using [facility] for the following: increased redness, warmth or swelling - in which case may need oral antibiotic sIn future - Use emery board instead of metal file to prevent further damage. [id number] Elías MARTINEZ, [facility], OFFICE [address] [place] [address] [phone] 6 08/28/2021 09:19:12 08/28/2021 10:11:43 Active or passive immunization 252498997 Z23 shingle-re mindecovid -fully vaccines Clicking knee 677016647 R29.898 Right knee. Painless. Would recommend simply monitoring . She takes glucosamin e when she feels she can swallow it. Varicose v eins of lower extremity 47615850 I83.893 Scheduled with specialist for interventi on next Wednesday. Mixed hyperlipidemia 267 864790 E78.2 Cholestero l well controlled on simvastati n and exercise. Subclinica l hypothyroidism 14403044 E02 TSH continues to be normal. Will recheck again in 6 months with other labs. Osteoporosis 39683193 M8 1.0 VItamin D is normal now; PTH, BMP and magnesium are all normal Will repeat bone density in 06/2022. [id number] Elías MARTINEZ, [facility], OFFICE [address] [place] [address] 02/03/2022 15:44:04 02/03/2022 16:33:17 Backache 661380116 M54.9 Will get x-ray to evaluate for any bony issue. Assuming no bony finding, recommend physical therapy to address and prevent reinjury. Active or passive immunization 184363992 Z23 COVID- Vax x5 w/bivalent Flu-Done for 2021 [place]- Reminded [id number] JADA Thompson, [facility], OFFICE [address] [place] [address] 03/09/2022 14:01:42 03/09/2022 14:47:17 Active or passive immunization 576082356 Z23 Shingles vaccine- Burn of skin 039431560 T 30.0 agree resembles burndiscus sed expected healing timerec continued use of topical abx as needed (1-3x/day) , keep covered at work to avoid re-injury, okay to leave open at homecall with any s/s infection - spreading redness, warmth, drainage, tenderness [id number] Elías MARTINEZ, [facility], OFFICE [address] [place] [address] 6 03/12/2022 08:33:08 03/12/2022 09:20:05 Adult health examination 033442124 Z00.00 see Risk Assessment and Lifestyle Change Counseling section above Depression screening 171 956847 Z13.31 depression screening tool administer ed Screening for alcohol abuse 600778579 Z13.39 Mixed hyperlipidemia 267 538547 E78.2 Cholestero l is at goaL Active or passive immunization 277904539 Z23 COVID- Vax x5 w/bivalent Flu-Done for 2021 [employer]- Reminded Varicose v eins of lower extremity 88690079 I83.893 Scheduled with specialist for interventi on next Wednesday. Clicking knee 485606862 R29.898 Right knee. Painless. Would recommend simply monitoring . She takes glucosamin e when she feels she can swallow it. Subclinica l hypothyroidism 15952770 E02 TSH continues to be normal. Will recheck again in 6 months with other labs. Osteoporosis 46333035 M8 1.0 VItamin D is normal; will plan to check annually. Counseling 658145855 Z71 .9 including cardiovasc ular risk reduction counseling Hypomagnesemia 468810279 E83.42 Increased dose as below. Impaired f asting glycemia 449833074 R73.01 Pt having gummies close to bedtime, will repeat this in 4 weeks with the magnesium to see if this was a true finding. [id number] Elías Jones , [facility], OFFICE [address] [place] [address] 04/16/2022 08:16:53 04/16/2022 09:01:48 Mixed hyperlipidemia 913565186 E78.2 Cholestero l is at goaL Active or passive immunization 061131371 Z23 COVID- Vax x5 w/bivalent Flu-Done for 2021 [employer]- Reminded Hypomagnesemia 078223717 E83.42 Pt had been on 300mg due to lows, but high sugar content of gummies. Will try to reduce and check in 3-4 weeks. Impaired f asting glycemia 528295883 R73.01 A1C slightly elevated. This is not a weight issue; strong family history of diabetes. Will reduce daily intake of sugar from supplement s as below. Will have pt meet with nutritioni st as well to see if any other hidden sources of carbohydra te in diet. Plan on repeat A1C in 3 months. Hypercalcemia 45948914 E 83.52 Mild. Unclear if true finding. Could be related to increased magnesium supplement ation. Plan as below. Migraine 03627140 G43.90 9 [id number] Elías Jones , [facility], OFFICE [address] [place] [address] 6 05/28/2022 08:16:10 05/28/2022 08:51:42 Eruption 721642872 R21 Papular rash, extremely nonspecifi c. Determined by weigh tank operator to be cyclical allergies. Season started early this year. Plan as below. Impaired f asting glycemia 103935596 R73.01 Fasting sugars are normal. Will recheck as this is not a weight issue. Pt seeing nutrition next month and has repeat labs the month afterwards . Active or passive immunization 192577043 Z23 COVID- Vax x5 w/bivalent Flu-Done for 2021 [employer]- Reminded [id number] Niurka Arevalo RD, LDN Nutrition -[address] [address] 06/18/2022 09:59:50 06/18/2022 15:00:21 Impaired fasting glycemia 522149320 R73.01 Nutrition Diagnosis: {{Excessiv e oral intake (NI 2.2) Exces sive fat intake (NI 5.6.2) Sandy ppropriate Intake of fats (NI 5.6.3) Exc essive carbohydra te intake (NI 5.8.2) [place] ppropriate intake of types of carbohydra te (NI 5.8.3) Inc onsistent carbohydra te intake (NI 5.8.4) [place] dequate fiber intake (NI 5.8.5) Alt ered nutrition related laboratory values (NC 2.2)* Over weight/obe sity (NC 3.3) Unint ended weight gain (NC 3.4) Food and nutrition related knowledge deficit (NB 1.1) Not ready for diet/lifes tyle changes (NB 1.3) Self monitoring deficit (NB 1.4) Limit ed adherence to nutrition related recommenda tions (NB 1.6) Nutri tion diagnosis no longer appropriat e}} related to: {{food and nutrition related knowledge deficit, specifical ly? lack of food planning, purchasing and preparatio n skills psy chological causes, specifical ly? physiolog ical causes requiring timing and consistenc y of carbohydra melida* lack of willingnes s to modify previous nutrition recommenda tions inap propriate food preparatio n practices inability or unwillingn ess to purchase or consume fiber containing foods econ omic constraint s that limiting appropriat e foods phys ical inactivity not ready for diet/lifes tyle changes ex cessive energy intake lac k of prior exposure to accurate nutrition- related informatio n prior exposure to incorrect informatio n inapprop riate intake of concentrat ed sweets and refined carbohydra melida chroni c use of medication known to cause weight gain loss of appetite awareness medication s that increase appetite, e.g. unwil ling or disinteres wilian in reducing l ack of or limited access to healthful food choices fo od and nutrition compliance limitation s}} as evidenced by: self reported dietary recall, with BMI 22.8, A1C 6.3% in Mar, FBS 97 and previously 105. With family hx DM. Assessment : Initial nutrition visit for pt with prediabete s who has been focusing on a heart healthy diet, lower portions of carbs (sometimes avoiding carbs) and avoiding sweets. 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 Has been checking her BG 3 times most days and all are under goal. Reports sx of fatigue and low energy, and is realizing that she may not need to stick to such a low intake of carbs. Introduced carb counting approach to meal planning, with idea of providing structure for her to make decisions of what and how much to include (30-45 gm per meal suggested) . Will check 2 hour post-prand ials as increases carb to see impact this has. Encouragin g more plant based proteins and continuing with heart healthy choices, low in sodium and high in fiber. Pt counseled on recommende d carb portions. Covered: - Meal planning basics: choosemypl ate, protein+ca rb combinatio ns, regular meals- Options to increase fiber including whole grains, fruits and vegetables - Role of fiber and protein in stabilizin g blood sugars and providing fullness- Role of a 5-10 % weight loss on reducing insulin resistance and diabetes risk- Portion control guidelines and label reading for carbs- Importance of continuing 150 minutes or more of regular physical activity/w twenty-nine palms Handouts: Prediabete s and diabetes (ADA); [place] [facility] Prediabete s; Lifestyle change; blank food diary form, [employer] what is a carb serving and 4 pg carb counting list Plant An's plate article. Nutrition Action reviews of: soups, breakfast cereals, breads, yogurt Time in: 10:00 AMTime out: 11:02 AMTime spent counseling : 62 minutes [id number] Elías MARTINEZ, [facility], [address] [place] [address] 07/23/2022 08:17:23 07/23/2022 09:11:05 Impaired fasting glycemia [id number] R73.01 Fasting sugar is slightly elevated. A1C is stable. Weight is not an issue for pt. Pt seeing [facility] next month again. Extremely strong family history of diabetes. Active or passive immunization [id number] Z23 COVID- Vax x5 w/bivalent Flu-Done for 2021 [place]- Reminded Osteoporosis [id number] M8 1.0 BMD has worsened and pt is understand ably frustrated . VItamin D is normal. Pt is concerned about the amount of dental work she needs overall in terms of these medication s. She also has concerns about injectable medication s. Further discussion as below. [id number] Elías MARTINEZ, [facility], [address] [place] [address] 09/10/2022 08:02:44 09/10/2022 08:46:54 Impaired fasting glycemia [id number] R73.01 Pt continues to have elevated sugars in the morning and she feels that she can't always tell why this is happening because suppertime sugars are not high. Could be that sugars are dipping and bouncing back up. Could do a two week CGM trial (would unfortunat shan out of pocket) to see what is happening overnight. Osteoporosis [id number] M8 1.0 Pt is tolerating alendronat e currently; will have her continue with this. [id number] Niurka Arevalo RD, LDN Nutrition -[address] [address] 09/09/2022 15:32:55 09/09/2022 17:24:14 Impaired fasting glycemia [id number] R73.01 Nutrition Diagnosis: {{Excessiv e oral intake (NI 2.2) Exces sive fat intake (NI 5.6.2) [place] ppropriate Intake of fats (NI 5.6.3) Exc essive carbohydra te intake (NI 5.8.2) [place] ppropriate intake of types of carbohydra te (NI 5.8.3) Inc onsistent carbohydra te intake (NI 5.8.4) [place] dequate fiber intake (NI 5.8.5) Alt ered nutrition related laboratory values (NC 2.2)* Over weight/obe sity (NC 3.3) Unint ended weight gain (NC 3.4) Food and nutrition related knowledge deficit (NB 1.1) Not ready for diet/lifes tyle changes (NB 1.3) Self monitoring deficit (NB 1.4) Limit ed adherence to nutrition related recommenda tions (NB 1.6) Nutri tion diagnosis no longer appropriat e}} related to: {{food and nutrition related knowledge deficit, specifical ly? lack of food planning, purchasing and preparatio n skills psy chological causes, specifical ly? physiolog ical causes requiring timing and consistenc y of carbohydra melida* lack of willingnes s to modify previous nutrition recommenda tions inap propriate food preparatio n practices inability or unwillingn ess to purchase or consume fiber containing foods econ omic constraint s that limiting appropriat e foods phys ical inactivity not ready for diet/lifes tyle changes ex cessive energy intake lac k of prior exposure to accurate nutrition- related informatio n prior exposure to incorrect informatio n inapprop riate intake of concentrat ed sweets and refined carbohydra melida chroni c use of medication known to cause weight gain loss of appetite awareness medication s that increase appetite, e.g. unwil ling or disinteres wilian in reducing l ack of or limited access to healthful food choices fo od and nutrition compliance limitation s}} as evidenced by: self reported dietary recall, with BMI 22.8, A1C 6.3% in Apr and , FBS 103 Assessment : Follow up nutrition visit for pt after initial meeting 06/18. With prediabete s dx and strong family hx DM trying to focus on diet to prevent DM. Focusing on a heart healthy diet, lower portions of carbs (sometimes avoiding) and avoiding sweets. 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 Has been checking her BG 3 times most days and all are under goal. Reports sx of fatigue, thinks related to poor sleep at times. Reviewed again carb goals for small portions at each meal, to help guide her on recommende d amounts (suggest 30 to 45 gm per meal) Encouragin g continue high fish and vegetables , increase plant based proteins, continue with heart healthy choices, low sodium and high fiber. Pt counseled on recommende d carb portions. Covered:- Meal planning basics: choosemypl ate, protein+ca rb combinatio ns, regular meals- Options to increase fiber including whole grains, fruits and vegetables - Role of fiber and protein in stabilizin g blood sugars and providing fullness- Role of a 5-10 % weight loss on reducing insulin resistance and diabetes risk- Portion control guidelines and label reading for carbs- Importance of continuing 150 minutes or more of regular physical activity/w twenty-nine palms Time in: 3:35 pmTime out: 4:35 pmTime spent counseling : 60 minutes [id number] Elías Jones , [facility], [address] [place] [address] 10/22/2022 08:00:52 10/22/2022 08:41:53 Impaired fasting glycemia [id number] R73.01 Pt's A1C is very stable at 6.3. Sugars are usually quite good with her dietary management . Some fluctuatio n with sleep disruption and life stressors which is to be expected. Active or passive immunization [id number] Z23 COVID- Vax x5 w/bivalent Flu-Done for 2021 [place]- Reminded Sleep annmarie duncan disturbance [id number] G47.9 Between stressors and some issues with the cat waking pt up out of habit. Pigmented skin lesion of uncertain nature [id number] L81.9 Lower lip. Would like pt to have this double-romulo cked at derm, but not alarming right now. [id number] Niurka Arevalo, RD, LDN Nutrition -[address] [address] 12/03/2022 10:02:46 12/03/2022 20:22:21 Impaired fasting glycemia [id number] R73.01 Nutrition Diagnosis: {{Excessiv e oral intake (NI 2.2) Exces sive fat intake (NI 5.6.2) [place] ppropriate Intake of fats (NI 5.6.3) Exc essive carbohydra te intake (NI 5.8.2) [place] p[employer]priate intake of types of carbohydra te (NI 5.8.3) Inc onsistent carbohydra te intake (NI 5.8.4) [place] dequate fiber intake (NI 5.8.5) Alt ered nutrition related laboratory values (NC 2.2)* Over weight/obe sity (NC 3.3) Unint ended weight gain (NC 3.4) Food and nutrition related knowledge deficit (NB 1.1) Not ready for diet/lifes tyle changes (NB 1.3) Self monitoring deficit (NB 1.4) Limit ed adherence to nutrition related recommenda tions (NB 1.6) Nutri tion diagnosis no longer appropriat e}} related to: {{food and nutrition related knowledge deficit, specifical ly? lack of food planning, purchasing and preparatio n skills psy chological causes, specifical ly? physiolog ical causes requiring timing and consistenc y of carbohydra melida* lack of willingnes s to modify previous nutrition recommenda tions inap propriate food preparatio n practices inability or unwillingn ess to purchase or consume fiber containing foods econ omic constraint s that limiting appropriat e foods phys ical inactivity not ready for diet/lifes tyle changes ex cessive energy intake lac k of prior exposure to accurate nutrition- related informatio n prior exposure to incorrect informatio n inapprop riate intake of concentrat ed sweets and refined carbohydra melida chroni c use of medication known to cause weight gain loss of appetite awareness medication s that increase appetite, e.g. unwil ling or disinteres wilian in reducing l ack of or limited access to healthful food choices fo od and nutrition compliance limitation s}} as evidenced by: self reported dietary recall, with BMI 23.5, A1C 6.3% in Oct and Jul, FBS 97 Assessment : Follow up nutrition visit for pt after last meeting 09/09. With prediabete s dx and strong family hx DM, trying to focus on diet to prevent DM. Focusing on a heart healthy diet, lower portions of carbs and avoiding sweets. She's active with over 150 minutes per week walking, stationary bike or eliptical. 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 Has been checking her BG 2-3 times most days and all are under goal: usually 90-100 for FBS and not over 150 after eating. Having small portions carbs at each meal (suggest up to 30 to 45 gm per meal). Continuing high fish and vegetables , plant based proteins, heart healthy choices, low sodium and high fiber. Expresses frustratio n she is unable to get her A1C any lower despite high level of activity and a lower carb and added sugar diet. Pt counseled on recommende d carb portions. Covered:- Review of food diary pages- Role of fiber and protein in stabilizin g blood sugars and providing fullness- Importance of continuing 150 minutes or more of regular physical activity/w twenty-nine palms Time in: 10:04 AMTime out: 10:54 AMTime spent counseling : 50 minutes [id number] Medina Miranda PA-C , [facility], [address] [place] [address] 01/09/2023 11:58:41 01/09/2023 12:30:39 Pain in throat [id number] R07.0 Appears viral.Rapi d strep negative.A dvised to push fluids, throat gargles, tea/honey, and please RTO if sxs persist or worsen. [id number] Elías Jones , [facility], [address] [place] [address] 01/20/2023 14:46:02 01/20/2023 15:52:56 Active or passive immunization [id number] Z23 Shingles- Reminded Upper resp iratory infection 85288916 J06.9 Patient presents with symptoms consistent with viral infection. No evidence of pneumonia on exam. Discussed supportive care: pushing fluids, rest, nasal saline and Mucinex as needed. Encouraged to follow up if symptoms persist for more then 10 days or if they are worsening. Discussed natural course of viral illnesses and lack of evidence for treating with antibiotic s. Impaired f asting glycemia 492081551 R73.01 Pt's A1C has improved to 6.1 even though she doesn't know how it's improved. Discussed may simply be a bit of a natural increase in insulin production that is outside of her control, and it's okay to 'lean into it.' Also discussed continuing with her good lifestyle management and we'll see where the numbers are next time, but to not get upset if things drift back to the 6.3. [id number] Handy Weinberg MD , [facility], [address] [place] [address] 02/04/2023 16:13:20 02/07/2023 16:11:44 Acute bronchitis 41035565 J20.9 see above [id number] Elías MARTINEZ, [facility], [address] [place] [address] 02/15/2023 15:00:29 02/15/2023 16:17:12 Active or passive immunization 330137838 Z23 Shingles- Remindedfl u- all set for 2022 Cough 27520974 R05.9 Improving slowly. Dry cough may last up to 6 weeks from initial illness, unfortunat shan. Backache 682138763 M54.9 Upper back/base of neck pain that has improved. Suspect strain/whi plash-type injury due to slip and fall. [id number] Elías MARTINEZ, [facility], [address] [place] [address] 04/15/2023 10:17:45 04/15/2023 11:31:26 Adult health examination 607688659 Z00.00 see Risk Assessment and Lifestyle Change Counseling section above Depression screening 171 358035 Z13.31 depression screening tool administer ed Screening for alcohol abuse 492828080 Z13.39 Alcohol use screening tool administer ed Screening for malignant neoplasm of cervix 174110931 Z12.[address] Alma Mora Active or passive immunization 570489058 Z23 Shingles- Remindedfl u- all set for 2022 Hyperlipidemia 69179647 E78.5 Cholestero l well controlled on simvastati n. To continue with this. Impaired f asting glycemia 026133681 R73.01 Pt's A1C is essentiall y stable around 6.2. Plan on repeating in 3 months and again in 6 months. Osteoporosis 12848610 M8 1.0 Pt is tolerating alendronat e currently; will have her continue with this. Subclinica l hypothyroidism 85858027 E02 TSH continues to be normal. Will recheck again in 6 months with other labs. Counseled by member of primary health care team 596918261 Z71.9 Today we discussed ways to reduce your 10-year cardiovasc ular disease risk. Things that decrease risk for cardiovasc ular events include eating a diet high in fiber (fruits and vegetables ) and low in simple carbohydra melida (bread, rice, pasta, alcohol, potatoes), decreasing processed foods, limiting juice and alcohol, limiting saturated fats (butter, ice cream, and cheeses), and adding regular daily activity. Having blood pressure that is <130/80. Having well controlled cholestero l (LDL and triglyceri diane) by eating a healthy diet and taking medication s when necessary. Managing daily stress with meditation or yoga/hima chi lowers the risk of heart attack, stroke, type 2 diabetes, and dementia. [id number] MADHU CHOWDHURY , [facility], [address] [place] [address] 04/21/2023 17:31:50 04/21/2023 17:59:27 Upper respiratory infection 56114768 J06.9 Pt w/ congestion , cough x 3 days. Afebrile, VSS in office. Able to tolerate PO intake, no signs of volume depletion. Coviid neg at home, low likelihood for strep or flu based on sx . LS reassuring . Suspect viral illness. Cold self care measures reviewed and encouraged (fluids, steam inhalation , adequate rest). Recommend mucinex-DM , tylenol prn. F/U if symptoms worsen or aren't resolving. Reviewed generally do not consider treating as sinus infection until day 7-10. [id number] Elías Jones , [facility], [address] [place] [address] 04/29/2023 12:17:02 04/29/2023 13:09:57 Active or passive immunization 873920830 Z23 Shingles- Remindedfl u- all set for 2022 Cough 27028500 R05.9 Improving slowly. Dry cough may last up to 6 weeks from initial illness, sole torrez. Upper resp iratory infection 55472247 J06.9 Patient presents with symptoms consistent with viral infection. No evidence of pneumonia on exam. Discussed supportive care: pushing fluids, rest, nasal saline and Mucinex as needed. Encouraged to follow up if symptoms persist for more then 10 days or if they are worsening. Discussed natural course of viral illnesses and lack of evidence for treating with antibiotic s. [id number] Elías Jones , [facility], [address] [place] [address] 07/15/2023 08:17:40 07/15/2023 08:46:37 Impaired fasting glycemia 010417666 R73.01 Pt's A1C is essentiall y stable around 6.3. Plan on repeating in 3 months as scheduled. Active or passive immunization 934166876 Z23 Shingles- Remindedfl u- all set for 2022 [id number] , [facility], [address] [place] [address] 08/09/2023 10:00:01 08/09/2023 17:44:11 Pharyngitis 238720636 J02.9 Patient presents for evaluation of sore throat that is consistent with {{URI* str ep flu abs cess}}. vs allergiesW e will treat with: OTC meds, nonhparm measures Discussed supportive measures. Follow up if not improving or with new symptoms, or any other concerns. Dysuria 53756957 R30.0 Patient w/ urinary frequency, UA+ trace blood only, not clearly indicative of UTI. Discussed may be false positive from supplement , 2/2 intercours e or exercise. post-menop ausal.. Encouraged hydration. Will be in touch w/ culture result- send abx if +.Reviewed red flag symptoms (worsening fever, flank pain, intractabl e vomiting, no improvemen t in 24-48 hours) and when to seek emergency care. [id number] Cassidy Casillas, TORRI, RAIL TRACK LAYER-BC , [facility], OFF[address] [place] [address] 08/11/2023 15:16:28 08/18/2023 20:29:29 Eruption 263458972 R21 Viral exanthem, should resolve, if worse call for re-solo maki as directed [id number] Elías Jones , [facility], [address] [place] [address] 10/27/2023 08:57:47 10/27/2023 09:48:58 Impaired fasting glycemia 396409846 R73.01 Pt's A1C is stable. Will plan on recheck in 3 months. Osteoporosis 56621987 M8 1.0 Pt is tolerating alendronat e currently; will have her continue with this. Discussed oncology may choose to have pt do Reclast infusion x1 instead of continuing with weekly alendronat e. Hyperlipidemia 55991325 E78.5 Cholestero l well controlled on simvastati n. May need to stop intermitte ntly in the future depending on treatments for cancer, but otherwise okay. Infiltrati ng ductal carcinoma of breast, stage 3 442434737 C50.112 Pt will be seeing [facility] going forward. Discussed diagnosis. [id number] Janel Velasco PA-C , [facility], [address] [place] [address] 11/23/2023 13:45:22 11/23/2023 15:01:42 Active or passive immunization 896295320 Z23 flu: states done 10/15 at [facility] Infiltrati ng duct carcinoma of breast 028853396 C50.919 Recent left mastectomy and sentinel lymph node biopsy with one positive lymph node. Estrogen receptor and progestero ne receptor positive. Patient is recovering well from surgery with minimal pain and skin irritation from tape. One drain remains in place with minimal output. Oncology appointmen t scheduled in December to discuss treatment options.-C ontinue current post-opera tive care and follow-up with surgeon for drain removal.-A ttend scheduled oncology appointmen t to discuss treatment options. Impaired f asting glycemia 267879307 R73.01 Stable with recent A1C of 6.2. Patient has been actively managing this condition. -Continue current management strategies . Osteoporosis 24086150 M8 1.0 Patient on alendronat e and has been actively managing this condition. Concerns about potential impact of cancer treatment on bone health.-Co ntinue alendronat e.-Discuss bone health concerns with oncologist during upcoming appointmen t. [id number] Cassidy Casillas, TORRI, [employer] TR[employer] LAYER-AMY MARTINEZ, [facility], [address] [place] [address] 01/21/2024 10:59:52 01/21/2024 11:38:37 Localized eruption of skin 091357816 R21 Patients presents for evaluation of rash consistent with:atopi c dermatitis versus reaction to soap, medication .Assessmen t & PlanHand Dermatitis Rash on both hands, possibly due to frequent hand washing and use of [employer] soap. No significan t itchiness or extension of the rash. Patient is currently undergoing chemothera py which could potentiall y contribute to skin sensitivit y.-Discont inue use of [employer] soap.-Use fragrance- free, hypoallerg enic products for hand washing.-A pply Triamcinol one 0.5% topical cream twice daily for a week.-If rash persists or worsens, re-evaluat e for potential reaction to chemothera py.Follow- up in 3 months or sooner if rash worsens. Treated with: Follow up if rash is not improving or with other concerns. Active or passive immunization 860488111 Z23 flu -pneumo -shingles - [id number] Elías MARTINEZ, [facility], [address] [place] [address] 01/26/2024 08:14:00 01/26/2024 15:18:29 Impaired fasting glycemia 051427432 R73.01 Pt's A1C is actually slightly improved. Will monitor over 3 months with follow-up then. Active or passive immunization 910685459 Z23 Shingles- Remindedpn eumonia- remindedfl u 24- had this season Localized eruption of skin 299172596 R21 Somewhat improved already. Discussed source is hard to pinpoint. Recommend just using the steriod cream. Infiltrati ng duct carcinoma of breast 482186564 C50.919 Recent left mastectomy and sentinel lymph node biopsy with one positive lymph node. Estrogen receptor and progestero ne receptor positive. Pt is now s/p two chemo treatments and will be continuing with course. 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 Health Concerns Section Related Observation LastModified by Organization Detai ls LastModified Time None Recorded Concern Status LastModified by Organization Details LastModified Time None Recorded Advance Directives Directive None Recorded Payers Encounter Date Sequence Insurance Name Policy Number Policy Browne Covered Member ID Browne Member ID Guarantor Name 10/27/2023 1 [facility] - DIRECT CONNECTORCARE TYPE II (HMO) [id number] Marybel Camp [id number] 2 Marybel Mal[place] 11/23/2023 1 [facility] - DIRECT CONNECTORCARE TYPE II (HMO) [id number] Marybel Camp [id number] Marybel Malvern 01/21/2024 1 [facility] - DIRECT CONNECTORCARE TYPE II (HMO) [id number] Marybel Camp [id number] Marybel Camp 01/26/2024 1 [facility] - DIRECT CONNECTORCARE TYPE II (HMO) [id number] Marybel Camp [id number] 2 Marybel Malvern 03/10/2024 1 [facility] - DIRECT CONNECTORCARE TYPE II (HMO) [id number] Marybel Camp [id number] 2 [facility] Notes Date Note Type Note Provider Name and Address Organization Details Recorded Time 10/27/2023 text/html Pt comes in toda y to discuss new diagnosis of breast cancer made after mammo 10/06 (invasive ductal carcinoma, Stage 3). She is going to be receiving treatments through [facility]. Pt is seeing Dr. Whitman (at [place]) for a surgeon and will be seeing Dr. Oreilly for oncology. Pt also c/o impaired FBS. A1C was stable at 6.2. FBS was 93. Pt also c/o osteoporosis. She is on alendronate. Pt is concerned about what may happen with all of these diagnosis while she's going through treatment. Elías Jones [address] [place], [address], [facility] 10/27/2023 09:43:44 11/23/2023 text/html The patient, a 53-year-old woman with a recent diagnosis of left breast cancer, presents for a follow-up visit after a left mastectomy and sentinel lymph node biopsy. One lymph node tested positive, and the cancer is estrogen receptor and progesterone receptor positive. The patient reports minimal pain and discomfort, primarily related to skin irritation from tape and bandages. The patient has been receiving care from visiting nurses, which is scheduled to end soon. The patient denies needing any pain medication, including oxycodone. The patient also expresses concern and frustration about upcoming chemotherapy treatment, having previously undergone chemotherapy for Hodgkin's lymphoma. The patient has been actively managing osteoporosis and prediabetes, and is worried about the impact of chemotherapy on these conditions. Janel Velasco PA-C [address] [place], [address], [facility] 11/23/2023 14:56:23 01/21/2024 text/html RashReported bypatient.Patient present for evaluation of new rash.Location hands; rash has been present for 3 days; not painful; not itchyNotes:Rash Patient informed and consents to use of AI assisted recording to improve documentation of visitHistory of Present IllnessThe patient, with a history of chemotherapy for an unspecified malignancy, presents with a rash on both hands noticed on Wednesday. The rash is localized to the dorsal surfaces of the hands, sparing the palms, and is more pronounced on the left hand. The rash is not itchy, and there are no similar rashes on the feet, in the mouth, or on the chest. The patient denies any changes in the rash since its onset. She reports frequent hand washing, up to 20 times a day, and recent use of a new [employer] soap. The patient has been using Aveeno lotion on her hands since the rash started. She has a history of hand, foot, and mouth disease diagnosed in August.Medications- Chemotherapy Cassidy Casillas, DNP, [employer]-BC [address] [place], [address], [facility] 01/21/2024 11:35:50 01/26/2024 text/html [facility] in the setting of a recent diagnosis of breast cancer. Last A1C at the lab was 5.9. FBS 91 Pt c/o invasive ductal carcinoma, Stage 3. She is seeing Dr. Oreilly at [facility] for oncology and she is now on Cytoxan and Taxotere (has had two treatments thus far). She has significant dry mouth and is using biotene. Pt also c/o rash on hands, she was started on triamcinolone five days ago, which is helping some. Elías Jones [address] [place], [address], [facility] 01/26/2024 08:49:14 03/10/2024 text/html 03/10/24-left pup il larger than right03/10/24 @ 1:39pm- wanted to let DS know that she is still keeping her apt today, but that the eye issue seems to have resolved and she does have an apt with eye doctor on Wednesday/ No KELLER , no blurry vision , is having chemo for breast Anai talked to her oncologist did not think related Mustapha Mane MD [address] [place], [address], [facility] 03/11/2024 11:13:39 OBGyn Episode No OBEpisode recorded.
--- OUTSIDE RECORDS SUMMARY | 2024-03-26 14:23 | XMS_ITS | Clinical Summary ---
Author Organization [facility] Address [address] [place] [address] Care Team Providers Care Auto Hiker Name Role Phone Karolina Jones MD Primary Care Provider Allergies Active Allergy Reactions Criticality Noted Date Comments Penicillins 01/21/2017 Medications alendronate (FOSAMAX) 70 mg tablet Take 1 tablet (70 mg total) by mouth every 7 days. Take with water on empty stomach/Noth ing by mouth and do not lie down for next 30 minutes Active calcium carb/vitamin D3/vit K1 (VIACTIV ORAL) Take by mouth. 2 po daily Active cetirizine (ZyrTEC) 10 mg capsule Take by mouth 2 (two) times a day. Active famotidine (PEPCID) 20 mg tablet Take 1 tablet (20 mg total) by mouth 2 (two) times a day. Active OMEGA-3 FATTY ACIDS-FISH OIL ORAL Take by mouth 1 (one) time each day. Active simvastatin (ZOCOR) 20 mg tablet Take 1 tablet (20 mg total) by mouth every night at bedtime. Active cyanocobalamin (VITAMIN B-12) 500 mcg tablet Take 1 tablet (500 mcg total) by mouth 1 (one) time each day. Active cholecalciferol (VITAMIN D-3) 25 mcg (1,000 unit) tablet Take 1 tablet (1,000 Units total) by mouth 1 (one) time each day. 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 Medical History Medical History Date Comments Lymphoma (CMS/HCC) DX:Lymphoma ( HCC);COMMENT:relapsed Hodgkin's lymphoma Social History Tobacco Use Types Packs/Day Years Used Date Smoking Tobacco: Former Smokeless Tobacco: Never Comments Unknown Sex and Gender Information Value Date Recorded Sex Assigned at Not on file Legal Sex Female 12:44 PM EST Gender Identity Not on file Sexual Orientation Not on file Obstetrics History Last Filed Vital Signs Vital Sign Reading Time Taken Comments Blood Pressure 101/58 08/19/2023 9:30 AM EDT Sitting Left arm Pulse 88 08/19/2023 9:30 AM EDT Temperature - - Respiratory Rate - - Oxygen Saturation - - Inhaled Oxygen Concentration - - Weight 66 kg (145 lb 9.6 oz) 08/19/2023 9:30 AM EDT Height 165.1 cm (5' 5 ) 08/19/2023 9:30 AM EDT Body Mass Index 24.23 08/19/2023 9:30 AM EDT Plan of Treatment Upcoming Encounters Date Type Department Care Team (Late st Contact Info) Description 08/17/2024 9:15 AM EDT Office Visit [facility] Hematology Oncology [address] [place] [address] Moose Christianson MD [address] [place] [address] Health Maintenance Due Date Last Done Comments Breast Cancer Screening 1969 COVID-19 Vaccine (#1) 1974 DTaP,Tdap,and Td Vaccines (1 - Tdap) 1988 Hepatitis B Vaccines (1 of 3 - 19+ 3-dose series) 1988 Pneumococcal Vaccine: 50+ Ye ars (1 of 2 - PCV) 1988 Pneumococcal Vaccine: Pediat rics (0 to 5 Years) and At-Risk Patients (6 to 64 Years) (1 of 2 - PCV) 1988 Zoster Vaccines (1 of 2) 1988 Cervical Cancer Screening: P ap Smear 1990 Colorectal Cancer Screening: Colonoscopy 01/18/2022 Depression Screening 01/18/2022 HIV Screening 01/18/2022 Hepatitis C Screening 01/18/2022 Social Influencers of Health Screening 01/18/2022 Influenza Vaccine (#1) 2023 HIB Vaccines Aged Out No longer eligi ble based on patient's age to complete this topic HPV Vaccines Aged Out No longer eligi ble based on patient's age to complete this topic Hepatitis A Vaccines Aged Out No long er eligible based on patient's age to complete this topic IPV Vaccines Aged Out No longer eligi ble based on patient's age to complete this topic MMR Vaccines Aged Out No longer eligi ble based on patient's age to complete this topic Meningococcal ACWY Vaccine Aged Out N o longer eligible based on patient's age to complete this topic Meningococcal B Vacine Aged Out No lo nger eligible based on patient's age to complete this topic RSV Immunization Patients [place] 20 months Aged Out No longer eligible b ased on patient's age to complete this topic Varicella Vaccines Aged Out No longer eligible based on patient's age to complete this topic Insurance [facility] [employer] Care Teams Auto Hiker Relationship Specialty Start Date End Date Karolina Jones MD [address] [place] [address] PCP - General Family Medicine 01/22/17
[2024-03-26 14:25] LABS: White Blood Count 43.6 X10*3/uL (4.8-10.8)
[2024-03-26 14:33] LABS: Albumin Level 3.8 g/dL (3.5-5.0); Alkaline Phosphatase 421 U/L (39-117); Anion Gap 11 (12-20); Aspartate Amino Transferase 52 U/L (5-31); Bilirubin Total 0.5 mg/dL (0.0-1.0); Blood Urea Nitrogen 21 mg/dL (9-16); Calcium 9.2 mg/dL (8.4-10.2); Carbon Dioxide 26 mmol/L (22-29); Chloride 110 mmol/L (96-108); Creatinine Clr Calc Pharmacy 100.8; Estimated Glomerular Filt Rate > 60; Glucose Random 103 mg/dL (60-115); Potassium 4.3 mmol/L (3.3-5.1); Sodium 143 mmol/L (135-145); Total Protein 6.4 g/dL (6.5-8.0)
[2024-03-26 14:36] LABS: Band Neutrophils Percent 3 % (3-5); Eosinophils Absolute Manual 0.4 X10*3/uL (0.0-0.4); Eosinophils Percent Manual 1 % (0-4); Lymphocytes Absolute Manual 0.4 X10*3/uL (1.2-4.9); Lymphocytes Percent Manual 1 % (20-40); Metamyelocytes Absolute 0.9 X10*3/uL; Metamyelocytes Percent 2 %; Monocytes Absolute Manual 0.4 X10*3/uL (0.1-1.2); Monocytes Percent Manual 1 % (2-11); Myelocytes Absolute 0.4 X10*/uL; Myelocytes Percent 1 %
[2024-03-26 14:37] LABS: Platelet Estimate NORMAL (NORMAL); RBC Morphology NOTED
[2024-03-26 14:38] LABS: Dohle Bodies PRESENT; Large Platelet PRESENT; Ovalocytes 1+ (5-14) /OIF; Platelet Morphology Comment NOTED; Polychromasia 1+ (0-2) /OIF
[2024-03-26 14:42] LABS: Neutrophils Percent Manual 91 % (45-73)
[2024-03-26 15:34] LABS: Alanine Aminotransferase 49 U/L (0-31)
[2024-03-26] MEDS: Lidocaine HCl 1%/Epi 1:100,000 10 ML VIAL 5 ML INFILTRATI (16:28)
[2024-03-26 16:38] LABS: Prothrombin Time 12.2 SEC (10.9-12.4)
[2024-03-26 16:40] LABS: Partial Thromboplastin Time 30.9 SEC (26.0-36.8)
[2024-03-26] MEDS: cephALEXin 500 MG CAPSULE PO (17:48)
[2024-03-26 18:39] VITALS: BP 112/66; PULSE 96; RESP 18; TEMP 36.6; O2SAT 98
== END 2024-03-26 18:41 | disposition home or self-care (01) ==
PROVIDERS: Internal Medicine Medical Oncology; Physician Assistant Medical; Emergency Provider Emergency Medicine; PCP Nurse Practitioner Pediatrics
DX: R04.0 Epistaxis (principal); R00.0 Tachycardia, unspecified; Z79.899 Other long term (current) drug therapy; Z87.891 Personal history of nicotine dependence
CPT/HCPCS: 30901; 36415; 80053; 85007; 85027; 85610; 85730; 86850; 86900; 86901; 99284; J2004

== ENCOUNTER 2024-04-17 08:09 | Outpatient (REF) | payer OTHER, SELFPAY ==
--- OUTSIDE RECORDS SUMMARY | 2024-04-17 08:16 | XMS_ITS | Clinical Summary ---
Author Organization [facility] Address [address] [place] [address] Care Team Providers Care Labor And Delivery Nurse Name Role Phone Karolina Jones MD Primary Care Provider Allergies Active Allergy Reactions Criticality Noted Date Comments Penicillins 01/21/2017 Medications Medication Sig Dispensed Refills Start Date End Date Status simvastatin (ZOCOR) tablet 20 mg Take 1 tablet (20 mg total) by mouth every night at bedtime. 0 Active Avawam-3 Fatty Acids (FISH OIL PO) Take by mouth daily. 0 Active vitamin B-12 (CYANOCOBALAMIN) 500 MCG tablet Take 1 tablet (500 mcg total) by mouth daily. 0 Active Cetirizine HCl (ZyrTEC ALLERGY) 10 MG CAPS Take by mouth 2 (two) times a day. 0 Active famotidine (PEPCID) 20 MG tablet Take 1 tablet (20 mg total) by mouth 2 (two) times a day. 0 Active Calcium-Vitamin D-Vitamin K (VIACTIV PO) Take by mouth. 2 po daily 0 Active vitamin D3 (cholecalciferol) 25 MCG (1000 UT) tablet Take 1 tablet (25 mcg total) by mouth daily. 0 Active alendronate (FOSAMAX) tablet 70 mg Take 1 tablet (70 mg total) by mouth every 7 days. 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 Social History Tobacco Use Types Packs/Day Years Used Date Smoking Tobacco: Former Smokeless Tobacco: Never Sex and Gender Information Value Date Recorded Sex Assigned at Not on file Gender Identity Not on file Sexual Orientation Not on file Job Start Date Occupation Industry Not on file Not on file Not on file Last Filed Vital Signs Vital Sign Reading Time Taken Comments Blood Pressure 101/58 08/19/2023 9:30 AM EDT Pulse 88 08/19/2023 9:30 AM EDT Temperature 37.1 ??C (98.7 ??F) 08/19/2023 9:30 AM ED T Respiratory Rate - - Oxygen Saturation 100% 08/19/2023 9:30 AM EDT Inhaled Oxygen Concentration - - Weight 66 kg (145 lb 9.6 oz) 08/19/2023 9:30 AM EDT Height 165.1 cm (5' 5 ) 08/19/2023 9:30 AM EDT Body Mass Index 24.23 08/19/2023 9:30 AM EDT Plan of Treatment Health Maintenance Due Date Last Done Comments Hepatitis B Vaccines (1 of 3 - 3-dose series) 1969 Hepatitis C Screening 1969 COVID-19 Vaccine (#1) 1974 Pneumococcal Vaccine (1 of 2 - PCV) 1975 Depression Screening 1981 Preventative Health Evaluation 1987 DTap / Tdap / Td (1 - Tdap) 1988 Shingrix-Zoster Vaccine (1 of 2) 1988 Cervical Cancer Screening (P ap Smear) 1990 Colon Cancer Screening (Colonoscopy) 2014 Breast Cancer Screening (Mammogram) 2019 Influenza Vaccine (#1) 2023 RSV Ped < 20 months Aged Out No longe r eligible based on patient's age to complete this topic Care Teams Labor And Delivery Nurse Relationship Specialty Start Date End Date Karolina Jones MD [address] [place] [address] PCP - General Family Medicine 01/22/17
--- OUTSIDE RECORDS SUMMARY | 2024-04-17 08:16 | XMS_ITS | Clinical Summary ---
Author Organization [facility] Address [address] [place] [address] Care Team Providers Care Tie Loader Name Role Phone Karolina Jones MD Primary [...] Description 08/17/2024 9:15 AM EDT Office Visit [facility] Hematology Oncology [address] [place] [address] Moose Christianson MD [address] [place] [address] Health Maintenance Due Date Last [...] patient's age to complete this topic Insurance [facility] [employer] Care Teams Tie Loader Relationship Specialty Start Date End Date Karolina Jones MD [address] [place] [address] PCP - General Family Medicine 01/22/17
--- OUTSIDE RECORDS SUMMARY | 2024-04-17 08:16 | XMS_ITS | Data Portability ---
Author Organization [facility], , [facility] Address [address] [place] [address] Care Team Providers Care Green Material Value Added Assessor Name Role Phone [facility] OBGYN Rn Psychiatric HOWIE WATTS Medical Oncologist [facility] Irrigationist ELÍAS JONES Primary Care Provider [facility] Division Sales Manager KATE WHITMAN General Surgeon Assessment No assessment recorded. Plan of Treatment Reminders Order Date Submit Date Provider Last Modified By Organization Details Last Modified Time Details Appointments LAB Follow-Up 2024 08:20A M [facility] Lab Not available Not available Not available Follow Up, 15 2024 09:00A M Elías Jones MD Not available Not available Not available Wellness Visit 30 2024 11:15A M Janel Velasco PA-C Not available Not available Not available Lab BMP, serum or plasma [email or web address] [facility], [address] [place] [address], [id number], 04/17/2024 07:18:29 HbA1c (hemoglob in A1c), blood 2023 024 [facility], [address] [place] [address], [id number], 01/19/2024 03:02:00 vitamin D, 25-hydrox y, total, serum 2023 024 [facility], [address] [place] [address], [id number], 01/19/2024 03:02:00 BMP, serum or plasma 2023 024 [facility], [address] [place] [address], [address], 01/19/2024 03:02:00 lipid panel, serum 2023 024 [facility], [address] [place] [address], [address], 01/19/2024 03:02:01 Referral None recorded. Procedures None recorded. Surgeries None recorded. Imaging None recorded. Medication Orders triamcino lone acetonide 0.5 % topical cream 2023 [place] [id number], [address] [place], [place], [id number], 01/21/2024 11:29:25 Patient Targets Encounter Date Encounter Id Patient Goals Patient Target Last Modified By Organization Details Last Modified Time Her pupil has now resolved , will observeFollow up with eye dr in a few dayscall if reoccuring [email or web address] Not available 03/10/2024 17:26:22 Patient Instructions Encounter Date Encounter Id Patient Instructions Last Modified By Organization Details Last Modified Time 11/23/2023 [id number] Patient expressi ng frustration and fear about upcoming chemotherapy treatment. Offered support services including social security assessor. -Consider utilizing social security assessor for additional support if desired. [email or web address] Not available 11/23/2023 14:56:13 01/26/2024 [id number] -Plan on fasting labwork in 3 months with labwork for [place] -Okay to use the triamcinolone for 10-14 days intervals if the rash recurs Not available 01/26/2024 08:39:30 Reason for Referral None Reported. Results Created Date Observation Date Name Description Value Unit Range Abnormal Flag Note LastModifiedBy Organization Detail LastModifiedTime 10/07/19 24 10/07/2023 FREE T4 free T4 0.71 NG/dL 0.75-1 .54 low Not Available [address], [address], 10/07/2023 10:48:54 10/07/19 24 10/07/2023 TSH TSH 4.47 uIU/m L 0.50-6 .00 The Ameri can Colle ge of Endoc rinol ogy and Ameri can Thyro id Assoc iatio n recom mend goal TSH value s betwe en 0.4-4 .0 mIU/m L. Not Available [address], [address], 10/07/2023 11:18:06 10/07/19 24 10/07/2023 HGB A1C [...] furth er confi rmati on Not Available [address], [address], 10/07/2023 11:22:57 10/07/19 24 10/07/2023 HGB A1C estimated average glucose 131.2 mg/dL Not Available [address], [address], 10/07/2023 11:22:57 10/07/19 24 10/07/2023 BASIC METAB OLIC PANEL glucose 93 mg/dL 70-100 Not Available [address], [address], 10/07/2023 12:20:46 10/07/19 24 10/07/2023 BASIC METAB OLIC PANEL BUN 22 mg/dL 7-18 high Not Available [address], [address], 10/07/2023 12:20:46 10/07/19 24 10/07/2023 BASIC METAB OLIC PANEL creatinine 0.7 mg/dL 0.8-1. 3 low Not Available [address], [address], 10/07/2023 12:20:46 10/07/19 24 10/07/2023 BASIC METAB OLIC PANEL B/C 31.4 ratio Not Available [address], [address], 10/07/2023 12:20:46 10/07/19 24 10/07/2023 BASIC METAB [...] borat ion (CKD- EPI) Equat ion (Luis aguilera et. al 2020) as recom naheed d by the Natio nal Kidne y [employer] ation . eGFR is based on age, serum creat inine , and sex. CKD-E PI does not calcu late eGFR by race, does not apply to child una (age <18 years ), and shoul d not be used in pregn tu. Not Available [address], [address], 10/07/2023 12:20:46 10/07/19 24 10/07/2023 BASIC METAB OLIC PANEL sodium 139 mmol/ L 136-14 5 Not Available [address], [address], 10/07/2023 12:20:46 10/07/19 24 10/07/2023 BASIC METAB OLIC PANEL potassium 4.2 mmol/ L 3.5-5. 1 Not Available [address], [address], 10/07/2023 12:20:46 10/07/19 24 10/07/2023 BASIC METAB OLIC PANEL chloride 101 mmol/ L 96-107 Not Available [address], [address], 10/07/2023 12:20:46 10/07/19 24 10/07/2023 BASIC METAB OLIC PANEL anion gap 12.0 5.0-15 .0 Not Available [address], [address], 10/07/2023 12:20:46 10/07/19 24 10/07/2023 BASIC METAB OLIC PANEL CO2 26 mmol/ L 21-32 Not Available [address], [address], 10/07/2023 12:20:46 10/07/19 24 10/07/2023 BASIC METAB OLIC PANEL calcium 9.0 mg/dL 8.5-10 .3 Not Available [address], [address], 10/07/2023 12:20:46 10/07/19 24 10/07/2023 LIPID PANEL cholesterol 164 mg/dL <200 mg/dl Rita able 200-2 39 mg/dl Borde rline High >240 mg/dl High Not Available [address], [address], 10/07/2023 12:20:46 10/07/19 24 10/07/2023 LIPID PANEL triglyceride s 71 mg/dL <150 mg/dL Amparo l 150-1 99 mg/dL Borde rline High 200-4 99 mg/dL High >500 mg/dL Very High Not Available [address], [address], 10/07/2023 12:20:46 10/07/19 24 10/07/2023 LIPID PANEL direct HDL 71 mg/dL <40 mg/dl - Major Risk for CHD >60 mg/dl - Negat nicolás Risk for CHD Not Available [address], [address], 10/07/2023 12:20:46 10/07/19 24 10/07/2023 LDL - [...] r is not neces kiran. Not Available [address], [place], [address], 10/07/2023 12:20:46 10/07/19 24 10/07/2023 US, maci levine No observ ation record ed. [address] [place], [address], 10/07/2023 13:37:39 10/12/19 24 10/12/2023 latasha CASTRO No observ ation record ed. [address] [place], [address], 10/12/2023 13:44:44 10/12/19 24 10/12/2023 latasha CASTRO No observ ation record ed. [address] [place], [address], 10/12/2023 13:44:45 10/18/19 24 10/18/2023 latasha CASTRO No observ ation record ed. [address] [place], [address], 10/18/2023 17:25:42 10/18/19 24 10/18/2023 MAMMO , diagn ostic No observ ation record ed. [address] [place], [address], 10/18/2023 17:25:42 10/20/19 24 10/18/2023 US, latasha fajardo No observ ation record ed. [address] [place], [address], 10/21/2023 11:03:50 10/20/1910/18/2023 MAMMO , diagn ostic No observ ation record ed. [address] [place], [address], 10/21/2023 11:03:50 11/10/1911/10/2023 ultra sound guide d core biops y (PROC ) No observ ation record ed. [facility] [address] [facility] [place], [address], 11/10/2023 18:44:42 12/07/1912/03/2023 DEXA, axial skele ton No observ ation record ed. [address] [place], [address], 12/07/2023 12:37:38 12/16/1912/14/2023 US, latasha fajardo No observ ation record ed. [facility] [address] [place] [place], [address], 12/21/2023 13:20:34 12/27/19 24 12/21/2023 gillian CASTRO No observ ation record ed. [address] [place], [address], 12/27/2023 14:15:50 Result Notes None recorded. Problems Name Problem SNOMED Code Status Onset Date Resolution Date Notes Provider Name and Address Organization Details Recorded Time Hyperlip idemia 27703821 Active [facility] [place], [address], [facility] 2 09:57:33 Osteopen ia 240208982 Completed 201506/20/2020 Elías [place], [address], [facility] 1 16:57:15 Ganglion of wrist 852268780 Active 2016 Elías Jones [address] [place], [place] [address], [address], [facility] 2 09:57:30 History of Hodgkin lymphoma 843979301 Active 2016 [facility]ías [place], [address], [facility] 2 09:57:28 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 2019 Elías Jones [address] [place], [place] [address], [address], [facility] 2 09:57:41 Sebaceou s cyst of skin 675960330 Active 2014 R reenain Elías Jones [address] [place], [place] [address], [address], [facility] 2 09:57:46 Osteopor osis 81300942 Active 2020 Elías Jones [address] [place], [place] [address], [address], [facility] 2 09:57:38 Impaired fasting glycemia 033999723 Active 2022 Elías Jones [address] [place], [place] [address], [address], [facility] 3 15:35:33 Adenomat ous polyp of colon 902621263 Active 02/2023 DAVION [place], [address], [facility] 4 12:55:07 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 T1N1 staging Janel Velasco PA-C [address] [facility], [place], [address], [facility] 4 13:47:40 Problem Notes None recorded. Procedures Surgical History Date Name Laterality Status Provider Name and Address Organization Details Recorded Time 11/10/19 24 excision of left breast completed Janel Velasco PA-C [address] [place] [address], [address], [facility] 11/15/2023 10:38:12 04/15/19 24 Cardiovascular disease risk reduction counseling completed Elías Jones [address] [place] [address], [address], [facility] 04/15/2023 11:18:29 02/21/19 21 prevention-cardiov ascular risk reduction counseling completed Maya Hamilton MA [facility] 02/22/2020 10:26:08 02/21/19 21 prevention-annual alcohol misuse screening completed Maya Hamilton MA [facility] 02/22/2020 10:26:08 02/08/19 02 Hernia Repair completed Elías Jones [address] [place], [address], [facility] 03/08/2012 10:35:30 Imaging Results Imaging Date Name Status LastModified by Organiz ation Details LastModified Time 10/07/2023 US, breast, unilateral [place] [address] [place], [address], 10/07/2023 13:37:39 10/12/2023 US, breast completed [address] [place], [address], 10/12/2023 13:44:44 10/12/2023 US, breast [place] [address] [place], [address], 10/12/2023 13:44:45 10/18/2023 US, breast completed [address] [place], [address], 10/18/2023 17:25:42 10/18/2023 MAMMO, diagnostic completed [address] [place], [address], 10/18/2023 17:25:42 10/18/2023 US, breast completed [address] [place], [address], 10/21/2023 11:03:50 10/18/2023 MAMMO, diagnostic completed [address] [place], [address], 10/21/2023 11:03:50 11/10/2023 ultrasound guided core biopsy (PROC) completed [address] [place], [address], 11/10/2023 18:44:42 12/03/2023 DEXA, axial skeleton completed [address] [place], [address], 12/07/2023 12:37:38 12/14/2023 US, breast completed [address] [place], [address], 12/21/2023 13:20:34 12/21/2023 US, guidance completed [address] [facility] [place], [address], 12/27/2023 14:15:50 Procedure Notes None recorded. Medical Equipment None Reported. Allergies Allergen ID Allergen Name Allergen Category Reaction Reaction Severity Criticality Documentation Date Start Date Code Code System Note Provider Name and Address Organization Details Recorded Time 167835 latex environme nt,medica tion hives Not available Not available 11/07/2019 83681 91 RxNorm Maya Hamilton [place] [facility] 0 14:01:02 94522 Product containin g penicilli n (product) medicatio n hives Not available Not available 07/07/2011 97089 8001 SNOMED Ally Julia [facility] 2 08:47:17 Medications Name Sig Start Date [...] Not Available Not Available Not Available Afluria 1151-5849 (PF) 45 mcg (15 mcg x 3)/0.5 mL intramusc ular syringe inject 0.5 millilit er intramus cularly active Not Available Not Available No t Available Afluria 1650-3041 (PF) 45 mcg (15 mcg x 3)/0.5 mL intramusc ular syringe TO BE ADMINIST ERED BY [employer] FOR IMMUNIZA TION active Not Available Not Available No t Available riboflavi n (vitamin B2) 400 mg tablet TAKE 1 TABLET BY MOUTH EVERY DAY active Not Available Not Available No t Available Fluarix Quad 8726-5670 (PF) 60 mcg (15 mcg x 4)/0.5 mL IM syringe TO BE ADMINIST ERED BY THE PHARMACI ST 11/09 completed Not Available Not Available Not Available Flucelvax Quad 7501-8993 (PF) 60 mcg (15 mcg x 4)/0.5 mL IM syringe TO BE ADMINIST ERED BY [employer] FOR IMMUNIZA TION 05/25 completed Not Available Not Available Not Available Flucelvax Quad (PF) 60 mcg (15 mcg x 4)/0.5 mL IM syringe 11/24 completed Not Available Not Available Not Available Fluzone Quad (PF) 60 mcg (15 mcg x 4)/0.5 mL IM syringe PHARMACY ADMINIST ERED 11/06 completed Not Available Not Available Not Available [email or web address] COVID-19 Vaccine (PF) 30 mcg/0.3 mL IM [...] Updated DateTime 4 165.1 cm 24.5 kg/m2 40673.0 8 g 86 /min 122 mm[Hg] 72 mm[Hg] Shereen [facility] 4 09:06:30 Date Recorded Body height Body mass index (BMI) Body weight Heart rate Systolic blood pressure Diastolic blood pressure Provider Name and Address Organization Details Last Updated DateTime 4 165.1 cm 24.8 kg/m2 29280.2 6 g 84 /min 100 mm[Hg] 70 mm[Hg] Shania damon [facility] 4 13:51:54 Date Recorded Body height Body mass index (BMI) Body weight Heart rate Body temperature Systolic blood pressure Diastolic blood pressure Provider Name and Address Organization Details Last Updated DateTime 4 165.1 cm 22.1 kg/m2 31139.7 9 g 80 /min 98 [degF] 118 mm[Hg] 66 mm[Hg] [facility] 4 11:20:27 Date Recorded Body height Body mass index (BMI) Body weight Heart rate Systolic blood pressure Diastolic blood pressure Provider Name and Address Organization Details Last Updated DateTime 4 165.1 cm 25.2 kg/m2 38891.2 5 g 100 /min 102 mm[Hg] 70 mm[Hg] Shereen [facility] 4 08:24:54 Date Recorded Body height Body mass index (BMI) Body weight Heart rate Systolic blood pressure Diastolic blood pressure Provider Name and Address Organization Details Last Updated DateTime 5 165.1 cm 26.3 kg/m2 76181.2 9 g 100 /min 100 mm[Hg] 64 mm[Hg] Perla awad [facility] 5 17:09:35 Social History Question Answer Notes LastModified by Organizat ion Details LastModified Time Tobacco Smoking Status [facility] 08:47:17 What Is Your Level Of [...] A Break' - 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 [id number] [facility] Information not available [...] 02/22/2020 11:28:17 Notes:[facility], Medical History Condition Response Hyperlipidemia Y INFECTIOUS DISEASE Y CANCER Y Gynecological History Statement/Question Response Menses Monthly Y History of Abnormal Pap Y Age at Menarche 11 Obstetrics History GPAL:G 0 P 0 0 0 0 Immunizations Vaccine Type Date Status Note Provider Nam e and Address Organization Details Recorded Time Tdap 1 [facility] 07/29/2011 12:56:02 Influenza, split virus, quadrivalent, PF 5 completed Not Available [facility] 02/25/2019 02:19:48 Influenza, split virus, trivalent, preservative 2 completed Not Available [employer] 03/09/2022 14:01:47 Influenza, split virus, trivalent, preservative 3 completed Not Available [facility] 03/09/2022 14:01:47 Influenza, split virus, quadrivalent, PF 6 completed Not Available [facility] 02/25/2019 02:27:42 Influenza, MDCK, quadrivalent, PF 8 completed [facility] 03/10/2024 17:06:49 Td (adult), 2 Lf tetanus toxoid, preservative free, adsorbed 1 completed TRACIE Ortiz, [facility] 01/09/2021 09:29:20 COVID-19, mRNA, LNP-S, PF, 30 mcg/0.3 mL dose 1 completed [facility] Archer [facility] 03/10/2024 17:06:50 COVID-19, mRNA, LNP-S, PF, 30 mcg/0.3 mL dose 1 completed [facility] 03/10/2024 17:06:50 Influenza, split virus, quadrivalent, PF 3 completed Elías Jones [address] [place] [address], [address], [facility] 10/22/2022 08:21:26 COVID-19, mRNA, LNP-S, PF, 30 mcg/0.3 mL dose 1 completed [facility] 03/10/2024 17:06:50 COVID-19, mRNA, LNP-S, PF, 30 mcg/0.3 mL dose 2 completed Perla Archer RMA null, [facility] 03/10/2024 17:06:50 COVID-19, mRNA, LNP-S, bivalent, PF, 30 mcg/0.3 mL dose 2 completed Perla Archer RMA null, [facility] 03/10/2024 17:06:50 influenza, unspecified formulation 2 completed Keerthi Sharma MA null, [facility] 01/30/2022 09:59:12 COVID-19, mRNA, LNP-S, PF, cat-sucrose, 30 mcg/0.3 mL 4 completed Perla Archer RMA null, [facility] 03/10/2024 17:06:50 Influenza, MDCK, trivalent, PF 4 completed Perla Archer, SERGEYJose butterfield, [facility] 03/10/2024 17:06:50 Past Encounters Encounter ID Performer Location Encounter Start Date Encounter Closed Date Diagnosis/Indication Diagnosis SNOMED-CT Code Diagnosis ICD10 Code Diagnosis Note [id number] [facility], OFFICE [address] [facility] [place] [address] 07/07/2011 08:32:20 07/07/2011 09:21:11 [id number] [facility], OFFICE [address] [place] [address] 08/20/2011 09:16:13 08/20/2011 09:49:48 [id number] Leroy MARTINEZ [facility], OFFICE [address] [place] [address] [place] [address] 11/26/2011 09:28:32 11/26/2011 10:04:48 [id number] Leroy MARTINEZ [facility], OFFICE [address] [place] [address] [place] [address] 03/08/2012 09:45:18 03/08/2012 11:00:23 [id number] Leroy MARTINEZ [facility], OFFICE [address] [facility] [place] [facility] [place] [address] 04/25/2012 08:44:25 04/25/2012 09:18:52 [id number] Leroy MARTINEZ [facility], OFFICE [address] [facility] [place] [address] 04/26/2012 08:15:37 04/26/2012 08:45:16 [id number] MICHELLE [facility], OFFICE [address] [place] [address] 07/20/2012 08:15:54 07/20/2012 08:46:06 [id number] Maddy Cox [facility], OFFICE [address] [place] [address] 10/05/2012 09:05:08 10/05/2012 09:35:44 Hyperlipidemia 57328146 LDL goal is <130. Pt is at goal, asymptomat ic. To continue with simvastati n with routine f/u for PHA in 5-6 months (early Mar). Hematochezia 990525488 L juan luis due to hemorrhoid s. Pt to have repeat colonoscop y in 2018. [id number] Shasha Smallwood RN , [facility], OFFICE [address] [place] [address] 04/17/2013 08:30:49 04/17/2013 09:25:47 Adult health examination 750068384 see Risk Assessment and Lifestyle Change Counseling section above Counseling [id number] Hyperlipidemia 43815767 LDL goal is <130. Pt is at goal, asymptomat ic. To continue with simvastati n with routine f/u in 5-6 months. [id number] , [facility], OFFICE [address] [place] [address] 10/16/2013 15:34:22 10/16/2013 16:23:01 Hyperlipidemia 90041444 LDL goal is <130. Pt is at goal, asymptomat ic. Triglyceri diane up a little without any dietary changes. Taking 1 fish oil daily, but pt states that she has a hard time swallowing them. [id number] Aleah Navas LPN , [facility], OFFICE [address] [place] [address] 01/29/2014 14:19:58 01/29/2014 15:00:53 Acute contact dermatitis [id number] , [facility], OFFICE [address] [place] [address] 04/18/2014 15:04:01 04/18/2014 16:16:17 Adult health examination 673217184 see Risk Assessment and Lifestyle Change Counseling section above Counseling [id number] Hyperlipidemia 66289503 LDL goal <130 previously , however on review of chart question if pt needs to have this goal. She does tend towards borderline triglyceri diane. She takes simvastati n. It is really unclear if this is necessary. Will reduce the dose and see if her triglyceri diane [id number] , [facility], OFFICE [address] [place] [address] 10/22/2014 14:46:06 10/22/2014 15:43:22 Hyperlipidemia 35241286 LDL goal <130 previously , however on review of chart question if pt needs to have this goal. She does tend towards borderline triglyceri diane. This is doing okay with the fish oil and with the 20mg simvastati n. Will continue on the lower dose and plan on rechecking in 6 months. Influenza vaccine needed 7150878569 106 Swelling / lump finding [id number] [id number] Medina Smallwood , [facility], OFFICE [address] [place] [address] 04/17/2015 14:03:13 04/17/2015 16:13:13 Pain in lower limb 60987562 M79.604 THIS SOUNDS LIKE IT MIGHT BE [...] L NEUROPATHY WOULD BE MUCH LESS LIKELY [id number] Mei Yin , [facility], OFFICE [address] [place] [address] 05/06/2015 15:00:04 05/06/2015 16:00:28 Adult health examination 394393063 Z00.01 see Risk Assessment and Lifestyle Change Counseling section above Counseling 130229459 Z71 .9 Hyperlipidemia 59306456 E78.5 LDL at goal (<130) and triglyceri diane upper end of normal. Will recheck in 6 months. Osteopenia 529575541 M85 .80 Last BMD done in 2007 with osteopenia in the hips; done at . Will order repeat. [id number] Alka Ariza MD , [facility], OFFICE [address] [place] [address] 06/28/2015 14:34:29 06/28/2015 15:18:00 Aphthous ulcer of mouth 363950170 K12.0 [id number] Elías Jones , [facility], OFFICE [address] [place] [address] 11/07/2015 09:01:30 11/07/2015 09:29:47 Active or passive immunization 351894749 Z23 Hyperlipidemia 89957325 E78.5 LDL at goal (<130) and triglyceri diane improved. Will recheck in 6 months prior to PHA. [id number] Elías MARTINEZ, [facility], OFFICE [address] [place] [address] 11/27/2015 15:43:59 11/27/2015 16:39:27 Localized swelling, mass and lump, upper limb 732799572 R22.31 [id number] Lela Gordon NP , [facility], OFFICE [address] [place] [address] 02/07/2016 16:28:22 02/07/2016 16:54:04 Non-neoplastic nevus 829174978 I78.1 left shoulder. pt reassured [id number] Elías MARTINEZ, [facility], OFFICE [address] [place] [address] 05/07/2016 14:01:41 05/07/2016 15:15:18 Adult health examination 981243443 Z00.00 see Risk Assessment and Lifestyle Change Counseling section above Counseling 470367339 Z71 .9 Hyperlipidemia 86328976 E78.5 Cholestero l treated on simvastati n. Will monitor going forward. [id number] Lela Gordon NP , [facility], OFFICE [address] [place] [address] 06/26/2016 10:48:07 06/26/2016 11:15:04 Acute upper respiratory infection 79427542 J06.9 Drink plenty of fluids. Eat healthy [...] for reassessme nt (urgent care available in [place] office Sat 10-12 and 10-20 by appointmen t - call after 8AM for appt.) Dry cough can last for up to six weeks. [id number] Lela Gordon NP , [facility], OFFICE [address] [place] [address] 07/01/2016 14:30:42 07/01/2016 14:58:39 Acute upper respiratory infection 26017658 J06.9 Drink plenty of fluids. Eat healthy [...] for reassessme nt (urgent care available in [place] office Sat 10-12 and 10-20 by appointmen t - call after 8AM for appt.) Dry cough can last for up to six weeks. Cough 53796210 R05 Pt presents with complaint of cough [...] fever, increased sob, or increased sputum. Laryngitis 16040174 J04. 0 magic mouth wash [id number] Elías Jones , [facility], OFFICE [address] [place] [phone] 07/09/2016 09:34:17 07/09/2016 10:13:14 Upper respiratory infection [id number] J06.9 Plan as below. [id number] Elías MARTINEZ, [facility], OFFICE [address] [place] [address] [phone] 6 08/13/2016 09:16:06 08/13/2016 09:45:21 Impacted cerumen 01484891 H61.21 R ear canal, not blocking anything; recommenda tions as below. Rib pain 706973007 R07.8 1 Likely sprain; should continue to improve. Allergic rhinitis 431801 04 J30.9 Plan as below. Gastroesop hageal reflux disease 600431640 K21.9 Mild. Plan as below. [id number] Elías Jones , [facility], OFFICE [address] [place] [address] 35117-091 6 11/09/2016 15:32:39 11/09/2016 15:58:08 Hyperlipidemia 80874246 E78.5 Cholestero l treated on simvastati n. Stable without any signs/sxs heart disease. Will monitor going forward. [id number] MADHU Torrez, [facility], OFFICE [address] [place] [address] [phone] 6 12/24/2016 13:58:18 12/24/2016 14:30:23 Herpes labialis 1229655 B00.1 -valacyclo vir as directed-s top playing with the lip-do not apply any ointment-f ollow up if no improvemen t [id number] MADHU Torrez , [facility], OFFICE [address] [place] [address] 11871-587 6 01/08/2017 14:02:47 01/08/2017 14:31:07 Eruption [id number] R21 -I don't feel it was herpes-at this time it appears this area is still healing. no signs of infection- follow up in 2 weeks if the area is still no healed completely with your PCP [id number] Janel Velasco PA-C , [facility], OFFICE [address] [place] [address] 94635-892 6 02/19/2017 14:38:06 02/19/2017 15:14:07 Hand wart 420089820 B07.8 - apply topical salicylic acid over the counter for two weeks- return to office if not improving- can make your finger red or irritated, can take a break for a day or two if needed [id number] Elías Jones , [facility], OFFICE [address] [place] [address] [phone] 6 03/04/2017 16:27:49 03/04/2017 17:51:48 Eruption [id number] R21 Papular rash, extremely nonspecifi c. [id number] Elías MARTINEZ, [facility], OFFICE [address] [place] [address] 04839-478 6 03/18/2017 14:46:31 03/18/2017 15:12:57 Eruption [id number] R21 Papular rash, extremely nonspecifi c. Improving at this point. Would recommend rechecking Thrombocytosis 7763414 D 47.3 [id number] Elías MARTINEZ, [facility], OFFICE [address] [place] [address] [phone] 6 05/19/2017 14:59:45 05/19/2017 15:54:48 Adult health examination 375705487 Z00.00 see Risk Assessment and Lifestyle Change Counseling section above Counseling 156654233 Z71 .9 Depression screening 171 743399 Z13.89 depression screening tool administer ed, entered into emr, scored and discussed, time greater than 7.5 minutes, no depression History of Hodgkin lymphoma 935362971 Z85.71 Pt to f/u routinely with provider. Hyperlipidemia 23754715 E78.5 Cholestero l treated on simvastati n. Stable without any signs/sxs heart disease. Will monitor going forward. [id number] Aura Dickens RN BSN MICHELLE, [facility], OFFICE [address] [place] [address] [phone] 6 07/26/2017 13:42:45 07/26/2017 14:28:50 Cobalamin deficiency 216857418 E53.8 [id number] MARIE Carrasco , [facility], OFFICE [address] [place] [address] 86183-025 6 07/27/2017 14:21:56 07/27/2017 15:15:41 Cobalamin deficiency 067516897 E53.8 [id number] MARIE Carrasco , [facility], OFFICE [address] [place] [address] 57342-468 6 07/28/2017 14:22:26 07/28/2017 14:52:45 Cobalamin deficiency 405236413 E53.8 [id number] MARIE Carrasco , [facility], OFFICE [address] [place] [address] 64637-071 6 07/29/2017 14:39:23 07/29/2017 15:19:12 Cobalamin deficiency 308196584 E53.8 [id number] MARIE Carrasco , [facility], OFFICE [address] [place] [address] 68774-876 6 07/30/2017 14:26:03 07/30/2017 16:25:52 Cobalamin deficiency 683139461 E53.8 [id number] Elísa Jones , [facility], OFFICE [address] [place] [address] 68195-084 6 11/17/2017 14:49:21 11/17/2017 15:30:58 Hyperlipidemia 54427817 E78.5 Cholestero l treated on simvastati n. Stable without any signs/sxs heart disease. Will monitor going forward. Acute uppe r respiratory infection 76054416 J06.9 Very very mild, early symptoms, Recommend rest, fluids. [id number] Belia Francis NP FP, [facility], OFFICE [address] [place] [address] 12993-534 6 11/30/2017 17:29:29 11/30/2017 20:15:13 Acute upper respiratory infection 84699950 J06.9 Educated patient that URI is a [...] including NSAIDS, semi-uprig ht sleep position, antihistam inc at HS, limited course of nasal sympathomi metics and/or cough syrups, and nasal saline rinses with soft squeeze bottle or Neti pot. Return for fevers > 101 for 3 days, worsening sinus pain, or failure to resolve in 2-4 weeks. [id number] Elías MARTINEZ, [facility], OFFICE [address] [place] [address] [phone] 6 02/03/2018 10:16:50 02/03/2018 10:44:45 Allergic rhinitis 95799706 J30.9 Likely illness followed by allergic rhinitis. Plan as below. [id number] Elías MARTINEZ, [facility], OFFICE [address] [place] [address] 69196-784 6 04/25/2018 14:50:27 04/25/2018 15:31:15 Superficial injury of face 280880121 S00.80XA L upper lip along ariane border. Unclear what this started as but would recommend treatment with barrier [id number] Elías MARTINEZ, [facility], OFFICE [address] [place] [address] 03872-453 6 05/25/2018 15:01:45 05/25/2018 16:08:41 Adult health examination 972553056 Z00.00 see Risk Assessment and Lifestyle Change Counseling section above Counseling 789492981 Z71 .9 Depression screening 171 526038 Z13.89 depression screening tool administer ed, entered into emr, scored and discussed, time greater than 7.5 minutes, no depression Hyperlipidemia 07040044 E78.5 Cholestero l treated on simvastati n. Stable without any signs/sxs heart disease. Some drifting up of sugars over time. Discussed emigdio meléndez stopping the statin and rechecking labwork in 2-3 months to see where sugar and cholestero l is running; can always restart. Plan on routine check-in in 6 months [id number] BRYAN Nickerson, [facility], OFFICE [address] [place] [address] 54851-534 6 07/14/2018 15:03:31 07/14/2018 15:51:37 Allergic reaction to insect bite 163371953 T78.40XA [id number] Elías Jones , [facility], OFFICE [address] [place] [address] 30557-018 6 07/19/2018 14:36:46 07/19/2018 15:08:12 Eruption 707604975 R21 Papular rash, extremely nonspecifi c. Pt had something like this winter 2017 that resolved spontaneou sly. [id number] Elías Jones , [facility], OFFICE [address] [place] [address] 18079-475 6 11/24/2018 09:02:23 11/24/2018 09:29:58 Hyperlipidemia 66969333 E78.5 Cholestero l treated on simvastati n. Stable without any signs/sxs heart disease. With trial off statin, LDL went to over 200 so conclusive ly, pt needs to remain on this. Plan on recheck [id number] Cassidy Casillas DNP, [employer] DIRECTOR-BC , [facility], OFFICE [address] [place] [address] 43014-485 6 01/13/2019 08:31:47 01/13/2019 09:24:55 Aphthous ulcer of mouth 508942737 K12.0 Looks like a developing canker sore. [id number] Elías Jones , [facility], OFFICE [address] [place] [address] 08910-643 6 08/17/2019 08:17:27 08/18/2019 10:54:33 Hyperlipidemia 30370497 E78.5 Cholestero l treated on simvastati n. Stable without any signs/sxs heart disease. With trial off statin, LDL went to over 200 so conclusive ly, pt needs to remain on this. Reviewed fish oil/krill oil options as below. Subclinica l hypothyroidism 62125625 E02 TSH slightly elevated, but free T4 normal. Would recheck in 3-4 months with follow-up and wellness then. Cobalamin deficiency 190 893904 E53.8 Stable on medication . [id number] MD MICHELLE Garcia, [facility], OFFICE [address] [place] [address] 16247-882 6 11/07/2019 14:00:38 11/08/2019 16:05:01 Increased frequency of urination 615109024 R35.0 Resolved today. UA negative yesterday. Call back precaution s. Leukocytosis 174586962 D 72.829 Reassured pt that her leukocytos is was very mild. Possible that she had mild illness that has passed. Plan is to repeat CBC next week. [id number] Elías Jones , [facility], OFFICE [address] [place] [address] 11/21/2019 08:17:06 11/22/2019 14:43:36 History of Hodgkin lymphoma 272623550 Z85.71 Will repeat CBC in February. Mixed hyperlipidemia 267 173382 E78.2 Will repeat in February. Leukocytosis 575042481 D 72.829 Resolved on repeat. Thyroid fu nction tests abnormal 729093220 R94.6 [id number] Elías MARTINEZ, [facility], OFFICE [address] [place] [address] 02/22/2020 10:55:02 02/23/2020 09:45:30 Adult health examination 159281907 Z00.00 see Risk Assessment and Lifestyle Change Counseling section above Counseling 012851499 Z71 .9 including cardiovasc ular risk reduction counseling Depression screening 171 707617 Z13.89 depression screening tool administer ed, entered into emr, scored and discussed, time greater than 7.5 minutes, no depression Screening for alcohol abuse 076509987 Z13.39 Screening for disorder 183040810 Z11.59 Hyperlipidemia 76768702 E78.5 Cholestero l treated on simvastati n. To continue with this. Subclinica l hypothyroidism 41806992 E02 TSH slightly elevated, but free T4 normal. Osteopenia 199720172 M85 .80 Last BMD done in 2015 with osteopenia in the hips; done at . Will order repeat for this year (2020) Swelling / lump finding 387325161 R22.2 Likely sebaceous cyst; plan as below. [id number] Elías MARTINEZ, [facility], OFFICE [address] [place] [address] 11598-572 6 04/22/2020 14:28:47 04/24/2020 13:10:09 Swelling / lump finding 624228839 R22.2 Small lymph node with benign morphology . WBC normal. Plan on monitoring with follow-up in August. Mixed hyperlipidemia 267 419829 E78.2 Will repeat in . Thyroid fu nction tests abnormal 172067398 R94.6 Will repeat in Osteopenia 274583774 M85 .80 Going for repeat BMD in June. Will repeat vitamin D in May and then again in July. Currently on 2000 IU daily [id number] Elías MARTINEZ, [facility], OFFICE [address] [place] [address] 38506-755 6 06/25/2020 14:24:55 06/28/2020 13:05:08 Osteoporosis 74245721 M81.0 VItamin D was a bit low and pt is now supplement ing. Will also check PTH and BMP and magnesium with next set of labwork. Will also check thyroid again. [id number] Elías MARTINEZ, [facility], OFFICE [address] [place] [address] 6 08/21/2020 15:48:43 08/22/2020 11:00:22 Osteoporosis 85612563 M81.0 VItamin D is normal now; PTH, BMP and magnesium are all normal. 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 Discussion as below re: medication s. Hyperlipidemia 80152553 E78.5 Cholestero l well controlled on simvastati n. To continue with this. Varicose v eins of lower extremity 01938826 I83.893 Mild symptoms of heaviness. Pt frustrated . Will send script for thigh-high compressio n stockings to try but also refer to Dr. Koch [id number] Elías MARTINEZ, [facility], OFFICE [address] [place] [address] 6 09/19/2020 15:46:34 09/19/2020 16:50:28 Osteoporosis 72301560 M81.0 VItamin D is normal now; PTH, BMP and magnesium are all normal. Pt would rather not take medication after reading about them. Reviewed FRAX score of <10% and likelihood of fx as well as T scores of hip and back. Will repeat bone density in 06/2022.30 minutes spent reviewing chart, labwork, BMD, and discussion pt concerns [id number] Elías Jones , [facility], OFFICE [address] [place] [address] 08761-061 6 11/07/2020 10:17:02 11/07/2020 11:21:13 New daily persistent headache 1754851596 47722 G44.52 Given uptick in headaches, would check MRI given history. Other recommenda tions as below. Pain of le ft shoulder joint [id number] 8293074 M25.512 Discussion as below. [id number] Elías MARTINEZ, [facility], OFFICE [address] [place] [address] 63369-769 6 12/05/2020 08:19:08 12/05/2020 09:01:07 Headache 83233498 R51.9 Pattern suggestive of stress headaches. Still taking supplement s. Unclear what to do with the informatio n that it seems to correlate with someone at work, sole torrez. [id number] Elías MARTINEZ, [facility], OFFICE [address] [place] [address] 97657-396 6 01/09/2021 09:03:25 01/09/2021 09:31:55 Headache 68268580 R51.9 Supplement s have resolved headaches despite work stressors. Plan on continuing with these with routine follow-up at wellness visit. Active or passive immunization 526460633 Z23 [id number] Elías MARTINEZ, [facility], OFFICE [address] [place] [address] 30152-278 6 03/05/2021 15:02:09 03/06/2021 13:32:30 Adult health examination 412788344 Z00.00 see Risk Assessment and Lifestyle Change Counseling section above Counseling 211524052 Z71 .9 including cardiovasc ular risk reduction counseling Depression screening 171 490432 Z13.31 depression screening tool administer ed, entered into emr, scored and discussed, time greater than 7.5 minutes, no depression . Screening for alcohol abuse 843885015 Z13.39 Mixed hyperlipidemia 267 530928 E78.2 Cholestero l well controlled on simvastati n and exercise. Subclinica l hypothyroidism 97351239 E02 TSH slightly elevated in past, normal last check. Will recheck again in 6 months with other labs. Osteoporosis 77652214 M8 1.0 VItamin D is normal now; PTH, BMP and magnesium are all normal Will repeat bone density in 06/2022. [id number] Elías Jones , [facility], OFFICE [address] [place] [address] 6 03/27/2021 11:46:58 03/27/2021 12:39:08 Clicking knee 667346412 R29.898 Right knee. Painless. May be early arthritis, but since no pain, there is no indication for any kind of interventi on. Will get x-ray to further evaluate. Recommend patient return to exercise as below. Varicose v eins of lower extremity 20293041 I83.893 Mild symptoms of heaviness and aching. Pt to f/u with ultrasound and appointmen t with Dr. Koch next week. [id number] MD MICHELLE GROVES, [facility], OFFICE [address] [place] [address] 06/25/2021 14:46:52 06/25/2021 15:25:14 Paronychia of finger 612295315 L03.019 already improving on its own. abrasion already scabbedcon tinue using NeosporinW atc for the following: increased redness, warmth or swelling - in which case may need oral antibiotic sIn future - Use emery board instead of metal file to prevent further damage. [id number] Elías MARTINEZ, [facility], OFFICE [address] [place] [address] 6 08/28/2021 09:19:12 08/28/2021 10:11:43 Active or passive immunization 591165451 Z23 shingle-re mindecovid -fully vaccines Clicking knee 016938097 R29.898 Right knee. Painless. Would recommend simply monitoring . She takes glucosamin e when she feels she can swallow it. Varicose v eins of lower extremity 75495479 I83.893 Scheduled with specialist for interventi on next Wednesday. Mixed hyperlipidemia 267 820510 E78.2 Cholestero l well controlled on simvastati n and exercise. Subclinica l hypothyroidism 20095618 E02 TSH continues to be normal. Will recheck again in 6 months with other labs. Osteoporosis 64352403 M8 1.0 VItamin D is normal now; PTH, BMP and magnesium are all normal Will repeat bone density in 06/2022. [id number] Elías Jones , [facility], OFF[address] [place] [address] 02/03/2022 15:44:04 02/03/2022 16:33:17 Backache 576672825 M54.9 Will get x-ray to evaluate for any bony issue. Assuming no bony finding, recommend physical therapy to address and prevent reinjury. Active or passive immunization 188464108 Z23 COVID- Vax x5 w/bivalent Flu-Done for 2021hin gles- Reminded [id number] JADA Thompson , [facility], OFFICE [address] [place] [address] 6 03/09/2022 14:01:42 03/09/2022 14:47:17 Active or passive immunization 575555725 Z23 Shingles vaccine- Burn of skin 231174744 T 30.0 agree resembles burndiscus sed expected healing timerec continued use of topical abx as needed (1-3x/day) , keep covered at work to avoid re-injury, okay to leave open at homecall with any s/s infection - spreading redness, warmth, drainage, tenderness [id number] Elías Jones , [facility], OFFICE [address] [place] [address] 03/12/2022 08:33:08 03/12/2022 09:20:05 Adult health examination 936364232 Z00.00 see Risk Assessment and Lifestyle Change Counseling section above Depression screening 171 108000 Z13.31 depression screening tool administer ed Screening for alcohol abuse 252443863 Z13.39 Mixed hyperlipidemia 267 227508 E78.2 Cholestero l is at goaL Active or passive immunization 731653311 Z23 COVID- Vax x5 w/bivalent Flu-Done for 2021hin gles- Reminded Varicose v eins of lower extremity 68645971 I83.893 Scheduled with specialist for interventi on next Wednesday. Clicking knee 304800374 R29.898 Right knee. Painless. Would recommend simply monitoring . She takes glucosamin e when she feels she can swallow it. Subclinica l hypothyroidism 37527443 E02 TSH continues to be normal. Will recheck again in 6 months with other labs. Osteoporosis 36638484 M8 1.0 VItamin D is normal; will plan to check annually. Counseling 969834013 Z71 .9 including cardiovasc ular risk reduction counseling Hypomagnesemia 244017636 E83.42 Increased dose as below. Impaired f asting glycemia 068995309 R73.01 Pt having gummies close to bedtime, will repeat this in 4 weeks with the magnesium to see if this was a true finding. [id number] Elías MARTINEZ, [facility], OFFICE [address] [place] [address] 04/16/2022 08:16:53 04/16/2022 09:01:48 Mixed hyperlipidemia 211996427 E78.2 Cholestero l is at goaL Active or passive immunization 987861453 Z23 COVID- Vax x5 w/bivalent Flu-Done for 2021 seasonShin prashanth- Reminded Hypomagnesemia 913776364 E83.42 Pt had been on 300mg due to lows, but high sugar content of gummies. Will try to reduce and check in 3-4 weeks. Impaired f asting glycemia 880925587 R73.01 A1C slightly elevated. This is not a weight issue; strong family history of diabetes. Will reduce daily intake of sugar from supplement s as below. Will have pt meet with [facility] as well to see if any other hidden sources of carbohydra te in diet. Plan on repeat A1C in 3 months. Hypercalcemia 09794260 E 83.52 Mild. Unclear if true finding. Could be related to increased magnesium supplement ation. Plan as below. Migraine 01089888 G43.90 9 [id number] Elías MARTINEZ, [facility], OFFICE [address] [place] [address] 05/28/2022 08:16:10 05/28/2022 08:51:42 Eruption 297979669 R21 Papular rash, extremely nonspecifi c. Determined by turbine technician to be cyclical allergies. Season started early this year. Plan as below. Impaired f asting glycemia 083018560 R73.01 Fasting sugars are normal. Will recheck as this is not a weight issue. Pt seeing nutrition next month and has repeat labs the month afterwards . Active or passive immunization 154430941 Z23 COVID- Vax x5 w/bivalent Flu-Done for 2021 seasonShin gles- Reminded [id number] Niurka Arevalo, RD, LDN Nutrition -[address] [address] 06/18/2022 09:59:50 06/18/2022 15:00:21 Impaired fasting glycemia 325358838 R73.01 Nutrition Diagnosis: {{Excessiv e oral intake (NI 2.2) Exces sive fat intake (NI 5.6.2) Sandy ppropriate Intake of fats (NI 5.6.3) Exc essive carbohydra te intake (NI 5.8.2) Sandy ppropriate intake of types of carbohydra te (NI 5.8.3) Inc onsistent carbohydra te intake (NI 5.8.4) Irmo dequate fiber intake (NI 5.8.5) Alt ered [...] 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 Has been checking her BG 3 [...] minutes or more of regular physical activity/w cahuilla Handouts: Prediabete s and diabetes (ADA); [place] [facility] Prediabete s; Lifestyle change; blank food diary form, [employer] what is a carb serving and 4 pg carb counting list [employer]'s plate article. Nutrition Action reviews of: soups, breakfast cereals, breads, yogurt Time in: 10:00 AMTime out: 11:02 AMTime spent counseling : 62 minutes [id number] Elías Jones , [facility], OFFICE [address] [place] [address] 07/23/2022 08:17:23 07/23/2022 09:11:05 Impaired fasting glycemia 666146171 R73.01 Fasting sugar is slightly elevated. A1C is stable. Weight is not an issue for pt. Pt seeing [facility] again next month again. Extremely strong family history of diabetes. Active or passive immunization 630984874 Z23 COVID- Vax x5 w/bivalent Flu-Done for 2021 [place]- Reminded Osteoporosis 85367612 M8 1.0 BMD has worsened and pt is understand ably frustrated . VItamin D is normal. Pt is concerned about the amount of dental work she needs overall in terms of these medication s. She also has concerns about injectable medication s. Further discussion as below. [id number] Elías Jones , [facility], OFFICE [address] [place] [address] 09/10/2022 08:02:44 09/10/2022 08:46:54 Impaired fasting glycemia 197448053 R73.01 Pt continues to have elevated sugars in the morning and she feels that she can't always tell why this is happening because suppertime sugars are not high. Could be that sugars are dipping and bouncing back up. Could do a two week CGM trial (would unfortunat shan out of pocket) to see what is happening overnight. Osteoporosis 44867711 M8 1.0 Pt is tolerating alendronat e currently; will have her continue with this. 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 Has been checking her BG 3 times [...] minutes or more of regular physical activity/w cahuilla Time in: 3:35 pmTime out: 4:35 pmTime spent counseling : 60 minutes [id number] Elías Jones , [facility], OFFICE [address] [place] [address] 10/22/2022 08:00:52 10/22/2022 08:41:53 Impaired fasting glycemia 318809521 R73.01 Pt's A1C is very stable at 6.3. Sugars are usually quite good with her dietary management . Some fluctuatio n with sleep disruption and life stressors which is to be expected. Active or passive immunization 174352112 Z23 COVID- Vax x5 w/bivalent Flu-Done for 2021 Wilihin prashanth- Reminded Sleep annmarie duncan disturbance 86048553 G47.9 Between stressors and some issues with the cat waking pt up out of habit. Pigmented skin lesion of uncertain nature 555221412 L81.9 Lower lip. Would like pt to have this double-romulo cked at derm, but not alarming right now. [id number] Niurka Arevalo, RD, LDN Nutrition -C [address] [place] [address] 12/03/2022 10:02:46 12/03/2022 20:22:21 Impaired fasting glycemia 293549934 R73.01 Nutrition Diagnosis: {{Excessiv e oral intake (NI 2.2) Exces sive fat intake (NI 5.6.2) Sandy ppropriate Intake of fats (NI 5.6.3) Exc essive carbohydra te intake (NI 5.8.2) Sandy ppropriate intake of types of carbohydra te (NI 5.8.3) Inc onsistent carbohydra te intake (NI 5.8.4) Irmo dequate fiber intake (NI 5.8.5) Alt ered [...] BMI 23.5, A1C 6.3% in Oct and [place], FBS 97 Assessment : Follow up nutrition visit for pt after last meeting 09/09. With prediabete s dx and strong family hx DM, trying to focus on diet to prevent DM. Focusing on a heart healthy diet, lower portions of carbs and avoiding sweets. She's active with over 150 minutes per week walking, stationary bike or eliptical. 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 Has been checking her BG 2-3 [...] minutes or more of regular physical activity/w cahuilla Time in: 10:04 AMTime out: 10:54 AMTime spent counseling : 50 minutes [id number] Medina Miranda PA-C FP, [facility], OFFICE [address] [place] [address] 01/09/2023 11:58:41 01/09/2023 12:30:39 Pain in throat 322553100 R07.0 Appears viral.Rapi d strep negative.A dvised to push fluids, throat gargles, tea/honey, and please RTO if sxs persist or worsen. [id number] Elías Jones FP, [facility], OFF[address] [place] [address] 01/20/2023 14:46:02 01/20/2023 15:52:56 Active or passive immunization [id number] Z23 Shingles- Reminded Upper resp iratory infection [id number] J06.9 Patient presents with symptoms consistent with viral infection. No evidence of pneumonia on exam. Discussed supportive care: pushing fluids, rest, nasal saline and Mucinex as needed. Encouraged to follow up if symptoms persist for more then 10 days or if they are worsening. Discussed natural course of viral illnesses and lack of evidence for treating with antibiotic s. Impaired f asting glycemia [id number] R73.01 Pt's A1C has improved to 6.1 [...] if things drift back to the 6.3. [id number] Handy Weinberg MD FP, [facility], [address] [place] [address] 02/04/2023 16:13:20 02/07/2023 16:11:44 Acute bronchitis [id number] J20.9 see above [id number] Elías Jones , [facility], [address] [place] [address] 02/15/2023 15:00:29 02/15/2023 16:17:12 Active or passive immunization [id number] Z23 Shingles- Remindedfl u- all set for 2022 Cough 86866570 R05.9 Improving slowly. Dry cough may last up to 6 weeks from initial illness, unfortunat shan. Backache [id number] M54.9 Upper back/base of neck pain that has improved. Suspect strain/whi plash-type injury due to slip and fall. [id number] Elías Jones , [facility], OFFICE [address] [place] [address] 04/15/2023 10:17:45 04/15/2023 11:31:26 Adult health examination [id number] Z00.00 see Risk Assessment and Lifestyle Change Counseling section above Depression screening 171 990242 Z13.31 depression screening tool administer ed Screening for alcohol abuse 266115702 Z13.39 Alcohol use screening tool administer ed Screening for malignant neoplasm of cervix 004316253 Z12.[address] Alma Mora Active or passive immunization 295157004 Z23 Shingles- Remindedfl u- all set for 2022 Hyperlipidemia 81263844 E78.5 Cholestero l well controlled on simvastati n. To continue with this. Impaired f asting glycemia 906690583 R73.01 Pt's A1C is essentiall y stable around 6.2. Plan on repeating in 3 months and again in 6 months. Osteoporosis 74467620 M8 1.0 Pt is tolerating alendronat e currently; will have her continue with this. Subclinica l hypothyroidism 95837597 E02 TSH continues to be normal. Will recheck again in 6 months with other labs. Counseled by member of primary health care team 115986767 Z71.9 Today we discussed ways to reduce [...] attack, stroke, type 2 diabetes, and dementia. [id number] MADHU CHOWDHURY , [facility], [address] [place] [address] 04/21/2023 17:31:50 04/21/2023 17:59:27 Upper respiratory infection 75210109 J06.9 Pt w/ congestion , cough x [...] treating as sinus infection until day 7-10. [id number] Elías Jones , [facility], [address] [place] [address] 04/29/2023 12:17:02 04/29/2023 13:09:57 Active or passive immunization 170594411 Z23 Shingles- Remindedfl u- all set for 2022 Cough 50649341 R05.9 Improving slowly. Dry cough may last up to 6 weeks from initial illness, unfortmaya torrez. Upper resp iratory infection 90845768 J06.9 Patient presents with symptoms consistent with viral infection. No evidence of pneumonia on exam. Discussed supportive care: pushing fluids, rest, nasal saline and Mucinex as needed. Encouraged to follow up if symptoms persist for more then 10 days or if they are worsening. Discussed natural course of viral illnesses and lack of evidence for treating with antibiotic s. [id number] Elías Jones , [facility], [address] [place] [address] 07/15/2023 08:17:40 07/15/2023 08:46:37 Impaired fasting glycemia 290509540 R73.01 Pt's A1C is essentiall y stable around 6.3. Plan on repeating in 3 months as scheduled. Active or passive immunization 318965159 Z23 Shingles- Remindedfl u- all set for 2022 [id number] , [facility], [address] [place] [address] 08/09/2023 10:00:01 08/09/2023 17:44:11 Pharyngitis 306505259 J02.9 Patient presents for evaluation of sore throat that is consistent with {{URI* str ep flu abs cess}}. vs allergiesW e will treat with: OTC meds, nonhparm measures Discussed supportive measures. Follow up if not improving or with new symptoms, or any other concerns. Dysuria 88736866 R30.0 Patient w/ urinary frequency, UA+ trace [...] hours) and when to seek emergency care. [id number] Cassidy Casillas, TORRI, [employer] DIRECTOR-BC , [facility], [address] [place] [address] 08/11/2023 15:16:28 08/18/2023 20:29:29 Eruption 979598354 R21 Viral exanthem, should resolve, if worse call for re-solo maki as directed [id number] Elías Jones , [facility], [address] [place] [address] 10/27/2023 08:57:47 10/27/2023 09:48:58 Impaired fasting glycemia 846034786 R73.01 Pt's A1C is stable. Will plan on recheck in 3 months. Osteoporosis 53535599 M8 1.0 Pt is tolerating alendronat e currently; will have her continue with this. Discussed oncology may choose to have pt do Reclast infusion x1 instead of continuing with weekly alendronat e. Hyperlipidemia 13256793 E78.5 Cholestero l well controlled on simvastati n. May need to stop intermitte ntly in the future depending on treatments for cancer, but otherwise okay. Infiltrati ng ductal carcinoma of breast, stage 3 904744260 C50.112 Pt will be seeing [facility] going forward. Discussed diagnosis. [id number] Janel Velasco PA-C , [facility], [address] [place] [address] 11/23/2023 13:45:22 11/23/2023 15:01:42 Active or passive immunization 899695525 Z23 flu: states done 10/15 at [facility] Infiltrati ng duct carcinoma of breast 583452746 C50.919 Recent left mastectomy and sentinel lymph [...] discuss treatment options. Impaired f asting glycemia 678845289 R73.01 Stable with recent A1C of 6.2. Patient has been actively managing this condition. -Continue current management strategies . Osteoporosis 52455199 M8 1.0 Patient on alendronat e and has been actively managing this condition. Concerns about potential impact of cancer treatment on bone health.-Co ntinue alendronat e.-Discuss bone health concerns with oncologist during upcoming appointmen tParker [id number] Cassidy Casillas, DNP, [employer] DIRECTOR-BC , [facility], [address] [place] [address] 01/21/2024 10:59:52 01/21/2024 11:38:37 Localized eruption of skin 612305393 R21 Patients presents for evaluation of rash [...] with other concerns. Active or passive immunization 279226292 Z23 flu -pneumo -shingles - [id number] Elías Jones , [facility], [address] [place] [address] 01/26/2024 08:14:00 01/26/2024 15:18:29 Impaired fasting glycemia 759099223 R73.01 Pt's A1C is actually slightly improved. Will monitor over 3 months with follow-up then. Active or passive immunization 929721199 Z23 Shingles- Remindedpn eumonia- remindedfl u 24- had this season Localized eruption of skin 572752812 R21 Somewhat improved already. Discussed source is hard to pinpoint. Recommend just using the steriod cream. Infiltrati ng duct carcinoma of breast 075467222 C50.919 Recent left mastectomy and sentinel lymph node biopsy with one positive lymph node. Estrogen receptor and progestero ne receptor positive. Pt is now s/p two chemo treatments and will be continuing with course. 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 Health Concerns Section Related Observation LastModified by Organization Detai ls LastModified Time None Recorded Concern Status LastModified by Organization Details LastModified Time None Recorded Advance Directives Directive None Recorded Payers Encounter Date Sequence Insurance Name Policy Number Policy Browne Covered Member ID Browne Member ID Guarantor Name 10/27/2023 1 [facility] - DIRECT CONNECTORCARE TYPE II (HMO) [id number] Marybel Camp [id number] Marybel Camp 11/23/2023 1 [facility] - DIRECT CONNECTORCARE TYPE II (HMO) [id number] Marybel Camp [id number] Marybel Camp 01/21/2024 1 [facility] - DIRECT CONNECTORCARE TYPE II (HMO) [id number] Marybel Camp [id number] Marybel Camp 01/26/2024 1 [facility] - DIRECT CONNECTORCARE TYPE II (HMO) [id number] Marybel Camp [id number] Marybel Camp 03/10/2024 1 [facility] - DIRECT CONNECTORCARE TYPE II (HMO) [id number] Marybel Camp [id number] Marybel Camp Notes Date Note Type Note Provider Name and Address Organization Details Recorded Time 10/27/2023 text/html Pt comes in toda y to discuss new diagnosis of breast cancer made after mammo 10/06 (invasive ductal carcinoma, Stage 3). She is going to be receiving treatments through [facility]. Pt is seeing Dr. Whitman (at [place]) for a surgeon and will be seeing Dr. Oreilly for oncology. Pt also c/o impaired FBS. A1C was stable at 6.2. FBS was 93. Pt also c/o osteoporosis. She is on alendronate. Pt is concerned about what may happen with all of these diagnosis while she's going through treatment. Elías Jones [address] [place], [address], [facility] 10/27/2023 09:43:44 11/23/2023 text/html The patient, a [...] chemotherapy on these conditions. Janel Velasco PA-C [address] [place] [address], [phone], [facility] 11/23/2023 14:56:23 01/21/2024 text/html RashReported bypatient.Patient present [...] mouth disease diagnosed in August.Medications- Chemotherapy Cassidy Casillas DNP, [employer] [address] [place], [address], [facility] 01/21/2024 11:35:50 01/26/2024 text/html Pt comes in toda y for follow-up impaired FBS in the setting of a recent diagnosis of breast cancer. Last A1C at the lab was 5.9. FBS 91 Pt c/o invasive ductal carcinoma, Stage 3. She is seeing Dr. Oreilly at [facility] for oncology and she is now on Cytoxan and Taxotere (has had two treatments thus far). She has significant dry mouth and is using biotene. Pt also c/o rash on hands, she was started on triamcinolone five days ago, which is helping some. Elías Jones [address] [place], [address], [facility] 01/26/2024 08:49:14 03/10/2024 text/html 03/10/24-left pup il [...] not think related Mustapha Mane MD [address] [place], [address], [facility] 03/11/2024 11:13:39 OBGyn Episode No OBEpisode recorded.
[2024-04-17 09:12] LABS: Hematocrit 26.9 % (37.0-47.0); Hemoglobin 8.8 g/dl (12.0-16.0); Mean Corpuscular HGB Conc 32.7 g/dl (31.0-35.0); Mean Corpuscular Hemoglobin 29.6 pg (27.0-33.0); Mean Corpuscular Volume 90.6 fL (80.0-98.0); Mean Platelet Volume 10.7 fL (9.4-12.3); NRBC Pct Auto 0.2 /100WBC (0.0-0.2); Platelet Count 260 X10*3/uL (160-400); Red Blood Count 2.97 X10*6/uL (4.20-5.50); Red Cell Distribution Width 18.9 % (11.0-16.0)
[2024-04-17 09:13] LABS: WBC ABN SCTR FOR CBC 1
[2024-04-17 09:17] LABS: White Blood Count 32.4 X10*3/uL (4.8-10.8)
[2024-04-17 09:21] LABS: Estimated Average Glucose 117 mg/dL; Hemoglobin A1c % 5.7 % (<6.0)
[2024-04-17 09:28] LABS: Anion Gap 11 (12-20); Blood Urea Nitrogen 15 mg/dL (9-16); Calcium 9.1 mg/dL (8.4-10.2); Carbon Dioxide 26 mmol/L (22-29); Chloride 108 mmol/L (96-108); Cholesterol 75 mg/dL (<200); Estimated Glomerular Filt Rate > 60; Glucose Random 98 mg/dL (60-115); HDL Cholesterol 18 mg/dL (>40); LDL Cholesterol Calculated 38 mg/dL (<100); Potassium 3.8 mmol/L (3.3-5.1); Sodium 141 mmol/L (135-145); Triglycerides 99 mg/dL (<150)
[2024-04-17 09:33] LABS: Iron 39 mcg/dL (30-160); Percent Iron Saturation 12 % (15-50); Total Iron Binding Capacity 325 mcg/dL (228-428); Unsaturated Iron Binding 286 ug/dL
[2024-04-17 09:52] LABS: Ferritin 336 ng/mL (10-250)
[2024-04-17 10:04] LABS: Atypical Lymph Absolute Manual 0.6 x10*3/uL; Atypical Lymphs Percent Manual 2 % (0-6); Band Neutrophils Percent 10 % (3-5); Lymphocytes Absolute Manual 2.9 X10*3/uL (1.2-4.9); Lymphocytes Percent Manual 9 % (20-40); Metamyelocytes Absolute 0.6 X10*3/uL; Metamyelocytes Percent 2 %; Monocytes Absolute Manual 1.3 X10*3/uL (0.1-1.2); Monocytes Percent Manual 4 % (2-11); Myelocytes Absolute 0.3 X10*/uL; Myelocytes Percent 1 %; Neutrophils Absolute Manual 27.5 X10*3/uL (2.0-8.3); Neutrophils Percent Manual 75 % (45-73); Nucleated Red Blood Cells 1 /100WBC (0-0)
[2024-04-17 10:05] LABS: Large Platelet PRESENT; Macrocytosis 1+ (5-14) /OIF; Ovalocytes 1+ (5-14) /OIF; Platelet Estimate NORMAL (NORMAL); Platelet Morphology Comment NOTED; Polychromasia 1+ (0-2) /OIF; RBC Morphology NOTED; Smudge Cells PRESENT; Toxic Granulation PRESENT; Toxic Vacuolation PRESENT
[2024-04-17 10:26] LABS: Lactate Dehydrogenase 375 U/L (122-220)
[2024-04-17 10:43] LABS: Folate 10.7 ng/mL (> or = 4.0); Vitamin B12 > 2000 pg/mL (200-900)
== END 2024-04-17 08:10 | disposition home or self-care (01) ==
LOC: HO.LAB 08:09
PROVIDERS: Internal Medicine Medical Oncology; PCP Family Medicine; Visit Provider Family Medicine
DX: R73.01 Impaired fasting glucose (principal); D64.9 Anemia, unspecified; C50.912 Malignant neoplasm of unspecified site of left female breast
CPT/HCPCS: 36415; 80048; 80061; 82607; 82728; 82746; 83036; 83540; 83615; 85007; 85025; 85027

== ENCOUNTER 2024-05-11 14:21 | Outpatient (AMB) | payer OTHER, SELFPAY ==
--- NOTE | 2024-05-11 14:27 | MHC.OFFVIS ---
Vital Signs 05/11/24 14:28 Height 5 ft 5 in Weight 158 lb BMI 26.3 BP 100/64 Intake Visit Reasons: extra skin on perineum Performance Instructor: Performance Instructor Present (Lucille) Allergies penicillin V Allergy (Unknown, Verified 05/11/24 14:27) rash Latex Allergy (Unknown, Uncoded 04/27/24 16:29) rash/hive HPI Comments Details: Patient is here today for evaluation of extra skin and soreness externally noted last week, since has resolved on its own. She reports a lot of post chemotherapy symptoms some of which have been resolved since discontinuing chemotherapy. Currently taking tamoxifen, does not have any vaginal bleeding. COUNTS INCLUDE 234 BEDS AT THE [facility] Medical History Invasive ductal carcinoma of left breast Left breast mass Osteoporosis Fibroids HSV infection Abnormal Pap smear of cervix Anxiety and depression Hodgkin's disease Surgical History History of evacuation of hematoma (~11/11/23) History of left total mastectomy (~11/10/23) H/O left inguinal hernia repair H/O LEEP Family History Paternal Grandfather Colon cancer Father Cancer of kidney Diabetes Mother Hyperlipidemia Social History Household Members: Spouse Housing: House Are you a primary laboratory animal caretaker to a significant other at home: No Do you presently have visiting nurse or other home services: No Alcohol intake: never Patient Tobacco Use Status: Former Tobacco user Tobacco use type: Cigarette Second Hand Smoke Exposure: No service: No Current occupational status: employed and unemployed 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 [employer] Sexual orientation: Straight/Heterosexual Gender identity: Female Female Reproductive History Menstrual Age of Menarche: 11 Review of Systems Const All systems reviewed & are unremarkable except as noted in HPI and below Physical Exam Vital Signs: BMI result Body Mass Index 26.3 Const General: cooperative, healthy appearing and no acute distress Orientation/consciousness: patient oriented x3 GI Rectal Exam - Female: visual inspection normal Other: External exam: left lower labia, asymmetrical, slightly more prominent, no erythema, edema, masses or thickening, or skin discoloration. General: Yes bladder normal to palpation External Female Exam: normal appearance of the urethra Speculum Exam - Vagina: normal appearance of the vagina, normal palpation, normal vaginal discharge (Very scant clear discharge) and vagina atrophic Speculum Exam - Cervix: normal appearance of the cervix and normal palpation Bimanual exam- vagina & uterus: normal bimanual exam, normal palpation, uterine size normal, bladder normal to palpation, normal palpation, uterine shape normal and non-tender Bimanual Exam- Adnexa, other: normal adnexae Neuro General: patient oriented x3 Assessment & Plan Assessment & Plan (1) Vulvar irritation: Code(s): N90.89 - Other specified noninflammatory disorders of vulva and perineum Plan Reassured normal exam today. Advised to continue with self care, use of loose cotton clothing, report any other changes or concerns as needed. If skin appears swollen and tender again to apply some Vaseline or Aquaphor and make an appointment for evaluation. Annual exam in October 2024. Advised to report any vaginal bleeding including spotting for evaluation. The patient expressed understanding and agreement with the plan of care. All of her questions and concerns were addressed to the best of my ability. This note is constructed using voice recognition software. While every effort has been made to ensure accuracy, vice president of finance errors may have been included. Coding Level of Care Code Est Pt Level 3 (96779) Diagnoses Vulvar irritation N90.89
[2024-05-11 14:28] VITALS: BP 100/64; BMI 26.3
--- OUTSIDE RECORDS SUMMARY | 2024-05-11 15:52 | XMS_ITS | Continuity of Care Document ---
Author Organization [facility], , [facility], OFFICE Address [address] [place] [address] Care Team Providers Care Fuel Yard Operator Name Role Phone [facility] Pattern And Chain Maker [phone] HOWIE WATTS Medical Oncologist [facility] Special Class Welder [phone] ELÍAS JONES Primary Care Provider [facility] Fulfillment Coordinator KATE WHITMAN General Surgeon Assessment No assessment recorded. Plan of Treatment Reminders Order Date Submit Date Provider Last Modified By Organization Details Last Modified Time Details Appointments LAB Follow-Up 2024 08:20A M [facility] Lab Not available Not available Not available Wellness Visit 30 2024 11:15A M Janel Velasco PA-C Not available Not available Not available LAB Follow-Up 2024 08:30A M [facility] Lab Not available Not available Not available Follow Up, 30 2024 10:15A M Elías Jones MD Not available Not available Not available Lab None recorded. Referral gynecolog ist referral - goes to [facility] fax to 5th floor [phone] [email or web address] Alma Paniagua CNM Ms, [address] [place], [address], 05/10/2024 08:01:31 Procedures None recorded. Surgeries None recorded. Imaging None recorded. Medication Orders None recorded. Patient TargetsNo targets recorded. Patient InstructionsNo instructions recorded. Reason for Referral Pattern And Chain Maker Referral for Pe rineal irritation goes to [facility] fax to 5th floor Referring Physician: Alka Macario, Family Medicine, Encounter Date: 05/09/2024 Problems Name Problem SNOMED Code Status Onset Date Resolution Date Notes Provider Name and Address Organization Details Recorded Time Hyperlip idemia 06138273 Active Elías [place], [address], [facility] 2 09:57:33 Osteopen ia 525289568 Completed 201506/20/2020 [facility]ías [facility] [place], [address], [facility] 1 16:57:15 Ganglion of wrist 621861424 Active 2016 Elías Jones [facility] [place], [address], [facility] 2 09:57:30 History of Hodgkin lymphoma 993684645 Active 2016 [facility]ías [facility] [place], [address], [facility] 2 09:57:28 Subclini alisha hypothyr oidism 62590670 Active 2019 [facility]ías [facility] [place], [address], [facility] 2 09:57:41 Sebaceou s cyst of skin 565104303 Active 2014 R groin Elías Hayes [facility] [place], [address], [facility] 2 09:57:46 Osteopor osis 26771732 Active 2020 Elías Hayes [facility] [place], [address], [facility] 2 09:57:38 Impaired fasting glycemia 840709707 Active 2022 Elías [place], [address], [facility] 3 15:35:33 Adenomat ous polyp of colon 724944148 Active 02/2023 Elías [facility] [place], [address], [facility] 5 09:34:23 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 T1N1 staging Elías Jones Freddy [facility] [place], [address], [facility] 5 09:34:20 Recurren t bleeding of nose Active 2024 Elías Jones Freddy [facility] [place], [address], [facility] 5 09:34:40 Problem Notes None recorded. Procedures Surgical History Date Name Laterality Status Provider Name and Address Organization Details Recorded Time 11/10/19 24 excision of left breast completed Janel Velasco PA-C [address] [place] [address], [phone], [facility] 11/15/2023 10:38:12 04/15/19 24 Cardiovascular disease risk reduction counseling completed Elías Jones [address] [place] [address], [address], [facility] 04/15/2023 11:18:29 02/21/19 21 prevention-cardiov ascular risk reduction counseling completed Maya Hamilton MA [facility] 02/22/2020 10:26:08 02/21/19 21 prevention-annual alcohol misuse screening completed Maya Hamilton MA [facility] 02/22/2020 10:26:08 02/08/19 02 Hernia Repair completed Elías Jones [address] [place] [address], [phone], [facility] 03/08/2012 10:35:30 Imaging Results None recorded. Procedure Notes None recorded. Medical Equipment None Reported. Allergies Allergen ID Allergen Name Allergen Category Reaction Reaction Severity Criticality Documentation Date Start Date Code Code System Note Provider Name and Address Organization Details Recorded Time 197719 latex environme nt,medica tion hives Not available Not available 11/07/2019 36023 91 RxNorm Maya Hamilton TRACIE [facility] 0 14:01:02 61481 Product containin g penicilli n (product) medicatio n hives Not available Not available 07/07/2011 39384 8001 SNOMED Ally Dumont [facility] 2 08:47:17 Medications Name Sig Start [...] PRN Not Available Not Available Not Available sulfameth oxazole 800 mg-trimet hoprim 160 mg tablet TAKE 1 TABLET BY MOUTH TWICE DAILY FOR 5 DAYS active Not Available Not Available No t Available triamcino lone acetonide 0.1 % topical [...] AND 3 OF CHEMO EVERY 21 DAYS 04/27 completed Not Available Not Available Not Available Guaifenes in AC 10 mg-100 mg/5 [...] Not Available Not Available No t Available tamoxifen 20 mg tablet TAKE 1 TABLET BY MOUTH DAILY active Not Available Not Available No [...] Available Not Available Not Available cyclophos phamide 04/27 completed (Cytoxan ) Not Available Not Available Not Available docetaxel 04/27 completed (Taxoter e) Not Available Not Available Not Available riboflavi n (vitamin B2) 100mg takes 4 tablets 03/05 completed Takes one tablet of 400mg ADRIÁN Not Available Not Available Not Available [...] Not Available Not Available Not Available Afluria 4626-7178 (PF) 45 mcg (15 mcg x 3)/0.5 mL intramusc ular syringe inject 0.5 millilit er intramus cularly active Not Available Not Available No t Available Afluria 0393-2764 (PF) 45 mcg (15 mcg x 3)/0.5 mL intramusc ular syringe TO BE ADMINIST ERED BY PHARMACI ST FOR IMMUNIZA TION active Not Available Not Available No t Available riboflavi n (vitamin B2) 400 mg tablet TAKE 1 TABLET BY MOUTH EVERY DAY active Not Available Not Available No t Available Fish Oil 1,000 mg (120 mg-180 mg) capsule Take by oral route. active Not Available Not Available No t Available Fluarix Quad 1656-5743 (PF) 60 mcg (15 mcg x 4)/0.5 [...] completed Not Available Not Available Not Available [facility] COVID-19 Vaccine (PF) 30 mcg/0.3 mL IM [...] Details Last Updated DateTime 5 165.1 cm 26.1 kg/m2 82987.7 g 100 /min 110 mm[Hg] 70 mm[Hg] June Nguyen [facility] 5 09:56:12 Social History Question Answer Notes LastModified by Organization Details LastModified Time Tobacco Smoking Status Former Smoker Ally Dumont scout [facility] 07/07/2011 08:47:17 What Is Your Level Of [...] A Break' - 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 [id number] [email or web address] Information not available 03/05/2021 Have There Been Any Changes To Your Family Or Social Situation? No With And Cat [email or web address] Information not available 03/05/2021 When Did You Quit Smoking? 16+yearssince lastcigarette Quit Smoking In Information not available 04/17/2015 Are There Any Guns Present In Your Home? No Information not available 05/25/2018 Do You Use Insect Repellent Routinely? Yes Information not available 03/05/2021 Patient Has Health Care Proxy Signed And In Chart Yes [email or web address] Information not available 05/26/2018 What Was The Date Of Your Most Recent Tobacco Screening? 05/09/2024 [email or web address] Information not available 05/09/2024 How Many Children Do You Have? 0 Raises Stepchildren Information not available 07/07/2011 Are There Any Occupational Health Risks Where You Work? None Information not available 05/06/2015 What Is Your Current Pack Years? 10-19packyear s Information not available 04/17/2015 What Is Your [...] 02/22/2020 11:28:17 Notes:DM on both sides of jovon dickinsony, Medical History Condition Response Hyperlipidemia Y INFECTIOUS DISEASE Y CANCER Y Gynecological History Statement/Question Response Menses Monthly Y History of Abnormal Pap Y Age at Menarche 11 Obstetrics History GPAL:G 0 P 0 0 0 0 Immunizations Vaccine Type Date Status Note Provider Jorge A rincon and Address Organization Details Recorded Time Tdap 1 completed TRACIE Corbin, [facility] 07/29/2011 12:56:02 Influenza, split virus, quadrivalent, PF 5 completed Not Available [facility] 02/25/2019 02:19:48 Influenza, split virus, trivalent, preservative 2 completed Not Available [facility] 03/09/2022 14:01:47 Influenza, split virus, trivalent, preservative 3 completed Not Available [facility] 03/09/2022 14:01:47 Influenza, split virus, quadrivalent, PF 6 completed Not Available [facility] 02/25/2019 02:27:42 Influenza, MDCK, quadrivalent, PF 8 completed Perla Archer RMA null, [facility] 03/10/2024 17:06:49 Td (adult), 2 Lf tetanus toxoid, preservative free, adsorbed 1 [facility] 09:29:20 COVID-19, mRNA, LNP-S, PF, 30 mcg/0.3 mL dose 1 completed Perla Archer RMA null, [facility] 03/10/2024 17:06:50 COVID-19, mRNA, LNP-S, PF, 30 mcg/0.3 mL dose 1 completed Perla Archer RMA null, [facility] 03/10/2024 17:06:50 Influenza, split virus, quadrivalent, PF 3 completed Elías Jones [address] [place] [address], [phone], [facility] 10/22/2022 08:21:26 COVID-19, mRNA, LNP-S, PF, 30 mcg/0.3 mL dose 1 completed Perla Archer RMA null, [facility] 03/10/2024 17:06:50 COVID-19, mRNA, LNP-S, PF, 30 mcg/0.3 mL dose 2 completed Perla Archer RMA null, [facility] 03/10/2024 17:06:50 COVID-19, mRNA, LNP-S, bivalent, PF, 30 mcg/0.3 mL dose 2 completed Perla Archer RMA null, [facility] 03/10/2024 17:06:50 influenza, unspecified formulation 2 completed Keerthi Sharma TRACIE scout, [facility] 01/30/2022 09:59:12 COVID-19, mRNA, LNP-S, PF, cat-sucrose, 30 mcg/0.3 mL 4 completed Perla Archer RMA null, [facility] 03/10/2024 17:06:50 Influenza, MDCK, trivalent, PF 4 completed Perla Archer RMA null, [facility] 03/10/2024 17:06:50 Past Encounters Encounter ID Performer Location Encounter Start Date Encounter Closed Date Diagnosis/Indication Diagnosis SNOMED-CT Code Diagnosis ICD10 Code Diagnosis Note [id number] Elías Jones , [facility], OFFICE [address] [place] [address] 04/27/2024 08:53:26 04/27/2024 09:55:06 Impaired fasting glycemia 379444786 R73.01 Pt's A1C was down to 5.7 at . Will repeat labwork prior to [place] in August with TR Vitamin B deficiency 479 47015 E53.9 Will repeat; suspect pt needs less medication Infiltrati ng duct carcinoma of breast 031073723 C50.919 Recent left mastectomy and sentinel lymph node biopsy with one positive lymph node. Estrogen receptor and progestero ne receptor positive. Pt is now s/p chemo and will be meeting with onc today to discuss tamoxifen. Active or passive immunization 706948144 Z23 Shingles- Remindedpn eumonia- remindedfl u 24- had this season Recurrent bleeding of nose 2033668122 102 R04.0 Suspect related to mucosal fragility from chemo. Pt has seen ENT once and had cautery; recommenda tions as below. Osteoporosis 08357842 M8 1.0 Pt is tolerating alendronat e currently; last BMD was much better so would want to continue with this. [id number] Alka Macario MD , [facility], OFFICE [address] [place] [address] 05/09/2024 09:44:11 05/10/2024 08:01:30 Active or passive immunization 952242257 Z23 Shingles-a denis at pharmacyPn eumo-aware at pharmacy Infiltrati ng duct carcinoma of breast 854378739 C50.919 Hormone-dr williamson breast cancer, recently completed chemothera py, currently on tamoxifen. Vigilant about breast health with a negative BRCA test, indicating no genetic predisposi tion. Aware of the importance of regular mammograms and self-exami nations. Perineal irritation 2816 45943 L29.3 Examinatio n reveals no inflammati on, redness, or infection, appearing as extra skin. Differenti al diagnosis includes a benign skin tag or other non-hemorr hoidal lesion. The etiology is unclear, but it does not appear cancerous or hemorrhoid al.- Refer to gynecologi st Alma Paniagua for further evaluation .- Send visit note to Alma Paniagua at [facility].- Advise to schedule an appointmen t with gynecologi st for further assessment .- Instruct to contact the office if unable to secure a timely appointmen t. Health Concerns Section Related Observation LastModified by Organization Detai ls LastModified Time None Recorded Concern Status LastModified by Organization Details LastModified Time None Recorded Payers Encounter Date Sequence Insurance Name Policy Number Policy Browne Covered Member ID Browne Member ID Guarantor Name 05/09/2024 1 [facility] [employer] [facility] TYPE II (HMO) [id number] [facility] [id number] [facility] Notes Date Note Type Note Provider Name and Address Organization Details Recorded Time 05/09/2024 text/html Patient informed and consents to use of AI assisted recording to improve documentation of visit.Word substitution may have occurred and may have gone unnoticed and uncorrected. The patient presents with a concern of a possible hemorrhoid.She has experienced soreness when wiping, located between the vaginal area and rectum, since the end of last week. She is uncertain if it is a hemorrhoid as she has no prior history of them. This morning, the area seemed less swollen. No vaginal involvement, inflammation, or redness is noted.She has a history of breast cancer, for which she completed chemotherapy from December 22 to April 06, undergoing six cycles. She started tamoxifen today. Her breast cancer is hormone-driven. 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 She has been on Fosamax since 2022, which has improved her bone density.She underwent a colonoscopy in February 2023 due to a family history of colon cancer. She has had several colonoscopies since her thirties, with the first at age 33 due to bleeding. The most recent colonoscopy revealed two precancerous polyps, and she is on a five-year surveillance plan. Her family history includes a paternal aunt with breast cancer and a maternal grandmother with a questionable history of lung cancer and possibly breast cancer later in life. She has tested negative for the BRCA gene.Colonoscopy: Two adenomatous polyps removed (02/2023) Alka Macario MD [address] [place] [address], [phone], [facility] 05/09/2024 21:15:24 OBGyn Episode No OBEpisode recorded.
--- OUTSIDE RECORDS SUMMARY | 2024-05-11 15:52 | XMS_ITS | Clinical Summary ---
Author Organization [facility] [[email or web address]] Address [address] [place] [address] Care Team Providers Care Supervisor Wound Name Role Phone Karolina Jones MD Primary [...] Medical History Medical History Date Comments Lymphoma DX:Lymphoma (HCC );COMMENT:relapsed Hodgkin's lymphoma Social History Tobacco Use Types [...] Description 08/17/2024 9:15 AM EDT Office Visit [facility] Hematology Oncology [address] [place] [address] Moose Christianson MD [address] [place] [address] Health Maintenance Due Date Last [...] patient's age to complete this topic [place] [place] [id number] PLAN Care Teams Supervisor Wound Relationship Specialty Start Date End Date Karolina Jones MD [address] [place] [address] PCP - General Family Medicine 01/22/17
--- OUTSIDE RECORDS SUMMARY | 2024-05-11 15:52 | XMS_ITS | Clinical Summary ---
Author Organization [facility] Address [address] [place] [address] Care Team Providers Care Hemotherapist Name Role Phone Karolina Jones MD Primary Care Provider [phone] Allergies Active Allergy Reactions Criticality Noted Date Comments Penicillins 01/21/2017 Medications Medication Sig Dispensed Refills Start Date End Date Status simvastatin (ZOCOR) tablet 20 mg Take 1 tablet (20 mg total) by mouth every night at bedtime. 0 Active [place]-3 Fatty Acids (FISH OIL PO) Take by [...] age to complete this topic Care Teams Hemotherapist Relationship Specialty Start Date End Date Karolina Jones MD [address] [place] [address] PCP - General Family Medicine 01/22/17
== END 2024-05-11 15:14 | disposition home or self-care (01) ==
LOC: HO.HWS 14:22
PROVIDERS: PCP Family Medicine; Visit Provider Advanced Practice Midwife
DX: N90.89 Other specified noninflammatory disorders of vulva and perineum (principal)
CPT/HCPCS: 99213

== ENCOUNTER → 2024-05-11 14:21 | Outpatient (BNVA) | payer OTHER, SELFPAY | PROVIDERS: PCP Family Medicine; Visit Provider Advanced Practice Midwife | DX: N90.89 Other specified noninflammatory disorders of vulva and perineum (principal) | CPT/HCPCS: 99212 ==

== ENCOUNTER 2024-06-21 10:24 | Outpatient (AMB) | payer OTHER, SELFPAY ==
--- NOTE | 2024-06-21 10:25 | A.OFFVIS_ITS ---
Vital Signs 06/21/24 10:32 Height 5 ft 5 in Weight 144 lb BMI 24.0 BP 109/55 L Blood Pressure Location Rt brachial Position Sitting Pulse 85 Intake Visit Reasons: 6 mth s/p lt brst mastectomy SN bx Intake Note: Patient here for 6m breast exam. Patient c/o: reports no concerns. Denies breast rash, lumps, nipple discharge. HX: Left total mastectomy, sentinel biopsy~ 11-10-2023 Belly Dump Driver Required: No Accompanied by: mother Cait Allergies penicillin V Allergy (Unknown, Verified 06/21/24 10:32) rash Latex Allergy (Unknown, Uncoded 06/21/24 10:32) rash/hive HPI HPI 6 mth s/p lt brst mastectomy SN bx: Details: She continues to do well after left breast mastectomy last 11/10/2023. She had a T1 N1 svitlana, ER/DE positive invasive ductal carcinoma on pathology. She denies any significant complaints . She had undergone completed chemotherapy with Dr. Correa. She had a high score on her Oncotype DX at that time. She feels well overall and denies complaints. She does admit that all her hair has fallen out and she is currently wearing a wig. [facility] Medical History (Updated 06/21/24 @ 11:04 by Corbin Morales MD) History of breast cancer Invasive ductal carcinoma of left breast Left breast mass Osteoporosis Fibroids HSV infection Abnormal Pap smear of cervix Anxiety and depression Hodgkin's disease Surgical History History of evacuation of hematoma (~11/11/23) History of left total mastectomy (~11/10/23) H/O left inguinal hernia repair H/O LEEP Family History Paternal Grandfather Colon cancer Father Cancer of kidney Diabetes Mother Hyperlipidemia Social History Household Members: Spouse Housing: House Are you a primary school child care attendant to a significant other at home: No Do you presently have visiting nurse or other home services: No Alcohol intake: never Patient Tobacco Use Status: Former Tobacco user Tobacco use type: Cigarette Second Hand Smoke Exposure: No service: No Current occupational status: employed and unemployed 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 [employer] Sexual orientation: Straight/Heterosexual Gender identity: Female Female Reproductive History Menstrual Age of Menarche: 11 Review of Systems Const Denies chills and Denies fever(s) Card Denies chest pain, Denies dyspnea and Denies dyspnea on exertion Resp Denies cough, Denies dyspnea and Denies dyspnea on exertion GI Denies hematochezia and Denies change in bowel habits Denies hematuria Musc Denies back pain and Denies limited range of motion Neuro Denies focal weakness and Denies convulsions Psych Denies depression and Denies mood swings Physical Exam Vital Signs: Last Vital Signs Pulse 85 06/21/24 10:32 BP 109/55 L 06/21/24 10:32 BMI result Body Mass Index 24.0 Const Other: Looks well General: comfortable and no acute distress Chest Other: Mastectomy site on the left without any palpable masses, incision is well healed, no axillary lymphadenopathy, no palpable mass on the right breast Resp Effort & Inspection: normal respiratory effort Assessment & Plan Assessment & Plan (1) History of breast cancer: Code(s): Z85.3 - Personal history of malignant neoplasm of breast Category: Medical Plan: Status post mastectomy and sentinel node biopsy for a T1 N1 invasive ductal cancer of the left breast. She continues to do well. She has completed adjuvant chemotherapy Physical exam does not reveal any suggestion of a recurrence on the left chest wall or axilla. She is scheduled to have a mammogram for the right breast this October. I will see her in the office after that She is to continue with her follow up with Dr. Crorea for surveillance. She understands the plan well. She is comfortable with this. Her mother was with her during the visit. Coding Level of Care Code Est Pt Level 3 (08831) Diagnoses History of breast cancer Z85.3
[2024-06-21 10:32] VITALS: BP 109/55; PULSE 85; BMI 24.0
--- OUTSIDE RECORDS SUMMARY | 2024-06-21 11:25 | XMS_ITS | Data Portability ---
Author Organization [facility], [facility] Address [address] [place] [address] Care Team Providers Care System Archive Analyst Name Role Phone [facility] O[facility] Consulting It Architect HOWIE WATTS Medical Oncologist [facility] Logging Crew Supervisor ELÍAS JONES Primary Care Provider [facility] Flask Handler KATE WHITMAN General Surgeon ALMA MIKE Oracle Pl Sql Developer Assessment No assessment recorded. Plan of Treatment Reminders Order Date Submit Date Provider Last Modified By Organization Details Last Modified Time Details Appointments LAB Follow-Up 2024 08:35A M [facility] Lab Not available Not available Not available LAB Follow-Up 2024 08:20A M [facility] Lab Not available Not available Not available Wellness Visit 30 2024 11:15A M Janel Velasco PA-C Not available Not available Not available LAB Follow-Up 2024 08:30A M [facility] Lab Not available Not available Not available Follow Up, 30 2024 10:15A M Elías Jones MD Not available Not available Not available Lab BMP, serum or plasma [address] [facility], [address] [place], [address], 04/27/2024 09:35:40 HbA1c (hemoglob in A1c), blood [address] [facility], [address] [place], [address], 04/27/2024 09:35:40 lipid panel, serum [address] [facility], [address] [place] [address], [address], 04/27/2024 09:35:40 HbA1c (hemoglob in A1c), blood [address] [facility], [address] [place] [address], [address], 04/27/2024 09:43:16 BMP, serum or plasma [address] [facility], [address] [place] [address], [address], 04/27/2024 09:43:16 lipid panel, serum [address] [facility], [address] [place] [address], [address], 04/27/2024 09:43:16 vitamin B12, serum 2024 025 [facility], [address] [place] [address], [address], 05/10/2024 16:11:25 BMP, serum or plasma [email or web address] [facility], [address] [place] [address], [address], 04/17/2024 07:18:29 Referral gynecolog ist referral - goes to [facility], pls fax to 5th floor/pt would like to see Alma Mike CNM 2024 025 [email or web address] [facility], [address] [place] [address] [place], [address], 05/23/2024 16:21:44 Procedures None recorded. Surgeries None recorded. Imaging None recorded. Medication Orders triamcino lone acetonide 0.5 % topical cream 2023 024 [id number], [address] [place], [place], [id number], 01/21/2024 11:29:25 Patient Targets Encounter Date Encounter Id Patient Goals Patient Target Last Modified By Organization Details Last Modified Time Her pupil has now resolved , will observeFollow up with eye dr in a few dayscall if reoccuring [email or web address] Not available 03/10/2024 17:26:22 Patient Instructions Encounter Date Encounter Id Patient Instructions Last Modified By Organization Details Last Modified Time 01/26/2024 [id number] -Plan on fasting labwork in 3 months with labwork for [place] -Okay to use the triamcinolone for 10-14 days intervals if the rash recurs Not available 01/26/2024 08:39:30 04/27/2024 [id number] -Keep the nose moist -Avoid blowing the nose -If you do bleed again, please talk to ENT -Repeat the B12 without taking supplement for 24 hours -I suspect you may just need 500mcg daily -I do want you to continue with the fosamax Not available 04/27/2024 09:32:53 Reason for Referral Consulting It Architect Referral for Pe rineal irritation goes to [facility], pls fax to 5th floor/pt would like to see Alma Mike CNM Referring Physician: Alka Macario, Family Medicine, Encounter Date: 05/09/2024 Results Created Date Observation Date Name Description Value Unit Range Abnormal Flag Note LastModifiedBy Organization Detail LastModifiedTime 05/09/1905/09/2024 VITAM IN D 25-HY DROXY TOTAL vitamin D 25-hydroxy EIA 38.7 NG/mL 20.0-9 9.9 Thera py is based on measu remen t of total 25-OH D, with level s less than 20 ng/mL indic ative of Vitam in D defic iency . Level s betwe en 20ng/ mL and 30 ng/mL sugge st insuf ficie ncy. Optim al Level s are great er than 30 ng/mL . Not Available [address], [address], 05/09/2024 12:36:19 05/09/19 25 05/10/2024 VITAM IN B12 vitamin B12 >2000 pg/mL 230-10 50 high > Not Available [address], [address], 05/10/2024 16:11:25 12/27/19 24 12/21/2023 gillian CASTRO No observ ation record ed. [facility] [address] [place], [address], 12/27/2023 14:15:50 Result Notes None recorded. Problems Name Problem SNOMED Code Status Onset Date Resolution Date Notes Provider Name and Address Organization Details Recorded Time Hyperlip idemia 78335853 Active [facility] [place], [address], [facility] 2 09:57:33 Osteopen ia 908198862 Completed 201506/20/2020 Elías Jones [address] [place], [place] [address], [address], [facility] 1 16:57:15 Ganglion of wrist 185155405 Active 2016 [facility] [place], [address], [facility] 2 09:57:30 History of Hodgkin lymphoma 225194580 Active 2016 [facility]ías [facility] [place], [address], [facility] 2 09:57:28 Subclini alisha hypothyr oidism 63063501 Active 2019 [facility]ías [facility] [place], [address], [facility] 2 09:57:41 Sebaceou s cyst of skin 313640991 Active 2014 Soha Jones [address] [place], [place] [address], [address], [facility] 2 09:57:46 Osteopor osis 75184026 Active 2020 Elías Jones Freddy [facility] [place], [address], [facility] 2 09:57:38 Impaired fasting glycemia 292971608 Active 2022 Elías Jones [facility]dy [facility] [place], [address], [facility] 3 15:35:33 Adenomat ous polyp of colon 529396921 Active 02/2023 Elías Jones Freddy [facility] [place], [address], [facility] 5 09:34:23 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 T1N1 staging Elías Jones Freddy [facility] [place], [address], [facility] 5 09:34:20 Recurren t bleeding of nose Active 2024 Elías Jones [address] [place] [address] [place], [address], [facility] 5 09:34:40 Problem Notes None recorded. Procedures Surgical History Date Name Laterality Status Provider Name and Address Organization Details Recorded Time 11/10/19 24 excision of left breast completed Janel Velasco PA-C [address] [place] [address], [phone], [facility] 11/15/2023 10:38:12 04/15/19 24 Cardiovascular disease risk reduction counseling completed Elías Jones [address] [place] [address], [phone], [facility] 04/15/2023 11:18:29 02/21/19 21 prevention-cardiov ascular risk reduction counseling completed Myaa Hamilton MA [facility] 02/22/2020 10:26:08 02/21/19 21 prevention-annual alcohol misuse screening completed Maya Davilahadley TRACIE [facility] 02/22/2020 10:26:08 02/08/19 02 Hernia Repair completed Elías Jones [address] [place] [address], [place], [address], [facility] 03/08/2012 10:35:30 Imaging Results Imaging Date Name Status LastModified by Organiz ation Details LastModified Time 12/21/2023 US, guidance completed [address], [address], 12/27/2023 14:15:50 Procedure Notes None recorded. Medical Equipment None Reported. Allergies Allergen ID Allergen Name Allergen Category Reaction Reaction Severity Criticality Documentation Date Start Date Code Code System Note Provider Name and Address Organization Details Recorded Time 784988 latex environme nt,medica tion hives Not available Not available 11/07/2019 80313 91 RxNorm Maya Hamilton MA [facility], [facility] 0 14:01:02 13935 Product containin g penicilli n (product) medicatio n hives Not available Not available 07/07/2011 17185 8001 SNOMED Ally Julia [facility] 2 08:47:17 Medications Name Sig Start [...] Not Available Not Available Not Available Afluria 2147-8227 (PF) 45 mcg (15 mcg x 3)/0.5 mL intramusc ular syringe inject 0.5 millilit er intramus cularly active Not Available Not Available No t Available Afluria 8021-0309 (PF) 45 mcg (15 mcg x 3)/0.5 [...] Not Available No t Available Fluarix Quad (PF) 60 mcg (15 mcg x [...] completed Not Available Not Available Not Available [facility] Vaccine (PF) 30 mcg/0.3 [...] Updated DateTime 4 165.1 cm 22.1 kg/m2 82524.7 9 g 80 /min 98 [degF] 118 mm[Hg] 66 mm[Hg] Yisel Gallagher [facility] 4 11:20:27 Date Recorded Body height Body mass index (BMI) Body weight Heart rate Systolic blood pressure Diastolic blood pressure Provider Name and Address Organization Details Last Updated DateTime 4 165.1 cm 25.2 kg/m2 79643.2 5 g 100 /min 102 mm[Hg] 70 mm[Hg] Shereen Princess [facility] 4 08:24:54 Date Recorded Body height Body mass index (BMI) Body weight Heart rate Systolic blood pressure Diastolic blood pressure Provider Name and Address Organization Details Last Updated DateTime 5 165.1 cm 26.3 kg/m2 24532.2 9 g 100 /min 100 mm[Hg] 64 mm[Hg] Perla awad, RMA [facility] 5 17:09:35 Date Recorded Body height Body mass index (BMI) Body weight Heart rate Systolic blood pressure Diastolic blood pressure Provider Name and Address Organization Details Last Updated DateTime 5 165.1 cm 26.3 kg/m2 37144.5 9 g 98 /min 110 mm[Hg] 74 mm[Hg] Gillian Guzman [facility] 5 09:16:02 Date Recorded Body height Body mass index (BMI) Body weight Heart rate Systolic blood pressure Diastolic blood pressure Provider Name and Address Organization Details Last Updated DateTime 5 165.1 cm 26.1 kg/m2 46199.7 g 100 /min 110 mm[Hg] 70 mm[Hg] June Nguyen [facility] 5 09:56:12 Social History Question Answer Notes LastModified by Organization Details LastModified Time Tobacco Smoking Status Former Sm[facility]/07/2011 08:47:17 Do You Wear A Helmet When Biking? No Does Not Ride Information not available 05/06/2015 What Is Your Level Of Caffeine Consumption? Occasional Tea Information not available 05/06/2015 How Much Tobacco Do You Chew? None Information not available 05/06/2015 What Type Of Diet Are You Following? REGULAR Information not available 07/07/2011 Which Illicit Or Recreational Drugs Have You Used? None Information not available 05/06/2015 What Is The Highest Grade Or Level Of School You Have Completed Or The Highest Degree You Have Received? [id number] [employer] Information not available 03/05/2021 Have There Been Any Changes To Your Family Or Social Situation? No With And Cat Information not available 03/05/2021 When Did You Quit Smoking? 16+yearssince lastcigarette Quit Smoking In [email or web address] Information not available 04/17/2015 Are There Any Guns Present In Your Home? No Information not available 05/25/2018 Do You Use Insect Repellent Routinely? Yes Information not available 03/05/2021 Patient Has Health Care Proxy Signed And In Chart Yes [email or web address] Information not available 05/26/2018 What Was The Date Of Your Most Recent Tobacco Screening? 05/09/2024 [email or web address] Information not available 05/09/2024 How Many Children Do You Have? 0 Raises Stepchildren Information not available 07/07/2011 Are There Any Occupational Health Risks Where You Work? None Information not available 05/06/2015 What Is Your Current Pack Years? 10-19packtrinity [email or web address] Information not available 04/17/2015 What Is Your [...] To Smoke? No Information not available 03/05/2021 How Much Tobacco Do You Smoke? No Information not available 02/22/2020 What Types Of Sporting Activities Do You Participate In? None Information not available 05/06/2015 Do You Use Sunscreen Routinely? No Information not available 05/19/2017 Sex: Female Functional Status Question Answer Note LastModified by Organizat ion Details LastModified Time Do you use any illicit or recreational drugs? No Information not available 03/05/2021 Do you or have you ever used any other forms of tobacco or nicotine? No [email or web address] Information not available 03/09/2022 What is your level of alcohol consumption? None Information not available 04/18/2014 Do you or have you ever used smokeless tobacco? Never used smokeless tobacco Information not available 02/22/2020 Are you currently employed? 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 Never used electronic cigarettes Information not available 02/22/2020 What is your exercise level? Moderate Information [...] 02/22/2020 11:28:17 Notes:DM on both sides of [facility], Medical History Condition Response INFECTIOUS DISEASE Y Hyperlipidemia Y CANCER Y Gynecological History Statement/Question Response Menses Monthly Y History of Abnormal Pap Y Age at Menarche 11 Obstetrics History GPAL:G 0 P 0 0 0 0 Immunizations Vaccine Type Date Status Note Provider Nam e and Address Organization Details Recorded Time Tdap 1 completed TRACIE Corbin, [facility] 07/29/2011 12:56:02 Influenza, split virus, quadrivalent, PF 5 completed Not Available [facility] 02/25/2019 02:19:48 Influenza, split virus, trivalent, preservative 2 completed Not Available [email or web address] 03/09/2022 14:01:47 Influenza, split virus, trivalent, preservative 3 completed Not Available [email or web address] 03/09/2022 14:01:47 Influenza, split virus, quadrivalent, PF 6 completed Not Available [facility] 02/25/2019 02:27:42 Influenza, MDCK, quadrivalent, PF 8 completed Perla Archer RMA [facility] 03/10/2024 17:06:49 Td (adult), 2 Lf tetanus toxoid, preservative free, adsorbed 1 completed TRACIE Ortiz, [facility] 01/09/2021 09:29:20 COVID-19, mRNA, LNP-S, PF, 30 mcg/0.3 mL dose 1 completed [facility] 03/10/2024 17:06:50 COVID-19, mRNA, LNP-S, PF, 30 mcg/0.3 mL dose 1 completed [facility] 03/10/2024 17:06:50 Influenza, split virus, quadrivalent, PF 3 completed Elías Jones [address] [place] [address], [address], [facility] 10/22/2022 08:21:26 COVID-19, mRNA, LNP-S, PF, 30 mcg/0.3 mL dose 1 completed [facility] 03/10/2024 17:06:50 COVID-19, mRNA, LNP-S, PF, 30 mcg/0.3 mL dose 2 completed Perla Archer RMA null, [facility] 03/10/2024 17:06:50 COVID-19, mRNA, LNP-S, bivalent, PF, 30 mcg/0.3 mL dose 2 completed Perla Archer RMA null, [facility] 03/10/2024 17:06:50 influenza, unspecified formulation [address] scout, [facility] 01/30/2022 09:59:12 COVID-19, mRNA, LNP-S, PF, cat-sucrose, 30 mcg/0.3 mL 4 completed SERGEY OneilA null, [facility] 03/10/2024 17:06:50 Influenza, MDCK, trivalent, PF 4 completed Perla Archer RMA null, [facility] 03/10/2024 17:06:50 Past Encounters Encounter ID Performer Location Encounter Start Date Encounter Closed Date Diagnosis/Indication Diagnosis SNOMED-CT Code Diagnosis ICD10 Code Diagnosis Note [id number] Elías MARTINEZ [facility], OFFICE [address] [place] [phone] 07/07/2011 08:32:20 07/07/2011 09:21:11 [id number] Elías MARTINEZ [facility], OFFICE [address] [place] [phone] 08/20/2011 09:16:13 08/20/2011 09:49:48 [id number] Elías MARTINEZ [facility], OFFICE [address] [place] [phone] 6 11/26/2011 09:28:32 11/26/2011 10:04:48 [id number] Elías MARTINEZ [facility], OFFICE [address] [place] [phone] 6 03/08/2012 09:45:18 03/08/2012 11:00:23 [id number] MD MICHELLE Delacruz, [facility], OFFICE [address] [place] [phone] 04/25/2012 08:44:25 04/25/2012 09:18:52 [id number] Elías MARTINEZ, [facility], OFFICE [address] [place] [phone] 6 04/26/2012 08:15:37 04/26/2012 08:45:16 [id number] Eílas MARTINEZ, [facility], OFFICE [address] [place] [phone] 6 07/20/2012 08:15:54 07/20/2012 08:46:06 [id number] Elías MARTINEZ, [facility], OFFICE [address] [place] [phone] 6 10/05/2012 09:05:08 10/05/2012 09:35:44 Hyperlipidemia 01005899 LDL goal is <130. Pt is at goal, asymptomat ic. To continue with simvastati n with routine f/u for PHA in 5-6 months (early Mar). Hematochezia 925732967 L ikely due to hemorrhoid s. Pt to have repeat colonoscop y in 2018. [id number] Elías MARTINEZ, [facility], OFFICE [address] [place] [phone] 04/17/2013 08:30:49 04/17/2013 09:25:47 Adult health examination 743179779 see Risk Assessment and Lifestyle Change Counseling section above Counseling [id number] Hyperlipidemia 99375624 LDL goal is <130. Pt is at goal, asymptomat ic. To continue with simvastati n with routine f/u in 5-6 months. [id number] Elías MARTINEZ, [facility], OFFICE [address] [place] [phone] 6 10/16/2013 15:34:22 10/16/2013 16:23:01 Hyperlipidemia 59415156 LDL goal is <130. Pt is at goal, asymptomat ic. Triglyceri diane up a little without any dietary changes. Taking 1 fish oil daily, but pt states that she has a hard time swallowing them. [id number] MD MICHELLE Delacruz, [facility], OFFICE [address] [place] [phone] 01/29/2014 14:19:58 01/29/2014 15:00:53 Acute contact dermatitis 953587743 [id number] Elías Jones , [facility], OFFICE [address] [place] [phone] 04/18/2014 15:04:01 04/18/2014 16:16:17 Adult health examination 045706320 see Risk Assessment and Lifestyle Change Counseling section above Counseling [id number] Hyperlipidemia 52245859 LDL goal <130 previously , however on review of chart question if pt needs to have this goal. She does tend towards borderline triglyceri diane. She takes simvastati n. It is really unclear if this is necessary. Will reduce the dose and see if her triglyceri diane [id number] Elías Jones , [facility], OFFICE [address] [place] [phone] 10/22/2014 14:46:06 10/22/2014 15:43:22 Hyperlipidemia 79412060 LDL goal <130 previously , however on review of chart question if pt needs to have this goal. She does tend towards borderline triglyceri diane. This is doing okay with the fish oil and with the 20mg simvastati n. Will continue on the lower dose and plan on rechecking in 6 months. Influenza vaccine needed 0991380685 106 Swelling / lump finding 132439081 [id number] Jerry Owens MD , [facility], OFFICE [address] [place] [id number] 04/17/2015 14:03:13 04/17/2015 16:13:13 Pain in lower limb 85868706 M79.604 THIS SOUNDS LIKE IT MIGHT BE [...] L NEUROPATHY WOULD BE MUCH LESS LIKELY [id number] Elías Jones , [facility], OFFICE [address] [place] [phone] 05/06/2015 15:00:04 05/06/2015 16:00:28 Adult health examination 371438401 Z00.01 see Risk Assessment and Lifestyle Change Counseling section above Counseling 228932754 Z71 .9 Hyperlipidemia 19433996 E78.5 LDL at goal (<130) and triglyceri diane upper end of normal. Will recheck in 6 months. Osteopenia 415671766 M85 .80 Last BMD done in 2007 with osteopenia in the hips; done at . Will order repeat. [id number] MD MICHELLE Oconnell, [facility], OFFICE [address] [place] [phone] 06/28/2015 14:34:29 06/28/2015 15:18:00 Aphthous ulcer of mouth 576886313 K12.0 [id number] Elías Jones , [facility], OFFICE [address] [place] [phone] 11/07/2015 09:01:30 11/07/2015 09:29:47 Active or passive immunization 339705374 Z23 Hyperlipidemia 09904807 E78.5 LDL at goal (<130) and triglyceri diane improved. Will recheck in 6 months prior to PHA. [id number] Elías MARTINEZ, [facility], OFFICE [address] [place] [phone] 11/27/2015 15:43:59 11/27/2015 16:39:27 Localized swelling, mass and lump, upper limb 832454781 R22.31 [id number] Lela Gordon NP , [facility], OFFICE [address] [place] [phone] 6 02/07/2016 16:28:22 02/07/2016 16:54:04 Non-neoplastic nevus 311693609 I78.1 left shoulder. pt reassured [id number] Elías Jones , [facility], OFFICE [address] [place] [phone] 6 05/07/2016 14:01:41 05/07/2016 15:15:18 Adult health examination 117505463 Z00.00 see Risk Assessment and Lifestyle Change Counseling section above Counseling 973968901 Z71 .9 [facility] 08457509 E78.5 Cholestero l treated on simvastati n. Will monitor going forward. [id number] Lela Gordon NP , [facility], OFFICE [address] [place] [address] 06/26/2016 10:48:07 06/26/2016 11:15:04 Acute upper respiratory infection 48057315 J06.9 Drink plenty of fluids. Eat healthy [...] for reassessme nt (urgent care available in [facility] office Wed 9-4 and Wednesday 9-12 by appointmen t - call after 8AM for appt.) Dry cough can last for up to six weeks. [id number] BRYAN Morillo, [facility], OFFICE [address] [place] [address] 07/01/2016 14:30:42 07/01/2016 14:58:39 Acute upper respiratory infection 14595795 J06.9 Drink plenty of fluids. Eat healthy [...] for reassessme nt (urgent care available in [facility] office 10-12 and Wednesday- by appointmen t - call after 8AM for appt.) Dry cough can last for up to six weeks. Cough 09140097 R05 Pt presents with complaint of cough [...] fever, increased sob, or increased sputum. Laryngitis 33995399 J04. 0 magic mouth wash [id number] Elías Jones , [facility], OFFICE [address] [place] [address] 07/09/2016 09:34:17 07/09/2016 10:13:14 Upper respiratory infection 79780919 J06.9 Plan as below. [id number] Elías MARTINEZ, [facility], OFFICE [address] [place] [address] 08/13/2016 09:16:06 08/13/2016 09:45:21 Impacted cerumen 38885171 H61.21 R ear canal, not blocking anything; recommenda tions as below. Rib pain 059576071 R07.8 1 Likely sprain; should continue to improve. Allergic rhinitis 454593 04 J30.9 Plan as below. Gastroesop hageal reflux disease 161174852 K21.9 Mild. Plan as below. [id number] Elías MARTINEZ, [facility], OFFICE [address] [place] [phone] 11/09/2016 15:32:39 11/09/2016 15:58:08 Hyperlipidemia 30532911 E78.5 Cholestero l treated on simvastati n. Stable without any signs/sxs heart disease. Will monitor going forward. [id number] MD MICHELLE Oconnell, [facility], OFFICE [address] [place] [phone] 12/24/2016 13:58:18 12/24/2016 14:30:23 Herpes labialis 7010272 B00.1 -valacyclo vir as directed-s top playing with the lip-do not apply any ointment-f ollow up if no improvemen t [id number] MD MICHELLE Oconnell, [facility], OFFICE [address] [place] [address] [phone] 6 01/08/2017 14:02:47 01/08/2017 14:31:07 Eruption [id number] R21 -I don't feel it was herpes-at this time it appears this area is still healing. no signs of infection- follow up in 2 weeks if the area is still no healed completely with your PCP [id number] Elías MARTINEZ, [facility], OFFICE [address] [place] [address] [phone] 6 02/19/2017 14:38:06 02/19/2017 15:14:07 Hand wart [id number] B07.8 - apply topical salicylic acid over the counter for two weeks- return to office if not improving- can make your finger red or irritated, can take a break for a day or two if needed [id number] Elías MARTINEZ, [facility], OFFICE [address] [place] [address] [phone] 6 03/04/2017 16:27:49 03/04/2017 17:51:48 Eruption [id number] R21 Papular rash, extremely nonspecifi c. [id number] Elías MARTINEZ, [facility], OFFICE [address] [place] [address] [phone] 6 03/18/2017 14:46:31 03/18/2017 15:12:57 Eruption [id number] R21 Papular rash, extremely nonspecifi c. Improving at this point. Would recommend rechecking Thrombocytosis 2595247 D 47.3 [id number] Elías MARTINEZ, [facility], OFFICE [address] [place] [address] [phone] 6 05/19/2017 14:59:45 05/19/2017 15:54:48 Adult health examination 765537881 Z00.00 see Risk Assessment and Lifestyle Change Counseling section above Counseling 574538553 Z71 .9 Depression screening 171 954143 Z13.89 depression screening tool administer ed, entered into emr, scored and discussed, time greater than 7.5 minutes, no depression History of Hodgkin lymphoma 159822871 Z85.71 Pt to f/u routinely with provider. Hyperlipidemia 32515548 E78.5 Cholestero l treated on simvastati n. Stable without any signs/sxs heart disease. Will monitor going forward. [id number] Elías MARTINEZ, [facility], OFFICE [address] [place] [address] [phone] 07/26/2017 13:42:45 07/26/2017 14:28:50 Cobalamin deficiency 087286762 E53.8 [id number] Elías MARTINEZ [facility], OFFICE [address] [place] [address] [phone] 07/27/2017 14:21:56 07/27/2017 15:15:41 Cobalamin deficiency 303967978 E53.8 [id number] Elías MARTINEZ [facility], OFFICE [address] [place] [address] [phone] 07/28/2017 14:22:26 07/28/2017 14:52:45 Cobalamin deficiency 030885726 E53.8 [id number] Elías MARTINEZ [facility], OFFICE [address] [place] [address] [phone] 07/29/2017 14:39:23 07/29/2017 15:19:12 Cobalamin deficiency 985832708 E53.8 [id number] Elías MARTINEZ [facility], OFFICE [address] [place] [address] [phone] 6 07/30/2017 14:26:03 07/30/2017 16:25:52 Cobalamin deficiency 193211263 E53.8 [id number] Elías Jones , [facility], OFFICE [address] [place] [address] [phone] 6 11/17/2017 14:49:21 11/17/2017 15:30:58 Hyperlipidemia 14760564 E78.5 Cholestero l treated on simvastati n. Stable without any signs/sxs heart disease. Will monitor going forward. Acute uppe r respiratory infection 13473777 J06.9 Very very mild, early symptoms, Recommend rest, fluids. [id number] MD MICHELLE Oconnell, [facility], OFFICE [address] [place] [address] [phone] 6 11/30/2017 17:29:29 11/30/2017 20:15:13 Acute upper respiratory infection 30820825 J06.9 Educated patient that URI is a [...] or failure to resolve in 2-4 weeks. [id number] Elías Jones [facility], OFFICE [address] [place] [address] [phone] 6 02/03/2018 10:16:50 02/03/2018 10:44:45 Allergic rhinitis 37845525 J30.9 Likely illness followed by allergic rhinitis. Plan as below. [id number] Elías Jones , [facility], OFFICE [address] [place] [address] [phone] 6 04/25/2018 14:50:27 04/25/2018 15:31:15 Superficial injury of face 939431381 S00.80XA L upper lip along ariane border. Unclear what this started as but would recommend treatment with barrier [id number] Elías MARTINEZ, [facility], OFFICE [address] [place] [address] [phone] 6 05/25/2018 15:01:45 05/25/2018 16:08:41 Adult health examination 111760322 Z00.00 see Risk Assessment and Lifestyle Change Counseling section above Counseling 629745838 Z71 .9 Depression screening 171 800534 Z13.89 depression screening tool administer ed, entered into emr, scored and discussed, time greater than 7.5 minutes, no depression Hyperlipidemia 87926076 E78.5 Cholestero l treated on simvastati n. Stable without any signs/sxs heart disease. Some drifting up of sugars over time. Discussed considerin g stopping the statin and rechecking labwork in 2-3 months to see where sugar and cholestero l is running; can always restart. Plan on routine check-in in 6 months [id number] MD MICHELLE Oconnell, [facility], OFFICE [address] [place] [address] [phone] 6 07/14/2018 15:03:31 07/14/2018 15:51:37 Allergic reaction to insect bite 813338625 T78.40XA [id number] Elías Jones , [facility], OFFICE [address] [place] [address] [phone] 6 07/19/2018 14:36:46 07/19/2018 15:08:12 Eruption 626492536 R21 Papular rash, extremely nonspecifi c. Pt had something like this winter 2017 that resolved spontaneou sly. [id number] Elías MARTINEZ, [facility], OFFICE [address] [place] [address] [phone] 6 11/24/2018 09:02:23 11/24/2018 09:29:58 Hyperlipidemia 91100014 E78.5 Cholestero l treated on simvastati n. Stable without any signs/sxs heart disease. With trial off statin, LDL went to over 200 so conclusive ly, pt needs to remain on this. Plan on recheck [id number] MD MICHELLE Delacruz, [facility], OFFICE [address] [place] [address] [phone] 6 01/13/2019 08:31:47 01/13/2019 09:24:55 Aphthous ulcer of mouth 637599952 K12.0 Looks like a developing canker sore. [id number] Elías Jones , [facility], OFFICE [address] [place] [address] [phone] 6 08/17/2019 08:17:27 08/18/2019 10:54:33 Hyperlipidemia 16277152 E78.5 Cholestero l treated on simvastati n. Stable without any signs/sxs heart disease. With trial off statin, LDL went to over 200 so conclusive ly, pt needs to remain on this. Reviewed fish oil/krill oil options as below. Subclinica l hypothyroidism 08715645 E02 TSH slightly elevated, but free T4 normal. Would recheck in 3-4 months with follow-up and wellness then. Cobalamin deficiency 190 633928 E53.8 Stable on medication . [id number] MD MICHELLE Garcia, [facility], OFFICE [address] [place] [address] [phone] 6 11/07/2019 14:00:38 11/08/2019 16:05:01 Increased frequency of urination 313463763 R35.0 Resolved today. UA negative yesterday. Call back precaution s. Leukocytosis 135353950 D 72.829 Reassured pt that her leukocytos is was very mild. Possible that she had mild illness that has passed. Plan is to repeat CBC next week. [id number] Elías MARTINEZ, [facility], OFFICE [address] [place] [address] [phone] 6 11/21/2019 08:17:06 11/22/2019 14:43:36 History of Hodgkin lymphoma 570924198 Z85.71 Will repeat CBC in February. Mixed hyperlipidemia 267 196332 E78.2 Will repeat in February. Leukocytosis 551595234 D 72.829 Resolved on repeat. Thyroid fu nction tests abnormal 302627402 R94.6 [id number] Elías MARTINEZ, [facility], OFFICE [address] [place] [address] [phone] 6 02/22/2020 10:55:02 02/23/2020 09:45:30 Adult health examination 567550960 Z00.00 see Risk Assessment and Lifestyle Change Counseling section above Counseling 249631550 Z71 .9 including cardiovasc ular risk reduction counseling Depression screening 171 351430 Z13.89 depression screening tool administer ed, entered into emr, scored and discussed, time greater than 7.5 minutes, no depression Screening for alcohol abuse 217202283 Z13.39 Screening for disorder 100665437 Z11.59 Hyperlipidemia 64062442 E78.5 Cholestero l treated on simvastati n. To continue with this. Subclinica l hypothyroidism 50582911 E02 TSH slightly elevated, but free T4 normal. Osteopenia 511715831 M85 .80 Last BMD done in 2015 with osteopenia in the hips; done at . Will order repeat for this year (2020) Swelling / lump finding 037177953 R22.2 Likely sebaceous cyst; plan as below. [id number] Elías MARTINEZ, [facility], OFFICE [address] [place] [address] [phone] 6 04/22/2020 14:28:47 04/24/2020 13:10:09 Swelling / lump finding 356938070 R22.2 Small lymph node with benign morphology . WBC normal. Plan on monitoring with follow-up in August. Mixed hyperlipidemia 267 402592 E78.2 Will repeat in . Thyroid fu nction tests abnormal 996225053 R94.6 Will repeat in Osteopenia 180888891 M85 .80 Going for repeat BMD in June. Will repeat vitamin D in May and then again in July. Currently on 2000 IU daily [id number] Elías MARTINEZ [facility], OFFICE [address] [place] [address] [phone] 6 06/25/2020 14:24:55 06/28/2020 13:05:08 Osteoporosis 00266681 M81.0 VItamin D was a bit low and pt is now supplement ing. Will also check PTH and BMP and magnesium with next set of labwork. Will also check thyroid again. [id number] Elías MARTINEZ, [facility], OFFICE [address] [place] [address] [phone] 6 08/21/2020 15:48:43 08/22/2020 11:00:22 Osteoporosis 19954575 M81.0 VItamin D is normal now; PTH, BMP and magnesium are all normal. Other than white, female, and chiropractic care-fr valente, no other major risk factors despite potential long-term effect from being treated for Hodgkin's Lymphoma with chemo/rads in her twenties. Discussion as below re: medication s. Hyperlipidemia 88076922 E78.5 Cholestero l well controlled on simvastati n. To continue with this. Varicose v eins of lower extremity 91207420 I83.893 Mild symptoms of heaviness. Pt frustrated . Will send script for thigh-high compressio n stockings to try but also refer to Dr. Koch [id number] Elías MARTINEZ, [facility], OFFICE [address] [place] [address] [phone] 6 09/19/2020 15:46:34 09/19/2020 16:50:28 Osteoporosis 70566873 M81.0 VItamin D is normal now; PTH, BMP and magnesium are all normal. Pt would rather not take medication after reading about them. Reviewed FRAX score of <10% and likelihood of fx as well as T scores of hip and back. Will repeat bone density in 06/2022.30 minutes spent reviewing chart, labwork, BMD, and discussion pt concerns [id number] BRYAN Mireles, [facility], OFFICE [address] [place] [address] [phone] 6 11/07/2020 10:17:02 11/07/2020 11:21:13 New daily persistent headache 3697521928 17793 G44.52 Given uptick in headaches, would check MRI given history. Other recommenda tions as below. Pain of le ft shoulder joint 7659227829 2400004 M25.512 Discussion as below. [id number] Elías MARTINEZ, [facility], OFFICE [address] [place] [address] [phone] 6 12/05/2020 08:19:08 12/05/2020 09:01:07 Headache 22128629 R51.9 Pattern suggestive of stress headaches. Still taking supplement s. Unclear what to do with the informatio n that it seems to correlate with someone at work, unfortunat shan. [id number] Elías MARTINEZ, [facility], OFFICE [address] [place] [address] [phone] 6 01/09/2021 09:03:25 01/09/2021 09:31:55 Headache 97550719 R51.9 Supplement s have resolved headaches despite work stressors. Plan on continuing with these with routine follow-up at wellness visit. Active or passive immunization 116325115 Z23 [id number] Elías MARTINEZ, [facility], OFFICE [address] [place] [address] [phone] 6 03/05/2021 15:02:09 03/06/2021 13:32:30 Adult health examination 185970002 Z00.00 see Risk Assessment and Lifestyle Change Counseling section above Counseling 971441218 Z71 .9 including cardiovasc ular risk reduction counseling Depression screening 171 975050 Z13.31 depression screening tool administer ed, entered into emr, scored and discussed, time greater than 7.5 minutes, no depression . Screening for alcohol abuse 425800280 Z13.39 Mixed hyperlipidemia 267 801198 E78.2 Cholestero l well controlled on simvastati n and exercise. Subclinica l hypothyroidism 50703042 E02 TSH slightly elevated in past, normal last check. Will recheck again in 6 months with other labs. Osteoporosis 90788763 M8 1.0 VItamin D is normal now; PTH, BMP and magnesium are all normal Will repeat bone density in 06/2022. [id number] Elías Jones , [facility], OFFICE [address] [place] [address] [phone] 6 03/27/2021 11:46:58 03/27/2021 12:39:08 Clicking knee 293916430 R29.898 Right knee. Painless. May be early arthritis, but since no pain, there is no indication for any kind of interventi on. Will get x-ray to further evaluate. Recommend patient return to exercise as below. Varicose v eins of lower extremity 82727663 I83.893 Mild symptoms of heaviness and aching. Pt to f/u with ultrasound and appointmen t with Dr. Koch next week. [id number] MD MICHELLE GROVES, [facility], OFFICE [address] [place] [address] [phone] 6 06/25/2021 14:46:52 06/25/2021 15:25:14 Paronychia of finger 608155761 L03.019 already improving on its own. abrasion already scabbedcon tinue using NeosporinW atc for the following: increased redness, warmth or swelling - in which case may need oral antibiotic sIn future - Use emery board instead of metal file to prevent further damage. [id number] Elías Jones , [facility], OFFICE [address] [place] [address] 6 08/28/2021 09:19:12 08/28/2021 10:11:43 Active or passive immunization 577077068 Z23 shingle-re mindecovid -fully vaccines Clicking knee 341707937 R29.898 Right knee. Painless. Would recommend simply monitoring . She takes glucosamin e when she feels she can swallow it. Varicose v eins of lower extremity 80484988 I83.893 Scheduled with specialist for interventi on next Wednesday. Mixed hyperlipidemia 267 043177 E78.2 Cholestero l well controlled on simvastati n and exercise. Subclinica l hypothyroidism 08264678 E02 TSH continues to be normal. Will recheck again in 6 months with other labs. Osteoporosis 48375618 M8 1.0 VItamin D is normal now; PTH, BMP and magnesium are all normal Will repeat bone density in 06/2022. [id number] Elías MARTINEZ, [facility], OFFICE [address] [place] [address] [phone] 6 02/03/2022 15:44:04 02/03/2022 16:33:17 Backache 769464559 M54.9 Will get x-ray to evaluate for any bony issue. Assuming no bony finding, recommend physical therapy to address and prevent reinjury. Active or passive immunization 699991747 Z23 COVID- Vax x5 w/bivalent Flu-Done for 2021 [place]- Reminded [id number] MD MICHELLE Delacruz, [facility], OFFICE [address] [place] [address] [phone] 6 03/09/2022 14:01:42 03/09/2022 14:47:17 Active or passive immunization 070636769 Z23 Shingles vaccine- Burn of skin 212791376 T 30.0 agree resembles burndiscus sed expected healing timerec continued use of topical abx as needed (1-3x/day) , keep covered at work to avoid re-injury, okay to leave open at homecall with any s/s infection - spreading redness, warmth, drainage, tenderness [id number] Elías Jones , [facility], OFFICE [address] [place] [address] 6 03/12/2022 08:33:08 03/12/2022 09:20:05 Adult health examination 094006753 Z00.00 see Risk Assessment and Lifestyle Change Counseling section above Depression screening 171 441448 Z13.31 depression screening tool administer ed Screening for alcohol abuse 199884727 Z13.39 Mixed hyperlipidemia 267 036191 E78.2 Cholestero l is at goaL Active or passive immunization 967801707 Z23 COVID- Vax x5 w/bivalent Flu-Done for 2021 seasonShin gles- Reminded Varicose v eins of lower extremity 04042326 I83.893 Scheduled with specialist for interventi on next Wednesday. Clicking knee 594231260 R29.898 Right knee. Painless. Would recommend simply monitoring . She takes glucosamin e when she feels she can swallow it. Subclinica l hypothyroidism 50481007 E02 TSH continues to be normal. Will recheck again in 6 months with other labs. Osteoporosis 66826632 M8 1.0 VItamin D is normal; will plan to check annually. Counseling 403403510 Z71 .9 including cardiovasc ular risk reduction counseling Hypomagnesemia 831053713 E83.42 Increased dose as below. Impaired f asting glycemia 777591402 R73.01 Pt having gummies close to bedtime, will repeat this in 4 weeks with the magnesium to see if this was a true finding. [id number] Elías MARTINEZ, [facility], OFFICE [address] [place] [address] 6 04/16/2022 08:16:53 04/16/2022 09:01:48 Mixed hyperlipidemia 471793682 E78.2 Cholestero l is at goaL Active or passive immunization 147749835 Z23 COVID- Vax x5 w/bivalent Flu-Done for 2022 seasonShin gles- Reminded Hypomagnesemia 767284325 E83.42 Pt had been on 300mg due to lows, but high sugar content of gummies. Will try to reduce and check in 3-4 weeks. Impaired f asting glycemia 941042909 R73.01 A1C slightly elevated. This is not a weight issue; strong family history of diabetes. Will reduce daily intake of sugar from supplement s as below. [facility] have [facility] to see if any other hidden sources of carbohydra te in diet. Plan on repeat A1C in 3 months. Hypercalcemia 01688481 E 83.52 Mild. Unclear if true finding. Could be related to increased magnesium supplement ation. Plan as below. Migraine 15817663 G43.90 9 [id number] Elías Jones , [facility], OFFICE [address] [place] [address] 6 05/28/2022 08:16:10 05/28/2022 08:51:42 Eruption 857495854 R21 Papular rash, extremely nonspecifi c. Determined by brine tank operator to be cyclical allergies. Season started early this year. Plan as below. Impaired f asting glycemia 105370931 R73.01 Fasting sugars are normal. Will recheck as this is not a weight issue. Pt seeing nutrition next month and has repeat labs the month afterwards . Active or passive immunization 740685046 Z23 COVID- Vax x5 w/bivalent Flu-Done for 2021 [place]- Reminded [id number] Niurka Arevalo, RD, LDN Nutrition -[address] [address] 6 06/18/2022 09:59:50 06/18/2022 15:00:21 Impaired fasting glycemia 961681567 R73.01 Nutrition Diagnosis: {{Excessiv e oral intake (NI 2.2) Exces sive fat intake (NI 5.6.2) [place] ppropriate Intake of fats (NI 5.6.3) Exc essive carbohydra te intake (NI 5.8.2) [place] ppropriate intake of types of carbohydra te (NI 5.8.3) Inc onsistent carbohydra te intake (NI 5.8.4) [place] dequate fiber intake (NI 5.8.5) Alt ered [...] recall, with BMI 22.8, A1C 6.3% in Apr, FBS 97 and previously 105. With family hx DM. Assessment : Initial nutrition visit for pt with prediabete s who has been focusing on a heart healthy diet, lower portions of carbs (sometimes avoiding carbs) and avoiding sweets. 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 Has been checking her BG 3 [...] minutes or more of regular physical activity/w [place] Handouts: Prediabete s and diabetes (ADA); [place] es for Care Prediabete s; Lifestyle change; blank food diary form, [employer] what is a carb serving and 4 pg carb counting list [employer]'s plate article. Nutrition Action reviews of: soups, breakfast cereals, breads, yogurt Time in: 10:00 AMTime out: 11:02 AMTime spent counseling : 62 minutes [id number] Elías MARTINEZ, [facility], OFFICE [address] [place] [address] 6 07/23/2022 08:17:23 07/23/2022 09:11:05 Impaired fasting glycemia 321415918 R73.01 Fasting sugar is slightly elevated. A1C is stable. Weight is not an issue for pt. Pt seeing nutritioni again next month again. Extremely strong family history of diabetes. Active or passive immunization 653264230 Z23 COVID- Vax x5 w/bivalent Flu-Done for 2021 [place] al[place]- Reminded Osteoporosis 65991833 M8 1.0 BMD has worsened and pt is understand ably frustrated . VItamin D is normal. Pt is concerned about the amount of dental work she needs overall in terms of these medication s. She also has concerns about injectable medication s. Further discussion as below. [id number] Elías MARTINEZ, [facility], OFFICE [address] [place] [address] 6 09/10/2022 08:02:44 09/10/2022 08:46:54 Impaired fasting glycemia 497590685 R73.01 Pt continues to have elevated sugars in the morning and she feels that she can't always tell why this is happening because suppertime sugars are not high. Could be that sugars are dipping and bouncing back up. Could do a two week CGM trial (would unfortunat shan out of pocket) to see what is happening overnight. Osteoporosis 73086316 M8 1.0 Pt is tolerating alendronat e currently; will have her continue with this. 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 Has been checking her BG 3 times [...] minutes or more of regular physical activity/w [place] Time in: 3:35 pmTime out: 4:35 pmTime spent counseling : 60 minutes [id number] Elías Jones FP, [facility], OFFICE [address] [place] [address] 10/22/2022 08:00:52 10/22/2022 08:41:53 Impaired fasting glycemia 720916552 R73.01 Pt's A1C is very stable at 6.3. Sugars are usually quite good with her dietary management . Some fluctuatio n with sleep disruption and life stressors which is to be expected. Active or passive immunization 520835273 Z23 COVID- Vax x5 w/bivalent Flu-Done for 2021 seasonShin gles- Reminded Sleep annmarie duncan disturbance 90497812 G47.9 Between stressors and some issues with the cat waking pt up out of habit. Pigmented skin lesion of uncertain nature 759783527 L81.9 Lower lip. Would like pt to have this double-romulo cked at derm, but not alarming right now. [id number] Niurka Arevalo, RD, LDN Nutrition -[address] [address] 12/03/2022 10:02:46 12/03/2022 20:22:21 Impaired fasting glycemia 545506298 R73.01 Nutrition Diagnosis: {{Excessiv e oral intake (NI 2.2) Exces sive fat intake (NI 5.6.2) [place] ppropriate Intake of fats (NI 5.6.3) Exc [...] bike or eliptical. 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 Has been checking her BG 2-3 [...] minutes or more of regular physical activity/w [place] Time in: 10:04 AMTime out: 10:54 AMTime spent counseling : 50 minutes [id number] Medina Miranda PA-C , [facility], [address]ICE [address] [place] [address] 01/09/2023 11:58:41 01/09/2023 12:30:39 Pain in throat 459726095 R07.0 Appears viral.Rapi d strep negative.A dvised to push fluids, throat gargles, tea/honey, and please RTO if sxs persist or worsen. [id number] Elías Jones , [facility], OFFICE [address] [place] [address] 01/20/2023 14:46:02 01/20/2023 15:52:56 Active or passive immunization 815331344 Z23 Shingles- Reminded Upper resp iratory infection 06518791 J06.9 Patient presents with symptoms consistent with viral infection. No evidence of pneumonia on exam. Discussed supportive care: pushing fluids, rest, nasal saline and Mucinex as needed. Encouraged to follow up if symptoms persist for more then 10 days or if they are worsening. Discussed natural course of viral illnesses and lack of evidence for treating with antibiotic s. Impaired f asting glycemia 449337013 R73.01 Pt's A1C has improved to 6.1 [...] if things drift back to the 6.3. [id number] Handy Weinberg MD , [facility], OFF[address] [place] [address] 02/04/2023 16:13:20 02/07/2023 16:11:44 Acute bronchitis 38922425 J20.9 see above [id number] Elías Jones , [facility], OFF[address] [place] [address] 02/15/2023 15:00:29 02/15/2023 16:17:12 Active or passive immunization [id number] Z23 Shingles- Remindedfl u- all set for 2022 Cough 36016899 R05.9 Improving slowly. Dry cough may last up to 6 weeks from initial illness, unfortunat shan. Backache 682460904 M54.9 Upper back/base of neck pain that has improved. Suspect strain/whi plash-type injury due to slip and fall. [id number] Elías Jones , [facility], [address] [place] [address] 04/15/2023 10:17:45 04/15/2023 11:31:26 Adult health examination 599509223 Z00.00 see Risk Assessment and Lifestyle Change Counseling section above Depression screening 171 027615 Z13.31 depression screening tool administer ed Screening for alcohol abuse 638725588 Z13.39 Alcohol use screening tool administer ed Screening for malignant neoplasm of cervix 663593265 Z12.[address] Alma Mora Active or passive immunization 015298151 Z23 Shingles- Remindedfl u- all set for 2022 Hyperlipidemia 69706668 E78.5 Cholestero l well controlled on simvastati n. To continue with this. Impaired f asting glycemia 459798342 R73.01 Pt's A1C is essentiall y stable around 6.2. Plan on repeating in 3 months and again in 6 months. Osteoporosis 39265608 M8 1.0 Pt is tolerating alendronat e currently; will have her continue with this. Subclinica l hypothyroidism 75246044 E02 TSH continues to be normal. Will recheck again in 6 months with other labs. Counseled by member of primary health care team 850174402 Z71.9 Today we discussed ways to reduce [...] attack, stroke, type 2 diabetes, and dementia. [id number] MADHU CHOWDHURY , [facility], OFFICE [address] [place] [address] 04/21/2023 17:31:50 04/21/2023 17:59:27 Upper respiratory infection 12262982 J06.9 Pt w/ congestion , cough x [...] treating as sinus infection until day 7-10. [id number] Elías Jones , [facility], OFFICE [address] [place] [address] 04/29/2023 12:17:02 04/29/2023 13:09:57 Active or passive immunization [id number] Z23 Shingles- Remindedfl u- all set for 2022 Cough 39971685 R05.9 Improving slowly. Dry cough may last up to 6 weeks from initial illness, unfortunat shan. Upper resp iratory infection 97694529 J06.9 Patient presents with symptoms consistent with viral infection. No evidence of pneumonia on exam. Discussed supportive care: pushing fluids, rest, nasal saline and Mucinex as needed. Encouraged to follow up if symptoms persist for more then 10 days or if they are worsening. Discussed natural course of viral illnesses and lack of evidence for treating with antibiotic s. [id number] Elías Jones , [facility], OFF[address] [place] [address] 07/15/2023 08:17:40 07/15/2023 08:46:37 Impaired fasting glycemia 978813277 R73.01 Pt's A1C is essentiall y stable around 6.3. Plan on repeating in 3 months as scheduled. Active or passive immunization 686869810 Z23 Shingles- Remindedfl u- all set for 2022 [id number] Mustapha Mane MD , [facility], OFFICE [address] [place] [address] 08/09/2023 10:00:01 08/09/2023 17:44:11 Pharyngitis 748493081 J02.9 Patient presents for evaluation of sore throat that is consistent with {{URI* str ep flu abs cess}}. vs allergiesW e will treat with: OTC meds, nonhparm measures Discussed supportive measures. Follow up if not improving or with new symptoms, or any other concerns. Dysuria 41012676 R30.0 Patient w/ urinary frequency, UA+ trace [...] hours) and when to seek emergency care. [id number] Laci Staples MD , [facility], [address] [place] [address] 08/11/2023 15:16:28 08/18/2023 20:29:29 Eruption 638187374 R21 Viral exanthem, should resolve, if worse call for re-solo maki as directed [id number] Elías Jones , [facility], [address] [place] [address] 10/27/2023 08:57:47 10/27/2023 09:48:58 Impaired fasting glycemia 522857601 R73.01 Pt's A1C is stable. Will plan on recheck in 3 months. Osteoporosis 56559773 M8 1.0 Pt is tolerating alendronat e currently; will have her continue with this. Discussed oncology may choose to have pt do Reclast infusion x1 instead of continuing with weekly alendronat e. Hyperlipidemia 36397207 E78.5 Cholestero l well controlled on simvastati n. May need to stop intermitte ntly in the future depending on treatments for cancer, but otherwise okay. Infiltrati ng ductal carcinoma of breast, stage 3 067368105 C50.112 Pt will be seeing [facility] going forward. Discussed diagnosis. [id number] Elías Addis Jones , [facility], [address] [place] [address] 11/23/2023 13:45:22 11/23/2023 15:01:42 Active or passive immunization 374130589 Z23 flu: states done 10/15 at [facility] Infiltrati ng duct carcinoma of breast 931496768 C50.919 Recent left mastectomy and sentinel lymph [...] discuss treatment options. Impaired f asting glycemia 761614520 R73.01 Stable with recent A1C of 6.2. Patient has been actively managing this condition. -Continue current management strategies . Osteoporosis 91218305 M8 1.0 Patient on alendronat e and has been actively managing this condition. Concerns about potential impact of cancer treatment on bone health.-Co ntinue alendronat e.-Discuss bone health concerns with oncologist during upcoming appointmen t. [id number] Laci Staples MD , [facility], [address] [place] [address] 01/21/2024 10:59:52 01/21/2024 11:38:37 Localized eruption of skin 325365456 R21 Patients presents for evaluation of rash [...] with other concerns. Active or passive immunization 577995018 Z23 flu -pneumo -shingles - [id number] Elías Jones , [facility], [address] [place] [address] 01/26/2024 08:14:00 01/26/2024 15:18:29 Impaired fasting glycemia 817676150 R73.01 Pt's A1C is actually slightly improved. Will monitor over 3 months with follow-up then. Active or passive immunization 757584378 Z23 Shingles- Remindedpn eumonia- remindedfl u 24- had this season Localized eruption of skin 874656677 R21 Somewhat improved already. Discussed source is hard to pinpoint. Recommend just using the steriod cream. Infiltrati ng duct carcinoma of breast 187506498 C50.919 Recent left mastectomy and sentinel lymph node biopsy with one positive lymph node. Estrogen receptor and progestero ne receptor positive. Pt is now s/p two chemo treatments and will be continuing with course. [id number] Mustapha Mane MD , [facility], [address] [place] [address] 03/10/2024 16:58:51 03/13/2024 14:56:48 Dilated pupil 77676843 H57.04 [id number] Janel Velasco PA-C , [facility], [address] [place] [address] 04/27/2024 08:53:26 04/27/2024 09:55:06 Impaired fasting glycemia 502565064 R73.01 Pt's A1C was down to 5.7 at . Will repeat labwork prior to [place] in August with TR Vitamin B deficiency 479 35937 E53.9 Will repeat; suspect pt needs less medication Infiltrati ng duct carcinoma of breast 566175646 C50.919 Recent left mastectomy and sentinel lymph node biopsy with one positive lymph node. Estrogen receptor and progestero ne receptor positive. Pt is now s/p chemo and will be meeting with onc today to discuss tamoxifen. Active or passive immunization 721557250 Z23 Shingles- Remindedpn eumonia- remindedfl u 24- had this season Recurrent bleeding of nose 0094609530 102 R04.0 Suspect related to mucosal fragility from chemo. Pt has seen ENT once and had cautery; recommenda tions as below. Osteoporosis 33605726 M8 1.0 Pt is tolerating alendronat e currently; last BMD was much better so would want to continue with this. [id number] Alka Macario MD , [facility], [address] [place] [address] 05/09/2024 09:44:11 05/10/2024 08:01:30 Active or passive immunization 229641204 Z23 Shingles-a denis at pharmacyPn eumo-aware at pharmacy Infiltrati ng duct carcinoma of breast 217552934 C50.919 Hormone-dr williamson breast cancer, recently completed chemothera py, currently on tamoxifen. Vigilant about breast health with a negative BRCA test, indicating no genetic predisposi tion. Aware of the importance of regular mammograms and self-exami nations. Perineal irritation 2816 55242 L29.3 Examinatio n reveals no inflammati on, redness, or infection, appearing as extra skin. Differenti al diagnosis includes a benign skin tag or other non-hemorr hoidal lesion. The etiology is unclear, but it does not appear cancerous or hemorrhoid al.- Refer to gynecologi st Alma Mike for further evaluation .- Send visit note to Alma Mike at [facility].- Advise to schedule an appointmen t [...] Member ID Browne Member ID Guarantor Name 01/21/2024 1 [employer] [facility] - DIRECT CONNECTORCARE TYPE II (HMO) [id number] Marybel Liberty [id number] 202 [employer] [employer] 01/26/2024 1 [facility] - DIRECT CONNECTORCARE TYPE II (HMO) [id number] [facility] [id number] 202 [facility] 03/10/2024 1 [facility] - DIRECT CONNECTORCARE TYPE II (HMO) [id number] Marybel Liberty [id number] 202 [facility] 04/27/2024 1 [facility] - DIRECT CONNECTORCARE TYPE II (HMO) [id number] Marybel Liberty [id number] 202 [facility] 05/09/2024 1 [facility] - DIRECT CONNECTORCARE TYPE II (HMO) [id number] [facility] [id number] 202 [facility] Notes Date Note Type Note Provider Name and Address Organization Details Recorded Time 01/21/2024 text/html RashReported bypatient.Patient present for evaluation [...] diagnosed in August.Medications- Chemotherapy Cassidy Casillas DNP, [employer]-[address], [address], [facility] 01/21/2024 11:35:50 01/26/2024 text/html Pt comes in toda y for follow-up impaired FBS in the setting of a recent diagnosis of breast cancer. Last A1C at the lab was 5.9. FBS 91 Pt c/o invasive ductal carcinoma, Stage 3. She is seeing Dr. Oreilly at [facility] for oncology and she is now on Cytoxan and Taxotere (has had two treatments thus far). She has significant dry mouth and is using biotene. Pt also c/o rash on hands, she was started on triamcinolone five days ago, which is helping some. Elías Jones [address] [place], [address], [facility] 01/26/2024 08:49:14 03/10/2024 text/html 03/10/24-left pup il larger than right03/10/24 @ 1:39pm- wanted to let DS know that she is still keeping her apt today, but that the eye issue seems to have resolved and she does have an apt with eye doctor on Wednesday/ No KELLER , no blurry vision , is having chemo for breast CAshe talked to her oncologist did not think related Mustapha Mane MD [address] [place], [address], [facility] 03/11/2024 11:13:39 04/27/2024 text/html Pt comes in [facility] for follow-up impaired FBS in the setting of a recent diagnosis of breast cancer. Last A1C at the lab was 5.7 at [facility]. Pt c/o hx of vitamin B12 deficiency, last set of labs was >2000 but she had taken supplement within 24 hours. She is currently alternating 1000mcg with 500mcg. Pt c/o invasive ductal carcinoma, Stage 3. She is seeing Dr. Oreilly at [facility] for oncology and she is now s/p Cytoxan and Taxotere. She is meeting with oncology this afternoon and they are going to discuss tamoxifen. Pt c/o increasing frequency of nosebleeds on the left. She's had multiple episodes including one episode where she had to go to the ER (03/26 - required packing). She had the packing out 03/30 and ENT cauterized the area. Despite that, she had another 04/14 and called the oncology office and they told her to do labs that day. Plt was 161 but pt was also anemic (Hgb 8.3). They then had her repeat labwork on 04/17 (Plt 260, Hgb 8.8). She did call ENT 04/24 but they just told her if she had another one, they'd see her. She is using [place] nasal saline gel. Pt c/o osteoporosis on fosamax. Last BMD 12/03/23 showed osteopenia, which is good. Pt c/o migraine. 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
--- OUTSIDE RECORDS SUMMARY | 2024-06-21 11:25 | XMS_ITS | Continuity of Care Document ---
Author Organization [facility] Address [address] [place] [address] [address] [place] [address] Phone Care Team Providers Care Nylon Operator Name Role Phone August ROMO FACS RVT [...] Copied on Encounter [facility], [address] [place] [address] [address], [place], [id number], [place] tel:[phone] [facility] [place] [facility] - (Telangiec vanessa) 3 August ROMO FACS RVT THU Alaniz. [address] [facility] [address], [place], [address], [place]. tel:[phone] Referring Provider: Miriam Calvin PA-C , [address] [place] [address], [address]. tel:[phone] Family History Family Member Type Diagnosis Age [...]
--- OUTSIDE RECORDS SUMMARY | 2024-06-21 11:25 | XMS_ITS | Clinical Summary ---
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 Hematology Oncology [address] [place] [address] Moose Christianson MD [address] [place] [address] Health Maintenance Due Date Last [...] Influencers of Health Screening 01/18/2022 Influenza Vaccine (Season Ended) 2024 HIB Vaccines Aged Out No longer eligi [...] age to complete this topic Meningococcal B Vaccine Aged Out No l onger eligible based on patient's age to complete this topic RSV Immunization Patients Un santa 20 months Aged Out No longer eligible b ased on patient's age to complete this topic Varicella Vaccines Aged Out No longer eligible based on patient's age to complete this topic Insurance [facility] Care Teams Slab Grinder Relationship Specialty Start Date End Date Karolina Jones MD [address] [place] [address] PCP - General Family Medicine 01/22/17
--- OUTSIDE RECORDS SUMMARY | 2024-06-21 11:25 | XMS_ITS | Clinical Summary ---
Author Organization [facility] Address [address] [place] [address] Care Team Providers Care Video Rental Clerk Name Role Phone Karolina Jones MD Primary Care Provider Allergies Active Allergy Reactions Criticality Noted Date Comments Penicillins 01/21/2017 Medications Medication Sig Dispensed Refills Start Date End Date Status simvastatin (ZOCOR) tablet 20 mg Take 1 tablet (20 mg total) by mouth every night at bedtime. 0 Active [place]-3 Fatty Acids (FISH OIL PO) Take by [...] age to complete this topic Care Teams Video Rental Clerk Relationship Specialty Start Date End Date Karolina Jones MD [address] [place] [address] PCP - General Family Medicine 01/22/17
== END 2024-06-21 11:14 | disposition home or self-care (01) ==
LOC: HO.HGS 10:24
PROVIDERS: PCP Family Medicine; Visit Provider Surgery
DX: Z85.3 Personal history of malignant neoplasm of breast (principal)
CPT/HCPCS: 99213

== ENCOUNTER → 2024-06-21 10:24 | Outpatient (BNVA) | payer OTHER, SELFPAY | PROVIDERS: PCP Family Medicine; Visit Provider Surgery | DX: Z85.3 Personal history of malignant neoplasm of breast (principal) | CPT/HCPCS: 99212 ==

== ENCOUNTER 2024-06-30 16:15 | Outpatient (REF) | payer OTHER, SELFPAY ==
--- NOTE | ~2024-06-30 | US_ITS ---
EXAMINATION: US TRIPLEX LOWER EXTREMITY, RIGHT CLINICAL INFORMATION: Right leg pain. COMPARISON: None available. TECHNIQUE: Color-flow triplex imaging with spectral analysis and compression Doppler were performed on the right lower extremity. FINDINGS: Respiratory variation, normal compression and augmented flow are noted throughout the right lower extremity. The visualized common femoral vein, superficial femoral vein, profunda femoral vein, popliteal vein and midcalf peroneal and posterior tibial venous segments show no evidence of deep venous thrombosis. There is no Humphries's cyst. US/US venous duplex LE RT IMPRESSION: No evidence of deep venous thrombosis involving the right lower extremity. Electronically signed by: Homar Worthington MD 06/30/2024 04:44 PM EDT
--- OUTSIDE RECORDS SUMMARY | 2024-06-30 16:17 | XMS_ITS | Clinical Summary ---
Author Organization [facility] Address [address] [place] [address] Care Team Providers Care Finding Fastener Name Role Phone Karolina Jones MD Primary Care Provider [phone] Allergies Active Allergy Reactions Criticality Noted Date Comments Penicillins 01/21/2017 Medications Medication Sig Dispensed Refills Start Date End Date Status simvastatin (ZOCOR) tablet 20 mg Take 1 tablet (20 mg total) by mouth every night at bedtime. 0 Active [place]-3 Fatty Acids (FISH OIL PO) Take by [...] age to complete this topic Care Teams Finding Fastener Relationship Specialty Start Date End Date Karolina Jones MD [address] [place] [address] PCP - General Family Medicine 01/22/17
== END 2024-06-30 16:16 | disposition home or self-care (01) ==
LOC: HO.US 16:15
PROVIDERS: Visit Provider Internal Medicine Medical Oncology
DX: I82.401 Acute embolism and thrombosis of unspecified deep veins of right lower extremity (principal)
CPT/HCPCS: 93971

== ENCOUNTER → 2024-06-30 16:17 | Outpatient (BNV) | payer OTHER, SELFPAY | PROVIDERS: Visit Provider Radiology Diagnostic Radiology | DX: M79.604 Pain in right leg (principal) | CPT/HCPCS: 93971 ==

== ENCOUNTER → 2024-07-10 15:26 | Outpatient (BNVA) | payer OTHER, SELFPAY | PROVIDERS: PCP Family Medicine; Visit Provider Dietitian, Registered ==

== ENCOUNTER 2024-09-14 14:21 | Outpatient (AMB) | payer OTHER, SELFPAY ==
--- NOTE | 2024-09-14 14:23 | MHC.OFFVIS ---
Vital Signs 09/14/24 14:32 Height 5 ft 5 in Weight 143 lb BMI 23.8 BP 116/58 L Blood Pressure Location Rt brachial Position Sitting Pulse 93 Intake Visit Reasons: lipoma (R) side flank Intake Note: Patient scheduled today's visit for evaluation of lipoma on Rt flank. Patient c/o: denies pain, tenderness. No changes in size. Imaging: US from [facility] to be reviewed. Well Drill Operator Required: No Accompanied by: Handy , Pretty mother Allergies penicillin V Allergy (Unknown, Verified 09/14/24 14:29) rash Latex Allergy (Unknown, Uncoded 09/14/24 14:29) rash/hive Medication List - Last Reconciled 09/14/24 by Corbin Morales MD alendronate 70 mg PO QWEEK calcium-vitamin D3-vitamin K 650 mg-12.5 mcg-40 mcg (Viactiv) 2 tabs PO DAILY cetirizine (Zyrtec) 10 mg PO DAILY PRN cholecalciferol (vitamin D3) 50 mcg PO QID magnesium 400 mg PO DAILY mastectomy bra As Directed mastectomy bra (bra, mastectomy) As Directed. Use status post breast surgery. omega-3 fatty acids (Fish Oil Concentrate) 1,000 mg PO DAILY polyethylene glycol 3350 (Miralax) 17 grams PO DAILY PRN riboflavin (vitamin B2) 400 mg PO DAILY simvastatin 20 mg PO DAILY tamoxifen 20 mg PO DAILY triamcinolone acetonide 0.5% 0.5 appl topical DAILY HPI HPI lipoma (R) side flank: Details: She is here has a of what she felt is the small lump on her fat on the right flank area. She had an ultrasound done in the past for this which showed a point 8 x 0.2 x 0.7 cm hyperechoic mass within the skin and fatty tissue with no hypervascularity. She does not describe any significant increased in size. She denies any pain or tenderness. She had undergone mastectomy with sentinel biopsy of the left breast for invasive ductal carcinoma, T1 N1, last November,. She had completed chemotherapy for this as well. She is therefore very anxious about any ?lump? anywhere on her body that she feels she says. [facility] Medical History (Updated 09/14/24 @ 15:46 by Corbin Morales MD) Lipoma History of breast cancer Invasive ductal carcinoma of left breast Left breast mass Osteoporosis Fibroids HSV infection Abnormal Pap smear of cervix Anxiety and depression Hodgkin's disease Surgical History History of evacuation of hematoma (~11/11/23) History of left total mastectomy (~11/10/23) H/O left inguinal hernia repair H/O LEEP Family History Paternal Grandfather Colon cancer Father Cancer of kidney Diabetes Mother Hyperlipidemia Social History Household Members: Spouse Housing: House Are you a primary tire care manager to a significant other at home: No Do you presently have visiting nurse or other home services: No Alcohol intake: never Patient Tobacco Use Status: Former Tobacco user Tobacco use type: Cigarette Second Hand Smoke Exposure: No service: No Current occupational status: employed and unemployed 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 [employer] Sexual orientation: Straight/Heterosexual Gender identity: Female Female Reproductive History Menstrual Age of Menarche: 11 Review of Systems Const Denies chills and Denies fever(s) Card Denies chest pain, Denies dyspnea and Denies dyspnea on exertion Resp Denies cough, Denies dyspnea and Denies dyspnea on exertion GI Denies hematochezia and Denies change in bowel habits Denies hematuria Musc Denies back pain and Denies limited range of motion Neuro Denies focal weakness and Denies convulsions Psych Denies depression and Denies mood swings Physical Exam Vital Signs: Last Vital Signs Pulse 93 09/14/24 14:32 BP 116/58 L 09/14/24 14:32 BMI result Body Mass Index 23.8 Const General: comfortable and no acute distress Orientation/consciousness: patient oriented x3 Neck Neck: Yes no lymphadenopathy Resp Effort & Inspection: normal respiratory effort Cardio Rhythm: regular rhythm GI Palpation (GI): Soft to palpation, nontender and no guarding Back/Spine/Pelvis Other: On the right flank area is note of a very small although barely perceptible subcutaneous mass, mobile that seems to be consistent with a lipoma, less than 1 mm in size Neuro General: patient oriented x3 Assessment & Plan Assessment & Plan (1) Lipoma: Code(s): D17.9 - Benign lipomatous neoplasm, unspecified Category: Medical Plan: She has what appears to be a very small lipoma on the right flank area. This has barely perceptible I explained to her that I would probably recommend watching this closely this may be difficult to excise in view of the very small size with thick subcutaneous fat. She is scheduled to see him again in November as a follow-up for her history of breast cancer any way so I told her that we will check on this again at that time. She is comfortable with the plan. (2) History of breast cancer: Code(s): Z85.3 - Personal history of malignant neoplasm of breast Category: Medical Plan: She had a mastectomy done last November 2023 for breast cancer. She had met up with the plastic surgeon in [place] to consider obstruction. However, she was told that an implant pain not be a good option for her in view of previously excision to her chest for a lymphoma. She is not want to proceed with a reconstruction with a muscle flap. She therefore now is contemplating on having a mastectomy for the right side asymmetry. She really has not yet decided on this. I told her that this makes her feel better especially with her severe anxiety about another cancer on her breast, this is reasonable to do. She says that she will think about it as she has not ready decide yet. She does state that she has discussed this with the plastic surgeon in [place]. She again in November 2024 and we will review all of the above with her. Her parents were with her during the visit Coding Level of Care Code Est Pt Level 3 (85142) Diagnoses Lipoma D17.9 History of breast cancer Z85.3
--- OUTSIDE RECORDS SUMMARY | 2024-09-14 14:25 | XMS_ITS | Clinical Summary ---
Author Organization [facility] Address [address] [place] [phone] Phone Care Team Providers Care Chief Design Drafter Name Role Phone Karolina Jones MD Primary Care Provider [phone] Allergies Active Allergy Reactions Criticality Noted Date Comments Amoxicillin Rash Low 01/24/2018 Latex Hives 07/17/2024 Penicillins Hives 01/24/2018 All Cillins Medications simvastatin (ZOCOR) 20 MG tablet Take 20 mg by mouth nightly. Active cyanocobalamin, vitamin B-12, (B-12 DOTS ORAL) Take by mouth. Activ e omega-3 fatty acids-fish oil 340-1,000 mg Cap Take 1 capsule by mouth daily. Active alendronate (FOSAMAX) 70 MG tablet Take 70 mg by mouth once a week. Active cetirizine (ZYRTEC) 10 mg capsule Take 10 mg by mouth daily. Active riboflavin, vitamin B2, 400 mg Tab Take 1 tablet by mouth every morning. 5 Active tamoxifen (NOLVADEX) 20 MG tablet Take 1 tablet by mouth every morning. 5 Active triamcinolone acetonide 0.5 % cream APPLY TOPICALLY TO THE AFFECTED AREA TWICE DAILY FOR 7 TO 14 DAYS 5 Active Medication-Free TextIndications :Magnesium gummies, viactin chews 650mg 2 daily Indications: Magnesium gummies, viactin chews 650mg 2 daily Active mupirocin (BACTROBAN) 2 % ointment APPLY TO BIOPSY ON RIGHT LEG TWICE DAILY UNTIL HEALED 5 Active Active Problems No known active problems Encounters Date Type Department Care Team Description 07/17/2024 1:45 PM EDT Office Visit [facility] [place] [facility] [address] [place] [address] Josue Michelle MD S/P left mastectomy (Primary Dx); Invasive ductal carcinoma of breast, stage 2, left from Last 3 Months Family History Medical History Relation Comments Cancer Father Diabetes Father High cholesterol Mother Relation Status Comments Father Mother Alive Social History Tobacco Use Types Packs/Day Years Used Date Smoking Tobacco: Former Cigarettes Q uit: 02/08/1997 Smokeless Tobacco: Never Tobacco Cessation:Counseling Given: Not Answered Alcohol Use Standard Drinks/Week Comments No 0 (1 standard drink = 0.6 oz pur e alcohol) Education Answer Date Recorded Are you interested in more education? Not on jaron e 06/05/2022 Are you concerned about learning? Not on file 06/05/2022 No 06/05/2022 No 06/05/2022 Digital Access Answer Date Recorded No 07/04/2022 No 07/04/2022 Reliable internet access at home? Not on file 07/04/2022 Device with a working camera? Not on file Intimate Partner Violence Answer Date R ecorded Are you denied basic needs s uch as food, clothing, or medical care? No 02/18/2023 In the past 12 months have y ou been in a relationship with a person who hurts, threatens, or tries to control you? No 02/18/2023 Are you denied basic needs s uch as food, clothing, or medical care? No 02/18/2023 In the past 12 months have y ou been in a relationship with a person who hurts, threatens, or tries to control you? No 02/18/2023 Comments Unknown Sex and Gender Information Value Date Recorded Sex Assigned at Not on file Legal Sex Female 9:36 PM EDT Gender Identity Not on file Sexual Orientation Not on file Last Filed Vital Signs Vital Sign Reading Time Taken Comments Blood Pressure 103/68 07/17/2024 2:00 PM EDT Pulse 90 07/17/2024 2:00 PM EDT Temperature 36.2 C (97.2 F) 02/18/2023 10:30 AM EST Respiratory Rate 14 02/18/2023 10:45 AM EST Oxygen Saturation 98% 02/18/2023 10:45 AM EST Inhaled Oxygen Concentration - - Weight 64.4 kg (142 lb) 07/17/2024 2:00 PM EDT Height 165.1 cm (5' 5 ) 07/17/2024 2:00 PM EDT Body Mass Index 23.63 07/17/2024 2:00 PM EDT Plan of Treatment Health Maintenance Due Date Last Done Comments LIPID PANEL 1970 DEPRESSION SCREENING 1981 HEPATITIS C SCREENING 1987 HIV ONE-TIME SCREENING (18-6 5 YEARS) 1987 PAP SMEAR 1990 MAMMOGRAM 2009 COLOGUARD 2014 FIT TEST 2014 FOBT 2014 SIGMOIDOSCOPY 2014 VIRTUAL COLONOSCOPY 2014 PNEUMOCOCCAL VACCINES (50+ years) (1 of 1 - PCV) 2019 ZOSTER VACCINES (1 of 2) 2019 Adult Td,Tdap Booster 12/19/2020 12/19/2010 COVID-19 VACCINE (3 - 2023-2 5 season) 2023 03/22/2020, 2020 SMOKING Hx and SMOKELESS TOBACCO SCREENING 07/17/2025 07/17/2024 COLONOSCOPY 02/18/2033 02/18/2023, 01/27/2018 COLORECTAL CANCER SCREENING 02/18/2033 HEPATITIS A VACCINES Aged Out No long er eligible based on patient's age to complete this topic HIB VACCINES Aged Out No longer eligi ble based on patient's age to complete this topic MENINGOCOCCAL VACCINES (ACWY) Aged Out No longer eligible based on patient's age to complete this topic MENINGOCOCCAL VACCINES (B) Aged Out N o longer eligible based on patient's age to complete this topic Medical Devices Not on file Procedures Procedure Name Priority Date/Time Associated Diagnosis Comments ENDOSCOPY, COLON 02/18/2023 9:47 AM EST from Last 3 Months or Most Recently Relevant to Health Maintenance Results * ENDOSCOPY, COLON (02/18/2023 9:47 AM EST) Narrative Transcriptions Werner Askew MD - 02/18/2023 9:47 AM EST [facility] Patient Name: Marybel Michael Attending MD:: WERNER ASKEW MD, Procedure Date: 02/18/2023 9:47 AM Date of : 1970 Age: 52 Admit Type: Outpatient Gender: Female Room: [place] [address] Referring MD: Karolina Jones MD Exam Type: Colonoscopy Indications: High risk colon cancer surveillance: Personalhistory of colonic polyps, Last colonoscopy: January 2018, Grandparent with CRC Medications: Propofol per Anesthesia Procedure: Informed consent was obtained from the patientafter discussion of the indications, limitations, alternatives, benefits, and risks of the procedure. Risks specifically discussed include but are not limited to medication reactions, missed lesions, bleeding, perforation, or the need for emergent surgery. Throughout the procedure, the patient's blood pressure, pulse, end-tidal CO2, and oxygensaturations were monitored continuously. The Olympus adult variable colonoscope [id number] #2 was introduced through the anus and advanced to the cecum, identified by appendiceal orifice andileocecal valve. The ileocecal valve, appendiceal orifice,and rectum were photographed. The colonoscopy was performed without difficulty. The patient tolerated the procedure well. The quality of the bowel preparation was excellent. The bowel preparationused was GoLYTELY via split dose instruction. Complications: No immediate complications. Estimated blood loss:None. Findings: The perianal and digital rectal examinations were normal. Pertinent negatives include no palpablerectal lesions. The retroflexed view of the distal rectum and anal verge was normal and showed no anal or rectal abnormalities. Two sessile polyps were found in the cecum. Thepolyps were small in size. These polyps were removed witha cold snare. Resection and retrieval werecomplete. The exam was otherwise without abnormality. Retroflexion in the right colon was performed. Impression: - The distal rectum and anal verge are normal on retroflexion view. - Two small polyps in the cecum, removed with acold snare. Resected and retrieved. - The examination was otherwise normal. Recommendation: - Repeat colonoscopy in 5 years for surveillance. WERNER ASKEW MD 02/18/2023 10:34:35 AM This report has been signed electronically. Number of Addenda: 0 Note Initiated On: 02/18/2023 9:47 AM Procedure Code(s): --- Professional --- 22480, Colonoscopy, flexible; with removal of tumor(s), polyp(s), or other lesion(s) by snare technique --- Technical --- 04231, Colonoscopy, flexible; with removal of tumor(s), polyp(s), or other lesion(s) by snare technique Diagnosis Code(s): --- Professional --- Z86.010, Personal history of colonic polyps D12.0, Benign neoplasm of cecum --- Technical --- Z86.010, Personal history of colonic polyps D12.0, Benign neoplasm of cecum CPT copyright 2021 [employer]. All rights reserved. The codes documented in this report are preliminary and upon brake drum molder reviewmay be revised to meet current compliance requirements. Procedure Date: 02/18/2023 9:47:[address] [place] [address] [place] Karolina Jones MD GI PROCEDURE ORDERABLES Fin al Result from Last 3 Months or Most Recently Relevant to Health Maintenance Insurance [facility] HYLA Mobile [facility] DIRECT CONNECTORCARE DIRECT CONNECTORCARE [facility] [employer]ARE [place] [address] [place] [address] [place] [place] [address] CONNECTORCARE DIRECT [facility] CONNECTORCARE DIRECT [employer] DIRECT CONNE[employer] DIRECT Care Teams Chief Design Drafter Relationship Specialty Start Date End Date Karolina Jones MD [email or web address] PCP - General Family Medicine 01/24/18 Additional Source Comments The information contained in this document represents components of the legal health record. It is not the complete legal health record.[facility]
[2024-09-14 14:32] VITALS: BP 116/58; PULSE 93; BMI 23.8
== END 2024-09-14 15:03 | disposition home or self-care (01) ==
LOC: HO.HGS 14:22
PROVIDERS: PCP Family Medicine; Visit Provider Surgery
DX: D17.9 Benign lipomatous neoplasm, unspecified (principal); Z85.3 Personal history of malignant neoplasm of breast
CPT/HCPCS: 99213

== ENCOUNTER → 2024-09-14 14:21 | Outpatient (BNVA) | payer OTHER, SELFPAY | PROVIDERS: PCP Family Medicine; Visit Provider Surgery | DX: D17.9 Benign lipomatous neoplasm, unspecified (principal); Z85.3 Personal history of malignant neoplasm of breast | CPT/HCPCS: 99212 ==

== ENCOUNTER 2024-10-12 09:36 | Outpatient (REF) | payer OTHER, SELFPAY ==
--- OUTSIDE RECORDS SUMMARY | 2022-03-26 09:00 | XMS_ITS | Continuity of Care Document ---
Author Organization [facility] Address [address] [place] [address] [address] [place] [phone] Phone Care Team Providers Care Community Cultural Development Officer Name Role Phone August ROMO FACS RVT [...] Providers Copied on Encounter [facility], [address] [place] [address] [address], [place], [id number], [place] tel:[phone] [place] [facility] - (Telangiec vanessa) 3 August ROMO FACS RVT THU Alaniz. [address] [facility] [address], [place], [address], [place]. tel:[phone] Referring Provider: Miriam Calvin PA-C , [address] [place] [address], [address]. tel:[phone] Family History Family Member Type Diagnosis Age [...]
--- NOTE | ~2024-10-12 | MM_ITS ---
EXAMINATION: MM SCREENING DIGITAL BREAST TOMOSYNTHESIS, RIGHT CLINICAL INFORMATION: Screening. Asymptomatic. History of left breast cancer in 2023 status post mastectomy. COMPARISON: Mammography: Priors on PACS. TECHNIQUE: Digital breast tomosynthesis is performed in both the craniocaudal and mediolateral oblique views along with computer-aided detection (CAD). Synthesized 2D images are generated from the tomosynthesis. FINDINGS: The breasts are heterogeneously dense, which may obscure small masses (ACR BI-RADS breast composition Category c). There are no significant masses, abnormal calcifications, or other abnormalities. MM/MM tomosynthesis screening RT IMPRESSION: No mammographic evidence of malignancy. ASSESSMENT: BI-RADS BI-RADS 1 - Negative RECOMMENDATION: Routine annual mammography screening. 1 year F/U This examination should not preclude the clinical evaluation of a suspicious palpable abnormality. This patient's information was entered into a reminder system with a target due date for their next mammogram. Electronically signed by: Barbara Suarez DO 10/12/2024 10:49 AM EDT
--- OUTSIDE RECORDS SUMMARY | 2024-10-12 10:24 | XMS_ITS | Clinical Summary ---
Author Organization [facility] Address [address] [place] [phone] Phone Care Team Providers Care Aircraft Engine Mechanic Name Role Phone Karolina Jones MD Primary [...] Description 07/17/2024 1:45 PM EDT Office Visit [facility] [place] [facility] [address] [place] [address] Josue Michelle MD S/P left mastectomy (Primary [...] 07/17/2024 2:00 PM EDT Plan of Treatment Upcoming Encounters Date Type Department Care Team (Late st Contact Info) Description 12/04/2024 11:45 AM EDT Office Visit [facility] [place] [facility] [address] [place] [address] Josue Michelle MD [address] [place] [address], [address] [address] [email or web address] Health Maintenance Due Date Last Done Comments LIPID PANEL 1970 DEPRESSION SCREENING 1981 HEPATITIS C SCREENING 1987 HIV ONE-TIME SCREENING (18-65 YEARS) 1987 PAP SMEAR 1990 MAMMOGRAM 2009 COLOGUARD 2014 FIT TEST 2014 FOBT 2014 SIGMOIDOSCOPY 2014 VIRTUAL COLONOSCOPY 2014 PNEUMOCOCCAL VACCINES (50+ years) (1 of 1 - PCV) 2019 ZOSTER VACCINES (1 of 2) 2019 Adult Td,Tdap Booster 12/19/2020 12/19/2010 INFLUENZA VACCINE (#1) 2024 0, 10/30/2018, 11/07/2017, Additional history exists COVID-19 VACCINE (3 - season) 2024 03/22/2020, 2020 SMOKING Hx and SMOKELESS TOBACCO [...] Askew MD - 02/18/2023 9:47 AM EST [facility] Patient Name: Marybel Rodriguez Attending MD:: WERNER ASKEW MD, Procedure Date: 02/18/2023 9:47 AM Date of : 1970 Age: 52 Admit Type: Outpatient Gender: Female Room: [place] [address] Referring MD: Karolina Jones MD Exam Type: [...] monitored continuously. The Olympus adult variable colonoscope [id number] #2 was introduced through the anus and [...] 9:47 AM Procedure Code(s): --- Professional --- 55086, Colonoscopy, flexible; with removal of tumor(s), polyp(s), or other lesion(s) by snare technique --- Technical --- 55894, Colonoscopy, flexible; with removal of tumor(s), polyp(s), or other lesion(s) by snare technique Diagnosis Code(s): --- Professional --- Z86.010, Personal history of colonic polyps D12.0, Benign neoplasm of cecum --- Technical --- Z86.010, Personal history of colonic polyps D12.0, Benign neoplasm of cecum CPT copyright 2021 [employer]. All rights reserved. The codes documented in this report are preliminary and upon small machine bindery operator reviewmay be revised to meet current compliance requirements. Procedure Date: 02/18/2023 9:47:23 AM [address] [place] [address] Karolina Jones MD GI PROCEDURE ORDERABLES Fin al Result from Last 3 Months or Most Recently Relevant to Health Maintenance Insurance [employer] DIRECT CONNE[employer]CARE DIRECT [employer] DIRECT [employer] DIRECT [employer] DIRECT [employer] DIRECT [employer] DIRECT CONNE[employer] DIRECT CONNECTORCARE DIRECT Care Teams Aircraft Engine Mechanic Relationship Specialty Start Date End Date Karolina Jones MD [email or web address] PCP - General Family Medicine 12/17/18 Additional Source Comments The information contained in this document represents components of the legal health record. It is not the complete legal health record.[facility]
--- OUTSIDE RECORDS SUMMARY | 2024-10-12 10:24 | XMS_ITS | Clinical Summary ---
Author Organization [facility] Address [address] [place] [address] Care Team Providers Care Machine Precision Etcher Name Role Phone Karolina Jones MD Primary Care Provider Allergies Active Allergy Reactions Criticality Noted Date Comments Penicillins 01/21/2017 Medications Medication Sig Dispensed Refills Start Date End Date Status simvastatin (ZOCOR) tablet 20 mg Take 1 tablet (20 mg total) by mouth every night at bedtime. 0 Active Sasser-3 Fatty Acids (FISH OIL PO) Take by [...] 88 08/19/2023 9:30 AM EDT Temperature 37.1 C (98.7 F) 08/19/2023 9:30 AM EDT Respiratory Rate - - Oxygen Saturation 100% [...] Cancer Screening (Mammogram) 2019 Influenza Vaccine (#1) 2024 RSV Ped < 20 months Aged Out No longe r eligible based on patient's age to complete this topic Care Teams Machine Precision Etcher Relationship Specialty Start Date End Date Karolina Jones MD [address] [place] [address] PCP - General Family Medicine 01/22/17
--- OUTSIDE RECORDS SUMMARY | 2024-10-12 10:24 | XMS_ITS | Encounter Summary ---
Author Organization [facility] Address [address] [place] [address] [place] [phone] Phone Care Team Providers Care Tobacco Curer Name Role Phone Karolina Jones MD Primary Care Provider [phone] Encounter Details Date Type Department Care Team (Late st Contact Info) Description 02/18/2023 Procedure Pass [facility] Endoscopy Admitting Dept Virtual Department [address] [place] [address] Social History Tobacco Use Types Packs/Day Years Used Date Smoking Tobacco: Former Cigarettes Q uit: 02/08/1997 Smokeless Tobacco: Never Alcohol Use Standard Drinks/Week Comments No 0 [...] on file Sexual Orientation Not on file documented as of this encounter Plan of Treatment Upcoming Encounters Date Type Department Care Team (Late st Contact Info) Description 12/04/2024 11:45 AM EDT Office Visit [facility] Surgery [address] [place] [address] Josue Michelle MD [address] [place] [address] [email or web address] documented as of this encounter Visit Diagnoses Not on filedocumented in this encounter Care Teams Tobacco Curer Relationship Specialty Start Date End Date Karolina Jones MD PCP - General Family Medicine 01/24/18 documented as of this encounter Additional Source Comments The information contained in this document represents components of the legal health record. It is not the complete legal health record.[facility]
--- OUTSIDE RECORDS SUMMARY | 2024-10-12 10:25 | XMS_ITS | Encounter Summary ---
Author Organization [facility] Address [address] [place] [address] Phone Care Team Providers Care Bioengineer Name Role Phone Karolina Jones MD Primary Care Provider [phone] Encounter Details Date Type Department Care Team (Late Contact Info) Description 01/27/2018 Procedure Pass [facility] Endoscopy Admitting Dept Virtual Department [address] [place] [address] Social History Tobacco Use Types Packs/Day Years Used Date Smoking Tobacco: Former Cigarettes Q uit: 02/08/1997 Smokeless Tobacco: Never Alcohol Use Standard Drinks/Week Comments No 0 (1 standard drink = 0.6 oz pur e alcohol) Comments Unknown Sex and Gender Information Value Date Recorded Sex Assigned at Not on file Legal Sex Female 9:36 PM EDT Gender Identity Not on file Sexual Orientation Not on file documented as of this encounter Plan of Treatment Upcoming Encounters Date Type Department Care Team (Late Contact Info) Description 12/04/2024 11:45 AM EDT Office Visit [facility] [place] [facility] [address] [place] [address] Josue Michelle MD [address] [place] [phone] documented as of this encounter Visit Diagnoses Not on filedocumented in this encounter Care Teams Bioengineer Relationship Specialty Start Date End Date Karolina Jones MD [email or web address] PCP - General Family Medicine 01/24/18 documented as of this encounter Additional Source Comments The information contained in this document represents components of the legal health record. It is not the complete legal health record.[facility]
--- OUTSIDE RECORDS SUMMARY | 2024-10-12 10:25 | XMS_ITS | Encounter Summary ---
Author Organization [facility] Address [address] [place] [address] Phone Care Team Providers Care Solution Design And Analysis Manager Name Role Phone Karolina Jones MD Primary Care Provider [phone] Reason for Referral * MRI/CAT Scan - Closed Specialty Diagnoses / Procedures Referred By Contac t Referred To Contact Radiology Diagnoses New daily persistent headache Procedures MRI Brain CHG MRI BRAIN CHG MRI BRAIN CONTRAST CHG MRI BRAIN COMBO Karolina Jones MD Phone: tel: fax: [email or web address] Referral ID Status Reason Start Date Expiration Date Visits Re quested Visits Authorized [id number] Closed 11/07/2020 02/05/2021 1 1 Encounter Details Date Type Department Care Team (Late st Contact Info) Description 11/08/2020 Transcribe Orders Virtual Department [address] [place] [address] Karolina Jones MD [address] [place] [address] New daily persistent headache (Primary Dx) Social History Tobacco Use Types Packs/Day Years [...] Description 12/04/2024 11:45 AM EDT Office Visit [facility] Surgery [address] [place] [address] Josue Michelle MD [address] [place] [address] [email or web address] documented as of this encounter Results * MRI BRAIN WITHOUT CONTRAST (11/15/2020 9:12 PM EDT) Anatomical Region Laterality Modality Head Magnetic Resonan ce 11/16/2020 12:1 9 PM EDT Impressions 11/16/2020 12:23 PM EDT No findings to account for the patient's symptoms. Narrative 11/16/2020 12:23 PM EDT COMPARISON: None. TECHNIQUE: Exam performed on a 1.5 Sri high-field MRI scanner. Axial T1, T2, T2*, T2 FLAIR and diffusion-weighted imaging with ADC map, sagittal T1 sequences were obtained. MRI HEAD FINDINGS: Brain: No cerebellar tonsil herniation. Pituitary gland is not enlarged. No restricted diffusion to indicate acute or subacute ischemia. No intraparenchymal susceptibility artifact to indicate hemorrhage. Solitary 1 to 2 mm right frontal lobe T2 hyperintense white matter signal which is of doubtful significance. No mass, mass effect, midline shift or extra-axial fluid collections. Ventricles: No hydrocephalus. Vasculature: Normal vascular flow-voids. Orbits: Normal. Mastoids/Middle Ear/Paranasal Sinuses: Mild left nasal septal deviation. Otherwise unremarkable. Soft Tissues: Unremarkable. Bone Marrow: Unremarkable. Procedure Note Jerry Jin MD - 11/16/2020 COMPARISON: None. TECHNIQUE: Exam performed on a 1.5 Sri high-field MRI scanner. AxialT1, T2, T2*, T2 FLAIR and diffusion-weighted imaging with ADC map,sagittal T1 sequences were obtained. MRI HEAD FINDINGS: Brain: No cerebellar tonsil herniation. Pituitary gland is not enlarged.No restricted diffusion to indicate acute or subacute ischemia. Nointraparenchymal susceptibility artifact to indicate hemorrhage. Solitary1 to 2 mm right frontal lobe T2 hyperintense white matter signal which isof doubtful significance. No mass, mass effect, midline shift orextra-axial fluid collections. Ventricles: No hydrocephalus. Vasculature: Normal vascular flow-voids. Orbits: Normal. Mastoids/Middle Ear/Paranasal Sinuses: Mild left nasal septal deviation.Otherwise unremarkable. Soft Tissues: Unremarkable. Bone Marrow: Unremarkable. IMPRESSION: No findings to account for the patient's symptoms. Karolina Jones MD IMG MR HEAD/NECK Final Resu lt documented in this encounter Visit Diagnoses Diagnosis New daily persistent headache- Primary New daily persistent headache documented in this encounter Care Teams Solution Design And Analysis Manager Relationship Specialty Start Date End Date Karolina Jones MD [email or web address] PCP - General Family Medicine 01/24/18 documented as of this encounter Additional Source Comments The information contained in this document represents components of the legal health record. It is not the complete legal health record.[facility]
--- OUTSIDE RECORDS SUMMARY | 2024-10-12 10:25 | XMS_ITS | Encounter Summary ---
Author Organization [facility] Address [address] [place] [address] Phone Care Team Providers Care Steam Engineer Name Role Phone Karolina Jones MD Primary Care Provider [phone] Encounter Details Date Type Department Care Team (Late st Contact Info) Description 11/08/2020 Procedure Pass [facility], [address] [address] Social History Tobacco Use Types Packs/Day Years [...] on file documented as of this encounter Last Filed Vital Signs Vital Sign Reading Time Taken Comments Blood Pressure - - Pulse - - Temperature - - Respiratory Rate - - Oxygen Saturation - - Inhaled Oxygen Concentration - - Weight 66.2 kg (146 lb) 11/09/2020 11:23 AM EDT Height 165.1 cm (5' 5 ) 11/09/2020 11:23 AM EDT Body Mass Index 24.3 11/09/2020 11:23 AM EDT documented in this encounter Plan of Treatment Upcoming Encounters Date Type Department Care Team (Late st Contact Info) Description 12/04/2024 11:45 AM EDT Office Visit [facility] Surgery [address] [place] [phone] Josue Michelle MD [address] [place] [address] [address] [place] [address] [email or web address] documented as of this encounter Visit Diagnoses Not on filedocumented in this encounter Care Teams Steam Engineer Relationship Specialty Start Date End Date Karolina Jones MD [email or web address] PCP - General Family Medicine 01/24/18 documented as of this encounter Additional Source Comments The information contained in this document represents components of the legal health record. It is not the complete legal health record.[facility]
== END 2024-10-12 09:37 | disposition home or self-care (01) ==
LOC: HO.MAMMO 09:36
PROVIDERS: PCP Family Medicine; Visit Provider Surgery
DX: Z12.31 Encounter for screening mammogram for malignant neoplasm of breast (principal)
CPT/HCPCS: 77063; 77067

== ENCOUNTER → 2024-10-12 09:45 | Outpatient (BNV) | payer OTHER, SELFPAY | PROVIDERS: PCP Family Medicine; Visit Provider Internal Medicine | DX: Z12.31 Encounter for screening mammogram for malignant neoplasm of breast (principal) | CPT/HCPCS: 77063; 77067 ==

== ENCOUNTER 2024-11-14 12:36 | Outpatient (REF) | payer OTHER, SELFPAY | END 2024-11-14 12:37 | disposition home or self-care (01) | LOC: HO.LNP 12:36 | PROVIDERS: PCP Family Medicine; Visit Provider Advanced Practice Midwife | DX: Z01.419 Encounter for gynecological examination (general) (routine) without abnormal findings (principal); D21.9 Benign neoplasm of connective and other soft tissue, unspecified; R87.619 Unspecified abnormal cytological findings in specimens from cervix uteri; Z11.51 Encounter for screening for human papillomavirus (HPV); Z79.810 Long term (current) use of selective estrogen receptor modulators (SERMs) | CPT/HCPCS: 87626; 88175; 99396 ==

== ENCOUNTER 2024-11-14 12:36 | Outpatient (AMB) | payer OTHER, SELFPAY ==
--- NOTE | 2024-11-14 12:40 | A.OFFVIS_ITS ---
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 Use status post breast surgery. 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 On Tamoxiphen. Wants pap today due to concerns for cancer. History of fibroids last evaluated in 2018 per patient, records are not available, she denies pelvic pain, pressure, or bloating, would like to be monitored for her fibroids. Currently occasionally sexually active, uses a lubricant. Attempting to eat a healthy diet with calcium and vitamin D and stays active with exercise. Last pap smear; 2022, negative. Last mammogram; 2024. History left breast cancer. Colonoscopy is UTD. [facility] Medical History Fibroid Lipoma History of breast cancer Invasive ductal carcinoma of left breast Left breast mass Osteoporosis Fibroids HSV infection Abnormal Pap smear of cervix Anxiety and depression Hodgkin's disease Surgical History History of evacuation of hematoma (~11/11/23) History of left total mastectomy (~11/10/23) H/O left inguinal hernia repair H/O LEEP Family History Paternal Grandfather Colon cancer Father Cancer of kidney Diabetes Mother Hyperlipidemia Social History Household Members: Spouse Housing: House Are you a primary healthcare specialist to a significant other at home: No Do you presently have visiting nurse or other home services: No Alcohol intake: never Patient Tobacco Use Status: Former Tobacco user Tobacco use type: Cigarette Second Hand Smoke Exposure: No service: No Current occupational status: employed and unemployed 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 [employer] Sexual orientation: Straight/Heterosexual Gender identity: Female Female Reproductive History Menstrual Age of Menarche: 11 Menopause type: natural Total pregnancies: 1 Ab spontaneous: 1 Date of last pap smear: 01/22/23 (HX LEEP) History of abnormal pap smear: Yes Date of Mammogram: 10/12/24 (Bi rads 1) History of abnormal mammogram: Yes Date of last Bone Density Screenin12/02/23 (Osteopenia) Review of Systems Const All systems reviewed & are unremarkable except as noted in HPI and below Reports as per HPI Eyes Reports no additional complaints ENT Reports no additional complaints Card Reports no additional complaints Resp Reports no additional complaints GI Reports as per HPI and Reports no additional complaints Reports as per HPI Musc Reports no additional complaints Skin/Breast Reports as per HPI Neuro Reports no additional complaints Psych Reports no additional complaints Endo Reports no additional complaints Cedrick/Lymph Reports no additional complaints Aller/Immun Reports no additional complaints Physical Exam Vital Signs: Last Vital Signs BP 120/60 11/14/24 12:47 BMI result Body Mass Index 23.9 Const General: cooperative, healthy appearing, no acute distress, well developed and alert Orientation/consciousness: patient oriented x3 HEENT Head: Yes normal to inspection Eyes General: appearance normal, both eyes and all related structures Neck Neck: Yes normal visual inspection Thyroid: Thyroid normal Chest Other: Status post surgical scarring Chest palpation & inspection: normal inspection of the chest and other (no puckering, dimpling, peau de orange, retraction, discharge, masses) Breast/axilla inspection: normal inspection of the breasts Breast/axilla palpation: normal palpation of the breasts Resp Effort & Inspection: normal respiratory effort GI Inspection: Yes normal to inspection Palpation (GI): Soft to palpation Rectal Exam - Female: deferred General: Yes bladder normal to palpation External Female Exam: normal external appearance and normal appearance of the urethra Speculum Exam - Vagina: normal appearance of the vagina, normal palpation, normal vaginal discharge and vagina atrophic Speculum Exam - Cervix: normal appearance of the cervix and normal palpation Bimanual exam- vagina & uterus: normal bimanual exam, normal palpation, uterine size normal, bladder normal to palpation, normal palpation and non-tender Bimanual Exam- Adnexa, other: no masses Skin General skin exam: no rashes or lesions noted Rashes: no rashes Neuro General: patient oriented x3 Cognition (Neuro): normal cognition Extrem General: Yes normal to inspection Psych Attitude: cooperative Thought process: Normal thought process present Assessment & Plan Assessment & Plan (1) Encounter for annual routine gynecological examination: Code(s): Z01.419 - Encounter for gynecological examination (general) (routine) without abnormal findings Category: Medical Plan: Discussed: Current recommendations for pap smears per ASCCP guidelines. Pap obtained for per patient request. Await results for final plan of care. Breast awareness, periodic self breast exams and yearly mammogram. Maintain a healthy lifestyle, well balanced diet including Calcium 1,200 mg and Vitamin D 600 IU daily, and routine exercise. Contact the office with any postmenopausal bleeding. Patient verbalizes understanding and agrees to the plan of care. She was given opportunity to ask questions and all questions were answered to the best of my ability. RTO in 1 year for annual flat bed operator exam. This note is constructed using voice recognition software. While every effort has been made to ensure accuracy, travel assistant errors may have been included. (2) Fibroid: Code(s): D21.9 - Benign neoplasm of connective and other soft tissue, unspecified Plan Plan pelvic ultrasound to check for fibroids. Follow up pending results in person. The patient expressed understanding and agreement with the plan of care. All of her questions and concerns were addressed to the best of my ability. Orders: Orders US pelvic and transvaginal Today D21.9 - Benign neoplasm of connective and other soft tissue, unspecified Pap Smear Today R87.619 - Unspecified abnormal cytological findings in specimens from cervix uteri, Z01.419 - Encounter for gynecological examination (general) (routine) without abnormal findings Coding Level of Care Code Est Pt Prev Care 40-64y(92863) Diagnoses Encounter for annual routine gynecological examination Z01.419 Fibroid D21.9
[2024-11-14 12:47] VITALS: BP 120/60; BMI 23.9
--- OUTSIDE RECORDS SUMMARY | 2024-11-14 15:26 | XMS_ITS | Clinical Summary ---
Author Organization [facility] Address [address] [place] [address] Phone Care Team Providers Care Fish Smoker Name Role Phone Karolina Jones MD Primary [...] Active Active Problems No known active problems Family History Medical History Relation Comments Cancer [...] Description 12/04/2024 11:45 AM EDT Office Visit [facility] [address] [place] [address] Josue Michelle MD 40 [facility], [address] [place] [address] [email or web address] Due Date Last Done Comments [...] 10/30/2018, 11/07/2017, Additional history exists COVID-19 VACCINE ( - season) 2024 03/22/2020, 2020 SMOKING Hx [...] Askew MD - 02/18/2023 9:47 AM EST [facility] Patient Name: Marybel Rodriguez Attending MD:: WERNER ASKEW MD, Procedure Date: 02/18/2023 9:47 AM Date of : 1970 Age: 52 Admit Type: Outpatient Gender: Female Room: [place] [address] Referring MD: Karolina Jones MD Exam Type: [...] monitored continuously. The Olympus adult variable colonoscope [id number] #2 was introduced through the anus and [...] 9:47 AM Procedure Code(s): --- Professional --- 07161, Colonoscopy, flexible; with removal of tumor(s), polyp(s), or other lesion(s) by snare technique --- Technical --- 66752, Colonoscopy, flexible; with removal of tumor(s), polyp(s), or other lesion(s) by snare technique Diagnosis Code(s): --- Professional --- Z86.010, Personal history of colonic polyps D12.0, Benign neoplasm of cecum --- Technical --- Z86.010, Personal history of colonic polyps D12.0, Benign neoplasm of cecum CPT copyright 2021 [employer]. All rights reserved. The codes documented in this report are preliminary and upon toe pounder reviewmay be revised to meet current compliance requirements. Procedure Date: 02/18/2023 9:47:[address] [place] [address] us Karolina Jones MD GI PROCEDURE ORDERABLES Fin al Result from Last 3 Months or Most Recently Relevant to Health Maintenance Insurance CONNECTORCARE DIRECT CONNECTORCARE DIRECT CONNECTORCARE DIRECT CONNECTORCARE DIRECT CONNECTORCARE DIRECT CONNECTORCARE DIRECT CONNECTORCARE DIRECT CONNECTORCARE DIRECT CONNECTORCARE DIRECT Care Teams Fish Smoker Relationship Specialty Start Date End Date Karolina Jones MD [email or web address] PCP - General Family Medicine 01/24/18 Additional Source Comments The information contained in this document represents components of the legal health record. It is not the complete legal health record.[facility]
--- OUTSIDE RECORDS SUMMARY | 2024-11-14 15:26 | XMS_ITS | Encounter Summary ---
Author Organization [facility] Address [address] [place] [address] [place] [address] Phone Care Team Providers Care Surveillance Specialist Name Role Phone Karolina Jones MD Primary Care Provider [phone] Encounter Details Date Type Department Care Team (Late st Contact Info) Description 02/18/2023 Procedure Pass [facility] Endoscopy Admitting Dept Virtual Department [address] [place] [address] Social History Tobacco Use Types Packs/Day Years [...] Description 12/04/2024 11:45 AM EDT Office Visit [facility] Surgery [address] [place] [address] Josue Michelle MD [address] [place] [address] [email or web address] documented as of this encounter Visit Diagnoses Not on filedocumented in this encounter Care Teams Surveillance Specialist Relationship Specialty Start Date End Date Karolina Jones MD PCP - General Family Medicine 01/24/18 documented as of this encounter Additional Source Comments The information contained in this document represents components of the legal health record. It is not the complete legal health record.[facility]
--- OUTSIDE RECORDS SUMMARY | 2024-11-14 15:26 | XMS_ITS | Encounter Summary ---
Author Organization [facility] Address [address] [place] [address] Phone Care Team Providers Care Fingernail Sculptor Name Role Phone Karolina Jones MD Primary Care Provider [phone] Encounter Details Date Type Department Care Team (Late st Contact Info) Description 11/08/2020 Procedure Pass [facility], [address] [address] Social History Tobacco Use Types Packs/Day Years [...] Description 12/04/2024 11:45 AM EDT Office Visit [facility] Pl[facility] Surgery [address] [place] [address] Josue Michelle MD [address] [place] [address] [address] [place] [address] [email or web address] documented as of this encounter Visit Diagnoses Not on filedocumented in this encounter Care Teams Fingernail Sculptor Relationship Specialty Start Date End Date Karolina Jones MD [email or web address] PCP - General Family Medicine 01/24/18 documented as of this encounter Additional Source Comments The information contained in this document represents components of the legal health record. It is not the complete legal health record.[facility]
--- OUTSIDE RECORDS SUMMARY | 2024-11-14 15:26 | XMS_ITS | Encounter Summary ---
Author Organization [facility] Address [address] [place] [address] Phone Care Team Providers Care Combination Saw Operator Name Role Phone Karolina Jones MD Primary Care Provider [phone] Reason for Referral * MRI/CAT Scan - Closed Specialty Diagnoses / Procedures Referred By Contac t Referred To Contact Radiology Diagnoses New daily persistent headache Procedures MRI Brain CHG MRI BRAIN CHG MRI BRAIN CONTRAST CHG MRI BRAIN COMBO Karolina Jones MD Phone: tel: fax: [email or web address] Referral ID Status Reason Start Date Expiration Date Visits Re quested Visits Authorized [id number] Closed 11/07/2020 02/05/2021 1 1 Encounter Details Date Type Department Care Team (Late st Contact Info) Description 11/08/2020 Transcribe Orders Virtual Department [address] [place] [address] Karolina Jones MD [address] [place] [address] New daily persistent headache (Primary Dx) Social [...] Description 12/04/2024 11:45 AM EDT Office Visit [facility] Plastic Surgery [address] [place] [address] Josue Michelle MD [address] [place] [address] [email or web address] documented as of this encounter Results * [...] headache documented in this encounter Care Teams Combination Saw Operator Relationship Specialty Start Date End Date Karolina Jones MD [email or web address] PCP - General Family Medicine 01/24/18 documented as of this encounter Additional Source Comments The information contained in this document represents components of the legal health record. It is not the complete legal health record.[facility]
--- OUTSIDE RECORDS SUMMARY | 2024-11-14 15:26 | XMS_ITS | Encounter Summary ---
Author Organization [facility] Address [address] [place] [address] Phone Care Team Providers Care Lean Manufacturing Coordinator Name Role Phone Karolina Jones MD Primary Care Provider [phone] Encounter Details Date Type Department Care Team (Late Contact Info) Description 01/27/2018 Procedure Pass [facility] Endoscopy Admitting Dept Virtual Department [address] [place] [address] Social History Tobacco Use Types Packs/Day Years [...] Description 12/04/2024 11:45 AM EDT Office Visit [facility] [place] [facility] [address] [place] [address] Josue Michelle MD [address] [place] [address] documented as of this encounter Visit Diagnoses Not on filedocumented in this encounter Care Teams Lean Manufacturing Coordinator Relationship Specialty Start Date End Date Karolina Jones MD [email or web address] PCP - General Family Medicine 01/24/18 documented as of this encounter Additional Source Comments The information contained in this document represents components of the legal health record. It is not the complete legal health record.[facility]
--- OUTSIDE RECORDS SUMMARY | 2024-11-14 15:26 | XMS_ITS | Clinical Summary ---
Author Organization [facility] Address [address] [place] [address] Care Team Providers Care Scoop Driver Name Role Phone Karolina Jones MD Primary Care Provider Allergies Active Allergy Reactions Criticality Noted Date Comments Penicillins 01/21/2017 Medications Medication Sig Dispensed Refills Start Date End Date Status simvastatin (ZOCOR) tablet 20 mg Take 1 tablet (20 mg total) by mouth every night at bedtime. 0 Active [place]-3 Fatty Acids (FISH OIL PO) Take by [...] age to complete this topic Care Teams Scoop Driver Relationship Specialty Start Date End Date Karolina Jones MD [address] [place] [address] PCP - General Family Medicine 01/22/17
== END 2024-11-14 13:45 | disposition home or self-care (01) ==
LOC: HO.HWS 12:36
PROVIDERS: PCP Family Medicine; Visit Provider Advanced Practice Midwife
DX: Z01.419 Encounter for gynecological examination (general) (routine) without abnormal findings (principal); D21.9 Benign neoplasm of connective and other soft tissue, unspecified
CPT/HCPCS: 99396; 99459

== ENCOUNTER 2024-11-14 13:55 | Outpatient (REF) | payer OTHER, SELFPAY | END 2024-11-14 13:56 | disposition home or self-care (01) | LOC: HO.LNP 13:55 | PROVIDERS: Visit Provider Advanced Practice Midwife | DX: Z13.89 Encounter for screening for other disorder (principal) ==

== ENCOUNTER 2024-11-22 09:47 | Outpatient (AMB) | payer OTHER, SELFPAY ==
--- NOTE | 2024-11-22 09:51 | A.OFFVIS_ITS ---
Vital Signs 11/22/24 09:55 Height 5 ft 5 in Weight 143 lb BMI 23.8 Intake Visit Reasons: s/p mammogram Sept Intake Note: Patient presents to breast exam, mammo results. Pt c/o; no breast complaints at this time. 10/12/2024- MM Screening Facility Coordinator Required: No Accompanied by: Mother Allergies penicillin V Allergy (Unknown, Verified 11/22/24 09:56) rash Latex Allergy (Unknown, Uncoded 11/22/24 09:56) rash/hive HPI HPI s/p mammogram Sept: Details: She is here for follow-up for her history of breast cancer. She had undergone mastectomy with sentinel biopsy of the left breast for invasive ductal carcinoma, T1 N1, last November,. She had completed chemotherapy for this as well. She had a mammogram done last 2024 for the left breast. This was a BI-RADS 1 mammogram with no evidence of malignancy She denies any new complaints She does state that she has seen a plastic surgeon for possible reconstruction and prophylactic mastectomy of the right breast. [facility] Medical History Fibroid Lipoma History of breast cancer Invasive ductal carcinoma of left breast Left breast mass Osteoporosis Fibroids HSV infection Abnormal Pap smear of cervix Anxiety and depression Hodgkin's disease Surgical History History of evacuation of hematoma (~11/11/23) History of left total mastectomy (~11/10/23) H/O left inguinal hernia repair H/O LEEP Family History Paternal Grandfather Colon cancer Father Cancer of kidney Diabetes Mother Hyperlipidemia Social History Household Members: Spouse Housing: House Are you a primary childcare director to a significant other at home: No Do you presently have visiting nurse or other home services: No Alcohol intake: never Patient Tobacco Use Status: Former Tobacco user Tobacco use type: Cigarette Second Hand Smoke Exposure: No service: No Current occupational status: employed and unemployed 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 [employer] Sexual orientation: Straight/Heterosexual Gender identity: Female Female Reproductive History Menstrual Age of Menarche: 11 Review of Systems Const Denies chills and Denies fever(s) Card Denies chest pain, Denies dyspnea and Denies dyspnea on exertion Resp Denies cough, Denies dyspnea and Denies dyspnea on exertion GI Denies hematochezia and Denies change in bowel habits Denies hematuria Musc Denies back pain and Denies limited range of motion Neuro Denies focal weakness and Denies convulsions Psych Denies depression and Denies mood swings Physical Exam Vital Signs: BMI result Body Mass Index 23.8 Const General: comfortable and no acute distress Orientation/consciousness: patient oriented x3 Neck Neck: Yes no lymphadenopathy Chest Other: Mastectomy site on the left with no palpable mass, no axillary lymphadenopathy Right breast with no palpable mass, no axillary lymphadenopathy Resp Auscultation: clear to auscultation bilaterally Cardio Rhythm: regular rhythm GI Palpation (GI): Soft to palpation, nontender and no guarding Neuro General: patient oriented x3 Assessment & Plan Assessment & Plan (1) History of breast cancer: Code(s): Z85.3 - Personal history of malignant neoplasm of breast Category: Medical Plan: Status post mastectomy and sentinel biopsy for the left breast. I do not feel any palpable mass on the chest wall on the left nor in the breast on the right. She has no axillary lymphadenopathy Her mammogram for right breast last month did not reveal any suggestion of any malignancy. She says she had just seen a plastic surgeon for possible reconstruction as well as prophylactic mastectomy for the right breast. She says she no longer feels that question of a lump on the right flank area that she felt last September. I will see her again in the office in about 6 months. Coding Level of Care Code Est Pt Level 3 (61492) Complex EM visit Add On G2211 Diagnoses History of breast cancer Z85.3
[2024-11-22 09:55] VITALS: BMI 23.8
--- OUTSIDE RECORDS SUMMARY | 2024-11-22 11:16 | XMS_ITS | Encounter Summary ---
Author Organization [facility] Address [address] [place] [address] Phone Care Team Providers Care Staff Home Therapy Rn Name Role Phone Karolina Jones MD Primary Care Provider Encounter Details Date Type Department Care Team (Late st Contact Info) Description 11/08/2020 Procedure Pass [facility], [address] [address] Social History Tobacco Use Types Packs/Day Years [...] Description 12/04/2024 11:45 AM EDT Office Visit [facility] Plastic Surgery [address] [place] [address] Josue Michelle MD [address] [place] [address] [address] [place] [address] [email or web address] documented as of this encounter Visit Diagnoses Not on filedocumented in this encounter Care Teams Staff Home Therapy Rn Relationship Specialty Start Date End Date Karolina Jones MD [email or web address] PCP - General Family Medicine 01/24/18 documented as of this encounter Additional Source Comments The information contained in this document represents components of the legal health record. It is not the complete legal health record.[facility]
--- OUTSIDE RECORDS SUMMARY | 2024-11-22 11:16 | XMS_ITS | Clinical Summary ---
Author Organization [facility] Address [address] [place] [address] Care Team Providers Care Chemical Engineering Technician Name Role Phone Karolina Jones MD Primary Care Provider Allergies Active Allergy Reactions Criticality Noted Date Comments Penicillins 01/21/2017 Medications Medication Sig Dispensed Refills Start Date End Date Status simvastatin (ZOCOR) tablet 20 mg Take 1 tablet (20 mg total) by mouth every night at bedtime. 0 Active [place]-3 Fatty Acids (FISH OIL PO) Take by [...] age to complete this topic Care Teams Chemical Engineering Technician Relationship Specialty Start Date End Date Karolina Jones MD [address] [place] [address] PCP - General Family Medicine 01/22/17
--- OUTSIDE RECORDS SUMMARY | 2024-11-22 11:16 | XMS_ITS | Encounter Summary ---
Author Organization [facility] Address [address] [place] [address] Phone Care Team Providers Care Mold Filler And Drainer Name Role Phone Karolina Jones MD Primary Care Provider [phone]- [phone] Encounter Details Date Type Department Care Team (Late Contact Info) Description 01/27/2018 Procedure Pass [facility] Endoscopy Admitting Dept Virtual Department [address] [place] [address] Social History Tobacco Use Types Packs/Day Years [...] Description 12/04/2024 11:45 AM EDT Office Visit [facility] [place] [facility] [address] [place] [address] Josue Michelle MD [address] [place] [address] documented as of this encounter Visit Diagnoses Not on filedocumented in this encounter Care Teams Mold Filler And Drainer Relationship Specialty Start Date End Date Karolina Jones MD [email or web address] PCP - General Family Medicine 01/24/18 documented as of this encounter Additional Source Comments The information contained in this document represents components of the legal health record. It is not the complete legal health record.[facility]
--- OUTSIDE RECORDS SUMMARY | 2024-11-22 11:16 | XMS_ITS | Encounter Summary ---
Author Organization [facility] Address [address] [place] [address] [place] [address] Phone Care Team Providers Care Medical Assistant Prn Name Role Phone Karolina Jones MD Primary Care Provider +1- [phone] Encounter Details Date Type Department Care Team (Late st Contact Info) Description 02/18/2023 Procedure Pass [facility] Endoscopy Admitting Dept Virtual Department [address] [place] [address] Social History Tobacco Use Types Packs/Day Years [...] Description 12/04/2024 11:45 AM EDT Office Visit [facility] Plastic Surgery [address] [place] [address] Josue Michelle MD [address] [place] [address] [email or web address] documented as of this encounter Visit Diagnoses Not on filedocumented in this encounter Care Teams Medical Assistant Prn Relationship Specialty Start Date End Date Karolina Jones MD PCP - General Family Medicine 01/24/18 documented as of this encounter Additional Source Comments The information contained in this document represents components of the legal health record. It is not the complete legal health record.[facility]
--- OUTSIDE RECORDS SUMMARY | 2024-11-22 11:16 | XMS_ITS | Encounter Summary ---
Author Organization [facility] Address [address] [place] [address] Phone Care Team Providers Care Nutrition Services Manager Name Role Phone Karolina Jones MD Primary Care Provider [phone]- [phone] Reason for Referral * MRI/CAT Scan - Closed Specialty Diagnoses / Procedures Referred By Contac t Referred To Contact Radiology Diagnoses New daily persistent headache Procedures MRI Brain CHG MRI BRAIN CHG MRI BRAIN CONTRAST CHG MRI BRAIN COMBO Karolina Jones MD Phone: tel: fax: [email or web address] Referral ID Status Reason Start Date Expiration Date Visits Re quested Visits Authorized [id number] Closed 11/07/2020 02/05/2021 1 1 Encounter Details Date Type Department Care Team (Late st Contact Info) Description 11/08/2020 Transcribe Orders Virtual Department [address] [place] [address] Karolina Jones MD [address] [place] [address] [email or web address] New daily persistent headache (Primary Dx) Social [...] Description 12/04/2024 11:45 AM EDT Office Visit [facility] Plastic Surgery [address] [place] [address] Josue Michelle MD [address] [place] [address] [email or web address] documented as of this encounter Results * [...] headache documented in this encounter Care Teams Nutrition Services Manager Relationship Specialty Start Date End Date Karolina Jones MD [email or web address] PCP - General Family Medicine 01/24/18 documented as of this encounter Additional Source Comments The information contained in this document represents components of the legal health record. It is not the complete legal health record.[facility]
--- OUTSIDE RECORDS SUMMARY | 2024-11-22 11:16 | XMS_ITS | Clinical Summary ---
Author Organization [facility] Address [address] [place] [address] Phone Care Team Providers Care Client Partner Name Role Phone Karolina Jones MD Primary [...] 12/04/2024 11:45 AM EDT Office Visit [facility] Plastic Surgery [address] [place] [address] Josue Michelle MD 40 [facility], [address] [place] [address] Health Maintenance Due Date Last Done Comments [...] 02/18/2033 02/18/2023, 01/27/2018 COLORECTAL CANCER SCREENING 02/18/2033 RSV VACCINE (1 - 1-dose 75+ series) 2044 HEPATITIS A VACCINES Aged Out No long [...] Askew MD - 02/18/2023 9:47 AM EST [facility] Patient Name: Marybel Michael Attending MD:: WERNER ASKEW MD, Procedure Date: 02/18/2023 9:47 AM Date of : 1970 Age: 52 Admit Type: Outpatient Gender: Female Room: [place] [address] Referring MD: Karolina Jones MD Exam Type: [...] monitored continuously. The Olympus adult variable colonoscope [id number] #2 was introduced through the anus and [...] 9:47 AM Procedure Code(s): --- Professional --- 74974, Colonoscopy, flexible; with removal of tumor(s), polyp(s), or other lesion(s) by snare technique --- Technical --- 87754, Colonoscopy, flexible; with removal of tumor(s), polyp(s), or other lesion(s) by snare technique Diagnosis Code(s): --- Professional --- Z86.010, Personal history of colonic polyps D12.0, Benign neoplasm of cecum --- Technical --- Z86.010, Personal history of colonic polyps D12.0, Benign neoplasm of cecum CPT copyright 202 [employer]. All rights reserved. The codes documented in this report are preliminary and upon auditing coder reviewmay be revised to meet current compliance requirements. Procedure Date: 02/18/2023 9:47:[address] [place] [address] us Karolina Jones MD GI PROCEDURE ORDERABLES Fin al Result from Last 3 Months or Most Recently Relevant to Health Maintenance Insurance [employer] DIRECT CONNE[employer]CARE DIRECT CONNECTORCARE [place] [address] [place] [address] [employer] DIRECT [employer] DIRECT [employer] DIRECT [employer] [place] [address] [address] CONNECTORCARE DIRECT [facility] CONNECTORCARE DIRECT Care Teams Client Partner Relationship Specialty Start Date End Date Karolina Jones MD [email or web address] PCP - General Family Medicine 01/24/18 Additional Source Comments The information contained in this document represents components of the legal health record. It is not the complete legal health record.[facility]
== END 2024-11-22 10:16 | disposition home or self-care (01) ==
LOC: HO.HGS 09:48
PROVIDERS: PCP Family Medicine; Visit Provider Surgery
DX: Z85.3 Personal history of malignant neoplasm of breast (principal)
CPT/HCPCS: 99213

== ENCOUNTER → 2024-11-22 09:47 | Outpatient (BNVA) | payer OTHER, SELFPAY | PROVIDERS: PCP Family Medicine; Visit Provider Surgery | DX: Z85.3 Personal history of malignant neoplasm of breast (principal) | CPT/HCPCS: 99212 ==

== ENCOUNTER 2025-01-10 11:24 | Outpatient (REF) | payer OTHER, SELFPAY ==
--- OUTSIDE RECORDS SUMMARY | 2022-03-26 08:00 | XMS_ITS | Continuity of Care Document ---
Author Organization [facility] Address [address] [place] [address] [address] [place] [phone] Phone Care Team Providers Care Jewelry Dipper Name Role Phone August ROMO FACS RVT Betty ANDINO Unavailable Unavailable Allergies, Adverse Reactions, Alerts Substance Reaction Status Criticality latex Active No Information Medications Medication Instructions Dosage Effective Dates (start - stop) Status Comments FISH OIL (unknown strength) Not Available - Active GLUCOSAMINE SULFATE (unknown strength) Not Available - Active SIMVASTATIN (unknown strength) take 1 tablet by oral route every day in the evening Not Available - Active Procedures Procedure Date No Charge For Services Advance Directives Directive Yes / No Effective Date File Name No Information Encounters Encounter Description Practice Location Reason(s) For Visit Diagnoses Date Provider Providers Copied on Encounter [facility], [address] [place] [address] [address], [place], [id number], [place] tel:[phone] [place] [facility] - (Telangiec vanessa) 3 August ROMO FACS RVAdry Alaniz. [address] [facility] [address], [place], [address], [place]. tel:[phone] Referring Provider: Miriam Calvin PA-C , [address] [place] [address], [address]. tel:[phone] Family History Family Member Type Diagnosis Age At Onset No Information Payers Payer name Insurance type Covered green party ID Authoriza tion(s) Self Pay 09 Social History Type Description Quantity Date Captured Comments Alcohol Use Details No Caffeine Use Details Unknown Tobacco Use Status Current non-smoker Smoking Status Never smoker Non-Smoking Tobacco Use Details : No Details Available : No Details Available Sex Female Chief Complaint And Reason For Visit No Information Reason For Referral Reason For Referral No Information History Of Present Illness Encounter Date Complaint History Of Prese nt Illness No Information Functional Status Date Functional Assessmen t No Information Instructions Date Instruction Additional Infor mation No Information Assessments Type Assessment Date assessment [facility] - (Telangiectasia) Patient Care Teams Name Effective Dates (start - stop) Status Members No Information
--- NOTE | ~2025-01-10 | US_ITS ---
CLINICAL HISTORY: D21.9 - Benign neoplasm of connective and other soft tissue, unspecified US pelvis transabdominal and transvaginal with Doppler Comparison: None provided Findings: Transabdominal scanning performed for overall anatomy. Transvaginal scanning performed for additional detail. Uterus is 7.6 cm length. Multiple uterine fibroids: 1.1 x 1 x 1 cm fundal fibroid; 1.5 x 1.3 x 1.8 cm fundal fibroid with calcification; 0.6 x 0.5 x 0.6 cm in the body with calcification Endometrium 3.0 mm thickness. Right ovary 2.7 x 1.3 x 1.1 cm. Left ovary 3.3 x 1.9 x 2.6 cm. 2.2 x 1.6 x 1.9 cm cyst with internal calcification. Normal color Doppler with arterial/venous spectral tracing of both ovaries. No free fluid. IMPRESSION: Multiple uterine fibroids. Cyst of the left ovary with internal calcification. This document has been electronically signed by: Conor Lee MD on 01/10/2025 13:55:36
--- OUTSIDE RECORDS SUMMARY | 2025-01-10 13:47 | XMS_ITS | Clinical Summary ---
Author Organization [facility] Prior to 07/08/[address] [place] [address] Care Team Providers Care Patent Engineer Name Role Phone Karolina Jones MD Primary Care Provider [phone] [phone] Allergies Active Allergy Reactions Criticality Noted Date Comments Penicillins 01/21/2017 Medications Medication Sig Dispensed Refills Start Date End Date Status simvastatin (ZOCOR) tablet 20 mg Take 1 tablet (20 mg total) by mouth every night at bedtime. 0 Active Barrett-3 Fatty Acids (FISH OIL PO) Take by [...] age to complete this topic Care Teams Patent Engineer Relationship Specialty Start Date End Date Karolina Jones MD [address] [place] [address] PCP - General Family Medicine 01/22/17
--- OUTSIDE RECORDS SUMMARY | 2025-01-10 13:47 | XMS_ITS | Encounter Summary ---
Author Organization [facility] Address [address] [place] [address] Phone Care Team Providers Care Dog Daycare Provider Name Role Phone Karolina Jones MD Primary Care Provider [phone]- [phone] Encounter Details Date Type Department Care Team (Late st Contact Info) Description 02/18/2023 Procedure Pass [facility] Endoscopy Admitting Dept Virtual Department [address] [place] [address] Social History Tobacco Use Types Packs/Day Years [...] Care Team (Late st Contact Info) Description 04/02/2025 12:15 PM EST Office Visit [facility] Plastic Surgery [address] [place] [address] Josue Michelle MD [address] [place] [address] 04/17/2025 Procedure Pass [place] Admitting Dept - Virtual Department [address] [place] [address] 04/17/2025 7:30 AM EDT Hospital Encounter OR Admitting Dept - Virtual Department [address] [place] [address] Josue Michelle MD [address] [place] [address] 04/17/2025 7:30 AM EDT - 04/17/2025 10:33 AM EDT Surgery OR Admitting Dept - Virtual Department [address] [place] [address] Josue Michelle MD [address] [place] [address] MASTECTOMY 04/23/2025 10:00 AM EDT Office Visit [facility] Plastic Surgery [address] [place] [address] Ashley Carrero PA-C [address] [place] [address] 04/30/2025 10:30 AM EDT Office Visit [facility] Plastic Surgery [address] [place] [address] Ashley Carrero PA-C [address] [place] [address], [address] [place] [address] [email or web address] Scheduled Procedures Name Priority Associated Diagnoses Date/Ti me MASTECTOMY Breast asymmetry between [place] breast and reconstructed breast 04/17/2025 7:30 AM EDT REVISION SCAR Breast asymmetry between [place] breast and reconstructed breast 04/17/2025 7:30 AM EDT documented as of this encounter Visit Diagnoses Not on filedocumented in this encounter Care Teams Dog Daycare Provider Relationship Specialty Start Date End Date Karolina Jones MD [email or web address] PCP - General Family Medicine 01/24/18 documented as of this encounter Additional Source Comments The information contained in this document represents components of the legal health record. It is not the complete legal health record.[facility]
--- OUTSIDE RECORDS SUMMARY | 2025-01-10 13:47 | XMS_ITS | Encounter Summary ---
Author Organization [facility] Address [address] [place] [address] Phone Care Team Providers Care Certified Hyperbaric Technologist Name Role Phone Karolina Jones MD Primary Care Provider Encounter Details Date Type Department Care Team (Late Contact Info) Description 01/27/2018 Procedure Pass [facility] Endoscopy Admitting Dept Virtual Department [address] [place] [address] Social History Tobacco Use Types Packs/Day Years [...] Department Care Team (Late Contact Info) Description 04/02/2025 12:15 PM EST Office Visit [facility] Plastic Surgery [address] [place] [address] Josue Michelle MD [address] [place] [address], [address] [address] 04/17/2025 Procedure Pass OR Admitting Dept - Virtual Department [address] [place] [address] 04/17/2025 7:30 AM EDT Hospital Encounter OR Admitting Dept - Virtual Department [address] [place] [address] Josue Michelle MD [address] [place] [address], [address] [address] 04/17/2025 7:30 AM EDT - 04/17/2025 10:33 AM EDT Surgery OR Admitting Dept - Virtual Department [address] [place] [address] Josue Michelle MD [address] [place] [address] MASTECTOMY 04/23/2025 10:00 AM EDT Office Visit [facility] Plastic Surgery [address] [place] [address] Ashley Carrero PA-C [address] [place] [address] 04/30/2025 10:30 AM EDT Office Visit [facility] Plastic Surgery [address] [place] [address] Ashley Carrero PA-C [address] [place] [address] Scheduled Procedures Name Priority Associated Diagnoses Date/Ti me MASTECTOMY Breast asymmetry between [place] breast and reconstructed breast 04/17/2025 7:30 AM EDT REVISION SCAR Breast asymmetry between [place] breast and reconstructed breast 04/17/2025 7:30 AM EDT documented as of this encounter Visit Diagnoses Not on filedocumented in this encounter Care Teams Certified Hyperbaric Technologist Relationship Specialty Start Date End Date Karolina Jones MD PCP - General Family Medicine 01/24/18 documented as of this encounter Additional Source Comments The information contained in this document represents components of the legal health record. It is not the complete legal health record.[facility]
--- OUTSIDE RECORDS SUMMARY | 2025-01-10 13:47 | XMS_ITS | Clinical Summary ---
Author Organization [facility] Address [address] [place] [address] Phone Care Team Providers Care Audit Reviewer Name Role Phone Karolina Jones MD Primary [...] Take 1 tablet by mouth every morning. Active tamoxifen (NOLVADEX) 20 MG tablet Take 1 tablet by mouth every morning. Active Medication-Free TextIndications :Magnesium gummies, viactin chews 650mg 2 daily Indications: Magnesium gummies, viactin chews 650mg 2 daily Active cholecalciferol (VITAMIN D3) 25 MCG (1,000 unit) tablet Take 1,000 Units by mouth. 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 Dr Michelle said she can get in removed. Pt informed.) 12/05/[address] [facility] Plastic Surgery [address] [place] [address] Josue Michelle MD Surgery 12/04/2024 11:45 AM EDT Office Visit [facility] Plastic Surgery [address] [place] [address] Josue Michelle MD S/P left mastectomy (Primary Dx); Invasive ductal carcinoma of breast, stage 2, left; Breast asymmetry between [place] breast and reconstructed breast; Scar condition and fibrosis of skin from Last 3 Months Family History Medical [...] Sign Reading Time Taken Comments Blood Pressure 115/71 12/04/2024 11:44 AM EDT Pulse 90 12/04/2024 11:44 AM EDT Temperature 36.2 C (97.2 F) 02/18/2023 10:30 AM EST Respiratory Rate 14 02/18/2023 10:45 AM EST Oxygen Saturation 98% 02/18/2023 10:45 AM EST Inhaled Oxygen Concentration - - Weight 65.3 kg (144 lb) 12/04/2024 11:44 AM EDT Height 165.1 cm (5' 5 ) 07/17/2024 2:00 PM EDT Body Mass Index 23.96 07/17/2024 2:00 PM EDT Plan of Treatment Upcoming Encounters Date Type Department Care Team (Late st Contact Info) Description 04/02/2025 12:15 PM EST Office Visit [facility] Plastic Surgery [address] [place] [address] Josue Michelle MD [address] [place] [address] [email or web address] 04/17/2025 Procedure Pass OR Admitting Dept - Virtual Department [address] [place] [address] 04/17/2025 7:30 AM EDT Hospital Encounter OR Admitting Dept - Virtual Department [address] [place] [address] Josue Michelle MD [address] [place] [address] [email or web address] 04/17/2025 7:30 AM EDT - 04/17/2025 10:33 AM EDT Surgery OR Admitting Dept - Virtual Department [address] [place] [address] Josue Michelle MD [address] [place] [address], [address] [address] MASTECTOMY 04/23/2025 10:00 AM EDT Office Visit [facility] Plastic Surgery [address] [place] [address] Ashley Carrero PA-C [address] [place] [address] 04/30/2025 10:30 AM EDT Office Visit [facility] Plastic Surgery [address] [place] [address] Ashley Carrero PA-C [address] [place] [address] Scheduled Procedures Name Priority Associated Diagnoses Date/Ti me MASTECTOMY Breast asymmetry between [place] breast and reconstructed breast 04/17/2025 7:30 AM EDT REVISION SCAR Breast asymmetry between [place] breast and reconstructed breast 04/17/2025 7:30 AM EDT Health Maintenance Due Date Last Done Comments LIPID PANEL 1970 DEPRESSION SCREENING 1981 HEPATITIS C SCREENING 1987 HIV ONE-TIME SCREENING (18-65 YEARS) 1987 PNEUMOCOCCAL VACCINES (50+ years) (1 of 2 - PCV) 1988 ZOSTER VACCINES (1 of 2) 1988 PAP SMEAR 1990 MAMMOGRAM 2009 COLOGUARD 2014 FIT TEST 2014 FOBT 2014 SIGMOIDOSCOPY 2014 VIRTUAL COLONOSCOPY 2014 Adult Td,Tdap Booster 12/19/2020 12/19/2010 INFLUENZA VACCINE (#1) 2024 , 10/30/2018, 11/07/2017, Additional history exists COVID-19 VACCINE ( season) 2024 03/22/2020, 2020 SMOKING Hx and SMOKELESS TOBACCO SCREENING 07/17/2025 07/17/2024 COLONOSCOPY 02/19/2028 02/18/2023, 01/27/2018 COLORECTAL CANCER SCREENING 02/19/2028 RSV VACCINE (1 - 1-dose 75+ series) [...] Askew MD - 02/18/2023 9:47 AM EST [facility] Patient Name: Marybel Rodriguez Attending MD:: WERNER ASKEW MD, Procedure Date: 02/18/2023 9:47 AM Date of : 1970 Age: 52 Admit Type: Outpatient Gender: Female Room: [place] [address] Referring MD: Karolina Jones MD Exam Type: [...] monitored continuously. The Olympus adult variable colonoscope [id number] #2 was introduced through the anus and [...] 9:47 AM Procedure Code(s): --- Professional --- 37799, Colonoscopy, flexible; with removal of tumor(s), polyp(s), or other lesion(s) by snare technique --- Technical --- 69427, Colonoscopy, flexible; with removal of tumor(s), polyp(s), or other lesion(s) by snare technique Diagnosis Code(s): --- Professional --- Z86.010, Personal history of colonic polyps D12.0, Benign neoplasm of cecum --- Technical --- Z86.010, Personal history of colonic polyps D12.0, Benign neoplasm of cecum CPT copyright 2021 [employer]. All rights reserved. The codes documented in this report are preliminary and upon price accuracy supervisor reviewmay be revised to meet current compliance requirements. Procedure Date: 02/18/2023 9:47:[address] [place] [address] Karolina Jones MD GI PROCEDURE ORDERABLES Fin al Result from Last 3 Months or Most Recently Relevant to Health Maintenance Insurance [employer] [facility] CONNECTORCARE DIRECT [employer] DIRECT [employer] DIRECT [employer] DIRECT [employer] DIRECT [employer] DIRECT [employer] DIRECT Care Teams Audit Reviewer Relationship Specialty Start Date End Date Karolina Jones MD [email or web address] PCP - General Family Medicine 01/24/18 Additional Source Comments The information contained in this document represents components of the legal health record. It is not the complete legal health record.[facility]
--- OUTSIDE RECORDS SUMMARY | 2025-01-10 13:47 | XMS_ITS | Encounter Summary ---
Author Organization [facility] Address [address] [place] [address] Phone Care Team Providers Care Tile Inspector Name Role Phone Karolina Jones MD Primary Care Provider [phone]- [phone] Encounter Details Date Type Department Care Team (Late st Contact Info) Description 11/08/2020 Procedure Pass [facility], [address] [address] Social History Tobacco Use Types Packs/Day Years [...] Description 04/02/2025 12:15 PM EST Office Visit [facility] Plastic Surgery [address] [place] [address] Josue Michelle MD [address] [place] [address], [address] [address] 04/17/2025 Procedure Pass OR Admitting Dept - Virtual Department [address] [place] [address] 04/17/2025 7:30 AM EDT Hospital Encounter OR Admitting Dept - Virtual Department [address] [place] [address] Josue Michelle MD [address] [place] [address], [address] [address] 04/17/2025 7:30 AM EDT - 04/17/2025 10:33 AM EDT Surgery OR Admitting Dept - Virtual Department [address] [place] [address] Josue Michelle MD [address] [place] [address], [address] [address] MASTECTOMY 04/23/2025 10:00 AM EDT Office Visit [facility] Plastic Surgery [address] [place] [address] Ashley Carrero PA-C [address] [place] [address] 04/30/2025 10:30 AM EDT Office Visit [facility] Plastic Surgery [address] [place] [address] Ashley Carrero PA-C [address] [place] [address] Scheduled Procedures Name Priority Associated Diagnoses Date/Ti me MASTECTOMY Breast asymmetry between [place] breast and reconstructed breast 04/17/2025 7:30 AM EDT REVISION SCAR Breast asymmetry between [place] breast and reconstructed breast 04/17/2025 7:30 AM EDT documented as of this encounter Visit Diagnoses Not on filedocumented in this encounter Care Teams Tile Inspector Relationship Specialty Start Date End Date Karolina Jones MD [email or web address] PCP - General Family Medicine 01/24/18 documented as of this encounter Additional Source Comments The information contained in this document represents components of the legal health record. It is not the complete legal health record.[facility]
--- OUTSIDE RECORDS SUMMARY | 2025-01-10 13:47 | XMS_ITS | Encounter Summary ---
Author Organization [facility] Address [address] [place] [address] Phone Care Team Providers Care Contracting Manager Name Role Phone Karolina Jones MD Primary Care Provider [phone]- [phone] Reason for Referral * MRI/CAT Scan - Closed Specialty Diagnoses / Procedures Referred By Contac t Referred To Contact Radiology Diagnoses New daily persistent headache Procedures MRI Brain CHG MRI BRAIN CHG MRI BRAIN CONTRAST CHG MRI BRAIN COMBO Karolina Jones MD Phone: tel: fax: mailto:[email or web address] Referral ID Status Reason Start Date Expiration Date Visits Re quested Visits Authorized [id number] Closed 11/07/2020 02/05/2021 1 1 Encounter Details Date Type Department Care Team (Late st Contact Info) Description 11/08/2020 Transcribe Orders Virtual Department [address] [place] [address] Karolina Jones MD [address] [place] [address] [email or web address] New daily persistent headache (Primary Dx) Social [...] Description 04/02/2025 12:15 PM EST Office Visit [facility] Plastic Surgery [address] [place] [address] Josue Michelle MD [address] [place] [address] 04/17/2025 Procedure Pass OR Admitting Dept - Virtual Department [address] [place] [address] 04/17/2025 7:30 AM EDT Hospital Encounter OR Admitting Dept - Virtual Department [address] [place] [address] Josue Michelle MD [address] [place] [address] 04/17/2025 7:30 AM EDT - 04/17/2025 10:33 AM EDT Surgery OR Admitting Dept - Virtual Department [address] [place] [address] Josue Michelle MD [address] [place] [address] MASTECTOMY 04/23/2025 10:00 AM EDT Office Visit [facility] Plastic Surgery [address] [place] [address] Ashley Carrero PA-C [address] [place] [address] 04/30/2025 10:30 AM EDT Office Visit [facility] Plastic Surgery [address] [place] [address] Ashley Carrero PA-C [address] [place] [address], [address] [place] [address] [email or web address] Scheduled Procedures Name Priority Associated Diagnoses Date/Ti me MASTECTOMY Breast asymmetry between [place] breast and reconstructed breast 04/17/2025 7:30 AM EDT REVISION SCAR Breast asymmetry between [place] breast and reconstructed breast 04/17/2025 7:30 AM EDT documented as of this encounter Results * [...] findings to account for the patient's symptoms. us Karolina Jones MD IMG MR HEAD/NECK Final Resu lt documented in this encounter Visit Diagnoses Diagnosis New daily persistent headache- Primary New daily persistent headache documented in this encounter Care Teams Contracting Manager Relationship Specialty Start Date End Date Karolina Jones MD [email or web address] PCP - General Family Medicine 01/24/18 documented as of this encounter Additional Source Comments The information contained in this document represents components of the legal health record. It is not the complete legal health record.[facility]
== END 2025-01-10 11:25 | disposition home or self-care (01) ==
LOC: HO.US 11:24
PROVIDERS: PCP Family Medicine; Visit Provider Advanced Practice Midwife
DX: D21.9 Benign neoplasm of connective and other soft tissue, unspecified (principal)
CPT/HCPCS: 76830; 76856

== ENCOUNTER → 2025-01-10 11:26 | Outpatient (BNV) | payer OTHER, SELFPAY | PROVIDERS: PCP Family Medicine; Visit Provider Nuclear Medicine | DX: D25.9 Leiomyoma of uterus, unspecified (principal); N83.202 Unspecified ovarian cyst, left side | CPT/HCPCS: 76830; 76856 ==

== ENCOUNTER → 2025-01-16 15:19 | Outpatient (BNVA) | payer OTHER, SELFPAY | PROVIDERS: PCP Family Medicine; Visit Provider Advanced Practice Midwife | DX: N83.202 Unspecified ovarian cyst, left side (principal); D25.9 Leiomyoma of uterus, unspecified; C50.912 Malignant neoplasm of unspecified site of left female breast; F41.9 Anxiety disorder, unspecified; Z78.9 Other specified health status | CPT/HCPCS: 99212 ==